=== PATIENT | male | born 1955 | race Caucasian/White ===

== ENCOUNTER 2020-03-20 02:20 | Outpatient (CLI) | payer OTHER, SELFPAY ==
[2020-03-20 17:33] LABS: ALT 21 U/L (16-63); AST 12 U/L (15-37); Albumin 3.9 g/dL (3.4-5.0); Alkaline Phosphatase 68 U/L (46-116); Anion Gap 10.5 mmol/L (3-11); BUN 14 mg/dL (7-18); Bilirubin, Total 0.5 mg/dL (0.2-1.0); CO2 25.5 mmol/L (21.0-32.0); Calcium 9.4 mg/dL (8.5-10.1); Calculated LDL 100 mg/dL (<100); Chloride 107 mmol/L (98-107); Cholesterol 144 mg/dL (<200); Glucose 104 mg/dL (74-106); HDL Cholesterol 35 mg/dL (40-60); Potassium 4.1 mmol/L (3.5-5.1); Sodium 143 mmol/L (136-145); Triglyceride 46 mg/dL (<150)
== END 2020-03-20 02:40 ==
PROVIDERS: PCP Nurse Practitioner; Referring Provider Nurse Practitioner; Visit Provider Nurse Practitioner
DX: I10 Essential (primary) hypertension (principal); R73.01 Impaired fasting glucose; E78.5 Hyperlipidemia, unspecified
CPT/HCPCS: 36415; 80053; 80061

== ENCOUNTER 2021-04-17 03:36 | Outpatient (CLI) | payer OTHER, SELFPAY ==
[2021-04-17 07:44] LABS: HCT 43.7 % (40.0-50.0); HGB 14.6 g/dL (13.5-17.5); MCHC 33.4 % (32.0-36.0); MCV 89.9 fL (80-95); MPV 10.8 fL (8.0-11.0); Platelet Count 249 10^3/uL (130-400); RBC 4.86 10^6/uL (4.36-5.78); RDW 12.9 % (11.8-14.1); RDW-SD 42.5 fL; WBC 9.96 10^3/uL (4.4-10.8)
[2021-04-17 07:44] LABS: Bilirubin Negative (Negative); Blood Negative (Negative); Clarity Clear (Clear); Glucose Negative (Negative); Ketones Negative (Negative); Leukocyte Esterase Negative (Negative); Nitrite Negative (Negative); Specific Gravity 1.025 (1.005-1.025); Urobilinogen 0.2 EU/dL (Up TO 0.2)
[2021-04-17 08:59] LABS: Microalb ug/mg Crea 3.9 ug/mg Cr
[2021-04-17 09:05] LABS: ALT 30 U/L (16-63); AST 15 U/L (15-37); Albumin 3.9 g/dL (3.4-5.0); Alkaline Phosphatase 78 U/L (46-116); Anion Gap 11.5 mmol/L (3-11); BUN 13 mg/dL (7-18); Bilirubin, Total 0.3 mg/dL (0.2-1.0); CO2 25.5 mmol/L (21.0-32.0); CREATININE 0.9 mg/dL (0.70-1.30); Calcium 9.4 mg/dL (8.5-10.1); Calculated LDL 110 mg/dL (<100); Chloride 104 mmol/L (98-107); Cholesterol 166 mg/dL (<200); Glucose 118 mg/dL (74-106); HDL Cholesterol 38 mg/dL (40-60); Potassium 4.6 mmol/L (3.5-5.1); Sodium 141 mmol/L (136-145); Total Protein 7.3 g/dL (6.4-8.2); Triglyceride 91 mg/dL (<150)
== END 2021-04-17 03:37 | disposition home or self-care (01) ==
LOC: LBO 03:36
PROVIDERS: PCP Nurse Practitioner; Visit Provider Nurse Practitioner
DX: Z00.00 Encounter for general adult medical examination without abnormal findings (principal); E11.9 Type 2 diabetes mellitus without complications; E78.5 Hyperlipidemia, unspecified; I10 Essential (primary) hypertension
CPT/HCPCS: 36415; 80053; 80061; 85027; 81003; 82043; 82570

== ENCOUNTER 2022-04-14 02:39 | Outpatient (CLI) | payer OTHER, SELFPAY ==
[2022-04-14 12:10] LABS: ALT 19 U/L (16-63); AST 13 U/L (15-37); Albumin 3.3 g/dL (3.4-5.0); Alkaline Phosphatase 71 U/L (46-116); Anion Gap 9.6 mmol/L (3-11); BUN 14 mg/dL (7-18); Bilirubin, Total 0.3 mg/dL (0.2-1.0); CO2 28.4 mmol/L (21.0-32.0); CREATININE 0.7 mg/dL (0.70-1.30); Calcium 9.2 mg/dL (8.5-10.1); Calculated LDL 87 mg/dL (<100); Chloride 104 mmol/L (98-107); Cholesterol 140 mg/dL (<200); Estimated GFR 101.62 (mL/min/1.73m2); Glucose 108 mg/dL (74-106); HDL Cholesterol 42 mg/dL (40-60); Potassium 4.3 mmol/L (3.5-5.1); Sodium 142 mmol/L (136-145); Total Protein 7.9 g/dL (6.4-8.2); Triglyceride 57 mg/dL (<150)
== END 2022-04-14 02:40 | disposition home or self-care (01) ==
LOC: LBO 02:39
PROVIDERS: PCP Nurse Practitioner; Visit Provider Nurse Practitioner
DX: E11.9 Type 2 diabetes mellitus without complications (principal); I10 Essential (primary) hypertension
CPT/HCPCS: 36415; 80053; 80061

== ENCOUNTER 2022-07-23 12:03 | Outpatient (CLI) | payer OTHER, SELFPAY ==
[2022-07-23 11:44] LABS: Abs Immature Grans 0.11 10^3/uL (0.0-0.06); Absolute Lymphocyte Count 1.39 10^3/uL (1.2-3.4); Basophils % 0.2; ESR 54 mm/hr (0-20); Eosinophils % 0.3; HCT 40.3 % (40.0-50.0); HGB 13.2 g/dL (13.5-17.5); Immature Grans % 0.5; Lymphocytes % 6.7; MCH 28.4 pg (27.0-33.0); MCHC 32.8 % (32.0-36.0); MCV 87 fL (80-95); MPV 10.3 fL (8.0-11.0); Neutrophils % 85.3; Platelet Count 271 10^3/uL (130-400); RBC 4.65 10^6/uL (4.36-5.78); RDW 14.5 % (11.8-14.1); RDW-SD 46.6 fL; WBC 20.81 10^3/uL (4.4-10.8)
[2022-07-23 11:46] LABS: Absolute Basophil Count 0.04 10^3/uL (0.0-0.2); Absolute Eosinophil Count 0.06 10^3/uL (0.0-0.7); Absolute Monocyte Count 1.46 10^3/uL (0.1-0.8); Absolute Neutrophil Count 17.75 10^3/uL (1.2-6.7)
--- OUTSIDE RECORDS SUMMARY | 2022-07-23 12:06 | XMS_ITS | Continuity of Care Document ---
:1955 Author Organization [facility] e Address [address] [place] [address] Care Team Providers Name Role Phone JEANETTE GONZALEZ Primary Care Physician Encounter LTTL_OR FIN NBR [id number] Date(s): 07/22/22 - 07/22/[address] [id number] [place] Encounter Diagnosis Cellulitis (Discharge Diagnosis) - 07/22/22 Dehydration (Discharge Diagnosis) - 07/22/22 Syncope (Discharge Diagnosis) - 07/22/22 Discharge Disposition: Home or Self Care Attending Physician: Brady Pope DO Admitting Physician: Brady Pope DO Allergies, Adverse Reactions, Alerts Substance Reaction Severity Status penicillin Unknown Active Functional Status 07/22/22 Other exposure to Infectious Disease None Medications Bactrim DS 800 mg-160 mg oral tablet 1 tab, Oral, BID, # 20 tab, 0 Refill(s) Start Date: 07/22/22 Stop Date: 08/01/22 Status: Orderedcephalexin 500 mg oral capsule 500 mg = 1 cap, Oral, every 6 hr, # 40 cap, 0 Refill(s) Start Date: 07/22/22 Stop Date: 08/01/22 Status: OrderedhydroCHLOROthiazide 0 Refill(s) Start Date: 07/22/22 Status: Orderedlisinopril 0 Refill(s) Start Date: 07/22/22 Status: OrderedmetFORMIN 0 Refill(s) Start Date: 07/22/22 Status: Ordered Mental Status 07/22/22 Eye Opening Response [place] Spontaneously Best Verbal Response [place] Oriented Best Motor Response Seun Obeys commands [place] Coma Score 15 Results Laboratory List Name Date .Manual Differential (LTTL) 07/22/22 BNP 07/22/22 CBC w/ Diff 07/22/22 Comprehensive Metabolic Panel 07/22/22 Lactic Acid 07/22/22 Magnesium Level 07/22/22 PT/ INR 07/22/22 SARS-CoV-2 (COVID-19)/Flu/RSV ([facility]) 07/22/22 Troponin-I 07/22/22 Glucose POCT 07/22/22 Most recent to oldest [Reference Range]: 1 WBC [4.8-10.8 K/mcL] 23.0 K/mcL *HI* (07/22/22 8:20 AM) RBC [4.20-6.10 Million/mcL] 4.50 Million/mcL (07/22/22 8:20 AM) Segs Man 88 *NA* (07/22/22 8:20 AM) Lymph Man [20.5-51.1 %] 4.0 % *LOW* (07/22/22 8:20 AM) Ness Man [1.7-9.3 %] 7.0 % (07/22/22 8:20 AM) Eos Man [0.00-3.00 %] 0.00 % (07/22/22 8:20 AM) Prothrombin Time [9.1-10.6 seconds] 10.7 seconds *HI* (07/22/22 8:20 AM) INR [0.9-1.1] 1.1 (07/22/22 8:20 AM) BUN [8-26 mg/dL] 13 mg/dL (07/22/22 8:20 AM) Glucose POC 225 *NA* (07/22/22 8:10 AM) Glucose Level [74-106 mg/dL] 214 mg/dL *HI* (07/22/22 8:20 AM) Potassium Level [3.5-5.1 mmol/L] 3.7 mmol/L (07/22/22 8:20 AM) MCV [80.0-99.0 fL] 88.7 fL (07/22/22 8:20 AM) RBC Morph [Normal] Normal (07/22/22 8:20 AM) AST [15-41 IntlUnit/L] 16 IntlUnit/L (07/22/22 8:20 AM) ALT [17-63 IntlUnit/L] 11 IntlUnit/L *LOW* (07/22/22 8:20 AM) MCHC [32.0-36.0 g/dL] 32.3 g/dL (07/22/22 8:20 AM) Osmolality [275-295 mOsm/kg] 265 mOsm/kg *LOW* (07/22/22 AM) Troponin-I [<=0.05 ng/mL] <0.01 ng/mL (07/22/22: AM) Sodium Level [134-143 mmol/L] 129 mmol/L *LOW* (07/22/22 AM) Hct [37.0-52.0 %] 39.9 % (07/22/22: AM) Calcium Level [8.9-10.3 mg/dL] 9.2 mg/dL (07/22/22 AM) Albumin Level [3.5-5.0 g/dL] 3.4 g/dL *LOW* (07/22/22 AM) Protein Total [6.5-8.1 g/dL] 7.9 g/dL (07/22/22: AM) MCH [27.0-31.0 pg] 28.7 pg (07/22/22: AM) Magnesium Level [1.8-2.5 mg/dL] 2.0 mg/dL (07/22/22: AM) Bilirubin Total [0.2-1.2 mg/dL] 0.6 mg/dL (07/22/22 8:20 AM) Hgb [12.0-18.0 g/dL] 12.9 g/dL (07/22/22 8: AM) Alk Phos [38-130 IntlUnit/L] 65 IntlUnit/L (07/22/22 8:20 AM) MPV [7.4-10.4 fL] 11.2 fL *HI* (07/22/22 8: AM) Band Man 1 % *NA* (07/22/22 AM) Platelets [130-400 K/mcL] 256 K/mcL (07/22/22 8:20 AM) CO2 [22-32 mmol/L] 24 mmol/L (07/22/22 8:20 AM) Lactic Acid Lvl [0.5-2.2 mmol/L] 2.8 mmol/L *HI* (07/22/22 8:20 AM) eGFR Non-AA 104 *NA* (07/22/22 8:20 AM) eGFR AA 104 *NA* (07/22/22 8:20 AM) BNP [<=100 pg/mL] 37 pg/mL (07/22/22 8:20 AM) Chloride Level [98-111 mmol/L] 94 mmol/L *LOW* (07/22/22 8:20 AM) RDW-CV [11.5-14.5 %] 14.8 % *HI* (07/22/22 8:20 AM) A/G Ratio 0.8 *NA* (07/22/22 8:20 AM) BUN/Creat Ratio [8.0-20.0] 20.0 (07/22/22 8:20 AM) Globulin 4.5 *NA* (07/22/22 8:20 AM) Abs Baso Man [0.0-0.2 K/mcL] 0.0 K/mcL (07/22/22 8:20 AM) Abs Eos Man [0.0-0.2 K/mcL] 0.0 K/mcL (07/22/22 8:20 AM) Abs Lymph Man [1.2-3.4 K/mcL] 0.9 K/mcL *LOW* (07/22/22 8:20 AM) Abs Ness Man [0.1-0.6 K/mcL] 1.6 K/mcL *HI* (07/22/22 8:20 AM) Abs Neut Man [1.4-6.5 K/mcL] 20.5 K/mcL *HI* (07/22/22 8:20 AM) Creatinine Level [0.61-1.24 mg/dL] 0.65 mg/dL (07/22/22 8:20 AM) Plt Estimation Normal (07/22/22 8:20 AM) Employed in healthcare? No *NA* (07/22/22 8:20 AM) Symptomatic as defined by CDC? Unknown *NA* (07/22/22 8:20 AM) Hospitalized due to COVID-19? Unknown *NA* (07/22/22 8:20 AM) In ICU? No *NA* (07/22/22 8:20 AM) Group care resident? Unknown *NA* (07/22/22 8:20 AM) status? Unknown *NA* (07/22/22 8:20 AM) SARS-CoV-2(Covid19)PCR([facility]Xpert COVFLURSV) [Negative] Ne gative (07/22/22 8:20 AM) Flu A ([facility]pert COVFLURSV) [Negative] Negative (07/22/22 8:20 AM) RSV ([facility]Xpert COVFLURSV) [Negative] Negative (07/22/22 8:20 AM) Flu B (GXpert COVFLURSV) [Negative] Negative (07/22/22 8:20 AM) Anion Gap [3.0-12.0] 11.0 (07/22/22 8:20 AM) Baso Man [0.0-0.8 %] 0.0 % (07/22/22 8:20 AM) Orders for Microbiology Reports Name Date Blood Culture 07/22/22 Blood Culture 07/22/22 Microbiology Reports TEST:Blood Culture STATUS:Order in Progress BODY SITE:Left Arm SOURCE:Blood COLLECTED DATE/TIME:07/22/22 8:35 AMPRELIMINARY REPORTNo growth at 1 day. TEST:Blood Culture STATUS:Order in Progress BODY SITE:Right Arm SOURCE:Blood COLLECTED DATE/TIME:07/22/22 8:30 AMPRELIMINARY REPORTNo growth at 1 day. Radiology Reports Exam Date Time Procedure Performing Provider Status 07/22/22 9:14 AM XR Chest 2 Views Luba Alva; Auth (Verified ) Notes:(XR Chest 2 Views) Reason For Exam: Altered Mental StatusXR Chest 2 Views EXAM DESCRIPTION: XR Chest 2 Views 07/22/2022 INDICATION: ALTERED MENTAL STATUS COMPARISON: None FINDINGS: Clear lungs with no focal infiltrate or pulmonary edema. Normal cardiomediastinal contour. Normal pleural margins with no pleural effusion or pneumothorax. Spondylotic changes of the dorsal spine. IMPRESSION: No active chest disease. JOB #: [id number] Final Signed by: Johnny Blanco MD Signed (Electronic Signature): 07/22/2022 9:18 am Exam Date Time Procedure Performing Provider Status 07/22/22 9:[address] Head w/o Contrast Mónica Oscar; Demian (Ver ied) Notes:(CT Head w/o Contrast) Reason For Exam: Altered Mental StatusCT Head w/o Contrast EXAM DESCRIPTION: CT Head w/o Contrast 07/22/2022 INDICATION: ALTERED MENTAL STATUS TECHNIQUE: All CT scans at this facility use at least one of these dose optimization techniques: Automated exposure control; mA and/or kV adjustment per patient size (includes targeted exams where dose is matched to clinical indication); or iterative reconstruction. Axial CT images of the head without contrast. COMPARISON: None FINDINGS: No acute intracranial hemorrhage, mass effect or midline shift. Prominence of the ventricular system and cortical sulci consistent with generalized cerebral atrophy. Cuevas-white differentiation is maintained. Basal cisterns remain patent. The calvarium appears intact. Right maxillary, bilateral ethmoid and bilateral sphenoid sinus mucosal thickening with right frontal sinus mucosal thickening. IMPRESSION: No acute intracranial hemorrhage, mass effect or midline shift. Mild generalized cerebral atrophy. JOB #: [id number] Final Signed by: Johnny Blanco MD Signed (Electronic Signature): 07/22/2022 9:17 am Vital Signs Most recent to oldest 1 2 3 [Reference Range]: Temperature Temporal Artery 36.2 Deg C 36.5 Deg C [36-38 Deg C] (07/22/22 11:00 AM) (07/22/22 7:57 AM) Temperature Temporal Artery 97.16 Deg F (DegF) [97.3-100 Deg F] *LOW* (07/22/22 11:00 AM) Peripheral Pulse Rate 101 bpm 100 bpm [60-100 bpm] *HI* (07/22/22 7:57 AM) (07/22/22 9:00 AM) Heart Rate Monitored [60-100 96 bpm 91 bpm 93 bpm bpm] (07/22/22 11:00 AM) (07/22/22 10:30 AM) (07/22/22 1 0:00 AM) Respiratory Rate [12-24 18 br/min 23 br/min 21 br/mi n br/min] (07/22/22 11:00 AM) (07/22/22 10:30 AM) (07/22/22 1 0:00 AM) Blood Pressure [90-140/60-90 114/63 mmHg 135/68 mmHg 131 /76 mmHg mmHg] (07/22/22 11:00 AM) (07/22/22 10:30 AM) (07/22/22 1 0:00 AM) Mean Arterial Pressure Cuff 78 mmHg 86 mmHg 92 m mHg (07/22/22 11:00 AM) (07/22/22 10:30 AM) (07/22/22 1 0:00 AM) Weight Dosing 79.00 kg (07/22/22 8:12 AM) Weight Estimated 79.00 kg (07/22/22 7:57 AM) Height/Length Dosing 177.000 cm (07/22/22 8:12 AM) Height/Length Estimated 177.000 cm (07/22/22 7:57 AM) Social History Social History Type Response Tobacco Never tobacco user Tobacco U se:. Sex Hospital Discharge Instructions Patient Ucnwirdyp16/08/2022 09:53:37SyncopeSyncope Syncope refers to a condition in which a person temporarily loses consciousness. Syncope may also becalled fainting or passing out. It is caused by a sudden decrease in blood flow to the brain. Even though most causes of syncope are not dangerous, syncope can be a sign of a serious medical problem. Your health care provider may do tests to find the reason why you are having syncope. Signs that you may be about to faint include: ??? Feeling dizzy or light-headed. ??? Feeling nauseous. ??? Seeing all white or all black in your field of vision. ??? Having cold, clammy skin. If you faint, get medical help right away. Call your local emergency services (911 in the [place] Do not drive yourself to the hospital. Follow these instructions at home: Pay attention to any changes in your symptoms. Take these actions to stay safe and to help relieve your symptoms: Lifestyle ??? Do not drive, use machinery, or play sports until your health care provider says it is okay. ??? Do not drink alcohol. ??? Do not use any products that contain nicotine or tobacco, such as cigarettes and e-cigarettes. If you need help quitting, ask your health care provider. ??? Drink enough fluid to keep your urine pale yellow. General instructions ??? Take tlzg-ckm-lkvixei and prescription medicines only as told by your health care provider. ??? If you are taking blood pressure or heart medicine, get up slowly and take several minutes to sit and then stand. This can reduce dizziness or light-headedness. ??? Have someone stay with you until you feel stable. ??? If you start to feel like you might faint, lie down right away and raise (elevate) your feet above the level of your heart. Breathe deeply and steadily. Wait until all the symptoms have passed. ??? Keep all follow-up visits as told by your health care provider. This is important. Get help right away if you: ??? Have a severe headache. ??? Faint once or repeatedly. ??? Have pain in your chest, abdomen, or back. ??? Have a very fast or irregular heartbeat (palpitations). ??? Have pain when you breathe. ??? Are bleeding from your mouth or rectum, or you have black or tarry stool. ??? Have a seizure. ??? Are confused. ??? Have trouble walking. ??? Have severe weakness. ??? Have vision problems. These symptoms may represent a serious problem that is an emergency. Do not wait to see if your symptoms will go away. Get medical help right away. Call your local emergency services (911 in the [place]Do not drive yourself to the hospital. Summary ??? Syncope refers to a condition in which a person temporarily loses consciousness. It is caused bya sudden decrease in blood flow to the brain. ??? Signs that you may be about to faint include dizziness, feeling light- headed, feeling nauseous, sudden vision changes, or cold, clammy skin. ??? Although most causes of syncope are not dangerous, syncope can be a sign of a serious medical problem. If you faint, get medical help right away. This information is not intended to replace advice given to you by your health care provider. Make sure you discuss any questions you have with your health care provider. Document Revised: 11/11/2020 Document Reviewed: 12/11/2020 [employer] Patient Education ?? 2021 [employer]. 07/22/2022 09:53:33Dehydration, AdultDehydration, Adult Dehydration is a condition in which there is not enough water or other fluids in the body. This happens when a person loses more fluids than he or she takes in. Important organs, such as the kidneys, brain, and heart, cannot function without a proper amount of fluids. Any loss of fluids from the body can lead to dehydration. Dehydration can be mild, moderate, or severe. It should be treated right away to prevent it from becoming severe. What are the causes? Dehydration may be caused by: ??? Conditions that cause loss of water or other fluids, such as diarrhea, vomiting, or sweating or urinating a lot. ??? Not drinking enough fluids, especially when you are ill or doing activities that require a lot of energy. ??? Other illnesses and conditions, such as fever or infection. ??? Certain medicines, such as medicines that remove excess fluid from the body (diuretics). ??? Lack of safe drinking water. ??? Not being able to get enough water and food. What increases the risk? The following factors may make you more likely to develop this condition: ??? Having a long-term (chronic) illness that has not been treated properly, such as diabetes, heartdisease, or kidney disease. ??? Being 65 years of age or older. ??? Having a disability. ??? Living in a place that is high in altitude, where thinner, ore storage drier air causes more fluid loss. ??? Doing exercises that put stress on your body for a long time (endurance sports). What are the signs or symptoms? Symptoms of dehydration depend on how severe it is. Mild or moderate dehydration ??? Thirst. ??? Dry lips or dry mouth. ??? Dizziness or light-headedness, especially when standing up from a seated position. ??? Muscle cramps. ??? Dark urine. Urine may be the color of tea. ??? Less urine or tears produced than usual. ??? Headache. Severe dehydration ??? Changes in skin. Your skin may be cold and clammy, blotchy, or pale. Your skin also may not return to normal after being lightly pinched and released. ??? Little or no tears, urine, or sweat. ??? Changes in vital signs, such as rapid breathing and low blood pressure. Your pulse may be weak or may be faster than 100 beats a minute when you are sitting still. ??? Other changes, such as: ??? Feeling very thirsty. ??? Sunken eyes. ??? Cold hands and feet. ??? Confusion. ??? Being very tired (lethargic) or having trouble waking from sleep. ??? Short-term weight loss. ??? Loss of consciousness. How is this diagnosed? This condition is diagnosed based on your symptoms and a physical exam. You may have blood and urinetests to help confirm the diagnosis. How is this treated? Treatment for this condition depends on how severe it is. Treatment should be started right away. Donot wait until dehydration becomes severe. Severe dehydration is an emergency and needs to be treated in a hospital. ??? Mild or moderate dehydration can be treated at home. You may be asked to: ??? Drink more fluids. ??? Drink an oral rehydration solution (ORS). This drink helps restore proper amounts of fluids and salts and minerals in the blood (electrolytes). ??? Severe dehydration can be treated: ??? With IV fluids. ??? By correcting abnormal levels of electrolytes. This is often done by giving electrolytes througha tube that is passed through your nose and into your stomach (nasogastric tube, or NG tube). ??? By treating the underlying cause of dehydration. Follow these instructions at home: Oral rehydration solution If told by your health care provider, drink an ORS: ??? Make an ORS by following instructions on the package. ??? Start by drinking small amounts, about ?? cup (120 mL) every 5???10 minutes. ??? Slowly increase how much you drink until you have taken the amount recommended by your health care provider. Eating and drinking ??? Drink enough clear fluid to keep your urine pale yellow. If you were told to drink an ORS, finish the ORS first and then start slowly drinking other clear fluids. Drink fluids such as: ??? Water. Do not drink only water. Doing that can lead to hyponatremia, which is having too little salt (sodium) in the body. ??? Water from ice chips you suck on. ??? Fruit juice that you have added water to (diluted fruit juice). ??? Low-calorie sports drinks. ??? Eat foods that contain a healthy balance of electrolytes, such as bananas, oranges, potatoes, tomatoes, and spinach. ??? Do not drink alcohol. ??? Avoid the following: ??? Drinks that contain a lot of sugar. These include high-calorie sports drinks, fruit juice that is not diluted, and soda. ??? Caffeine. ??? Foods that are greasy or contain a lot of fat or sugar. General instructions ??? Take zzvp-ndi-ihbpwek and prescription medicines only as told by your health care provider. ??? Do not take sodium tablets. Doing that can lead to having too much sodium in the body (hypernatremia). ??? Return to your normal activities as told by your health care provider. Ask your health care provider what activities are safe for you. ??? Keep all follow-up visits as told by your health care provider. This is important. Contact a health care provider if: ??? You have muscle cramps, pain, or discomfort, such as: ??? Pain in your abdomen and the pain gets worse or stays in one area (localizes). ??? Stiff neck. ??? You have a rash. ??? You are more irritable than usual. ??? You are sleepier or have a harder time waking than usual. ??? You feel weak or dizzy. ??? You feel very thirsty. Get help right away if you have: ??? Any symptoms of severe dehydration. ??? Symptoms of vomiting, such as: ??? You cannot eat or drink without vomiting. ??? Vomiting gets worse or does not go away. ??? Vomit includes blood or green matter (bile). ??? Symptoms that get worse with treatment. ??? A fever. ??? A severe headache. ??? Problems with urination or bowel movements, such as: ??? Diarrhea that gets worse or does not go away. ??? Blood in your stool (feces). This may cause stool to look black and tarry. ??? Not urinating, or urinating only a small amount of very dark urine, within 6???8 hours. ??? Trouble breathing. These symptoms may represent a serious problem that is an emergency. Do not wait to see if the symptoms will go away. Get medical help right away. Call your local emergency services (911 in the [place] Do not drive yourself to the hospital. Summary ??? Dehydration is a condition in which there is not enough water or other fluids in the body. This happens when a person loses more fluids than he or she takes in. ??? Treatment for this condition depends on how severe it is. Treatment should be started right away. Do not wait until dehydration becomes severe. ??? Drink enough clear fluid to keep your urine pale yellow. If you were told to drink an oral rehydration solution (ORS), finish the ORS first and then start slowly drinking other clear fluids. ??? Take ubuh-bdi-zfqdhbd and prescription medicines only as told by your health care provider. ??? Get help right away if you have any symptoms of severe dehydration. This information is not intended to replace advice given to you by your health care provider. Make sure you discuss any questions you have with your health care provider. Document Revised: 03/13/2020 Document Reviewed: 03/13/2020 [employer] Patient Education ?? 2021 [employer]. 07/22/2022 09:53:30Cellulitis, AdultCellulitis, Adult Cellulitis is a skin infection. The infected area is usually warm, red, swollen, and tender. This condition occurs most often in the arms and lower legs. The infection can travel to the muscles, blood,and underlying tissue and become serious. It is very important to get treated for this condition. What are the causes? Cellulitis is caused by bacteria. The bacteria enter through a break in the skin, such as a cut, burn, insect bite, open sore, or crack. What increases the risk? This condition is more likely to occur in people who: ??? Have a weak body defense system (immune system). ??? Have open wounds on the skin, such as cuts, tripp, bites, and scrapes. Bacteria can enter the body through these open wounds. ??? Are older than 60 years of age. ??? Have diabetes. ??? Have a type of long-lasting (chronic) liver disease (cirrhosis) or kidney disease. ??? Are obese. ??? Have a skin condition such as: ??? Itchy rash (eczema). ??? Slow movement of blood in the veins (venous stasis). ??? Fluid buildup below the skin (edema). ??? Have had radiation therapy. ??? Use IV drugs. What are the signs or symptoms? Symptoms of this condition include: ??? Redness, streaking, or spotting on the skin. ??? Swollen area of the skin. ??? Tenderness or pain when an area of the skin is touched. ??? Warm skin. ??? A fever. ??? Chills. ??? Blisters. How is this diagnosed? This condition is diagnosed based on a medical history and physical exam. You may also have tests, including: ??? Blood tests. ??? Imaging tests. How is this treated? Treatment for this condition may include: ??? Medicines, such as antibiotic medicines or medicines to treat allergies (antihistamines). ??? Supportive care, such as rest and application of cold or warm cloths (compresses) to the skin. ??? Hospital care, if the condition is severe. The infection usually starts to get better within 1???2 days of treatment. Follow these instructions at home: Medicines ??? Take aols-uzq-tqenazd and prescription medicines only as told by your health care provider. ??? If you were prescribed an antibiotic medicine, take it as told by your health care provider. Do not stop taking the antibiotic even if you start to feel better. General instructions ??? Drink enough fluid to keep your urine pale yellow. ??? Do not touch or rub the infected area. ??? Raise (elevate) the infected area above the level of your heart while you are sitting or lying down. ??? Apply warm or cold compresses to the affected area as told by your health care provider. ??? Keep all follow-up visits as told by your health care provider. This is important. These visits let your health care provider make sure a more serious infection is not developing. Contact a health care provider if: ??? You have a fever. ??? Your symptoms do not begin to improve within 1???2 days of starting treatment. ??? Your bone or joint underneath the infected area becomes painful after the skin has healed. ??? Your infection returns in the same area or another area. ??? You notice a swollen bump in the infected area. ??? You develop new symptoms. ??? You have a general ill feeling (malaise) with muscle aches and pains. Get help right away if: ??? Your symptoms get worse. ??? You feel very sleepy. ??? You develop vomiting or diarrhea that persists. ??? You notice red streaks coming from the infected area. ??? Your red area gets larger or turns dark in color. These symptoms may represent a serious problem that is an emergency. Do not wait to see if the symptoms will go away. Get medical help right away. Call your local emergency services (911 in the [place] Do not drive yourself to the hospital. Summary ??? Cellulitis is a skin infection. This condition occurs most often in the arms and lower legs. ??? Treatment for this condition may include medicines, such as antibiotic medicines or antihistamines. ??? Take lbzo-ftc-vkbokeb and prescription medicines only as told by your health care provider. If you were prescribed an antibiotic medicine, do not stop taking the antibiotic even if you start to feel better. ??? Contact a health care provider if your symptoms do not begin to improve within 1???2 days of starting treatment or your symptoms get worse. ??? Keep all follow-up visits as told by your health care provider. This is important. These visits let your health care provider make sure that a more serious infection is not developing. This information is not intended to replace advice given to you by your health care provider. Make sure you discuss any questions you have with your health care provider. Document Revised: 08/11/2020 Document Reviewed: 12/21/2018 [employer] Patient Education ?? 2021 [employer]. Follow Up Care07/22/2022 07:57:46With:JEANETTE GONZALEZ Address: [address] [place] [address]- When:3 to 5 daysDavidHirschMDLittleton [facility] Discharge instructions Event Display: Discharge Instructions Physician Emergency department Note Krish Ott MD: PERFORM Event Display: ED Note Physician Authored Date: [id number] KEVIN RYAN :1955 Age:66 years Sex:Male Visit Date:07/22/2022 Primary Care Physician: JEANETTE GONZALEZ ED Supervision/Handoff Note: Please see dictated history and physical by Dr. Pope who primarily evaluate the patient. ??The patient was signed out to me at shift change awaiting reevaluation. History Of Present Illness: Briefly this is a 66-year-old male presents the ER??for syncope.?? The??patient was sick yesterday with nausea and vomiting.?? This morning he felt lightheaded, dizzy, then passed out.?? He was felt darrion dehydrated by Dr. Pope and found to have leg cellulitis.?? Laboratory studies were ordered aswell as IV fluids and IV antibiotics. Reevaluation/Repeat Exam: On reevaluation the patient is resting comfortably. ??Vital signs are stable. ??Symptoms have resolved.?? He is asking to go home. Medical Decision Making: Syncope, dehydration, leg cellulitis. ??The patient is afebrile nontoxic- appearing here. ??Work-up has been unremarkable with CT head, chest x-ray, laboratory studies other than white blood cell count of 23. ??He was found to have leg cellulitis due to a foot ulcer and started on ceftriaxone. ??He does not appear septic and has normal vital signs at this point.?? No evidence for DKA??or sepsis.?? Lactic is mildly elevated vital signs are stable and he feels improved. ??Recommended he see a car rider for regular foot care. ??Follow-up with primary care this week for recheck in the office.?? I will start him on Keflex and Bactrim,??recommend push p.o. fluids, rest, watch blood sugar closely.?? Follow-up with primary care in the next few days for recheck, return for new or worsening symptoms that were discussed with him. ??No suggestion of cardiac etiology or??acute neurologic emergency. Vitals & Measurements T:??36.5?C ??(Temporal Artery)?? HR:??100??(Peripheral)?? RR:??16?? BP:??145/68?? SpO2:??98%?? HT:??177.000??cm?? WT:??79.00??kg??(Estimated)?? O2 Therapy:??Room air?? Procedure No Qualifying Data Lab Results CBC and Differential?? LATEST RESULTS?? WBC?? 07/22/22 08:20?? 23.0 ??High?? RBC?? 07/22/22 08:20?? 4.50?? Hgb?? 07/22/22 08:20?? 12.9?? Hct?? 07/22/22 08:20?? 39.9?? MCV?? 07/22/22 08:20?? 88.7?? MCH?? 07/22/22 08:20?? 28.7?? MCHC?? 07/22/22 08:20?? 32.3?? RDW-CV?? 07/22/22 08:20?? 14.8 ??High?? Platelets?? 07/22/22 08:20?? 256?? MPV?? 07/22/22 08:20?? 11.2 ??High?? Segs Man?? 07/22/22 08:20?? 88?? Lymph Man?? 07/22/22 08:20?? 4.0 ??Low?? Ness Man?? 07/22/22 08:20?? 7.0?? Eos Man?? 07/22/22 08:20?? 0.00?? Baso Man?? 07/22/22 08:20?? 0.0?? Band Man?? 07/22/22 08:20?? 1?? Abs Neut Man?? 07/22/22 08:20?? 20.5 ??High?? Abs Lymph Man?? 07/22/22 08:20?? 0.9 ??Low?? Abs Ness Man?? 07/22/22 08:20?? 1.6 ??High?? Abs Eos Man?? 07/22/22 08:20?? 0.0?? Abs Baso Man?? 07/22/22 08:20?? 0.0?? RBC Morph?? 07/22/22 08:20?? Normal?? Plt Estimation?? 07/22/22 08:20?? Normal? Coagulation?? LATEST RESULTS?? Prothrombin Time?? 07/22/22 08:20?? 10.7 ??High?? INR?? 07/22/22 08:20?? 1.1? Routine Chemistry?? LATEST RESULTS?? Sodium Level?? 07/22/22 08:20?? 129 ??Low?? Potassium Level?? 07/22/22 08:20?? 3.7?? Chloride Level?? 07/22/22 08:20?? 94 ??Low?? CO2?? 07/22/22 08:20?? 24?? Alk Phos?? 07/22/22 08:20?? 65?? AST?? 07/22/22 08:20?? 16?? ALT?? 07/22/22 08:20?? 11 ??Low?? BUN?? 07/22/22 08:20?? 13?? Glucose Level?? 07/22/22 08:20?? 214 ??High?? Creatinine Level?? 07/22/22 08:20?? 0.65?? BUN/Creat Ratio?? 07/22/22 08:20?? 20.0?? eGFR AA?? 07/22/22 08:20?? 104?? eGFR Non-AA?? 07/22/22 08:20?? 104?? Calcium Level?? 07/22/22 08:20?? 9.2?? Protein Total?? 07/22/22 08:20?? 7.9?? Albumin Level?? 07/22/22 08:20?? 3.4 ??Low?? Globulin?? 07/22/22 08:20?? 4.5?? A/G Ratio?? 07/22/22 08:20?? 0.8?? Bilirubin Total?? 07/22/22 08:20?? 0.6?? Anion Gap?? 07/22/22 08:20?? 11.0?? Lactic Acid Lvl?? 07/22/22 08:20?? 2.8 ??High?? Magnesium Level?? 07/22/22 08:20?? 2.0?? Osmolality?? 07/22/22 08:20?? 265 ??Low?? Glucose POC?? 07/22/22 08:10?? 225? Cardiac Isoenzymes?? LATEST RESULTS?? Troponin-I?? 07/22/22 08:20?? <0.01?? BNP?? 07/22/22 08:20?? 37? Infectious Disease?? LATEST RESULTS?? 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 07/22/22 08:20?? No?? Symptomatic as defined by CDC??? 07/22/22 08:20?? Unknown?? Hospitalized due to COVID-19??? 07/22/22 08:20?? Unknown?? In ICU??? 07/22/22 08:20?? No?? Group care resident??? 07/22/22 08:20?? Unknown?? status??? 07/22/22 08:20?? Unknown?? SARS-CoV-2(Covid19)PCR([facility]OV[facility])?? 07/22/22 08:20?? Negative?? Flu A ([facility]OV[facility])?? 07/22/22 08:20?? Negative?? Flu B ([facility]OV[facility]UR[facility])?? 07/22/22 08:20?? Negative?? RSV ([facility]OV[facility])?? 07/22/22 08:20?? Negative?? Diagnostic Results CT Head w/o Contrast 07/22/2022 09:19 EST XR Chest 2 Views 07/22/2022 09:21 EST XR Chest 2 Views 07/22/22 09:18:56 EXAM DESCRIPTION: XR Chest 2 Views ?? 07/22/2022 ? INDICATION: ALTERED MENTAL STATUS ?? COMPARISON: ?? None ?? FINDINGS: Clear lungs with no focal infiltrate or pulmonary edema. Normal cardiomediastinal contour. Normal pleural margins with no pleural effusion or pneumothorax. Spondylotic changes of the dorsal spine. ?? IMPRESSION: No active chest disease. ? JOB #: [id number] Electronically Signed By: Signed By: Johnny Blanco MD CT Head w/o Contrast 07/22/22 09:17:28 EXAM DESCRIPTION: CT Head w/o Contrast ?? 07/22/2022 ?? INDICATION: ALTERED MENTAL STATUS ?? TECHNIQUE: All CT scans at this facility use at least one of these dose optimization techniques: Automated exposure control; mA and/or kV adjustment per patient size (includes targeted exams where dose is matched to clinical indication); or iterative reconstruction. ?? Axial CT images of the head without contrast. ?? COMPARISON: None ?? FINDINGS: No acute intracranial hemorrhage, mass effect or midline shift. Prominence of the ventricular system and cortical sulci consistent with generalized cerebral atrophy. Cuevas-white differentiation is maintained. Basal cisterns remain patent. ?? The calvarium appears intact. ?? Right maxillary, bilateral ethmoid and bilateral sphenoid sinus mucosal thickening with right frontal sinus mucosal thickening. ?? IMPRESSION: No acute intracranial hemorrhage, mass effect or midline shift. Mild generalized cerebral atrophy. ? JOB #: [id number] Electronically Signed By: Signed By: Johnny Blanco MD Assessment/Plan 1.??Cellulitis??L03.90 2.??Dehydration??E86.0 3.??Syncope??R55 Orders: cephalexin 500 mg oral capsule, 500 mg = 1 cap, Oral, every 6 hr, # 40 cap, 0 Refill(s) Bactrim DS 800 mg-160 mg oral tablet, 1 tab, Oral, BID, # 20 tab, 0 Refill(s) Electronically Signed on 07/22/22 10:58 AM Jose Miguel Anderson, DO: PERFORM Event Display: ED Note Physician Authored Date: [id number] KEVIN RYAN :1955 Age:66 years Sex:Male Visit Date:07/22/2022 Primary Care Physician: JEANETTE GONZALEZ Basic Information Time Seen: Brady Pope DO / 07/22/2022 07:59 Chief Complaint Pt reports whitnessed syncopal episode while at work. Pt denies complaints at this time. FSBG 225 upon arrival. History Of Present Illness: This is a very pleasant 66-year-old male PMH DM 2 on metformin, HTN on hydrochlorothiazide/lisinopril who presents to the emergency department status post syncopal episode while at work this morning.?? He states yesterday he had an episode of intractable nausea/vomiting and has had limited p.o. intake yesterday into this morning.?? He drank very little this morning and at work he felt really lightheaded and subsequently passed out.?? Return to??normal??mental status and seconds. ??Denies any head injury, cervical spine injury or any traumatic injury.?? No fever/chills.?? Bedside glucose upon arrival 225 mg/dL.?? No preceding symptoms of passing out specifically no chest pain, shortness of breath,palpitations, nausea or diaphoresis. Review of Systems: Constitutional:??no??fever,??no??chills,??no??sweats,??no??weakness Skin:??no??Jaundice,??no??rash,??no??lesions,??no??petechiae ENMT:??no??ear pain,??no??sore throat,??no??congestion,??no??hoarseness Respiratory:??no??shortness of breath,??no??cough,??no??orthopnea,??no??wheezing Cardiovascular:??no??chest pain,??no??palpitations,??no??edema Gastrointestinal:??no??diarrhea,??no??GI bleeding Genitourinary:??no??dysuria,??no??hematuria,??no??discharge,??no??pain Musculoskeletal:??no??back pain,??no??trauma Neurologic:??no??headache,??no??dizziness,??no??numbness,??no??weakness ?? Additional ROS info: Except as noted in the above Review of Systems and in the History of Present Illness all other systems have been reviewed and are negative or noncontributory.?? Physical Exam Vitals & Measurements T:??36.5?C ??(Temporal Artery)?? HR:??100??(Peripheral)?? RR:??16?? BP:??145/68?? SpO2:??98%?? HT:??177.000??cm?? WT:??79.00??kg??(Estimated)?? O2 Therapy:??Room air?? General:??alert,??no acute distress.?? Quite friendly elderly??male sitting upright in bed in no apparent distress.?? Denies any pain or discomfort. Skin:??warm,??dry. no rash.?? Delayed capillary refill with fair skin turgor. Head:??no??trauma,??normocephalic. Eye:??normal??conjunctiva, sclera??clear. PERRLA, EOMI Ear:??No hemotympanum Nose: No rhinorrhea or or??nasal congestion. ??No bleeding. ??No evidence of trauma. Throat: No posterior pharyngeal erythema or tonsillar exudate.?? Airway patent.?? Dentition intact.?? Dry mucous membranes/lips. Neck:??Supple. ??No midline tenderness.?? Dynamic range of motion against resistance intact. ??Cervical spine cleared Via Nexus criteria. Cardiovascular:??regular??rate and rhythm, normal S1/S2, no murmur,??normal??peripheral perfusion. Respiratory: lungs??CTA, respirations??non-labored. Chest wall:??no??deformity.??no??chest wall tenderness to palpation Gastrointestinal:??soft,??non distended,??no??tenderness,??no??guarding/rebound/rigidity. Extremities:??no??deformity,??no??trauma.??positive??unilateral leg swelling??left-sided with warmth to palpation. ??She was removed??and a??deep??palm are??foot??ulceration is noted with clean??tissues at the base and no surrounding erythema or purulent drainage.?? However, the dorsal aspect of the foot, second digit??spreading to the proximal??anterior calf reveals cellulitis.?? Otherwise,??no??posterior calf tenderness.? Neurological:??oriented??x 4, LOC??appropriate for age, CN III-XII??intact, motor strength??equal & normal bilaterally, sensation??equal & normal bilaterally, speech??normal Psychiatric:??cooperative, affect??appropriate for age,??normal??judgement,??normal??psychiatric thoughts. Medical Decision Making: Syncope.?? Yesterday episodes of nausea/vomiting and today with very limited oral intake. ??Physical examination demonstrates signs of dehydration with??delayed capillary refill, dry mucous membranes/lips.?? Examination of the feet demonstrates??a diabetic foot ulcer??fortunately with clean base and no surrounding erythema or purulence.?? There is cellulitis however to the dorsal aspect of the foot spreading??to the proximal anterior steward.?? Current working??etiology for the syncope is likely dehydration in the setting of developing cellulitis in the lower foot??2/2 diabetes mellitus.?? Patient is allergic to penicillin but will still use ceftriaxone 1 g intravenously for antibiotic therapy with plans for outpatient Bactrim/Keflex.?? We will obtain screening laboratory work-up, blood cultures, lactic acid, chest x-ray, EKG,??and head CT??to evaluate for other possible etiologies of syncope. Procedure No Qualifying Data Reexamination/Reevaluation 9:15 AM: Patient care transferred to [facility] ED attending Dr. Ott. ?? This patient's care has been transferred to the incoming physician. We discussed: the patient's chief complaint; labs and imaging that have been completed and those that are still pending; procedures that have been completed and those remaining to be done; any treatment provided and the patient's r esponse to treatment; input from consultants (if any); the remaining treatment plan. The incoming physician will follow up on all pending labs and imaging, make any necessary changes to the current impression and/or treatment plan and provide a final disposition. Assessment/Plan Ordered: cefTRIAXone, 1 g = 50 mL, IV Piggyback, Injection, Once, Antibiotic Indication Skin/Soft- Tissue Infection, Administer over: 30 minutes, First Dose: 07/22/22 9:00:00 EST, Stop Date: 07/22/22 9:00:00 EST, Physician Stop, Routine, 100 mL/hr Normal Saline Flush, 10 mL, IV Flush, Injection, As Directed, PRN telecommunications line mechanic, First Dose: 07/22/22 8:02:00 EST, Routine Sodium Chloride 0.9% 1,000 mL, Total Volume (mL): 1,000, 1,000 mL, Soln-IV, IV, 125 mL/hr, Start Date: 07/22/22 8:00:00 EST, Populate Charting Weight From Order .Manual Differential (LTTL), Blood, Stat, Collected, 07/22/22 8:20:00 EST, Once, Nurse collect, [id number] Blood Culture, Blood, Arm R, Stat collect, ST - Stat, 07/22/22 8:28:00 EST, Once, Nurse collect, Print Label Blood Culture, Blood, Arm L, Stat collect, ST - Stat, 07/22/22 8:28:00 EST, Once, Nurse collect, Print Label BNP, Blood, Stat, 07/22/22 8:00:00 EST, Once, Nurse collect Comprehensive Metabolic Panel, Blood, Stat, 07/22/22 8:00:00 EST, Once, Nurse collect CT Head w/o Contrast, 07/22/22 8:00:00 EST, Stat, Reason: Altered Mental Status, Transport Mode: Stretcher CV Electrocardiogram 12 Lead, 07/22/22 8:00:00 EST, Stat, Reason: ED - empiric, Frequency Once Stopdate and time 07/22/22 8:00:00 EST, ORD_SET_REQ_DT_RANGE, Milly's Internal Person Id Lactic Acid, Blood, Stat, 07/22/22 8:28:00 EST, Once, Nurse collect Magnesium Level, Blood, Stat, 07/22/22 8:00:00 EST, Once, Nurse collect Peripheral IV Insertion, 07/22/22 8:00:00 EST PT/ INR, Blood, Stat, 07/22/22 8:00:00 EST, Once, Nurse collect SARS-CoV-2 (COVID-19)/Flu/RSV ([facility]pert), Nasopharyngeal Swab, Routine Collect, 07/22/22 8:00:00 EST, Once, Nurse collect, Print Label, No, Unknown, Unknown, No, Unknown, Unknown Troponin-I, Blood, Timed Study, 07/22/22 8:00:00 EST, Once, Nurse collect Vital Signs, 07/22/22 8:00:00 EST, Once, Stop date 07/22/22 8:00:00 EST, Vital signs per ED NursingStandard of Care XR Chest 2 Views, 07/22/22 8:00:00 EST, Stat, Reason: Altered Mental Status, Transport Mode: Stretcher, Once Medication Reconciliation Unchanged hydroCHLOROthiazide ?? lisinopril ?? metFORMIN Problem List/Past Medical History Ongoing No qualifying data Historical No qualifying data Medication Administration Given Sodium Chloride 0.9%, 1000 mL, IV Allergies penicillin Social History Alcohol Never Electronic Cigarette/Vaping Electronic Cigarette Use: Never. Substance Use Never Tobacco Never tobacco user Tobacco Use:. Family History Non-Contributory Lab Results CBC and Differential?? LATEST RESULTS?? WBC?? 07/22/22 08:20?? 23.0 ??High?? RBC?? 07/22/22 08:20?? 4.50?? Hgb?? 07/22/22 08:20?? 12.9?? Hct?? 07/22/22 08:20?? 39.9?? MCV?? 07/22/22 08:20?? 88.7?? MCH?? 07/22/22 08:20?? 28.7?? MCHC?? 07/22/22 08:20?? 32.3?? RDW-CV?? 07/22/22 08:20?? 14.8 ??High?? Platelets?? 07/22/22 08:20?? 256?? MPV?? 07/22/22 08:20?? 11.2 ??High? Routine Chemistry?? LATEST RESULTS?? Glucose POC?? 07/22/22 08:10?? 225? Electronically Signed on 07/22/22 09:00 AM Brady Pope DO Emergency department Discharge instructions Krish Ott MD: PERFORM Event Display: ED Discharge Information Authored Date: [id number] KEVIN RYAN :1955 Age:66 years Sex:Male Visit Date:07/22/2022 Primary Care Physician: JEANETTE GONZALEZ Discharge Instructions We would like to thank you for allowing us to assist you with your healthcare needs. The following includes patient education materials and information regarding your injury/illness. Diagnosis from Today's Visit Cellulitis Dehydration Syncope Discharge Vitals Temperature??(Temporal Artery) 97.7 ??F (36.5 ??C) Heart Rate??(Peripheral) 100 Respiratory Rate?? 16 Blood Pressure?? 145/68?? Height?? 69.69 in (177.000 cm) Weight??(Estimated) 174.20 lb (79.00 kg) Allergies penicillin What to Do Next You Need to Schedule the Following Appointments Follow Up with??JEANETTE GONZALEZ When:??Within 3 to 5 days Where: [place] [address]- You were treated today on an emergency basis; it may be kay to contact your primary care provider to notify them of your visit today. You may have been referred to your regular doctor or a specialist,please follow up as instructed. If your condition worsens or you can't get in to see the doctor, contact the Emergency Department. Medications What How Much When Instructions Next Dose New cephalexin (cephalexin 500 mg oral capsule) 1 Capsules Oral (given by mouth) Every 6 hours Duration: 10 Days Printed Prescription New sulfamethoxazole-trimethoprim (Bactrim DS 800 mg-160 mg oral tablet) 1 tab Oral (given by mouth) 2 times a day Duration: 10 Days Printed Prescription Unchanged hydroCHLOROthiazide Unchanged lisinopril Unchanged metFORMIN [employer] Syncope Syncope refers to a condition in which a person temporarily loses consciousness. Syncope may also be called fainting or passing out. It is caused by a sudden decrease in blood flow to the brain. Even though most causes of syncope are not dangerous, syncope can be a sign of a serious medical problem. Y our health care provider may do tests to find the reason why you are having syncope. Signs that you may be about to faint include: ? Feeling dizzy or light-headed. ? Feeling nauseous. ? Seeing all white or all black in your field of vision. ? Having cold, clammy skin. If you faint, get medical help right away. Call your local emergency services (911 in the [place] Donot drive yourself to the hospital. Follow these instructions at home: Pay attention to any changes in your symptoms. Take these actions to stay safe and to help relieve your symptoms: Lifestyle ? Do not drive, use machinery, or play sports until your health care provider says it is okay. ? Do not drink alcohol. ? Do not use any products that contain nicotine or tobacco, such as cigarettes and e-cigarettes. If you need help quitting, ask your health care provider. ? Drink enough fluid to keep your urine pale yellow. General instructions ? Take [id number] and prescription medicines only as told by your health care provider. ? If you are taking blood pressure or heart medicine, get up slowly and take several minutes to sit and then stand. This can reduce dizziness or light-headedness. ? Have someone stay with you until you feel stable. ? If you start to feel like you might faint, lie down right away and raise (elevate) your feet above the level of your heart. Breathe deeply and steadily. Wait until all the symptoms have passed. ? Keep all follow-up visits as told by your health care provider. This is important. Get help right away if you: ? Have a severe headache. ? Faint once or repeatedly. ? Have pain in your chest, abdomen, or back. ? Have a very fast or irregular heartbeat (palpitations). ? Have pain when you breathe. ? Are bleeding from your mouth or rectum, or you have black or tarry stool. ? Have a seizure. ? Are confused. ? Have trouble walking. ? Have severe weakness. ? Have vision problems. These symptoms may represent a serious problem that is an emergency. Do not wait to see if your symptoms will go away. Get medical help right away. Call your local emergency services (911 in the [place] Do not drive yourself to the hospital. Summary ? Syncope refers to a condition in which a person temporarily loses consciousness. It is caused by a sudden decrease in blood flow to the brain. ? Signs that you may be about to faint include dizziness, feeling light-headed, feeling nauseous, sudden vision changes, or cold, clammy skin. ? Although most causes of syncope are not dangerous, syncope can be a sign of a serious medical problem. If you faint, get medical help right away. This information is not intended to replace advice given to you by your health care provider. Make sure you discuss any questions you have with your health care provider. Document Revised: 11/11/2020 Document Reviewed: 12/11/2020 [employer] Patient Education ?? 2021 [employer] Dehydration, Adult Dehydration is a condition in which there is not enough water or other fluids in the body. This happens when a person loses more fluids than he or she takes in. Important organs, such as the kidneys, brain, and heart, cannot function without a proper amount of fluids. Any loss of fluids from the bodycan lead to dehydration. Dehydration can be mild, moderate, or severe. It should be treated right away to prevent it from becoming severe. What are the causes? Dehydration may be caused by: ? Conditions that cause loss of water or other fluids, such as diarrhea, vomiting, or sweating or urinating a lot. ? Not drinking enough fluids, especially when you are ill or doing activities that require a lot of energy. ? Other illnesses and conditions, such as fever or infection. ? Certain medicines, such as medicines that remove excess fluid from the body (diuretics). ? Lack of safe drinking water. ? Not being able to get enough water and food. What increases the risk? The following factors may make you more likely to develop this condition: ? Having a long-term (chronic) illness that has not been treated properly, such as diabetes, heart disease, or kidney disease. ? Being 65 years of age or older. ? Having a disability. ? Living in a place that is high in altitude, where thinner, ore storage drier air causes more fluid loss. ? Doing exercises that put stress on your body for a long time (endurance sports). What are the signs or symptoms? Symptoms of dehydration depend on how severe it is. Mild or moderate dehydration ? Thirst. ? Dry lips or dry mouth. ? Dizziness or light-headedness, especially when standing up from a seated position. ? Muscle cramps. ? Dark urine. Urine may be the color of tea. ? Less urine or tears produced than usual. ? Headache. Severe dehydration ? Changes in skin. Your skin may be cold and clammy, blotchy, or pale. Your skin also may not return to normal after being lightly pinched and released. ? Little or no tears, urine, or sweat. ? Changes in vital signs, such as rapid breathing and low blood pressure. Your pulse may be weak or may be faster than 100 beats a minute when you are sitting still. ? Other changes, such as: ? Feeling very thirsty. ? Sunken eyes. ? Cold hands and feet. ? Confusion. ? Being very tired (lethargic) or having trouble waking from sleep. ? Short-term weight loss. ? Loss of consciousness. How is this diagnosed? This condition is diagnosed based on your symptoms and a physical exam. You may have blood and urine tests to help confirm the diagnosis. How is this treated? Treatment for this condition depends on how severe it is. Treatment should be started right away. Do not wait until dehydration becomes severe. Severe dehydration is an emergency and needs to be treated in a hospital. ? Mild or moderate dehydration can be treated at home. You may be asked to: ? Drink more fluids. ? Drink an oral rehydration solution (ORS). This drink helps restore proper amounts of fluids and salts and minerals in the blood (electrolytes). ? Severe dehydration can be treated: ? With IV fluids. ? By correcting abnormal levels of electrolytes. This is often done by giving electrolytes through a tube that is passed through your nose and into your stomach (nasogastric tube, or NG tube). ? By treating the underlying cause of dehydration. Follow these instructions at home: Oral rehydration solution If told by your health care provider, drink an ORS: ? Make an ORS by following instructions on the package. ? Start by drinking small amounts, about ?? cup (120 mL) every 5???10 minutes. ? Slowly increase how much you drink until you have taken the amount recommended by your health care provider. Eating and drinking ? Drink enough clear fluid to keep your urine pale yellow. If you were told to drink an ORS, finish the ORS first and then start slowly drinking other clear fluids. Drink fluids such as: ? Water. Do not drink only water. Doing that can lead to hyponatremia, which is having too little salt(sodium) in the body. ? Water from ice chips you suck on. ? Fruit juice that you have added water to (diluted fruit juice). ? Low-calorie sports drinks. ? Eat foods that contain a healthy balance of electrolytes, such as bananas, oranges, potatoes, tomatoes, and spinach. ? Do not drink alcohol. ? Avoid the following: ? Drinks that contain a lot of sugar. These include high-calorie sports drinks, fruit juice that is not diluted, and soda. ? Caffeine. ? Foods that are greasy or contain a lot of fat or sugar. General instructions ? Take iyav-dfv-odifcsu and prescription medicines only as told by your health care provider. ? Do not take sodium tablets. Doing that can lead to having too much sodium in the body (hypernatremia). ? Return to your normal activities as told by your health care provider. Ask your health care providerwhat activities are safe for you. ? Keep all follow-up visits as told by your health care provider. This is important. Contact a health care provider if: ? You have muscle cramps, pain, or discomfort, such as: ? Pain in your abdomen and the pain gets worse or stays in one area (localizes). ? Stiff neck. ? You have a rash. ? You are more irritable than usual. ? You are sleepier or have a harder time waking than usual. ? You feel weak or dizzy. ? You feel very thirsty. Get help right away if you have: ? Any symptoms of severe dehydration. ? Symptoms of vomiting, such as: ? You cannot eat or drink without vomiting. ? Vomiting gets worse or does not go away. ? Vomit includes blood or green matter (bile). ? Symptoms that get worse with treatment. ? A fever. ? A severe headache. ? Problems with urination or bowel movements, such as: ? Diarrhea that gets worse or does not go away. ? Blood in your stool (feces). This may cause stool to look black and tarry. ? Not urinating, or urinating only a small amount of very dark urine, within 6???8 hours. ? Trouble breathing. These symptoms may represent a serious problem that is an emergency. Do not wait to see if the symptoms will go away. Get medical help right away. Call your local emergency services (911 in the [place]Do not drive yourself to the hospital. Summary ? Dehydration is a condition in which there is not enough water or other fluids in the body. This happens when a person loses more fluids than he or she takes in. ? Treatment for this condition depends on how severe it is. Treatment should be started right away. Donot wait until dehydration becomes severe. ? Drink enough clear fluid to keep your urine pale yellow. If you were told to drink an oral rehydration solution (ORS), finish the ORS first and then start slowly drinking other clear fluids. ? Take iwyh-rlj-poaxnxg and prescription medicines only as told by your health care provider. ? Get help right away if you have any symptoms of severe dehydration. This information is not intended to replace advice given to you by your health care provider. Make sure you discuss any questions you have with your health care provider. Document Revised: 03/13/2020 Document Reviewed: 03/13/2020 [employer] Patient Education ?? 2021 [employer] Cellulitis, Adult Cellulitis is a skin infection. The infected area is usually warm, red, swollen, and tender. This condition occurs most often in the arms and lower legs. The infection can travel to the muscles, blood, and underlying tissue and become serious. It is very important to get treated for this condition. What are the causes? Cellulitis is caused by bacteria. The bacteria enter through a break in the skin, such as a cut, burn, insect bite, open sore, or crack. What increases the risk? This condition is more likely to occur in people who: ? Have a weak body defense system (immune system). ? Have open wounds on the skin, such as cuts, tripp, bites, and scrapes. Bacteria can enter the body through these open wounds. ? Are older than 60 years of age. ? Have diabetes. ? Have a type of long-lasting (chronic) liver disease (cirrhosis) or kidney disease. ? Are obese. ? Have a skin condition such as: ? Itchy rash (eczema). ? Slow movement of blood in the veins (venous stasis). ? Fluid buildup below the skin (edema). ? Have had radiation therapy. ? Use IV drugs. What are the signs or symptoms? Symptoms of this condition include: ? Redness, streaking, or spotting on the skin. ? Swollen area of the skin. ? Tenderness or pain when an area of the skin is touched. ? Warm skin. ? A fever. ? Chills. ? Blisters. How is this diagnosed? This condition is diagnosed based on a medical history and physical exam. You may also have tests, including: ? Blood tests. ? Imaging tests. How is this treated? Treatment for this condition may include: ? Medicines, such as antibiotic medicines or medicines to treat allergies (antihistamines). ? Supportive care, such as rest and application of cold or warm cloths (compresses) to the skin. ? Hospital care, if the condition is severe. The infection usually starts to get better within 1???2 days of treatment. Follow these instructions at home: Medicines ? Take rqpn-yze-amhukkz and prescription medicines only as told by your health care provider. ? If you were prescribed an antibiotic medicine, take it as told by your health care provider. Do not stop taking the antibiotic even if you start to feel better. General instructions ? Drink enough fluid to keep your urine pale yellow. ? Do not touch or rub the infected area. ? Raise (elevate) the infected area above the level of your heart while you are sitting or lying down. ? Apply warm or cold compresses to the affected area as told by your health care provider. ? Keep all follow-up visits as told by your health care provider. This is important. These visits let your health care provider make sure a more serious infection is not developing. Contact a health care provider if: ? You have a fever. ? Your symptoms do not begin to improve within 1???2 days of starting treatment. ? Your bone or joint underneath the infected area becomes painful after the skin has healed. ? Your infection returns in the same area or another area. ? You notice a swollen bump in the infected area. ? You develop new symptoms. ? You have a general ill feeling (malaise) with muscle aches and pains. Get help right away if: ? Your symptoms get worse. ? You feel very sleepy. ? You develop vomiting or diarrhea that persists. ? You notice red streaks coming from the infected area. ? Your red area gets larger or turns dark in color. These symptoms may represent a serious problem that is an emergency. Do not wait to see if the symptoms will go away. Get medical help right away. Call your local emergency services (911 in the [place]Do not drive yourself to the hospital. Summary ? Cellulitis is a skin infection. This condition occurs most often in the arms and lower legs. ? Treatment for this condition may include medicines, such as antibiotic medicines or antihistamines. ? Take dwfv-wnw-csimufq and prescription medicines only as told by your health care provider. If you were prescribed an antibiotic medicine, do not stop taking the antibiotic even if you start to feel better. ? Contact a health care provider if your symptoms do not begin to improve within 1???2 days of starting treatment or your symptoms get worse. ? Keep all follow-up visits as told by your health care provider. This is important. These visits let your health care provider make sure that a more serious infection is not developing. This information is not intended to replace advice given to you by your health care provider. Make sure you discuss any questions you have with your health care provider. Document Revised: 08/11/2020 Document Reviewed: 12/21/2018 [employer] Patient Education ?? 2021 [employer] Tests Performed Radiology CT Head w/o Contrast 07/22/2022 09:19 EST XR Chest 2 Views 07/22/2022 09:21 EST Medications and Immunizations Administered Given Sodium Chloride 0.9%, 1000 mL, IV cefTRIAXone, 1 g, IV Piggyback Lab Test Name Test Result Date/Time WBC 23.0 K/mcL 07/22/2022 08:20 EST RBC 4.50 Million/mcL 07/22/2022 08:20 EST Hgb 12.9 g/dL 07/22/2022 08:20 EST Hct 39.9 % 07/22/2022 08:20 EST MCV 88.7 fL 07/22/2022 08:20 EST MCH 28.7 pg 07/22/2022 08:20 EST MCHC 32.3 g/dL 07/22/2022 08:20 EST RDW-CV 14.8 % 07/22/2022 08:20 EST Platelets 256 K/mcL 07/22/2022 08:20 EST MPV 11.2 fL 07/22/2022 08:20 EST Segs Man 88 07/22/2022 08:20 EST Lymph Man 4.0 % 07/22/2022 08:20 EST Ness Man 7.0 % 07/22/2022 08:20 EST Eos Man 0.00 % 07/22/2022 08:20 EST Baso Man 0.0 % 07/22/2022 08:20 EST Band Man 1 % 07/22/2022 08:20 EST Abs Neut Man 20.5 K/mcL 07/22/2022 08:20 EST Abs Lymph Man 0.9 K/mcL 07/22/2022 08:20 EST Abs Ness Man 1.6 K/mcL 07/22/2022 08:20 EST Abs Eos Man 0.0 K/mcL 07/22/2022 08:20 EST Abs Baso Man 0.0 K/mcL 07/22/2022 08:20 EST RBC Morph Normal 07/22/2022 08:20 EST Plt Estimation Normal 07/22/2022 08:20 EST Prothrombin Time 10.7 seconds 07/22/2022 08:20 EST INR 1.1 07/22/2022 08:20 EST Sodium Level 129 mmol/L 07/22/2022 08:20 EST Potassium Level 3.7 mmol/L 07/22/2022 08:20 EST Chloride Level 94 mmol/L 07/22/2022 08:20 EST CO2 24 mmol/L 07/22/2022 08:20 EST Alk Phos 65 IntlUnit/L 07/22/2022 08:20 EST AST 16 IntlUnit/L 07/22/2022 08:20 EST ALT 11 IntlUnit/L 07/22/2022 08:20 EST BUN 13 mg/dL 07/22/2022 08:20 EST Glucose Level 214 mg/dL 07/22/2022 08:20 EST Creatinine Level 0.65 mg/dL 07/22/2022 08:20 EST BUN/Creat Ratio 20.0 07/22/2022 08:20 EST eGFR AA 104 07/22/2022 08:20 EST eGFR Non-AA 104 07/22/2022 08:20 EST Calcium Level 9.2 mg/dL 07/22/2022 08:20 EST Protein Total 7.9 g/dL 07/22/2022 08:20 EST Albumin Level 3.4 g/dL 07/22/2022 08:20 EST Globulin 4.5 07/22/2022 08:20 EST A/G Ratio 0.8 07/22/2022 08:20 EST Bilirubin Total 0.6 mg/dL 07/22/2022 08:20 EST Anion Gap 11.0 07/22/2022 08:20 EST Lactic Acid Lvl 2.8 mmol/L 07/22/2022 08:20 EST Magnesium Level 2.0 mg/dL 07/22/2022 08:20 EST Osmolality 265 mOsm/kg 07/22/2022 08:20 EST Glucose POC 225 07/22/2022 08:10 EST Troponin-I <0.01 ng/mL 07/22/2022 08:20 EST BNP 37 pg/mL 07/22/2022 08:20 EST Employed in healthcare? No 07/22/2022 08:20 EST Symptomatic as defined by CDC? Unknown 07/22/2022 08:20 EST Hospitalized due to COVID-19? Unknown 07/22/2022 08:20 EST In ICU? No 07/22/2022 08:20 EST Group care resident? Unknown 07/22/2022 08:20 EST status? Unknown 07/22/2022 08:20 EST SARS-CoV-2(Covid19)PCR(GXpert COVFLURSV) Neg-GeneXPert 07/22/2022 08:20 EST Flu A (GXpert COVFLURSV) Neg-GeneXPert 07/22/2022 08:20 EST Flu B (GXpert COVFLURSV) Neg-GeneXPert 07/22/2022 08:20 EST RSV (GXpert COVFLURSV) Neg-GeneXPert 07/22/2022 08:20 EST Patient/Ginner Signature Patient Name:RYANKEVIN I have received this information and my questions have been answered. Patient/Ginner Name: Patient/Ginner Signature: Relationship to Patient: Witness Name/Signature: Date: Electronically Signed on: 07/22/2022 10:54 ESTSigned by: CT Head WO contrast Johnny Blanco MD: VERIFY, VERIFY Event Display: Report EXAM DESCRIPTION: CT Head w/o Contrast 07/22/2022 INDICATION: ALTERED MENTAL STATUS TECHNIQUE: All CT scans at this facility use at least one of these dose optimization techniques: Automated exposure control; mA and/or kV adjustment per patient size (includes targeted exams where dose is matched to clinical indication); or iterative reconstruction. Axial CT images of the head without contrast. COMPARISON: None FINDINGS: No acute intracranial hemorrhage, mass effect or midline shift. Prominence of the ventricular system and cortical sulci consistent with generalized cerebral atrophy. Cuevas-white differentiation is maintained. Basal cisterns remain patent. The calvarium appears intact. Right maxillary, bilateral ethmoid and bilateral sphenoid sinus mucosal thickening with right frontal sinus mucosal thickening. IMPRESSION: No acute intracranial hemorrhage, mass effect or midline shift. Mild generalized cerebral atrophy. JOB #: [id number] Final Signed by: Johnny Blanco MD Signed (Electronic Signature): 07/22/2022 9:17 am XR Chest 2 Views Johnny Blanco MD: VERIFY, VERIFY Event Display: Report EXAM DESCRIPTION: XR Chest 2 Views 07/22/2022 INDICATION: ALTERED MENTAL STATUS COMPARISON: None FINDINGS: Clear lungs with no focal infiltrate or pulmonary edema. Normal cardiomediastinal contour. Normal pleural margins with no pleural effusion or pneumothorax. Spondylotic changes of the dorsal spine. IMPRESSION: No active chest disease. JOB #: [id number] Final Signed by: Johnny Blanco MD Signed (Electronic Signature): 07/22/2022 9:18 am Patient Care team information PersonnelName: JUDY GONZALEZYCE Address: Address: [address] [place] [id number] [place] [address]
[2022-07-23 22:24] LABS: CRP, High Sensitivity >15.00 mg/L (See Note)
== END 2022-07-23 12:04 | disposition home or self-care (01) ==
LOC: LBO 12:04
PROVIDERS: PCP Nurse Practitioner; Visit Provider Nurse Practitioner Family
DX: L03.90 Cellulitis, unspecified (principal); L97.529 Non-pressure chronic ulcer of other part of left foot with unspecified severity
CPT/HCPCS: 36415; 85652; 86141; 85025

== ENCOUNTER → 2022-07-28 02:08 | Outpatient (CLI) | payer OTHER, SELFPAY ==
--- NOTE | 2022-07-28 06:30 | DI.RAD_ITS ---
Exam(s) XR FOOT LT COMPLETE EXAM: XR FOOT LT COMPLETE CLINICAL HISTORY: lt foot ulcer, cellulitis,? osteomyelitis,l03.90,l97.529. TECHNIQUE: 2D digital imaging was performed of the left foot. Images were obtained. AP, oblique a nd lateral views were obtained. COMPARISON: No exams were available for comparison FINDINGS: BONES: No acute fracture is present. No bony destructive lesion is seen. There is a plantar calcaneal spur. There is an enthesophyte at the Achilles insertion site. JOINTS: No dislocation present. Degenerative changes are seen in the foot particularly at the tarsome tatarsal joints. SOFT TISSUE: There looks to be a soft tissue defect on the ball of the foot at the level of the tarso metatarsal joints on the lateral view. This may reflect an ulcer. IMPRESSION: No findings to suggest osteomyelitis. If there is continued concern an MRI may be considered for fur ther evaluation. DATA REPOSITORY: RADIATION DOSE DELIVERED:
== END ==
PROVIDERS: PCP Nurse Practitioner; Visit Provider Nurse Practitioner Family
DX: L03.90 Cellulitis, unspecified (principal); L97.529 Non-pressure chronic ulcer of other part of left foot with unspecified severity
CPT/HCPCS: 73630

== ENCOUNTER 2022-07-28 20:29 | Outpatient (REF) | payer OTHER, SELFPAY ==
[2022-07-28 20:40] LABS: Abs Immature Grans 0.07 10^3/uL (0.0-0.06); Absolute Basophil Count 0.05 10^3/uL (0.0-0.2); Absolute Eosinophil Count 0.36 10^3/uL (0.0-0.7); Basophils % 0.4; Eosinophils % 2.7; HCT 40.4 % (40.0-50.0); HGB 12.9 g/dL (13.5-17.5); Immature Grans % 0.5; Lymphocytes % 12.9; MCH 27.7 pg (27.0-33.0); MCHC 31.9 % (32.0-36.0); MCV 87 fL (80-95); MPV 11.4 fL (8.0-11.0); Monocytes % 7.1; Neutrophils % 76.4; Platelet Count 348 10^3/uL (130-400); RBC 4.66 10^6/uL (4.36-5.78); RDW 14.6 % (11.8-14.1); RDW-SD 46.6 fL; WBC 13.44 10^3/uL (4.4-10.8)
[2022-07-28 20:43] LABS: Absolute Lymphocyte Count 1.73 10^3/uL (1.2-3.4); Absolute Monocyte Count 0.95 10^3/uL (0.1-0.8); Absolute Neutrophil Count 10.27 10^3/uL (1.2-6.7); ESR 90 mm/hr (0-20)
[2022-07-28 21:07] LABS: Anion Gap 9.4 mmol/L (3-11); BUN 15 mg/dL (7-18); CO2 23.6 mmol/L (21.0-32.0); CREATININE 0.9 mg/dL (0.70-1.30); Calcium 9.3 mg/dL (8.5-10.1); Chloride 100 mmol/L (98-107); Estimated GFR 94.19 (mL/min/1.73m2); Glucose 164 mg/dL (74-106); Sodium 133 mmol/L (136-145)
== END 2022-07-28 20:30 | disposition home or self-care (01) ==
LOC: LBN 20:29
PROVIDERS: PCP Nurse Practitioner; Visit Provider Nurse Practitioner Family
DX: D72.829 Elevated white blood cell count, unspecified (principal); L03.90 Cellulitis, unspecified; L97.529 Non-pressure chronic ulcer of other part of left foot with unspecified severity; E87.1 Hypo-osmolality and hyponatremia
CPT/HCPCS: 80048; 85652; 85025; 86140

== ENCOUNTER 2022-08-23 15:08 | Emergency (ER) | payer OTHER, SELFPAY ==
[2022-08-23 15:11] VITALS: BP 144/68; PULSE 118; RESP 20; TEMP 37.8; O2SAT 98
--- NOTE | 2022-08-23 16:15 | DI.RAD_ITS ---
Exam(s) XR FOOT RT COMPLETE EXAM: XR FOOT RT COMPLETE CLINICAL HISTORY: swelling infection abx failure. TECHNIQUE: 2D digital imaging was performed of the right foot. Three images were obtained. AP, obl ique and lateral views were obtained. COMPARISON: None. FINDINGS: BONES: No acute fracture is present. No bony destructive lesion is seen. There is a plantar calcaneal spur. There is an enthesophyte at the posterior calcaneus. JOINTS: No dislocation present. Mild degenerative changes are seen at the anterior ankle. SOFT TISSUE: There is soft tissue swelling of the foot particularly anteriorly. IMPRESSION: 1. No radiographic evidence at this time to suggest acute osteomyelitis. 2. Soft tissue swelling of the foot. 3. No acute fracture or dislocation. DATA REPOSITORY: RADIATION DOSE DELIVERED:
[2022-08-23 16:36] LABS: Lactate 1.2 mmol/L (0.6-1.4)
[2022-08-23 16:37] LABS: Abs Immature Grans 0.23 10^3/uL (0.0-0.06); HGB 12.3 g/dL (13.5-17.5); MCH 28.5 pg (27.0-33.0); MCHC 33.2 % (32.0-36.0); MCV 86 fL (80-95); MPV 10.4 fL (8.0-11.0); Platelet Count 282 10^3/uL (130-400); RBC 4.31 10^6/uL (4.36-5.78); RDW 15.3 % (11.8-14.1); RDW-SD 48.2 fL
[2022-08-23] MEDS: ceFAZolin 2 GM/50 ML BAG IVPB (16:48)
[2022-08-23 16:51] LABS: Absolute Lymphocyte Count 1.65 10^3/uL (1.2-3.4); Absolute Monocyte Count 0.94 10^3/uL (0.1-0.8); Absolute Neutrophil Count 20.92 10^3/uL (1.2-6.7); Bands % 1; Diff Comment Manual Differential
[2022-08-23 16:52] LABS: RBC Morphology Normal
--- NOTE | 2022-08-23 16:52 | ED.GENADUL_ITS ---
Discharge Plan Disposition Patient Disposition: Against Medical Advice Condition: Poor Discharge Details Clinical Impression: Cellulitis Primary Care Provider: Soni Ortega ED Provider: Chau Ignacio Home Meds and New Rx's Prescriptions: New cefuroxime axetil 500 mg tablet 500 mg PO BID 7 Days Qty: 14 0RF Continued (DME) lancets Misc 1 ea Miscellaneous BID Qty: 200 6RF Rx Instructions: Monitor BSs BID (DME) Accu-Chek Harmony Plus test strp Strip 1 ea Miscellaneous BID Qty: 200 6RF Rx Instructions: Diabetes. Check BID/PRN (DME) blood-glucose meter Misc Miscellaneous DAILY Qty: 1 0RF Rx Instructions: As directed hydrochlorothiazide 12.5 mg tablet 12.5 mg PO DAILY Qty: 90 4RF losartan 100 mg tablet 100 mg PO DAILY Qty: 90 3RF metformin 500 mg tablet extended release 24 hr 1,000 mg PO DAILY Qty: 180 3RF sulfamethoxazole-trimethoprim [Bactrim DS] 800-160 mg tablet 1 tab PO BID Qty: 14 0RF Discontinued cephalexin 500 mg tablet 500 mg PO Q6H Qty: 28 0RF Discharge Instructions Instructions: Cellulitis (ED) Additional Instructions: At this time you have chosen to leave AGAINST MEDICAL ADVICE. It is very imp ortant that you take the prescribed antibiotic and monitor your symptoms very closely. If you change your mind or develop any significant new or worsening symptoms please return immediately to the emergency department to rediscuss admission for your cellulitis with high concern of outpatient antibiotic failure. 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 He states that he has been on antibiotics since mid July for a left foot infection but now the right foot is also infected. He has been on and off Keflex and Bactrim but continues to have infections that do not fully clear. Patient denies any fever chills and states bilateral foot pain but more on the right than the left. Patient denies all other symptoms. Physical exam shows significant erythema and swelling to the right foot and ankle. No significant or severe calf swelling or pain normal cardiac and respiratory exam. Review of vital signs is concerning for a low-grade fever, and tachycardia. We will plan on checking labs and radiologic imaging of the foot for concern of failure of outpatient antibiotics. Pending results we will give dose of antibiotics along with checking blood cultures. Reviewed labs and patient has significant leukocytosis with white count of 23.5 and elevated neutrophils and monocytes, potassium slightly low at 3.3 otherwise unremarkable CMP. x-ray shows no obvious signs of osteomyelitis. Thoroughly discussed with patient my clinical concerns of tachycardia, abnormal labs, and low-grade fever along with outpatient antibiotics for infection. Patient stated clear understanding of risk and is alert and oriented x4 with decision-making capacity. Could not be admitted due to 3 needs to care for others with no arrangements could be made. Patient does have a podiatry appointment tomorrow morning. Patient decided to sign out AMA and follow-up with podiatry that antibiotics will prescribed along with close follow-up and return precautions thoroughly discussed with patient. After discussion of diagnosis and plan of care patient has no further needs, questions, or concerns and states clear understanding to return to the emergency department for any worsening symptoms. This documentation was generated using [employer] dictation system, please disregard any oddities of phrase or misspellings. Imaging Data Radiologic Study: Imaging: X-Ray Radiologist's impression: Exam(s) PROCEDURE INFORMATION: Exam: XR Right Foot Exam date and time: 08/23/2022 5:54 PM Age: 66 years old Clinical indication: Other: Swelling, infection, abx failure TECHNIQUE: Imaging protocol: Radiologic exam of the Right foot. Views: 3 or more views. COMPARISON: No relevant prior studies available. FINDINGS: Bones/joints: Degenerative changes in the tarsal bones. There is no evidence of acute fracture.There is no evidence of malalignment or dislocation. Soft tissues: Soft tissue swelling over the dorsum of the foot IMPRESSION: There is no evidence of acute fracture.There is no evidence of malalignment or dislocation. Lab Data Lab results reviewed: Yes I reviewed the patient's lab results. HPI General Mode of arrival: ambulatory . Date/Time Provider Initiated Documentation: 08/23/22 15:10 . Limitations to Documentation: no limitations . Information obtained by: patient . Related Data Home Medications Medication Instructions Recorded Confirmed blood sugar diagnostic (Accu-Chek #200 strips 04/08/21 08/23/22 Harmony Plus test strips) blood-glucose meter #1 ea 04/08/21 08/23/22 lancets #200 ea 04/08/21 08/23/22 hydrochlorothiazide 12.5 mg tablet 12.5 mg PO DAILY #90 tab-caps 04/13/22 08/23/22 losartan 100 mg tablet 100 mg PO DAILY #90 tab-caps 04/13/22 08/23/22 metformin 500 mg tablet,extended 1,000 mg PO DAILY #180 tab-caps 04/13/22 0 08/23/22 release 24 hr cefuroxime axetil 500 mg tablet 500 mg PO BID 7 days #14 tabs 08/23/22 sulfamethoxazole 800 1 tab PO BID #14 tabs 08/23/22 08/23/22 mg-trimethoprim 160 mg tablet (Bactrim DS) Previous Rx's Medication Instructions Recorded blood sugar diagnostic (Accu-Chek #200 strips 04/08/21 Harmony Plus test strips) blood-glucose meter #1 ea 04/08/21 lancets #200 ea 04/08/21 hydrochlorothiazide 12.5 mg tablet 12.5 mg PO DAILY #90 tab-caps 04/13/22 losartan 100 mg tablet 100 mg PO DAILY #90 tab-caps 04/13/22 metformin 500 mg tablet,extended 1,000 mg PO DAILY #180 tab-caps 04/13/22 release 24 hr cefuroxime axetil 500 mg tablet 500 mg PO BID 7 days #14 tabs 08/23/22 sulfamethoxazole 800 1 tab PO BID #14 tabs 08/23/22 mg-trimethoprim 160 mg tablet (Bactrim DS) Allergies Allergy/AdvReac Type Severity Reaction Status Date / Time Penicillins Allergy Hives Verified 08/24/22 10:38 lisinopril AdvReac Unknown Cough and Verified 08/24/22 10:38 light headed metoprolol AdvReac Unknown palpitation Verified 08/24/22 10:38 s General Stated Complaint: Cellulitis DAYNA: 3 PFSH All Active Problems (Updated 08/24/22 @ 11:40 by Malgorzata Nino DPM) Foot infection (Acute) Cellulitis (Acute) Foot ulcer, left (Acute) Routine general medical examination at a health care facility (Acute) Colonoscopy refused (Acute) Diabetes mellitus (Chronic) Low HDL (under 40) (Acute 09/13/17) Essential hypertension (Acute 05/09/13) Elevated fasting blood sugar (Acute 08/28/15) Dyslipidemia (Acute 05/17/13) PCEq 12.6%; declines statins Social History Smoking/Tobacco Use Status: Never Smoking risk assessment performed?: Yes Alcohol Intake: current Alcohol Intake frequency: holidays/special occasions only Drug use: Never Caregiver/Support person: No Housing: house Number of Children: 0 Communication Needs: Corrective Lenses Do you need help understanding health information?: Rarely Pets and animals: Yes Current gender identity: decline to answer What is your relationship status?: refused to answer How often do you talk on the phone with friends or family?: decline to answer How often do you get together with friends or relatives?: decline to answer How often do you attend scientology or oriental orthodox services?: decline to answer Do you belong to any clubs or organized social groups?: decline to answer Panel score (0-1 are the most socially isolated patients): 0 What type of physical activity do you participate in: walking and other Details: moving pellets Duration: > 90 minutes/day Frequency: daily Special maría needs: No Do you feel safe at home: Yes Course Vital Signs Vital signs: Vital Signs Temperature 37.8 C H 08/23/22 15:11 Pulse 118 H 08/23/22 15:11 Respiratory Rate 20 08/23/22 15:11 Blood Pressure 144/68 H 08/23/22 15:11 Pulse Oximetry 98 08/23/22 15:11 Temperature 37.8 C H 08/23/22 15:11 Temperature Source Temporal Artery Scan 08/23/22 15:11 Pulse 118 H 08/23/22 15:11 Respiratory Rate 20 08/23/22 15:11 Respiratory Effort 08/23/22 15:43 Blood Pressure 144/68 H 08/23/22 15:11 Pulse Oximetry 98 08/23/22 15:11 Oxygen Delivery Method Room Air 08/23/22 15:11 Oxygen Flow Rate 0 08/23/22 15:11 Lab/Test Results Lab/Test Results: 08/23/22 16:25 Blood Blood Culture - Pending 08/23/22 15:55 Blood Blood Culture - Pending Laboratory Tests Range/Units 08/23/22 16:25 VBG Lactate (0.6-1.4) mmol/L 1.2
[2022-08-23 16:59] LABS: ALT 22 U/L (16-63); AST 18 U/L (15-37); Albumin 2.6 g/dL (3.4-5.0); Alkaline Phosphatase 75 U/L (46-116); Anion Gap 8.5 mmol/L (3-11); BUN 17 mg/dL (7-18); Bilirubin, Total 0.4 mg/dL (0.2-1.0); CO2 28.5 mmol/L (21.0-32.0); CREATININE 0.8 mg/dL (0.70-1.30); Calcium 9.2 mg/dL (8.5-10.1); Chloride 99 mmol/L (98-107); Estimated GFR 97.61 (mL/min/1.73m2); Glucose 120 mg/dL (74-106); Potassium 3.3 mmol/L (3.5-5.1); Sodium 136 mmol/L (136-145); Total Protein 7.6 g/dL (6.4-8.2)
[2022-08-23 17:21] LABS: COVID-19 PCR Negative (Negative); Influenza A PCR Negative (Negative); Influenza B PCR Negative (Negative); RSV PCR Negative (Negative)
[2022-08-23 17:23] LABS: Source Nasopharynx
[2022-08-23 17:29] LABS: Procalcitonin 0.5 ng/mL
--- NOTE | 2022-08-23 18:08 | DI.VRAD_ITS ---
PROCEDURE INFORMATION: Exam: XR Right Foot Exam date and time: 08/23/2022 5:54 PM Age: 66 years old Clinical indication: Other: Swelling, infection, abx failure TECHNIQUE: Imaging protocol: Radiologic exam of the Right foot. Views: 3 or more views. COMPARISON: No relevant prior studies available. FINDINGS: Bones/joints: Degenerative changes in the tarsal bones. There is no evidence of acute fracture.There is no evidence of malalignment or dislocation. Soft tissues: Soft tissue swelling over the dorsum of the foot IMPRESSION: There is no evidence of acute fracture.There is no evidence of malalignment or dislocation. Dictated and Authenticated by: Imelda De La Rosa MD. Ordering:MIRNA Ritchie MD
[2022-08-23] MEDS: Cefuroxime 500 MG TAB 1000 MG PO (19:06)
[2022-08-23] MEDS: POTASSIUM CHLORIDE 20 MEQ, POTASSIUM CHLORIDE 10 MEQ 30 MEQ PO (19:07)
== END 2022-08-23 19:34 | disposition left against medical advice (07) ==
PROVIDERS: Emergency Provider Nurse Practitioner Family; PCP Nurse Practitioner
DX: L03.115 Cellulitis of right lower limb (principal); E87.6 Hypokalemia; Z53.29 Procedure and treatment not carried out because of patient's decision for other reasons
CPT/HCPCS: 80053; 84145; 87040; 87077; 87637; 96365; 99284; 73630; 83605; 83735; 85025; 87186; J0690

== ENCOUNTER 2022-08-24 11:46 | Outpatient (REF) | payer OTHER, SELFPAY ==
--- NOTE | 2022-08-25 08:27 | W.ED.FU ---
Date of service: 08/25/22 Time of Service: 08:28 Follow Up Plan: patient's blood culture from 08/23 growing gram positive cocci in clusters per lab. REviewed his chart, left ama on 08/23 and saw podiatry yesterday who drained his foot infection and recommended admission which he declined. I called and spoke with the pt, he does state his foot does feel improved but I discussed in this setting with a positive culture he should be admitted for IV abx. He understands this but is unclear if he will come in, he did understand the risks of a worsening infection including losing his limb and possibly .
== END 2022-08-24 11:47 | disposition home or self-care (01) ==
LOC: LBN 11:46
PROVIDERS: PCP Nurse Practitioner; Visit Provider Podiatrist Foot & Ankle Surgery
DX: L08.9 Local infection of the skin and subcutaneous tissue, unspecified (principal)
CPT/HCPCS: 87077; 87070; 87075; 87186; 87205

== ENCOUNTER 2022-08-25 09:26 | Inpatient (IN) | payer OTHER, SELFPAY ==
[2022-08-25] VITALS (15 sets, daily range): BP systolic 102–141; BP diastolic 58–76; PULSE 72–94; RESP 12–18; TEMP 36.5–37.6; O2SAT 96–98
--- NOTE | 2022-08-25 09:44 | W.ED.GENAD ---
Discharge Plan Disposition Patient Disposition: Admit to [facility] Condition: Stable Discharge Details Chief Complaint: Cellulitis Clinical Impression: Cellulitis, Foot infection Primary Care Provider: Soni Ortega ED Provider: Ino Martinez Home Meds and New Rx's Prescriptions: No Action (DME) lancets Misc 1 ea Miscellaneous BID Qty: 200 6RF Rx Instructions: Monitor BSs BID (DME) Accu-Chek Harmony Plus test strp Strip 1 ea Miscellaneous BID Qty: 200 6RF Rx Instructions: Diabetes. Check BID/PRN (DME) blood-glucose meter Misc Miscellaneous DAILY Qty: 1 0RF Rx Instructions: As directed hydrochlorothiazide 12.5 mg tablet 12.5 mg PO DAILY Qty: 90 4RF losartan 100 mg tablet 100 mg PO DAILY Qty: 90 3RF metformin 500 mg tablet extended release 24 hr 1,000 mg PO DAILY Qty: 180 3RF sulfamethoxazole-trimethoprim [Bactrim DS] 800-160 mg tablet 1 tab PO BID Qty: 14 0RF cefuroxime axetil 500 mg tablet 500 mg PO BID 7 Days Qty: 14 0RF Medical Decision Making 66 yo female with hx of DM, hld, htn, comes in with right foot redness. HE was seen in the ED on 08/23 and admission was recommended for iv antibiotics for his right foot cellulitis but he left AMA as he had no caretakers for his cats. HE saw podiatry yesterday who also recommended admission, they irrigated and had significant purulence out of his right foot. I called him this morning as one of his blood cultures started to grow gram positive cocci. HE denies fevers or chills, states his foot feels better since having it drained yesterday. He does have erythema of the foot and ankle, full rom of the noble. HE has an open wound with packing in the foot on the plantar surface near the toes and no drainage currently. No crepitus. Given the continued erythema and positive blood culture will initiate iv antibiotics and will need admission. Discussed with Dr. Nino who saw him yesterday who recommends MRI for further evaluation as well. Differential Diagnosis Differential Diagnosis: cellulitis, osteo Medical Records Medical records reviewed: Yes I reviewed the patient's medical records. Lab Data Lab results reviewed: Yes I reviewed the patient's lab results. HPI General Mode of arrival: ambulatory. Date/Time Provider Initiated Documentation: 08/25/22 09:28. Limitations to Documentation: no limitations. Information obtained by: patient. History of Present Illness 66 year old M presents to the emergency department with the chief complaint of right foot infection, described as moderate, Patient started experiencing this day(s) (5) and it has been constant. No relieving factors improve symptom(s), No exacerbating factors reported . Patient notes denies fever/chills. Patient did receive the following treatments prior to arrival, other (bactrim, cefuroxime) Related Data Home Medications Medication Instructions Recorded Confirmed blood sugar diagnostic (Accu-Chek #200 strips 04/08/21 08/23/22 Harmony Plus test strips) blood-glucose meter #1 ea 04/08/21 08/23/22 lancets #200 ea 04/08/21 08/23/22 hydrochlorothiazide 12.5 mg tablet 12.5 mg PO DAILY #90 tab-caps 04/13/22 08/25/22 losartan 100 mg tablet 100 mg PO DAILY #90 tab-caps 04/13/22 08/25/22 metformin 500 mg tablet,extended 1,000 mg PO DAILY #180 tab-caps 04/13/22 08/25/22 release 24 hr cefuroxime axetil 500 mg tablet 500 mg PO BID 7 days #14 tabs 08/23/22 08/25/22 sulfamethoxazole 800 1 tab PO BID #14 tabs 08/23/22 08/25/22 mg-trimethoprim 160 mg tablet (Bactrim DS) Previous Rx's Medication Instructions Recorded blood sugar diagnostic (Accu-Chek #200 strips 04/08/21 Harmony Plus test strips) blood-glucose meter #1 ea 04/08/21 lancets #200 ea 04/08/21 hydrochlorothiazide 12.5 mg tablet 12.5 mg PO DAILY #90 tab-caps 04/13/22 losartan 100 mg tablet 100 mg PO DAILY #90 tab-caps 04/13/22 metformin 500 mg tablet,extended 1,000 mg PO DAILY #180 tab-caps 04/13/22 release 24 hr cefuroxime axetil 500 mg tablet 500 mg PO BID 7 days #14 tabs 08/23/22 sulfamethoxazole 800 1 tab PO BID #14 tabs 08/23/22 mg-trimethoprim 160 mg tablet (Bactrim DS) Allergies Allergy/AdvReac Type Severity Reaction Status Date / Time Penicillins Allergy Hives Verified 08/25/22 09:34 lisinopril AdvReac Unknown Cough and Verified 08/25/22 09:34 light headed metoprolol AdvReac Unknown palpitation Verified 08/25/22 09:34 s General Stated Complaint: Cellulitis DAYNA: 2 Review of Systems All systems reviewed & are unremarkable except as noted in HPI and below Constitutional Constitutional: Denies chills, Denies fever(s) and Denies weakness Cardiovascular Cardiovascular: Denies chest pain and Denies dyspnea Respiratory Respiratory: Denies cough and Denies dyspnea Gastrointestinal Gastrointestinal: Denies abdominal pain, Denies nausea and Denies vomiting Neurologic Neurologic: Denies weakness PFSH All Active Problems (Updated 08/25/22 @ 10:19 by Ino Martinez MD) Foot infection (Acute) Cellulitis (Acute) Foot ulcer, left (Acute) Routine general medical examination at a health care facility (Acute) Colonoscopy refused (Acute) Diabetes mellitus (Chronic) Low HDL (under 40) (Acute 09/13/17) Essential hypertension (Acute 05/09/13) Elevated fasting blood sugar (Acute 08/28/15) Dyslipidemia (Acute 05/17/13) PCEq 12.6%; declines statins Social History Smoking/Tobacco Use Status: Never Smoking risk assessment performed?: Yes Alcohol Intake: current Alcohol Intake frequency: holidays/special occasions only Drug use: Never Caregiver/Support person: No Housing: house Number of Children: 0 Communication Needs: Corrective Lenses Do you need help understanding health information?: Rarely Pets and animals: Yes Current gender identity: decline to answer What is your relationship status?: refused to answer How often do you talk on the phone with friends or family?: decline to answer How often do you get together with friends or relatives?: decline to answer How often do you attend pentecostalism or buddhism services?: decline to answer Do you belong to any clubs or organized social groups?: decline to answer Panel score (0-1 are the most socially isolated patients): 0 What type of physical activity do you participate in: walking and other Details: moving pellets Duration: > 90 minutes/day Frequency: daily Special maría needs: No Do you feel safe at home: Yes Exam Const General: no acute distress Orientation: alert HENMT Head: normal to inspection Ears: external ears normal General nose exam: external nose normal Mouth: moist mucous membranes Eyes General: appearance normal, both eyes and all related structures Neck Neck: normal visual inspection Resp Effort & Inspection: normal respiratory effort and able to speak in complete sentences Cardio Rate: regular rate Skin General skin exam: erythema Neuro General: patient alert and patient oriented x3 Extrem General: full ROM Psych Mental Status: mental status grossly normal Course Vital Signs Vital signs: Vital Signs Temperature 36.9 C 08/25/22 09:30 Pulse 94 H 08/25/22 09:30 Respiratory Rate 18 08/25/22 09:30 Blood Pressure 109/66 08/25/22 09:30 Pulse Oximetry 98 08/25/22 09:30 Temperature 36.9 C 08/25/22 09:30 Temperature Source Skin 08/25/22 09:30 Pulse 94 H 08/25/22 09:30 Respiratory Rate 18 08/25/22 09:30 Respiratory Effort 08/25/22 09:34 Blood Pressure 109/66 08/25/22 09:30 Blood Pressure Position Sitting 08/25/22 09:30 Pulse Oximetry 98 08/25/22 09:30 Oxygen Delivery Method Room Air 08/25/22 09:30 Oxygen Flow Rate 0 08/25/22 09:30 Pain Level 0 08/25/22 09:30 Lab/Test Results Lab/Test Results: 08/25/22 09:33 Blood Blood Culture - Pending 08/25/22 09:33 Blood Blood Culture - Pending
--- NOTE | 2022-08-25 09:48 | DI.MRI_ITS ---
Exam(s) MR LOWER EXTREMITY RT WO/W EXAM: MR LOWER EXTREMITY RT WO/W CLINICAL HISTORY: ?osteo. TECHNIQUE: Multiplanar multisequence MRI was performed. CONTRAST MATERIAL: IV Contrast: 16 mL of Dotarem contrast administered. COMPARISON: Plain films September 06 FINDINGS: Marked edema in the soft tissues greatest at the dorsum of the foot. There are multiple air bubbles. A discrete abscess is seen in the subcutaneous fat measuring 4 cm in length by 1.6 cm deep by 1.6 c m transverse over the region of the distal 3rd metatarsal. There is edema extending into the soft ti ssues around the 2nd and 3rd metatarsals. There is a low signal area seen beneath an open wound the plantar aspect of the foot at the level of the 2nd metatarsal. Air is seen in this location. This could represent packing material. No visibl e fluid. This is adjacent to the head of the 2nd metatarsal however there is no abnormal enhancement within the 2nd metatarsal head. Air bubbles and edema are noted around the 2nd toe are noted is no abnormal enhancement. Joint effusions are seen at the 1st and 3rd MTP joints. IMPRESSION: Severe cellulitis involving the metatarsal region a focal plantar and dorsal aspects of the foot. Ab scess at the dorsum of the foot over the 3rd metatarsal. No evidence of osteomyelitis. Wound at plantar aspect of the foot at the level of the 2nd metatarsal phalangeal joint. No abnormal enhancement to suggest osteomyelitis. DATA REPOSITORY:
[2022-08-25 10:16] LABS: Source Nasal/Nares
[2022-08-25] MEDS: Normal Saline 1,000 ML 1000 ML IV (10:17)
[2022-08-25 10:19] LABS: Lactate 1.3 mmol/L (0.6-1.4)
[2022-08-25 10:20] LABS: ESR 112 mm/hr (0-20)
[2022-08-25 10:24] LABS: Abs Immature Grans 0.24 10^3/uL (0.0-0.06); Absolute Lymphocyte Count 1.19 10^3/uL (1.2-3.4); Absolute Monocyte Count 0.97 10^3/uL (0.1-0.8); Basophils % 0.3; Eosinophils % 0.4; HCT 35.6 % (40.0-50.0); HGB 12.1 g/dL (13.5-17.5); Immature Grans % 1.2; Lymphocytes % 6.1; MCH 28.7 pg (27.0-33.0); MCV 84 fL (80-95); MPV 10.9 fL (8.0-11.0); Platelet Count 367 10^3/uL (130-400); RBC 4.22 10^6/uL (4.36-5.78); RDW 15.4 % (11.8-14.1); RDW-SD 47.7 fL; WBC 19.44 10^3/uL (4.4-10.8)
[2022-08-25 10:27] LABS: Absolute Basophil Count 0.06 10^3/uL (0.0-0.2); Absolute Eosinophil Count 0.08 10^3/uL (0.0-0.7); Absolute Neutrophil Count 16.91 10^3/uL (1.2-6.7)
[2022-08-25 10:55] LABS: COVID-19 PCR Negative (Negative)
[2022-08-25 10:55] LABS: Procalcitonin 0.3 ng/mL
[2022-08-25] MEDS: CEFEPIME 2 GM in Normal Saline 100 ML IVPB ×2 (11:06→17:42)
[2022-08-25 11:10] LABS: ALT 25 U/L (16-63); AST 25 U/L (15-37); Albumin 2.7 g/dL (3.4-5.0); Alkaline Phosphatase 96 U/L (46-116); Anion Gap 9.9 mmol/L (3-11); BUN 16 mg/dL (7-18); Bilirubin, Total 0.3 mg/dL (0.2-1.0); CO2 27.1 mmol/L (21.0-32.0); CREATININE 0.7 mg/dL (0.70-1.30); Calcium 9.1 mg/dL (8.5-10.1); Chloride 98 mmol/L (98-107); Estimated GFR 101.62 (mL/min/1.73m2); Glucose 115 mg/dL (74-106); Magnesium 2.1 mg/dL (1.8-2.4); Potassium 3.3 mmol/L (3.5-5.1); Sodium 135 mmol/L (136-145); Total Protein 6.8 g/dL (6.4-8.2)
[2022-08-25 11:16] LABS: Lab Add On Test DONE
[2022-08-25 11:18] LABS: C-Reactive Protein > 25.00 mg/dL (0.0-0.3)
[2022-08-25] MEDS: VANCOMYCIN 1,000 MG in Normal Saline 250 ML 166.6666 MG IVPB (11:58)
--- NOTE | 2022-08-25 12:52 | W.PODCONSULT ---
Date of service: 08/25/22 Time of Service: 12:30 Assessment and Plan Assessment and plan (1) Foot infection: Status: Acute Assessment and plan: The patient was evaluated at bedside, admitted for a R foot infection. Continued purulence emitted upon compression of the R forefoot today, consistent with deep infection. The dressing was changed and the foot re-packed (iodoform packing). Awaiting MRI (abscess vs osteomyelitis and abscess, etc), to better direct next steps (surgery likely: I&D). Recommend IV Abx and fluid management in the meantime, appropriate diabetic control, daily dressing changes. Call with questions, . History of Present Illness History of Present Illness Chief Complaint: R foot infection Narrative: Mr. Oropeza is a 66 year old male with Type II Diabetes, evaluated at bedside, immediately after admission, for a R foot infection. Garry was seen in my clinic yesterday and advised to return to ED (where he left the previous night AMA) for admission and management of a R foot infection. He returned to the ED this morning at the advise of the ED physician who called to inform him his blood cultures were positive. He was seen at bedside today in the presence of his youngest brother, who is helping with the care of his at home resonsibilities (cats). Garry reports to feeling better, has left his dressing intact since his appt yesterday and has been taking the oral Abx prescribed by the ED 2 days ago Consults Consult date: 08/25/22 PFSH All Active Problems Foot infection (Acute) Cellulitis (Acute) Foot ulcer, left (Acute) Routine general medical examination at a health care facility (Acute) Colonoscopy refused (Acute) Diabetes mellitus (Chronic) Low HDL (under 40) (Acute 09/13/17) Essential hypertension (Acute 05/09/13) Elevated fasting blood sugar (Acute 08/28/15) Dyslipidemia (Acute 05/17/13) PCEq 12.6%; declines statins Social History Smoking/Tobacco Use Status: Never Smoking risk assessment performed?: Yes Alcohol Intake: current Alcohol Intake frequency: holidays/special occasions only Drug use: Never Caregiver/Support person: No Housing: house Number of Children: 0 Communication Needs: Corrective Lenses Do you need help understanding health information?: Rarely Pets and animals: Yes Current gender identity: decline to answer What is your relationship status?: refused to answer How often do you talk on the phone with friends or family?: decline to answer How often do you get together with friends or relatives?: decline to answer How often do you attend adventism or mosque services?: decline to answer Do you belong to any clubs or organized social groups?: decline to answer Panel score (0-1 are the most socially isolated patients): 0 What type of physical activity do you participate in: walking and other Details: moving pellets Duration: > 90 minutes/day Frequency: daily Special maría needs: No Do you feel safe at home: Yes Exam Cardio Other: DP/ PT 2/4 bilaterally. Thin shiny skiny noted R LE due to infection. CFT < 3 secs Skin Other: R Foot with continued eythema, color, edema and fluctuance dorsal R 2nd intermetatarsal space, with a full thickness wound plantar R 2nd metatasal head, with purulence emitted upon compression of the forefoot (10-20 cc), less than yesterday but still remarkable and pronounced, more localized to the dorsal 2nd interspace as opposed to plantar arch where it was present yesterday. L foot with full thickness ulcer plantar 2nd metatarsal head and medial 2nd digit with erythema, edema and increased girth of the L 2nd digit Neuro Other: protective sensation absent Extrem Other: Lesser digital deformities with prominent metatarsal heads Results Last Vital Signs Temp 97.7 F 08/25/22 12:34 Pulse 83 08/25/22 12:34 Resp 17 08/25/22 12:34 BP 141/76 H 08/25/22 12:34 Pulse Ox 98 08/25/22 12:34 Labs Result diagrams: 08/25/22 10:06 08/25/22 10:06 Labs: Laboratory Results - last 24 hr 08/25/22 08/25/22 08/25/22 10:06 10:06 10:06 WBC RBC Hgb Hct MCV MCH MCHC RDW Plt Count MPV Immature Gran % Neutrophils % Lymphocytes % Monocytes % Eosinophils % Basophils % Nucleated RBC % Absolute Neutrophils Absolute Lymphocytes Absolute Monocytes Absolute Eosinophils Absolute Basophils ESR 112 H VBG Lactate 1.3 Sodium 135 L Potassium 3.3 L Chloride 98 Carbon Dioxide 27.1 Anion Gap 9.9 BUN 16 Creatinine 0.7 Est GFR (CKD-EPI 2020) 101.62 Glucose 115 H Calcium 9.1 Magnesium 2.1 Total Bilirubin 0.3 AST 25 ALT 25 Alkaline Phosphatase 96 C-Reactive Protein > 25.00 H Total Protein 6.8 Albumin 2.7 L Procalcitonin 0.3 COVID-19 Source SARS-CoV-2 (PCR) Add-On Test Request 08/25/22 08/25/22 08/25/22 10:06 10:06 10:08 WBC 19.44 H RBC 4.22 L Hgb 12.1 L Hct 35.6 L MCV 84 MCH 28.7 MCHC 34.0 RDW 15.4 H Plt Count 367 MPV 10.9 Immature Gran % 1.2 Neutrophils % 87.0 Lymphocytes % 6.1 Monocytes % 5.0 Eosinophils % 0.4 Basophils % 0.3 Nucleated RBC % 0.0 Absolute Neutrophils 16.91 H Absolute Lymphocytes 1.19 L Absolute Monocytes 0.97 H Absolute Eosinophils 0.08 Absolute Basophils 0.06 ESR VBG Lactate Sodium Potassium Chloride Carbon Dioxide Anion Gap BUN Creatinine Est GFR (CKD-EPI 2020) Glucose Calcium Magnesium Total Bilirubin AST ALT Alkaline Phosphatase C-Reactive Protein Total Protein Albumin Procalcitonin COVID-19 Source Nasal/Nares SARS-CoV-2 (PCR) Negative Add-On Test Request DONE
[2022-08-25] MEDS: Normal Saline Flush 10 ML SYR IVP (15:14)
[2022-08-25] MEDS: Gadoterate meglumine 20 ML VIAL 16 ML IVP (15:15)
--- NOTE | 2022-08-25 16:15 | PHA.REVIEW2 ---
Pharmacy Admission Review - Admission Clinical Review (Last Reviewed 08/25/22 @ 12:55 by Malgorzata Nino DPM) Foot infection (Acute) Cellulitis (Acute) Penicillins Allergy (Verified 08/25/22 09:34) Hives lisinopril Adverse Reaction (Unknown, Verified 08/25/22 09:34) Cough and light headed metoprolol Adverse Reaction (Unknown, Verified 08/25/22 09:34) palpitations Resuscitation Status Full Code Height 5 ft 10 in Weight 76.1 kg - Renal Dosing Renal Dosing: BUN 16 mg/dL (7-18) 08/25/22 10:06 Creatinine 0.7 mg/dL (0.70-1.30) 08/25/22 10:06 Medications needing adjustments: Reviewed (eCrCl 78.2 ml/min) - Anticoagulation Anticoagulation: Hgb 12.1 g/dL (13.5-17.5) L 08/25/22 10:06 Hct 35.6 % (40.0-50.0) L 08/25/22 10:06 Plt Count 367 10^3/uL (130-400) 08/25/22 10:06 Creatinine 0.7 mg/dL (0.70-1.30) 08/25/22 10:06 DVT Prophylaxis: Reviewed Medications: Heparin - Opiate Usage Evaluate Pain Scale/Pains Meds: N/A - Relevant Labs ESR 112 mm/hr (0-20) H 08/25/22 10:06 Sodium 135 mmol/L (136-145) L 08/25/22 10:06 Potassium 3.3 mmol/L (3.5-5.1) L 08/25/22 10:06 Chloride 98 mmol/L (98-107) 08/25/22 10:06 Magnesium 2.1 mg/dL (1.8-2.4) 08/25/22 10:06 C-Reactive Protein > 25.00 mg/dL (0.0-0.3) H 08/25/22 10:06 Electrolytes, C-Reactive P, ESR: Reviewed (potassium 40 meq PO given this AM) - DM Control DM Control: Glucose 115 mg/dL (74-106) H 08/25/22 10:06 Finger Stick Blood Glucose 103 Finger Stick Blood Glucose 103 Finger Stick Blood Glucose 103 DM Control: Reviewed (aspart per SS) - Cardiac Review BP, HR, EF%: N/A - Qtc Review QTc: N/A - IV to PO Switch IV Medications: Reviewed - Home Meds Home Med List reviewed: Reviewed Relevent Home Meds Not ordered & why?: not ordered: hctz, losartan - Current meds Current Medication Order Review: Reviewed (cefepime 2gm q8h + vancomycin per pharmacy protocol)
[2022-08-25] MEDS: VANCOMYCIN/WATER (PEG) 1 GM/200 ML BAG IVPB (16:18)
[2022-08-25] MEDS: Heparin 5,000 UNITS/ML VIAL 5000 UNITS SC ×2 (16:25→21:06)
[2022-08-25] MEDS: Potassium Chloride 20 MEQ TABCR 40 MEQ PO (16:26)
--- NOTE | 2022-08-25 18:08 | HPE_ITS ---
Date of service: 08/25/22 Time of Service: 18:08 Assessment and Plan Assessment and plan (1) Diabetic infection of right foot: Status: Acute Assessment and plan: Continue empiric vancomycin and cefepime initiated in the ED. NPO after midnight for OR tomorrow with podiatry. Will vania abx to #2. (2) Gram-positive cocci bacteremia: Status: Acute Assessment and plan: Per blood cultures on 08/23/22. Blood cultures were repeated today. Await results of echocardiogram to ensure no obvious endocarditis. Vancomycin/cefepime, as above. Trend procalcitonin. (3) Diabetes mellitus: Status: Chronic Assessment and plan: Hold metformin and cover with SSI for now. Will obtain A1C. (4) Essential hypertension: Status: Acute Assessment and plan: Continue losartan but hold HCTZ as the patient does appear slightly dehydrated and will be NPO after midnight. (5) DVT prophylaxis: Status: Acute Assessment and plan: SCDs while heparin on hold in anticipation of the procedure tomorrow. (6) Discharge planning issues: Status: Acute Assessment and plan: Full code Long discussion with patient about code status and he is interested in designating a DPOA. I have asked for paperwork to be provided for him to fill out. History of Present Illness History of Present Illness Chief Complaint: R foot infection Narrative: Mr Oropeza is a 66 year old male with PMHx of NIDDM2, HTN, hyperlipidemia, GERD, who presented to [facility] ED today with 5 days of redness, swelling, and pain to the right foot. The patient denies trauma to the foot. He states he has preserved sensation in the foot. He first noticed the symptoms last Tuesday. He had a daljit bautista appointment with podiatry coming up on Tuesday, which got rescheduled, so he contacted his PCP on Tuesday who evaluated him in the office and sent him to the ED. Here, it was felt he would benefit from an inpatient admission, but he refused it at the time and went home. He did see Dr Nino (podiatry) yesterday, who did an I&D of an abscess of his R foot in the office, again recommending admission, which the patient had refused. He was called back to the ER today when the results of his blood cultures from 08/23/22 (his ER visit) came back positive for GPCs (2 bottles/4). The patient denies fevers/chills, chest pain, shortness of breath, dizziness, nausea. He does have pain in the R foot. He was evaluated by Dr Nino again today while awaiting results of the MRI. The patient does have an abscess at the dorsum of the foot over the 3rd metatarsal, and Dr Nino is planning to take him to the OR to have this addressed tomorrow. Review of Systems All systems reviewed & are unremarkable except as noted in HPI and below PFSH All Active Problems (Updated 08/25/22 @ 19:05 by Alicja Delgado MD) Discharge planning issues (Acute) DVT prophylaxis (Acute) Diabetic infection of right foot (Acute) Gram-positive cocci bacteremia (Acute) Foot infection (Acute) Cellulitis (Acute) Foot ulcer, left (Acute) Routine general medical examination at a health care facility (Acute) Colonoscopy refused (Acute) Diabetes mellitus (Chronic) Low HDL (under 40) (Acute 09/13/17) Essential hypertension (Acute 05/09/13) Elevated fasting blood sugar (Acute 08/28/15) Dyslipidemia (Acute 05/17/13) PCEq 12.6%; declines statins Family History (Updated 08/25/22 @ 18:55 by Alicja Delgado MD) Mother Stroke Father Stroke Heart disease Social History Smoking/Tobacco Use Status: Never Smoking risk assessment performed?: Yes Alcohol Intake: current Alcohol Intake frequency: holidays/special occasions only Drug use: Never Caregiver/Support person: No Housing: house Number of Children: 0 Communication Needs: Corrective Lenses Do you need help understanding health information?: Rarely Pets and animals: Yes Current gender identity: decline to answer What is your relationship status?: refused to answer How often do you talk on the phone with friends or family?: decline to answer How often do you get together with friends or relatives?: decline to answer How often do you attend evangelical or confucianist services?: decline to answer Do you belong to any clubs or organized social groups?: decline to answer Panel score (0-1 are the most socially isolated patients): 0 What type of physical activity do you participate in: walking and other Details: moving pellets Duration: > 90 minutes/day Frequency: daily Special maría needs: No Do you feel safe at home: Yes Meds Allergies and Home Medications Allergies Allergy/AdvReac Type Severity Reaction Status Date / Time Penicillins Allergy Hives Verified 08/25/22 09:34 lisinopril AdvReac Unknown Cough and Verified 08/25/22 09:34 light headed metoprolol AdvReac Unknown palpitation Verified 08/25/22 09:34 s Home Medications Medication Instructions Recorded Confirmed Type blood sugar diagnostic (Accu-Chek #200 strips 04/08/21 08/23/22 Rx Harmony Plus test strips) blood-glucose meter #1 ea 04/08/21 08/23/22 Rx lancets #200 ea 04/08/21 08/23/22 Rx hydrochlorothiazide 12.5 mg tablet 12.5 mg PO DAILY #90 tab-caps 04/13/22 08/25/22 Rx losartan 100 mg tablet 100 mg PO DAILY #90 tab-caps 04/13/22 08/25/22 Rx metformin 500 mg tablet,extended 1,000 mg PO DAILY #180 tab-caps 04/13/22 08/25/22 Rx release 24 hr cefuroxime axetil 500 mg tablet 500 mg PO BID 7 days #14 tabs 08/23/22 08/25/22 Rx sulfamethoxazole 800 1 tab PO BID #14 tabs 08/23/22 08/25/22 Rx mg-trimethoprim 160 mg tablet (Bactrim DS) Exam Narrative Exam Narrative: General: Very pleasant middle-aged male who appears comfortable in bed, A&Ox3, NAD Neurological: A&Ox3, no focal deficits, has preserved sensation in L foot; unable to fully examine R foot as it has a bulkey dressing Psychiatric: Appropriate speech pattern/content Skin: Visible digits R foot (2 and 3) are erythematous; unable to fully examine R foot/ankle. Otherwise, dry/intact HEENT: Atraumatic, normocephalic, EOMI, dry MM, clear oropharynx, no submandibullar or cervical lymphadenopathy, no goiter or JVD Cardiovascular: RRR, no m/r/g Lungs: CTAB Gastrointestinal: soft, nontender, nondistended Genitourinary: deferred Extremities: R foot dressed; visible toes erythematous; no edema BLEs, 1+ pedal pulse LLE. Results Imaging Additional studies: MRI RLE: Severe cellulitis involving the metatarsal region a focal plantar and dorsal aspects of the foot.? Abscess at the dorsum of the foot over the 3rd metatarsal.? No evidence of osteomyelitis.? Wound at plantar aspect of the foot at the level of the 2nd metatarsal phalangeal joint.? No abnormal enhancement to suggest osteomyelitis. Labs Result diagrams: 08/25/22 10:06 08/25/22 10:06 Labs: Laboratory Results - last 24 hr 08/25/22 08/25/22 08/25/22 10:06 10:06 10:06 WBC RBC Hgb Hct MCV MCH MCHC RDW Plt Count MPV Immature Gran % Neutrophils % Lymphocytes % Monocytes % Eosinophils % Basophils % Nucleated RBC % Absolute Neutrophils Absolute Lymphocytes Absolute Monocytes Absolute Eosinophils Absolute Basophils ESR 112 H VBG Lactate 1.3 Sodium 135 L Potassium 3.3 L Chloride 98 Carbon Dioxide 27.1 Anion Gap 9.9 BUN 16 Creatinine 0.7 Est GFR (CKD-EPI 2020) 101.62 Glucose 115 H Calcium 9.1 Magnesium 2.1 Total Bilirubin 0.3 AST 25 ALT 25 Alkaline Phosphatase 96 C-Reactive Protein > 25.00 H Total Protein 6.8 Albumin 2.7 L Procalcitonin 0.3 COVID-19 Source SARS-CoV-2 (PCR) Add-On Test Request 08/25/22 08/25/22 08/25/22 10:06 10:06 10:08 WBC 19.44 H RBC 4.22 L Hgb 12.1 L Hct 35.6 L MCV 84 MCH 28.7 MCHC 34.0 RDW 15.4 H Plt Count 367 MPV 10.9 Immature Gran % 1.2 Neutrophils % 87.0 Lymphocytes % 6.1 Monocytes % 5.0 Eosinophils % 0.4 Basophils % 0.3 Nucleated RBC % 0.0 Absolute Neutrophils 16.91 H Absolute Lymphocytes 1.19 L Absolute Monocytes 0.97 H Absolute Eosinophils 0.08 Absolute Basophils 0.06 ESR VBG Lactate Sodium Potassium Chloride Carbon Dioxide Anion Gap BUN Creatinine Est GFR (CKD-EPI 2020) Glucose Calcium Magnesium Total Bilirubin AST ALT Alkaline Phosphatase C-Reactive Protein Total Protein Albumin Procalcitonin COVID-19 Source Nasal/Nares SARS-CoV-2 (PCR) Negative Add-On Test Request DONE Last Vital Signs Temp 37.3 C 08/25/22 16:41 Pulse 72 08/25/22 16:41 Resp 16 08/25/22 16:41 BP 110/72 08/25/22 16:41 Pulse Ox 98 08/25/22 16:41 Time Spent Time spent with Patient: 40-54 minutes Time was spent: preparing to see the patient(eg.review tests), obtaining and/or reviewing separately otained hiistory, ordering medications,tests, procedures, referring, communicating with other health critical care transport nurse, indepentently interpreting results, counseling the patient and care coordination
[2022-08-26] VITALS (12 sets, daily range): BP systolic 94–119; BP diastolic 55–73; PULSE 60–73; RESP 14–20; TEMP 36–38; O2SAT 92–98; BMI 24.0
--- NOTE | 2022-08-26 | DI.RAD_ITS ---
Exam(s) XR FOOT LT COMPLETE EXAM: XR FOOT LT COMPLETE CLINICAL HISTORY: wound L foot. TECHNIQUE: 2D digital imaging was performed of the left foot. Three images were obtained. AP, obli que and lateral views were obtained. COMPARISON: CR XR FOOT LT COMPLETE from 07/28/2022 FINDINGS: BONES: No acute fracture is present. No bony destructive lesion is seen. There is a large plantar rosita caneal spur. There is an enthesophyte at the posterior calcaneus. JOINTS: No dislocation present. There are degenerative changes in the foot. SOFT TISSUE: There is soft tissue swelling of the 2nd toe. IMPRESSION: 1. Soft tissue swelling of the 2nd toe. 2. No radiographic evidence to suggest acute osteomyelitis. DATA REPOSITORY: RADIATION DOSE DELIVERED:
[2022-08-26] MEDS: VANCOMYCIN/WATER (PEG) 1 GM/200 ML BAG IVPB ×4 (01:11→23:39)
[2022-08-26] MEDS: CEFEPIME 2 GM in Normal Saline 100 ML IVPB ×3 (02:39→18:42)
[2022-08-26] MEDS: Lactated Ringers 1,000 ML 125 ML IV (03:46)
--- NOTE | 2022-08-26 08:00 | RT.EKG_ITS ---
APPROVED REPORT Exam: Resting ECG Reason for Exam: preop Patient Location: I HR:65 bpm ECG Measurements Heart Rate 65 AXIS CA 172 P 17 QRSd 87 QRS 24 QT 396 T 20 QTc 412 Conclusion Sinus rhythm...normal P axis, V-rate 50- 99 Poor R wave progression
[2022-08-26 09:20] LABS: Hemoglobin A1C 6.5 % (<5.7)
[2022-08-26 09:45] LABS: Anion Gap 6.2 mmol/L (3-11); BUN 12 mg/dL (7-18); C-Reactive Protein 16.29 mg/dL (0.0-0.3); CO2 26.8 mmol/L (21.0-32.0); CREATININE 0.8 mg/dL (0.70-1.30); Calcium 8.8 mg/dL (8.5-10.1); Chloride 107 mmol/L (98-107); Estimated GFR 97.61 (mL/min/1.73m2); Glucose 116 mg/dL (74-106); Magnesium 2.1 mg/dL (1.8-2.4); Potassium 4.6 mmol/L (3.5-5.1); Sodium 140 mmol/L (136-145)
--- NOTE | 2022-08-26 10:03 | W.ANESPRE ---
General Info Date of Service Date Performed: 08/26/22 Height: 5 ft 10 in Weight: 76 kg Body Mass Index (BMI): 24.0 Surgical Procedure: Operation Date: 08/26/22 11:10 Proposed Procedure Side Surgeon p Debridement Right Malgorzata Nino DPM Meds Allergies and Home Medications Allergies Allergy/AdvReac Type Severity Reaction Status Date / Time Penicillins Allergy Hives Verified 08/25/22 09:34 lisinopril AdvReac Unknown Cough and Verified 08/25/22 09:34 light headed metoprolol AdvReac Unknown palpitation Verified 08/25/22 09:34 s Home Medication Medication Instructions Recorded blood sugar diagnostic (Accu-Chek #200 strips 04/08/21 Harmony Plus test strips) blood-glucose meter #1 ea 04/08/21 lancets #200 ea 04/08/21 hydrochlorothiazide 12.5 mg tablet 12.5 mg PO DAILY #90 tab-caps 04/13/22 losartan 100 mg tablet 100 mg PO DAILY #90 tab-caps 04/13/22 metformin 500 mg tablet,extended 1,000 mg PO DAILY #180 tab-caps 04/13/22 release 24 hr cefuroxime axetil 500 mg tablet 500 mg PO BID 7 days #14 tabs 08/23/22 sulfamethoxazole 800 1 tab PO BID #14 tabs 08/23/22 mg-trimethoprim 160 mg tablet (Bactrim DS) Current Visit Medications: Current Medications Generic Name Dose Route Start Last Admin Trade Name Freq PRN Reason Stop Dose Admin Acetaminophen 0 mg 08/25/22 10:14 Acetaminophen 325 Mg Tab PO Q4H PRN PRN Al Hydrox/Mg Hydrox/Simethicone 30 ml 08/25/22 10:14 Mylanta Suspension 30 Ml Cup PO Q2H PRN PRN Dextrose 0 gm 08/25/22 10:17 Glucose Oral Gel 15 Gm/37.5 Gm Tube PO DIRECTED PRN Dextrose/Water 0 gm 08/25/22 10:17 Dextrose 50%-Water 25 Gm/50 Ml Syr IVP DIRECTED PRN Dimethicone/Zinc Oxide 0 gm 08/25/22 10:14 Carlos Protect Cream 142 Gm Tube TP PRN PRN Docusate Sodium 100 mg 08/25/22 10:14 Docusate Sodium 100 Mg Cap PO TID PRN PRN Gadoterate Meglumine 16 ml 08/25/22 15:15 08/25/22 15:15 Gadoterate Meglumine 20 Ml Vial IVP 09/24/22 23:59 16 ml DIRECTED [facility] Administration Heparin Sodium (Porcine) 5,000 units 08/25/22 14:00 08/25/22 21:06 Heparin 5,000 Units/Ml Vial SC 5,000 units Q8H [facility] Administration Vancomycin/PEG/NADA/Lysine/Water 1 gm in 200 mls @ 133.333 mls/hr 08/25/22 16:00 08/26/22 09:40 Vancocin Injection IVPB 133 mls/hr Q8H [facility] Administration Protocol Per Protocol Cefepime HCl 2 gm/ Sodium 100 mls @ 200 mls/hr 08/25/22 18:00 08/26/22 03:15 Chloride IVPB Infused Q8H [facility] Infusion IV Miscellaneous Supplies 1 each 08/25/22 09:45 Iv Access IV DIRECTED [facility] Insulin Aspart 0 units 08/25/22 12:00 08/26/22 09:41 Insulin Aspart 300 Units/3 Ml Pen SC Not Given 0800,1200,1700,2200 [facility] Protocol Losartan Potassium 100 mg 08/26/22 08:30 08/26/22 09:41 Losartan 50 Mg Tab PO Not Given QAM [facility] Magnesium Hydroxide 30 ml 08/25/22 10:14 Milk Of Magnesia 30 Ml Cup PO DAILY PRN PRN Oxycodone/Acetaminophen 1 tab 08/25/22 18:52 Oxycodone 5 Mg/Acetaminophen 325 Mg Tab PO Q4H PRN PRN Sodium Chloride 0 ml 08/25/22 09:33 Normal Saline Flush 10 Ml Syr IVP PRN PRN Sodium Chloride 10 ml 08/25/22 15:14 08/25/22 15:14 Normal Saline Flush 10 Ml Syr IVP 10 ml PRN PRN Administration PFSH Active Problems Active Problems: Problem Status Onset Code Discharge planning issues Z02.9 DVT prophylaxis Z29.9 Diabetic infection of right foot E11.628, L08.9 Gram-positive cocci bacteremia R78.81 Foot infection L08.9 Cellulitis L03.90 Foot ulcer, left L97.529 Routine general medical examination at a health care facility Z00.00 Colonoscopy refused Z53.20 Diabetes mellitus E11.9 Low HDL (under 40) 09/13/17 E78.6 Essential hypertension 05/09/13 I10 Elevated fasting blood sugar 08/28/15 R73.01 Dyslipidemia 05/17/13 E78.5 Tobacco Smoking/Tobacco Use Status: Never Alcohol Alcohol Intake: current Alcohol intake frequency: holidays/special occasions only Substance Use Substance use: Never Vital Signs and Lab Results Vital Signs Most Recent Vital Signs in EMR: Most Recent Vital Signs Temp Pulse Resp BP Pulse Ox 36.1 C L 66 16 109/63 95 08/26/22 09:41 08/26/22 09:41 08/26/22 09:41 08/26/22 09:41 08/26/22 09:41 Point of Care Results Point of Care Results: Finger Stick Blood Glucose 96 08/25/22 21:28 Lab Results Result Diagrams: 08/26/22 06:40 08/26/22 06:40 Blood Type / Crossmatch: No Data to Display Complete Blood Count: White Blood Count 17.01 10^3/uL (4.4-10.8) H 08/26/22 06:40 Red Blood Count 3.90 10^6/uL (4.36-5.78) L 08/26/22 06:40 Hemoglobin 11.2 g/dL (13.5-17.5) L 08/26/22 06:40 Hematocrit 34.0 % (40.0-50.0) L 08/26/22 06:40 Platelet Count 377 10^3/uL (130-400) 08/26/22 06:40 Venous Blood Lactate 1.3 mmol/L (0.6-1.4) 08/25/22 10:06 Complete Metabolic Panel: Sodium 140 mmol/L (136-145) 08/26/22 06:40 Potassium 4.6 mmol/L (3.5-5.1) 08/26/22 06:40 Chloride 107 mmol/L (98-107) 08/26/22 06:40 Carbon Dioxide 26.8 mmol/L (21.0-32.0) 08/26/22 06:40 BUN 12 mg/dL (7-18) 08/26/22 06:40 Creatinine 0.8 mg/dL (0.70-1.30) 08/26/22 06:40 Est GFR (CKD-EPI 2021) 97.61 (mL/min/1.73m2) 08/26/22 06:40 Magnesium 2.1 mg/dL (1.8-2.4) 08/26/22 06:40 Calcium 8.8 mg/dL (8.5-10.1) 08/26/22 06:40 Albumin 2.7 g/dL (3.4-5.0) L 08/25/22 10:06 Glucose 116 mg/dL (74-106) H 08/26/22 06:40 Hemoglobin A1c 6.5 % (<5.7) H 08/26/22 06:40 C-Reactive Protein 16.29 mg/dL (0.0-0.3) H 08/26/22 06:40 Liver Function Panel: Alanine Aminotransferase (ALT/SGPT) 25 U/L (16-63) 08/25/22 10:06 Aspartate Amino Transf (AST/SGOT) 25 U/L (15-37) 08/25/22 10:06 Coagulation Panel: INR International Normalized Ratio Pending 08/26/22 05:35 Prothrombin Time Pending 08/26/22 05:35 Cardiac Panel: No Data to Display Arterial Blood Gas: No Data to Display Venous Blood Gas: No Data to Display Pancreas Panel: No Data to Display Thyroid Panel: No Data to Display Infectious Disease: Coronavirus (COVID-19)(PCR) Negative (Negative) 08/25/22 10:08 Coronavirus 2019 Source Nasal/Nares 08/25/22 10:08 Influenza Virus Type A (PCR) Negative (Negative) 08/23/22 16:32 Influenza Virus Type B (PCR) Negative (Negative) 08/23/22 16:32 Respiratory Syncytial Virus (PCR) Negative (Negative) 08/23/22 16:32 Blood Cultures: No Data to Display Toxicology Panel: No Data to Display Imaging and Studies Imaging and Studies Study information below may be from another EMR and interpreted by another provider. Please see original notes in EMR for more complete details. Echocardiogram Summary: 09/06: no official read yet in system. prelim read/calculations placed during exam: LVEF 62%, RVSP 26.7, AoV area/BSA 1.62, Anesthesia Assessment and Plan Anesthesia History Personal History: No History of Anesthesia Complications Family History: No Family History of Anesthesia Complications Exercise Tolerance Exercise Tolerance: Metabolic Equivalents>4 Pertinent Negatives Pertinent Negatives: No Symptoms of GERD Cardiac & Pulmonary Exam Cardiac Exam: Normal S1/S2 Heart Sounds Pulmonary Exam: Clear Bilateral Breath Sounds Implantable Cardiac Device Does patient have a Pacemaker or an ICD?: No Airway Exam Known Difficult Airway: No Mallampati Class: 3 Mouth Opening: Normal (> 3cm) Thyromental Distance: Greater than 3 cm Neck Range of Motion: Full ROM Neck Circumference: Normal Teeth Condition: Normal Dentition ASA Classification ASA Score: ASA 2 Emergency Case?: Yes NPO Status NPO Status: NPO Clears >2 hours, Solids >8 hours Anesthesia Plan Resuscitation Status: Full Code Anesthesia Technique: General Anesthesia Airway Planned: Natural Airway Monitors Used: Standard Monitors Preoperative Comments:: 66 yo male with diabetic infection of the right foot with bacteremia. Currently on vanc and cefepime. Sig PMHx: HTN, DM, GERD (well controlled), never smoker, occ EtOH.
[2022-08-26 10:39] LABS: HGB 11.2 g/dL (13.5-17.5); MCV 87 fL (80-95); WBC 17.01 10^3/uL (4.4-10.8)
[2022-08-26 10:40] LABS: Abs Immature Grans 0.22 10^3/uL (0.0-0.06); Absolute Basophil Count 0.05 10^3/uL (0.0-0.2); Absolute Lymphocyte Count 1.33 10^3/uL (1.2-3.4); Absolute Monocyte Count 0.71 10^3/uL (0.1-0.8); Basophils % 0.3; Eosinophils % 0.6; Immature Grans % 1.3; Lymphocytes % 7.8; MCH 28.7 pg (27.0-33.0); MCHC 32.9 % (32.0-36.0); MPV 10.4 fL (8.0-11.0); Monocytes % 4.2; Neutrophils % 85.8; Platelet Count 377 10^3/uL (130-400); RDW 15.9 % (11.8-14.1); RDW-SD 50.9 fL
--- NOTE | 2022-08-26 10:43 | PDOC.CMIN ---
- If Service Date Differs Date of service: 08/26/22 Time of Service: 10:43 Care Management Initial Assess REASON FOR HOSPITALIZATION:: Diabetic infection of right foot, sepsis, bacteremia PAST MEDICAL HISTORY/PAST SURGICAL HISTORY:: Discharge planning issues (Acute). DVT prophylaxis (Acute). Diabetic infection of right foot (Acute). Gram-positive cocci bacteremia (Acute). Foot infection (Acute). Cellulitis (Acute). Foot ulcer, left (Acute). Routine general medical examination at a health care facility (Acute). Colonoscopy refused (Acute). Diabetes mellitus (Chronic). Low HDL (under 40) (Acute 09/13/17). Essential hypertension (Acute 05/09/13). Elevated fasting blood sugar (Acute 08/28/15). Dyslipidemia (Acute 05/17/13). PCEq 12.6%; declines statins PREVIOUS FUNCTIONAL STATUS/SOCIAL/FAMILY SUPPORTS:: Kevin resides in [place], [place] He is independent at baseline and has good family support. CURRENT FUNCTIONAL STATUS:: Kevin was sitting up in bed, visiting with his brother, quite pleasant in interaction. CM supported Kevin in completing Health Care Agent form, appointing his brotherPradip as his agent and processed form-scanned to ACCESS, placed in paper chart, and provided copies to Kevin and Pradip. ADVANCE DIRECTIVES:: Completed [employer] form; appointing brother Pradip. Has patient been provided with info about the portal/API?: No Did the patient sign up for the portal?: No CODE STATUS:: Full Code INSURANCE COVERAGE / FINANCIAL ISSUES:: [facility] PRIMARY CARE PHYSICIAN:: Soni Ortega: JUAN MIGUEL POTENTIAL DISCHARGE NEEDS:: Surgical intervention, follow up appointments, advance directives. PATIENT/FAMILY EDUCATION NEEDS:: Review discharge instructions, discuss Ask Me Three. ANTICIPATED BARRIERS TO DISCHARGE:: None identified at this time. TRANSPORTATION:: Via private vehicle with family. PLAN:: Kevin was brought to the OR today for debridement of bilateral foot wounds; awaiting determination of IV ABX course, duration and frequency once culture results are known and ID consult completed. Anticipate Kevin will discharge home when ready per MD-dependent on IV ABX recommendations. He will follow up with surgical services, his PCP and plan of care as prescribed. He will transport via private vehicle with family.
--- NOTE | 2022-08-26 10:47 | CHAPLAIN ---
Kevin was resting in bed when I visited. He was pleasant and easily engaged in conversation. He told me that he's going to the OR soon for a wound on his foot. He's hungry but hasn't been able to eat since he's going to surgery. Kevin seemed to be comfortable being here. He had a visitor with him. I explained my role and offered support.
[2022-08-26 11:12] LABS: INR 1.1 (0.9-1.1); Prothrombin Time 10.9 sec (9.3-11.0)
[2022-08-26] MEDS: Bupivacaine 0.5% Pres-Free 30 ML VIAL (11:14)
--- NOTE | 2022-08-26 12:30 | W.ANESPOSTOP ---
Postoperative Evaluation Date, Time and Location Date Performed: 08/26/22 Time Performed: 12:31 Patient Location: PACU Vital Signs Most Recent Imported Vital Signs: Most Recent Vital Signs Temp Pulse Resp BP Pulse Ox 36 C L 66 16 119/73 98 08/26/22 12:19 08/26/22 12:19 08/26/22 12:19 08/26/22 12:19 08/26/22 12:19 Pain Score Most Recent Pain Score: Most Recent Pain Score Pain Level 1 08/26/22 12:19 Assessment Mental Status: Awake (Alert & Oriented to Patient Baseline) Airway and Respiratory Function: Patent airway with normal (patient baseline) respiratory exam Cardiovascular Function: Hemodynamically Stable Hydration Status: Adequately Hydrated Nausea & Vomiting: No Nausea or Vomiting Pain: Pt. Denies Any Pain Peripheral Nerve Block: Patient did not receive a nerve block
--- NOTE | 2022-08-26 13:05 | W.PM.OP ---
Date of service: 08/26/22 Time of Service: 11:00 Operative Note Operative Note DATE OF PROCEDURE: 08/26/22 PRE-OP DIAGNOSIS: R foot infection POST-OP DIAGNOSIS: same PROCEDURE: Incision and drainage R foot SURGEON: Malgorzata Nino ANESTHESIA TYPE: Local By Surgeon and MAC Refer to Anesthesia Record ESTIMATED BLOOD LOSS: 30 COMPLICATIONS: None Patient was transported to: floor Patient's condition: stable Indications: R foot infection, Bacteremia Procedure Description: The patient was brought to the operating room and placed on the operating table in the supine position. Following general anesthesia, 10 cc of 5% marcaine plain was used to perform a PT block (to avoid the infection involving the foot). The foot was scrubbed, prepping, and draped in the usual manner. Attention was directed to the R dorsal foot, area of greatest fluctuance and crepitus, R 3nd ray dorsally, where a 5 cm incision was made, deep through skin and subcutaneous tissue. Immediate identification of purulence was achieved, and 5-10 cc of purulence was emitted. The foot was assessed for proximal tracking and with the abscess fortunately localized to the dorsal R 2nd/3rd rays. The plantar 2nd metatarsal wound was then explored where a 2 cm incision was made, also through skin and subcutaneous tissue, done to the deep tissue. Minimal purulence was noted at this area upon significant compression of the forefoot, arch and midfoot (significantly less as compared to the purulence emitted from the foot in clinic 2 days ago). Significant time was sent to explore further tracking, with the infection localized to the 2nd/ 3rd rays dorsally and plantarly. Copious amounts of sterile normal saline was utilized to irrigate the area, 3 L, and all necrotic tissue was excised. A jeancarlos rain was placed to allow for continued drainage and retention sutures were placed about the dorsal and plantar foot, and a dry sterile dressing was applied. The patient will require daily dressing changes (to be performed by myself), continued IV, and a delayed closure in 3-5 days pending appearance and status in coming days. He was transferred to the PACU with vital signs stable and vascular status intact.
--- NOTE | 2022-08-26 13:34 | W.INDIABCONS ---
Date of service: 08/26/22 Time of Service: 13:34 Diabetes Inpatient Consult Reason for Visit: DM DESCRIPTION/ASSESSMENT: Kevin admitted with cellulitis and right foot infection- in OR today- not able to meet. PMH: NIDDM, HTN, HLD, GERD. BMI wnl. Most recent A1C (08/26/22: 6.5%) indicates good glycemic control with current Dm meds (1000 mg metformin qd). PLAN: Will be available to provide diabetes education prn. Time Spent in Nutritional Counseling and Treatment: 0
--- NOTE | 2022-08-26 15:41 | W.PM.PROGNOT ---
Date of Service Date of service: 08/26/22 Time of Service: 12:30 Assessment and Plan Assessment and plan (1) Gram-positive cocci bacteremia: Status: Acute Assessment and plan: Gram positive bacteremia, no further result growth at 24-hour and the culture is not completed. We will proceed with current antibiotic therapy with Vancomycin as patient is afebrile , CRP is down to 11.79 from 25, leukocytosis is down to 17.01. Patient is growing Streptococcus group G in wound and this is also sensitive to Vancomycin and ceftriaxone, we could downgrade from cefepime to only vancomycin and change an MSSA antibiotic if MRSA is negative. (2) Diabetic infection of right foot: Status: Acute Assessment and plan: Drained by surgery today, will continue antibiotics management as above Left sole has an ulcer, patient feels that is is getting better and healing,and XR done on 07/28/2022 reads as follow: EXAM:? XR FOOT LT COMPLETE CLINICAL HISTORY: ? lt foot ulcer, cellulitis,? osteomyelitis,l03.90,l97.529.? TECHNIQUE:? 2D digital imaging was performed of the left foot. ? Images were obtained.? AP, oblique and lateral views were obtained. COMPARISON:? No exams were available for comparison FINDINGS: BONES: No acute fracture is present. No bony destructive lesion is seen. There is a plantar calcaneal spur.? There is an enthesophyte at the Achilles insertion site. JOINTS: No dislocation present. Degenerative changes are seen in the foot particularly at the tarsometatarsal joints. SOFT TISSUE: There looks to be a soft tissue defect on the ball of the foot at the level of the tarsometatarsal joints on the lateral view.? This may reflect an ulcer.? IMPRESSION: No findings to suggest osteomyelitis.? If there is continued concern an MRI may be considered for further evaluation.? DATA REPOSITORY:? RADIATION DOSE DELIVERED:? Ordered By:? 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 PMH: NIDDM, HTN, HLD, GERD.? BMI wnl.? Most recent A1C (08/26/22: 6.5%) indicates good glycemic control with current Dm meds (1000 mg metformin qd).? PLAN: Will be available to provide diabetes education prn. Time Spent in Nutritional Counseling and Treatment: 0 (4) Essential hypertension: Status: Acute Assessment and plan: We will continue with home meds: Hydrochlorothiazide, Losartan, (5) DVT prophylaxis: Status: Acute Assessment and plan: We will differ to surgery regarding Heparin 500 units SQ Q 8 hours for DVT prophylaxis as it was stop prior to surgical intervention/ulcer drainage as per surgical note an plan sterile normal saline was utilized to irrigate the area, 3 L, and all necrotic tissue was excised. A jeancarlos rain was placed to allow for continued drainage and retention sutures were placed about the dorsal and plantar foot, and a dry sterile dressing was applied. The patient will require daily dressing changes (to be performed by myself), continued IV, and a delayed closure in 3-5 days pending appearance and status in coming days (6) Discharge planning issues: Status: Acute Assessment and plan: Care management will see patient to determine needs for home discharge. Subjective Subjective Patient reports: no new complaints, still having pain (1/10 but denies feeling restriction from ADELINA bandage applied post-op. Reports beein able to move the toes and feeling tactile stimuli to the right foot.), tolerating a regular diet, voiding w/o difficulty, flatus and other (Patient is seen post-op : Pain 1/10 tolerable, ice pack in place reported as enough and does not need pain meds at this time); denies diarrhea, nausea, vomiting, shortness of breath or fever Exam Narrative Exam Narrative: Patient is seen s/p abcess drainage from right lower extremity. Patient was alert and oriented X4, spoke in full sentences. No focal neurological deficit noticed. Head is normocephalic, atraumatic Lungs are clear posteriorly on both sides. Heart is regular, no cardiac murmur. Bilateral radial and pedal pulses present Right lower is positive for pitting edema 2+, no edema to let lower ext. but diabetic ulcer to the sole of the foot was dressed and drained minimal amount of serous fluid. Wound nurse mentioned seen the bone but could not appreciate it. Patient mentioned diagnostic imaging in July 2022 that was negative for osteomyelitis. Abdomen is non-tender, non-distended No CVA tenderness Capillary refill to right lower ext. <3 sec, CMST's adequate to both lower ext: minimal pain, pink in color, no increased paresthesia but neuropathy is the same as pre-op, no paralysis Objective Last Vital Signs Temp 97.2 F L 08/26/22 14:04 Pulse 69 08/26/22 14:04 Resp 16 08/26/22 14:04 BP 110/63 08/26/22 14:04 Pulse Ox 97 08/26/22 14:04 Laboratory Results - last 24 hr 08/26/22 08/26/22 08/26/22 06:40 06:40 06:40 WBC 17.01 H RBC 3.90 L Hgb 11.2 L Hct 34.0 L MCV 87 MCH 28.7 MCHC 32.9 RDW 15.9 H Plt Count 377 MPV 10.4 Immature Gran % 1.3 Neutrophils % 85.8 Lymphocytes % 7.8 Monocytes % 4.2 Eosinophils % 0.6 Basophils % 0.3 Nucleated RBC % 0.0 Absolute Neutrophils 14.60 H Absolute Lymphocytes 1.33 Absolute Monocytes 0.71 Absolute Eosinophils 0.10 Absolute Basophils 0.05 PT 10.9 INR 1.1 Sodium 140 Potassium 4.6 D Chloride 107 Carbon Dioxide 26.8 Anion Gap 6.2 BUN 12 Creatinine 0.8 Est GFR (CKD-EPI 2020) 97.61 Glucose 116 H Hemoglobin A1c Calcium 8.8 Magnesium 2.1 C-Reactive Protein 16.29 H 08/26/22 06:40 WBC RBC Hgb Hct MCV MCH MCHC RDW Plt Count MPV Immature Gran % Neutrophils % Lymphocytes % Monocytes % Eosinophils % Basophils % Nucleated RBC % Absolute Neutrophils Absolute Lymphocytes Absolute Monocytes Absolute Eosinophils Absolute Basophils PT INR Sodium Potassium Chloride Carbon Dioxide Anion Gap BUN Creatinine Est GFR (CKD-EPI 2020) Glucose Hemoglobin A1c 6.5 H Calcium Magnesium C-Reactive Protein Time Spent with Patient Time Spent with Patient: >50 minutes Time was spent: preparing to see the patient(eg.review tests), indepentently interpreting results and counseling the patient
[2022-08-26 15:45] LABS: Vancomycin, Trough 15.6 ug/mL (10.0-20.0)
[2022-08-26] MEDS: Normal Saline Flush 10 ML SYR IVP ×2 (16:31→16:57)
--- NOTE | 2022-08-26 18:42 | PGE_ITS ---
Date of Service Date of service: 08/26/22 Time of Service: 18:43 Assessment and Plan Assessment and plan (1) Diabetic infection of right foot: Status: Acute Assessment and plan: Continue empiric vancomycin and cefepime initiated in the ED. S/p I&D today. Defer wound care to podiatry. I am also concerned about the L foot - will obtain an MRI and ask Dr Nino to comment. As far as abx, we can simplify them to vanco/ceftriaxone as the wound is growing Staph aureus and Group G strep. (2) Gram-positive cocci bacteremia: Status: Acute Assessment and plan: Staph aureus, ?sensitivities. Per blood cultures on 08/23/22. Blood cultures from yesterday - NGTD. Echo w/o evidence of valvular involvement. Change abx to vanco/ceftriaxone. Await results of the MRI of the left foot to help determine duration of treatment with abx. Will consult ID once that is back. Trend procalcitonin. (3) Diabetes mellitus: Status: Chronic Assessment and plan: Hold metformin and cover with SSI for now. A1C of 6.5 (4) Essential hypertension: Status: Acute Assessment and plan: Continue losartan. Continue to hold HCTZ for now. (5) DVT prophylaxis: Status: Acute Assessment and plan: Start heparin sc in am, if ok with Dr Nino. (6) Discharge planning issues: Status: Acute Assessment and plan: Full code Continues to require hospitalization. Abx duration to be determined. Subjective Subjective Interval history since last seen: Mr Oropeza is s/p I&D R foot in the OR today. He feels well. Pain is controlled. Nursing is concerned about the wound on his L foot as well. Denies dizziness, chest pain, shortness of breath, nausea. Exam Narrative Exam Narrative: General: middle-aged male who appears comfortable in bed, A&Ox3, NAD HEENT: EOMI, MMM Cardiovascular: RRR, no m/r/g Lungs: CTAB Gastrointestinal: soft, nontender, nondistended Extremities: B feet dressed Objective Last Vital Signs Temp 36.2 C L 08/26/22 14:04 Pulse 69 08/26/22 14:04 Resp 16 08/26/22 14:04 BP 110/63 08/26/22 14:04 Pulse Ox 97 08/26/22 14:04 Laboratory Results - last 24 hr 08/26/22 08/26/22 08/26/22 06:40 06:40 06:40 WBC 17.01 H RBC 3.90 L Hgb 11.2 L Hct 34.0 L MCV 87 MCH 28.7 MCHC 32.9 RDW 15.9 H Plt Count 377 MPV 10.4 Immature Gran % 1.3 Neutrophils % 85.8 Lymphocytes % 7.8 Monocytes % 4.2 Eosinophils % 0.6 Basophils % 0.3 Nucleated RBC % 0.0 Absolute Neutrophils 14.60 H Absolute Lymphocytes 1.33 Absolute Monocytes 0.71 Absolute Eosinophils 0.10 Absolute Basophils 0.05 PT 10.9 INR 1.1 Sodium 140 Potassium 4.6 D Chloride 107 Carbon Dioxide 26.8 Anion Gap 6.2 BUN 12 Creatinine 0.8 Est GFR (CKD-EPI 2020) 97.61 Glucose 116 H Hemoglobin A1c Calcium 8.8 Magnesium 2.1 C-Reactive Protein 16.29 H Vancomycin Trough 08/26/22 08/26/22 06:40 15:16 WBC RBC Hgb Hct MCV MCH MCHC RDW Plt Count MPV Immature Gran % Neutrophils % Lymphocytes % Monocytes % Eosinophils % Basophils % Nucleated RBC % Absolute Neutrophils Absolute Lymphocytes Absolute Monocytes Absolute Eosinophils Absolute Basophils PT INR Sodium Potassium Chloride Carbon Dioxide Anion Gap BUN Creatinine Est GFR (CKD-EPI 2020) Glucose Hemoglobin A1c 6.5 H Calcium Magnesium C-Reactive Protein Vancomycin Trough 15.6 Objective Narrative Objective Narrative: Echo: LVEF 60-65%, no segmental wall motion abnormalities, no valvular vegetations. Time Spent with Patient Time Spent with Patient: 25-34 minutes Time was spent: preparing to see the patient(eg.review tests), obtaining and/or reviewing separately otained hiistory, ordering medications,tests, procedures, referring, communicating with other health home care and home health aides teacher, indepentently interpreting results, counseling the patient and care coordination
[2022-08-26] MEDS: cefTRIAXone 2 GM/50 ML BAG IVPB (19:10)
[2022-08-26] MEDS: Acetaminophen 325 MG TAB PO (20:07)
[2022-08-27 03:45] VITALS: BP 103/62; PULSE 59; RESP 18; TEMP 36; O2SAT 97
[2022-08-27 06:49] LABS: Abs Immature Grans 0.32 10^3/uL (0.0-0.06); Absolute Basophil Count 0.06 10^3/uL (0.0-0.2); Absolute Lymphocyte Count 1.69 10^3/uL (1.2-3.4); Absolute Monocyte Count 0.77 10^3/uL (0.1-0.8); Basophils % 0.4; Eosinophils % 1.8; HCT 33.5 % (40.0-50.0); HGB 10.9 g/dL (13.5-17.5); Immature Grans % 2.2; Lymphocytes % 11.4; MCH 28.6 pg (27.0-33.0); MCHC 32.5 % (32.0-36.0); MCV 88 fL (80-95); MPV 10.8 fL (8.0-11.0); Monocytes % 5.2; Platelet Count 407 10^3/uL (130-400); RBC 3.81 10^6/uL (4.36-5.78); RDW 16.2 % (11.8-14.1); RDW-SD 52.8 fL; WBC 14.84 10^3/uL (4.4-10.8)
[2022-08-27 06:53] LABS: Absolute Eosinophil Count 0.27 10^3/uL (0.0-0.7); Absolute Neutrophil Count 11.72 10^3/uL (1.2-6.7)
[2022-08-27 07:11] LABS: Anion Gap 6.6 mmol/L (3-11); BUN 13 mg/dL (7-18); C-Reactive Protein 10.42 mg/dL (0.0-0.3); CO2 27.4 mmol/L (21.0-32.0); CREATININE 0.7 mg/dL (0.70-1.30); Calcium 8.8 mg/dL (8.5-10.1); Chloride 106 mmol/L (98-107); Estimated GFR 101.62 (mL/min/1.73m2); Glucose 112 mg/dL (74-106); Magnesium 2.2 mg/dL (1.8-2.4); Potassium 3.9 mmol/L (3.5-5.1); Sodium 140 mmol/L (136-145)
[2022-08-27 07:28] VITALS: BP 113/68; PULSE 63; RESP 14; TEMP 36.4; O2SAT 99
[2022-08-27] MEDS: VANCOMYCIN/WATER (PEG) 1 GM/200 ML BAG IVPB ×2 (07:56→16:17)
[2022-08-27] MEDS: Losartan 50 MG TAB 100 MG PO (07:56)
[2022-08-27] MEDS: Normal Saline Flush 10 ML SYR IVP ×3 (07:57→20:22)
--- NOTE | 2022-08-27 09:13 | PDOC.CMPRO ---
- If Service Date Differs Date of service: 08/27/22 Time of Service: 09:13 Care Management Progress Note S/O:Garry was sitting up in bed when CM met with him. He was visiting with family and appeared to be in good spirits. Garry informed CM that Dr. Nino had just been in and changed the dressings on both of his feet. He had an MRI today but did not have the results. He reported that his plan of care will depend on the results of the MRI. He stated that Dr. Nino informed him that she will be in early tomorrow morning to change his dressings again. Garry asked CM to follow up on his [facility] claim that he had asked his provider to complete. MOSES spoke with Natacha, the CCC at [facility] where Soni Ortega practices. She informed CM that the paperwork was done and she was waiting to learn where to send it. CM contacted [employer], Garry's employer, obtained the necessary information and gave it to Natacha. MOSES also gave contact information for [facility] ([facility] system support administrator) to Garry so he can follow up on his own if he has questions. A: Kevin is a 66 year old man admitted on 08/25/22 with a diabetic foot infection P:Kevin was brought to the OR yesterday for debridement of his right foot wound. Antibiotic course and choice will be determined by culture results which are not yet available. Anticipate Kevin will discharge home when ready per MD-dependent on IV ABX recommendations. He will follow up with surgical services, his PCP and plan of care as prescribed. He will transport via private vehicle with family.
[2022-08-27 10:59] VITALS: BP 104/60; PULSE 61; RESP 16; TEMP 36.7; O2SAT 98
--- NOTE | 2022-08-27 13:00 | DI.MRI_ITS ---
Exam(s) MR LOWER EXTREMITY LT WO/W EXAM: MR LOWER EXTREMITY LT WO/W CLINICAL HISTORY: suspected osteomyelitis/abscess L foot. TECHNIQUE: Multiplanar multisequence MRI was performed. CONTRAST MATERIAL: IV Contrast: 15 mL of Dotarem contrast administered. COMPARISON: CR XR FOOT LT COMPLETE from 08/26/2022 FINDINGS: BONES/JOINTS: No evidence of fracture. There is hyperintense T2 signal seen within the middle and pro ximal phalanges of the 2nd toe and the 2nd metatarsal bone. These areas show enhancement following c ontrast administration. No joint effusion identified. LIGAMENTS: The medial and lateral collateral ligaments are intact. MUSCULOTENDINOUS STRUCTURES: There is some enhancement noted around the flexor and extensor tendons o f the 2nd toe. The visualized intrinsic muscles and tendons of the foot are unremarkable. SOFT TISSUES: There is edema seen in the soft tissues of the 2nd toe extending proximally adjacent to the head of the 2nd metatarsal. There also appears to be an ulcer/abscess in the subcutaneous tissu es on the dorsum of the 2nd toe. There may also be a small soft tissue defect/ulcer on the plantar s urface of the foot at the level of the head of the 2nd metatarsal. ENHANCEMENT: There is a 1 by 1.5 cm ring-enhancing fluid collection on the plantar surface of the popeye t adjacent to the proximal phalanx of the 2nd toe. This may represent a small abscess. OTHER FINDINGS: None. IMPRESSION: 1. Findings suspicious for osteomyelitis involving the 2nd metatarsal and the proximal middle phalang es of the 2nd toe. 2. Ulcers and abscesses around the 2nd toe as described above. There is a 1 x 1.5 cm ring-enhancing fluid collection on the plantar surface of the foot adjacent to the proximal phalanx of the 2nd toe s uggestive of an abscess. DATA REPOSITORY:
--- NOTE | 2022-08-27 13:15 | W.PODCONSULT ---
Date of service: 08/27/22 Time of Service: 12:45 Assessment and Plan Assessment and plan (1) Foot ulcer, left: Status: Acute Assessment and plan: I, too, have always been concerned about the L foot, and now that significant purulence was not emitted and observed from the R foot (s/p 1 day R foot infection), was able to thoroughly assess the less-acute L foot wound. Probe to bone present and with the increased girth and lack of stability of the 2nd digit, underlying chronic osteomyelitis likely, as was reviewed with the patient at our first encounter. Awaiting results of MRI to make definitive plan, but would likely recommend surgical intervention (likely 2nd partial ray resection) at the same time as the R delayed closure. This was briefly reviewed with the patient and his family at bedside, but with assurance that more definitive recommendations would be given at bedside tomorrow. In the meantime, recommend continued foam dressing (not promogram with possibility of underlying osteomyelitis) as ordered, continued IV Abx, and continued limited activity in attempt to maintain the viability of the R foot retention sutures. Please call with questions, . 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 No purulence emitted today at bedside, with a decrease in erytheme, edema and calor. Pt will need a delayed closure, likely 2-4 days, pending on schedule. Recommend contined IV Abx and continued daily dressing changes (myself) in the meantime. History of Present Illness History of Present Illness Chief Complaint: R foot infection, s/p 1 day I&D Narrative: Garry is a 66 year old male evaluated at bedside s/p 1 day R foot I&D for the management of a severe R foot infection. He reports to feeling much better with his discomfort affecting his R foot and overall less feelings of fatigue. He denies any recent N/V/C/NS/F. He was seen immediately after obtaining L foot MRI, not yet ready for review [facility] All Active Problems (Updated 08/25/22 @ 19:05 by Alicja Delgado MD) Discharge planning issues (Acute) DVT prophylaxis (Acute) Diabetic infection of right foot (Acute) Gram-positive cocci bacteremia (Acute) Foot infection (Acute) Cellulitis (Acute) Foot ulcer, left (Acute) Routine general medical examination at a health care facility (Acute) Colonoscopy refused (Acute) Diabetes mellitus (Chronic) Low HDL (under 40) (Acute 09/13/17) Essential hypertension (Acute 05/09/13) Elevated fasting blood sugar (Acute 08/28/15) Dyslipidemia (Acute 05/17/13) PCEq 12.6%; declines statins Family History (Updated 08/25/22 @ 18:55 by Alicja Delgado MD) Mother Stroke Father Stroke Heart disease Social History Smoking/Tobacco Use Status: Never Smoking risk assessment performed?: Yes Alcohol Intake: current Alcohol Intake frequency: holidays/special occasions only Drug use: Never Caregiver/Support person: No Housing: house Number of Children: 0 Communication Needs: Corrective Lenses Do you need help understanding health information?: Rarely Pets and animals: Yes Current gender identity: decline to answer What is your relationship status?: refused to answer How often do you talk on the phone with friends or family?: decline to answer How often do you get together with friends or relatives?: decline to answer How often do you attend shinto or restoration services?: decline to answer Do you belong to any clubs or organized social groups?: decline to answer Panel score (0-1 are the most socially isolated patients): 0 What type of physical activity do you participate in: walking and other Details: moving pellets Duration: > 90 minutes/day Frequency: daily Special maría needs: No Do you feel safe at home: Yes Exam Extrem Other: R LE: Incision sites clean, retention sutures in place and jeancarlos drain in place. Substantial decrease in R LE edema is noted, less erythema, no lymphangitis, and most noteworthy no purulence emitted upon compression of the arch and forefoo. L LE: Full thickness ulceration plantar L 2nd metatarsal head, with probe to bone and increased girth of the L 2nd digit, most probably consistent with underlying osteomyelitist Results Last Vital Signs Temp 98.1 F 08/27/22 10:59 Pulse 61 08/27/22 10:59 Resp 16 08/27/22 10:59 BP 104/60 08/27/22 10:59 Pulse Ox 98 08/27/22 10:59 Labs Result diagrams: 08/27/22 06:00 08/27/22 06:00 Labs: Laboratory Results - last 24 hr 08/26/22 08/27/22 08/27/22 15:16 06:00 06:00 WBC 14.84 H RBC 3.81 L Hgb 10.9 L Hct 33.5 L MCV 88 MCH 28.6 MCHC 32.5 RDW 16.2 H Plt Count 407 H MPV 10.8 Immature Gran % 2.2 Neutrophils % 79.0 Lymphocytes % 11.4 Monocytes % 5.2 Eosinophils % 1.8 Basophils % 0.4 Nucleated RBC % 0.0 Absolute Neutrophils 11.72 H Absolute Lymphocytes 1.69 Absolute Monocytes 0.77 Absolute Eosinophils 0.27 Absolute Basophils 0.06 Sodium 140 Potassium 3.9 Chloride 106 Carbon Dioxide 27.4 Anion Gap 6.6 BUN 13 Creatinine 0.7 Est GFR (CKD-EPI 2020) 101.62 Glucose 112 H Calcium 8.8 Magnesium 2.2 C-Reactive Protein 10.42 H Vancomycin Trough 15.6 08/27/22 15:00 WBC RBC Hgb Hct MCV MCH MCHC RDW Plt Count MPV Immature Gran % Neutrophils % Lymphocytes % Monocytes % Eosinophils % Basophils % Nucleated RBC % Absolute Neutrophils Absolute Lymphocytes Absolute Monocytes Absolute Eosinophils Absolute Basophils Sodium Potassium Chloride Carbon Dioxide Anion Gap BUN Creatinine Est GFR (CKD-EPI 2020) Glucose Calcium Magnesium C-Reactive Protein Vancomycin Trough Cancelled
[2022-08-27 15:10] VITALS: BP 104/57; PULSE 67; RESP 16; TEMP 36.9; O2SAT 96
[2022-08-27] MEDS: Insulin Aspart 300 UNITS/3 ML PEN SC ×2 (17:11→21:44)
--- NOTE | 2022-08-27 18:44 | PGE_ITS ---
Date of Service Date of service: 08/27/22 Time of Service: 18:44 Assessment and Plan Assessment and plan (1) Sepsis: Status: Acute Assessment and plan: with MSSA bacteremia due to B foot infections/abscesses. Per blood cultures 08/23/22. Repeat blood cultures on 08/25/22- NGTD. Abx switched to cefazolin. No evidence of endocarditis on TTE. Abx length: 6 weeks from 1st negative blood culture (osteomylitis L foot). Last day of abx should be 10/05/21. Discussed with [facility] ID. (2) MSSA bacteremia: Status: Acute Assessment and plan: As above (3) Diabetic infection of right foot: Status: Acute Assessment and plan: Continue empiric vancomycin and cefepime initiated in the ED. S/p I&D R foot 08/26/21. Defer wound care to podiatry. wound is growing Staph aureus and Group G strep. As above - change abx to cefazolin. (4) Diabetic infection of left foot: Status: Acute Assessment and plan: For OR next Tuesday for partial amputation of 2nd digit/I&D. Has osteomyelitis. Abx length should be [address] Nino. (5) Diabetes mellitus: Status: Chronic Assessment and plan: Hold metformin and cover with SSI for now. A1C of 6.5 (6) Essential hypertension: Status: Acute Assessment and plan: Continue losartan. Continue to hold HCTZ for now. (7) DVT prophylaxis: Status: Acute Assessment and plan: SC heparin (8) Discharge planning issues: Status: Acute Assessment and plan: Full code Continues to require hospitalization. The patient would prefer to complete his abx at home with home health rather than in a swing bed when he is ready for discharge. Subjective Subjective Interval history since last seen: Mr Oropeza is doing well. No dizziness, chest pain, shortness of breath, nausea. We discussed the results of his MRI and that podiatry is planning on doing an intervention on his L foot on Tuesday (partial amputation 2nd digit) at the same time as the delayed closure of his R foot. I also discussed the case with ID at [facility]. Recommend 6 weeks of antibiotics (from 1st negative blood culture), cefazolin being a preferred agent. Exam Narrative Exam Narrative: General: middle-aged male who appears comfortable in bed, A&Ox3, NAD HEENT: EOMI, MMM Cardiovascular: RRR, no m/r/g Lungs: CTAB Gastrointestinal: soft, nontender, nondistended Extremities: B feet dressed Objective Last Vital Signs Temp 36.9 C 08/27/22 15:10 Pulse 67 08/27/22 15:10 Resp 16 08/27/22 15:10 BP 104/57 L 08/27/22 15:10 Pulse Ox 96 08/27/22 15:10 Laboratory Results - last 24 hr 08/27/22 08/27/22 08/27/22 06:00 06:00 15:00 WBC 14.84 H RBC 3.81 L Hgb 10.9 L Hct 33.5 L MCV 88 MCH 28.6 MCHC 32.5 RDW 16.2 H Plt Count 407 H MPV 10.8 Immature Gran % 2.2 Neutrophils % 79.0 Lymphocytes % 11.4 Monocytes % 5.2 Eosinophils % 1.8 Basophils % 0.4 Nucleated RBC % 0.0 Absolute Neutrophils 11.72 H Absolute Lymphocytes 1.69 Absolute Monocytes 0.77 Absolute Eosinophils 0.27 Absolute Basophils 0.06 Sodium 140 Potassium 3.9 Chloride 106 Carbon Dioxide 27.4 Anion Gap 6.6 BUN 13 Creatinine 0.7 Est GFR (CKD-EPI 2020) 101.62 Glucose 112 H Calcium 8.8 Magnesium 2.2 C-Reactive Protein 10.42 H Vancomycin Trough Cancelled Time Spent with Patient Time Spent with Patient: 25-34 minutes Time was spent: preparing to see the patient(eg.review tests), obtaining and/or reviewing separately otained hiistory, ordering medications,tests, procedures, referring, communicating with other health day care provider, indepentently interpreting results, counseling the patient and care coordination
[2022-08-27 19:15] VITALS: BP 109/58; PULSE 69; RESP 16; TEMP 37.5; O2SAT 95
[2022-08-27] MEDS: Heparin 5,000 UNITS/ML VIAL 5000 UNITS SC (21:48)
[2022-08-27] MEDS: ceFAZolin 2 GM/50 ML BAG IVPB (21:50)
[2022-08-27 23:11] VITALS: BP 120/69; PULSE 66; RESP 16; TEMP 37.2; O2SAT 96
[2022-08-28 02:37] VITALS: BP 118/70; PULSE 63; RESP 18; TEMP 36.1; O2SAT 96
[2022-08-28] MEDS: Normal Saline Flush 10 ML SYR IVP ×3 (05:51→21:13)
[2022-08-28] MEDS: ceFAZolin 2 GM/50 ML BAG IVPB ×3 (05:51→21:14)
[2022-08-28] MEDS: Heparin 5,000 UNITS/ML VIAL 5000 UNITS SC ×3 (05:51→21:14)
[2022-08-28 06:19] LABS: Absolute Basophil Count 0.07 10^3/uL (0.0-0.2); Absolute Lymphocyte Count 1.49 10^3/uL (1.2-3.4); Absolute Monocyte Count 0.78 10^3/uL (0.1-0.8); Basophils % 0.5; Eosinophils % 2.1; HCT 36.5 % (40.0-50.0); Immature Grans % 2.8; Lymphocytes % 10.5; MCH 28.6 pg (27.0-33.0); MCHC 32.9 % (32.0-36.0); MCV 87 fL (80-95); MPV 10.2 fL (8.0-11.0); Monocytes % 5.5; Neutrophils % 78.6; Platelet Count 439 10^3/uL (130-400); RDW 16.2 % (11.8-14.1); RDW-SD 51.2 fL; WBC 14.23 10^3/uL (4.4-10.8)
[2022-08-28 06:28] LABS: Absolute Neutrophil Count 11.18 10^3/uL (1.2-6.7)
[2022-08-28 06:43] LABS: Anion Gap 6.6 mmol/L (3-11); BUN 11 mg/dL (7-18); CO2 28.4 mmol/L (21.0-32.0); CREATININE 0.7 mg/dL (0.70-1.30); Calcium 9.1 mg/dL (8.5-10.1); Chloride 103 mmol/L (98-107); Estimated GFR 101.62 (mL/min/1.73m2); Glucose 120 mg/dL (74-106); Magnesium 2.2 mg/dL (1.8-2.4); Potassium 4.6 mmol/L (3.5-5.1); Sodium 138 mmol/L (136-145)
[2022-08-28 06:47] LABS: Vancomycin, Trough 11.6 ug/mL (10.0-20.0)
[2022-08-28 07:22] VITALS: BP 107/63; PULSE 66; RESP 16; TEMP 36.1; O2SAT 97
[2022-08-28] MEDS: Losartan 50 MG TAB 100 MG PO (08:19)
--- NOTE | 2022-08-28 08:46 | POCOE_ITS ---
Date of service: 08/28/22 Time of Service: 06:30 Assessment and Plan Assessment and plan (1) Sepsis: Status: Acute Assessment and plan: The patient was evaluated at bedside. Dressing changed. No further purulence emitted from the R foot, with resolution of deep infection and continued improvement of cellulitis. Recommend continued IV Abx, elevation and delayed closure Tuesday. L foot MRI confirms the presence of underlying osteomyelitis, L 2nd ray. Recommend L 2nd partial ray resection at the same time as R delayed closure, scheduled tentatively for Tuesday. Treatment options were reviewed in detail with the patient today, including IV Abx vs surgical intervention. The risks and possible complications of all options were reviewed and all questions were answered. Surgery scheduled for 1PM tuesday, tentatively. I will continue to follow in the meantime. Call with questions [phone]. (2) MSSA bacteremia: Status: Acute (3) Diabetic infection of left foot: Status: Acute (4) Gram-positive cocci bacteremia: Status: Acute History of Present Illness History of Present Illness Chief Complaint: R foot infection s/p 2 days I&D, L foot osteomyelitis Narrative: Pt evaluated at bedside, s/p 2 days R foot infection. He reports to continuing to feel better and notes minimal drainage from the R foot, and less tightness and discomfort attributed to the R foot. He denies N/V/C/NS/F. He reports he has not been ambulating other than going to the restroom and has been laying with his feet elevated. MRI results were reviewed with him yesterday, it seems, and he understands a L 2nd digit amputation has been recommended Consults Consult date: 08/28/22 ON LICENSE OF [facility] All Active Problems (Updated 08/27/22 @ 18:49 by Alicja Delgado MD) Sepsis (Acute) MSSA bacteremia (Acute) Diabetic infection of left foot (Acute) Discharge planning issues (Acute) DVT prophylaxis (Acute) Diabetic infection of right foot (Acute) Gram-positive cocci bacteremia (Acute) Foot infection (Acute) Cellulitis (Acute) Foot ulcer, left (Acute) Routine general medical examination at a health care facility (Acute) Colonoscopy refused (Acute) Diabetes mellitus (Chronic) Low HDL (under 40) (Acute 09/13/17) Essential hypertension (Acute 05/09/13) Elevated fasting blood sugar (Acute 08/28/15) Dyslipidemia (Acute 05/17/13) PCEq 12.6%; declines statins Family History (Updated 08/25/22 @ 18:55 by Alicja Delgado MD) Mother Stroke Father Stroke Heart disease Social History Smoking/Tobacco Use Status: Never Smoking risk assessment performed?: Yes Alcohol Intake: current Alcohol Intake frequency: holidays/special occasions only Drug use: Never Caregiver/Support person: No Housing: house Number of Children: 0 Communication Needs: Corrective Lenses Do you need help understanding health information?: Rarely Pets and animals: Yes Current gender identity: decline to answer What is your relationship status?: refused to answer How often do you talk on the phone with friends or family?: decline to answer How often do you get together with friends or relatives?: decline to answer How often do you attend latter day or synagogue services?: decline to answer Do you belong to any clubs or organized social groups?: decline to answer Panel score (0-1 are the most socially isolated patients): 0 What type of physical activity do you participate in: walking and other Details: moving pellets Duration: > 90 minutes/day Frequency: daily Special maría needs: No Do you feel safe at home: Yes Exam Skin Other: R LE: incision sites with skin edges well approximated, retention sutures intact. No purulence or even significant drainage emitted upon compression of the forefoot. Continued decrease in edema and erythema noted with no lymphangitis today or calor. L LE: No changes from yesterday. Full thickness ulceration with probe to bone, L 2nd metatarsal head, with increased girth of the L 2nd digit as noted. Again no changes from yesterday. No fluctuance or crepitis. Foot stable Results Last Vital Signs Temp 97.0 F L 08/28/22 07:22 Pulse 66 08/28/22 07:22 Resp 16 08/28/22 07:22 BP 107/63 08/28/22 07:22 Pulse Ox 97 08/28/22 07:22 Labs Result diagrams: 08/28/22 06:10 08/28/22 06:10 Labs: Laboratory Results - last 24 hr 08/28/22 08/28/22 08/28/22 06:10 06:10 06:10 WBC 14.23 H RBC 4.20 L Hgb 12.0 L Hct 36.5 L MCV 87 MCH 28.6 MCHC 32.9 RDW 16.2 H Plt Count 439 H MPV 10.2 Immature Gran % 2.8 Neutrophils % 78.6 Lymphocytes % 10.5 Monocytes % 5.5 Eosinophils % 2.1 Basophils % 0.5 Nucleated RBC % 0.0 Absolute Neutrophils 11.18 H Absolute Lymphocytes 1.49 Absolute Monocytes 0.78 Absolute Eosinophils 0.30 Absolute Basophils 0.07 Sodium 138 Potassium 4.6 Chloride 103 Carbon Dioxide 28.4 Anion Gap 6.6 BUN 11 Creatinine 0.7 Est GFR (CKD-EPI 2020) 101.62 Glucose 120 H Calcium 9.1 Magnesium 2.2 Vancomycin Trough 11.6
[2022-08-28 11:37] VITALS: BP 116/69; PULSE 68; RESP 18; TEMP 36; O2SAT 97
--- NOTE | 2022-08-28 14:21 | PGE_ITS ---
Date of Service Date of service: 08/28/22 Time of Service: : Assessment and Plan Assessment and plan (1) Sepsis: Status: Acute Assessment and plan: with MSSA bacteremia due to B foot infections/abscesses. Per blood cultures 08/23/22. Repeat blood cultures on 08/25/22- NGTD. Abx switched to cefazolin d#2 No evidence of endocarditis on TTE. Abx length: 6 weeks from 1st negative blood culture (osteomylitis L foot). Last day of abx should be 10/05/21. Discussed by Dr. Delgado with [facility] ID (2) MSSA bacteremia: Status: Acute Assessment and plan: As above (3) Diabetic infection of right foot: Status: Acute Assessment and plan: Continue empiric vancomycin and cefepime initiated in the ED. S/p I&D R foot 08/26/21. Defer wound care to podiatry. wound is growing Staph aureus and Group G strep. As above - change abx to cefazolin. (4) Diabetic infection of left foot: Status: Acute Assessment and plan: For OR next Tuesday for partial amputation of 2nd digit/I&D. Has osteomyelitis. Abx length should be [address] Nino. (5) Diabetes mellitus: Status: Chronic Assessment and plan: Hold metformin and cover with insulin sensitive SSI for now. A1C of 6.5 glucose running 101 to 160. (6) Essential hypertension: Status: Acute Assessment and plan: Continue losartan. Continue to hold HCTZ for now. (7) DVT prophylaxis: Status: Acute Assessment and plan: SC heparin (8) Discharge planning issues: Status: Acute Assessment and plan: Full code Continues to require hospitalization. The patient would prefer to complete his abx at home with home health rather than in a swing bed when he is ready for discharge. Subjective Subjective Interval history since last seen: No new complaints. No pain. He remains on Ancef for MSSA bacteremia and MSSA and Strep Grp G diabetic foot infection. He has cellulitis of right foot w/ deep infection for which Dr. Nino has drained this and plans closure next week but also has left 2nd toe osteomyelitis for which she plans to perform L. 2nd partial ray resection also for next Tuesday. He says that this was all explained to him this morning by Dr. Nino. Exam Narrative Exam Narrative: Mr. Oropeza is alert and oriented He denies any heart issues. I went over his echo w/ him. Lungs: clear Heart: RRR w/out murmur or rub Abdomen: soft, nondistended, nontender Extremities: both feet are warm, w/ palpable DP and PT pulses. Wounds were dressed and therefore I did not take down his dressings this afternoon. tips of toes are exposed and are pink, w/ capillary refill and he has sensation to light touch over both feet Objective Last Vital Signs Temp 36.0 C L 08/28/22 11:37 Pulse 68 08/28/22 11:37 Resp 18 08/28/22 11:37 BP 116/69 08/28/22 11:37 Pulse Ox 97 08/28/22 11:37 Laboratory Results - last 24 hr 08/28/22 08/28/22 08/28/22 06:10 06:10 06:10 WBC 14.23 H RBC 4.20 L Hgb 12.0 L Hct 36.5 L MCV 87 MCH 28.6 MCHC 32.9 RDW 16.2 H Plt Count 439 H MPV 10.2 Immature Gran % 2.8 Neutrophils % 78.6 Lymphocytes % 10.5 Monocytes % 5.5 Eosinophils % 2.1 Basophils % 0.5 Nucleated RBC % 0.0 Absolute Neutrophils 11.18 H Absolute Lymphocytes 1.49 Absolute Monocytes 0.78 Absolute Eosinophils 0.30 Absolute Basophils 0.07 Sodium 138 Potassium 4.6 Chloride 103 Carbon Dioxide 28.4 Anion Gap 6.6 BUN 11 Creatinine 0.7 Est GFR (CKD-EPI 2020) 101.62 Glucose 120 H Calcium 9.1 Magnesium 2.2 Vancomycin Trough 11.6 Time Spent with Patient Time Spent with Patient: <25 minutes Time was spent: preparing to see the patient(eg.review tests), obtaining and/or reviewing separately otained hiistory, counseling the patient and care coordination
[2022-08-28 14:55] VITALS: BP 102/63; PULSE 65; RESP 16; TEMP 36.9; O2SAT 96
[2022-08-28 19:10] VITALS: BP 106/59; PULSE 69; RESP 18; TEMP 36.7; O2SAT 97
[2022-08-28 23:25] VITALS: BP 114/64; PULSE 61; RESP 18; TEMP 36.4; O2SAT 96
[2022-08-29] MEDS: ceFAZolin 2 GM/50 ML BAG IVPB ×3 (05:30→22:42)
[2022-08-29] MEDS: Heparin 5,000 UNITS/ML VIAL 5000 UNITS SC ×3 (05:31→22:42)
[2022-08-29 07:27] VITALS: BP 105/65; PULSE 60; RESP 18; TEMP 36.3; O2SAT 96
[2022-08-29] MEDS: Losartan 50 MG TAB 100 MG PO (07:57)
[2022-08-29] MEDS: Normal Saline Flush 10 ML SYR IVP (13:26)
--- NOTE | 2022-08-29 14:03 | W.PM.PROGNOT ---
Date of Service Date of service: 08/29/22 Time of Service: 14:04 Assessment and Plan Assessment and plan (1) MSSA bacteremia: Status: Acute Assessment and plan: Blood cultures grew MSSA on 08/23/2022 and cleared by 08/25/2022. Wound culture grew staph aureus MSSA as well as group G strep. Patient is on Ancef day #3 after initial treatment with cefepime and vancomycin. Transthoracic echocardiogram with normal LV and RV function no vegetation seen. Professional time spent interviewing and examining patient, discussion of goals of care with hospital team (care management, nursing and consulting professionals) was 20 minutes. (2) Diabetic infection of right foot: Status: Acute Assessment and plan: S/p I&D R foot 08/26/21. Defer wound care to podiatry. wound is growing Staph aureus and Group G strep. continue cefazolin x 6 weeks podiatry planning wound closure on Friday 09/01 (3) Diabetic infection of left foot: Status: Acute Assessment and plan: For OR next Friday 09/01 for partial amputation of 2nd digit/I&D. Has osteomyelitis. Abx length should be 6 weeks. (4) Diabetes mellitus: Status: Chronic Assessment and plan: Hold metformin and cover with insulin sensitive SSI for now. A1C of 6.5 glucose running 108 to 126. (5) Essential hypertension: Status: Acute Assessment and plan: Continue losartan. Continue to hold HCTZ for now. (6) DVT prophylaxis: Status: Acute Assessment and plan: SC heparin (7) Discharge planning issues: Status: Acute Assessment and plan: Full code Continues to require hospitalization. The patient would prefer to complete his abx at home with home health rather than in a swing bed when he is ready for discharge. Subjective Subjective Interval history since last seen: No new complaints. Denies any pain or fevers. No hypoglycemia spells. Not required any insulin today. Glucose running 108 to 126 mg/dL today. Exam Narrative Exam Narrative: Feet warm, good capillary refill in toes, normal P.T. pulses bilaterally Right foot w/ jeancarlos drain in dorsum and plantar surface of foot between the 2nd and 3rd metatarsals; wound is closed w/ sutures, there is minimal serous drainage around the drain; no purlence from either the drain or the skin Left foot w/ 2 cm x 3 cm triangular shape wound on the plantar surface at the 2nd MT w/ foul smell to the wound, no purlent drainage, some whitish slough around the edges Objective Last Vital Signs Temp 36.3 C L 08/29/22 07:27 Pulse 60 08/29/22 07:27 Resp 18 08/29/22 07:27 BP 105/65 08/29/22 07:27 Pulse Ox 96 08/29/22 07:27 Time Spent with Patient Time Spent with Patient: <25 minutes Time was spent: preparing to see the patient(eg.review tests), ordering medications,tests, procedures and care coordination
[2022-08-29 15:42] VITALS: BP 100/62; PULSE 68; RESP 18; TEMP 36.1; O2SAT 96
[2022-08-29 23:17] VITALS: BP 121/70; PULSE 67; RESP 17; TEMP 36.2; O2SAT 97
[2022-08-30] MEDS: Heparin 5,000 UNITS/ML VIAL 5000 UNITS SC ×3 (06:03→21:31)
[2022-08-30] MEDS: ceFAZolin 2 GM/50 ML BAG IVPB ×3 (06:03→21:30)
[2022-08-30] MEDS: Losartan 50 MG TAB 100 MG PO (07:37)
--- NOTE | 2022-08-30 07:41 | POCOE_ITS ---
Date of service: 08/30/22 Time of Service: 07:15 Assessment and Plan Assessment and plan (1) MSSA bacteremia: Status: Acute Assessment and plan: The patient was evaluted at bedside. The dressing was changed. R foot no longer with signs of infection, s/p 4 days R I&D. L foot stable. Plan for R foot de layed closure and L foot 2nd partial ray resection on Tuesday (OR and other scheduling restrictions). Recommend IV Abx in the meantime, DVT prophylaxis, and limited activity. With the regard to the L foot, the intention of surgery on Tuesday will be to resect all osteomyelitic bone on the L, and if achieved (clean margins confirmed with pathological evaluation), supervisor long goods Abx would not be necessary, at least for the foot, and recommendation would be made to transition to oral Abx after 2 weeks course for the management of bacteremia (secondary to R foot infection). If margins dirty, 6 weeks IV Abx indicated as noted. Call with questions, . (2) Diabetic infection of right foot: Status: Acute (3) Foot ulcer, left: Status: Acute Qualifiers: Non-pressure ulcer stage: with muscle involvement without evidence of necrosis Qualified Code(s): L97.525 - Non-pressure chronic ulcer of other part of left foot with muscle involvement without evidence of necrosis History of Present Illness History of Present Illness Chief Complaint: s/p 4 days R foot I&D, bacteremia, L foot chronic osteomyelitis Narrative: Garry is a 66 year old male with DM, evaluated at bedside, s/p 4 days R foot I&D for the management of a severe R foot infection with resultant bacteremia, as well as chronic L foot osteomyelitis. He reports the R foot look so much better with decreased swelling, redness, and discomfort. He reports the drainage of both feet were changed yesterday. He denies N/V/C/NS/F. He notes no other concerns and has been limiting activity [facility] All Active Problems (Updated 08/31/22 @ 07:54 by Malgorzata Nino DPM) Osteomyelitis of left foot (Acute) Discharge planning issues (Acute) Sepsis (Acute) MSSA bacteremia (Acute) Diabetic infection of left foot (Acute) Discharge planning issues (Acute) DVT prophylaxis (Acute) Diabetic infection of right foot (Acute) Gram-positive cocci bacteremia (Acute) Foot infection (Acute) Cellulitis (Acute) Foot ulcer, left (Acute) Routine general medical examination at a health care facility (Acute) Colonoscopy refused (Acute) Diabetes mellitus (Chronic) Low HDL (under 40) (Acute 09/13/17) Essential hypertension (Acute 05/09/13) Elevated fasting blood sugar (Acute 08/28/15) Dyslipidemia (Acute 05/17/13) PCEq 12.6%; declines statins Family History (Updated 08/25/22 @ 18:55 by Alicja Delgado MD) Mother Stroke Father Stroke Heart disease Social History Smoking/Tobacco Use Status: Never Smoking risk assessment performed?: Yes Alcohol Intake: current Alcohol Intake frequency: holidays/special occasions only Drug use: Never Caregiver/Support person: No Housing: house Number of Children: 0 Communication Needs: Corrective Lenses Do you need help understanding health information?: Rarely Pets and animals: Yes Current gender identity: decline to answer What is your relationship status?: refused to answer How often do you talk on the phone with friends or family?: decline to answer How often do you get together with friends or relatives?: decline to answer How often do you attend latter-day or roman catholic services?: decline to answer Do you belong to any clubs or organized social groups?: decline to answer Panel score (0-1 are the most socially isolated patients): 0 What type of physical activity do you participate in: walking and other Details: moving pellets Duration: > 90 minutes/day Frequency: daily Special maría needs: No Do you feel safe at home: Yes Exam Skin Other: R foot ss/p 4 days I&D with retention sutures intact, drain intact, significant decrease in edema, erythema, calor and with no purulence emitted upon compression of the arch or forefoot, no lymphangitis or concerns of residual infection. L LE: Minimal changes. No erythema or signs of acute infection. Chronic ulceration plantar L 2nd metatarsal head with probe to bone and increased girth of the L 2nd digit consistent with longstanding and chronic osteomyelitis Results Last Vital Signs Temp 97.2 F L 08/29/22 23:17 Pulse 67 08/29/22 23:17 Resp 17 08/29/22 23:17 BP 121/70 08/29/22 23:17 Pulse Ox 97 08/29/22 23:17 Labs Result diagrams: 08/31/22 06:20 08/28/22 06:10
[2022-08-30 08:18] VITALS: BP 112/67; PULSE 64; RESP 18; TEMP 35.9; O2SAT 97
--- NOTE | 2022-08-30 10:58 | PGE_ITS ---
Date of Service Date of service: 08/30/22 Time of Service: 10:58 Assessment and Plan Assessment and plan (1) MSSA bacteremia: Status: Acute Assessment and plan: Blood cultures grew MSSA on 08/23/2022 and cleared by 08/25/2022. Wound culture grew staph aureus MSSA as well as group G strep. Patient is on Ancef day #4 after initial treatment with cefepime and vancomycin. Transthoracic echocardiogram with normal LV and RV function no vegetation seen. Although bacteremia can be managed w/ 2 weeks of iv antibiotics w/ completion of oral antibiotics thereafter, given that he had Staph aureus bactermia, this would not be optimal treatment. I will consult w/ I.D. to discuss his case. My recommendations are for minimum of 4 weeks of iv antibiotics and preferrably 6 weeks. Professional time spent interviewing and examining patient, discussion of goals of care with hospital team (care management, nursing and consulting professionals) was 15 minutes. (2) Diabetic infection of right foot: Status: Acute Assessment and plan: S/p I&D R foot 08/26/21. Defer wound care to podiatry. wound is growing Staph aureus and Group G strep. continue cefazolin x 6 weeks podiatry planning wound closure on Friday 09/01 (3) Diabetic infection of left foot: Status: Acute Assessment and plan: For OR next Friday 09/01 for partial amputation of 2nd digit/I&D. Has osteomyelitis. Abx length should be 6 weeks. (4) Diabetes mellitus: Status: Chronic Assessment and plan: Hold metformin and cover with insulin sensitive SSI for now. A1C of 6.5 glucose running 108 to 126. (5) Essential hypertension: Status: Acute Assessment and plan: Continue losartan. Continue to hold HCTZ for now. (6) DVT prophylaxis: Status: Acute Assessment and plan: SC heparin (7) Discharge planning issues: Status: Acute Assessment and plan: Full code Continues to require hospitalization. The patient would prefer to complete his abx at home with home health rather than in a swing bed when he is ready for discharge. Subjective Subjective Interval history since last seen: Patient has no new concerns. He indicated that Dr. Nino told that he might have his surgery tomorrow. Tuesday at the latest. Dr. Nino is going to primary closure of the right foot wound and plans on a partial amputation of the second ray of the left foot to treat his osteomyelitis. Patient informs me that Dr. Nino told him that he may only need 2 weeks of antibiotics. I told Mr. Oropeza because he had MSSA in his blood initially that we need to treated as if he might of had endocarditis and he needs a minimum of 4 weeks of antibiotics. Patient disagreed with me and said he is going to follow with Dr. Nino recommends. I explained to him I will have a discussion with Dr. Nino regarding appropriate antibiotic treatment for staph bacteremia and this needs a minimum of 4 weeks and preferably 6 weeks of antibiotics once we have source control. Exam Narrative Exam Narrative: Mr. Oropeza is alert and oriented x3 no discomfort. He denies any pain. His feet were already rebandaged by Dr. Nino this morning and I did not take down the dressings particularly since I looked at his wounds yesterday. Toes appear to be pink with good capillary refill. He has palpable posterior tibialis pulses. There is no peripheral edema and sensation is intact to light touch. Objective Last Vital Signs Temp 35.9 C L 08/30/22 08:18 Pulse 64 08/30/22 08:18 Resp 18 08/30/22 08:18 BP 112/67 08/30/22 08:18 Pulse Ox 97 08/30/22 08:18 Time Spent with Patient Time Spent with Patient: <25 minutes Time was spent: preparing to see the patient(eg.review tests), referring, communicating with other health healthcare network pricing consultant, counseling the patient and care coordination
--- NOTE | 2022-08-30 14:07 | W.ANESVAS ---
Midline Placement Date Performed: 08/30/22 Procedure Time: 13:55 Requesting Provider: Mac August Procedure Location: Med/Surg Sedation Given (Indicate Dose Given): No Sedation given Patient Mental Status: Awake Sterility: Hand Hygiene, Surgical Cap, Surgical Mask, Sterile Gloves, Sterile Drape/Sheet and Chlorhexidine Laterality: Left Insertion Site: Brachial Midline Device: PowerGlide Pro 18G Catheter Length: 10 cm Midline Procedure Procedure: 1% Lidocaine to skin and subcutaneous tissue with 25g needle and Catheter placed without resistance Dressing: Tegaderm Applied Blood Return: Present Flushes: Easily Ultrasound: Sterile probe cover and gel used Ultrasound Image Saved?: Yes Number of Attempts (See previous attempts in note section): 1 Procedure Tolerated: No Complications Procedure Outcome: Successful Performed By: Clint Au
--- NOTE | 2022-08-30 15:02 | PDOC.CMPRO ---
- If Service Date Differs Date of service: 08/30/22 Time of Service: 15:02 Care Management Progress Note S/O:Garry was sitting up in bed when CM met with him. He engaged easily with CM and expressed concern about his plan of care. Garry shared that Dr. Nino had told him that he would need 2-6 weeks of antibiotic therapy after surgery, depending on what she found. This morning, the hospitalist told him he would need at least 4 weeks, and more likely, 6 weeks of therapy. The [facility] will discuss with Dr. Nino. Garry shared that he intends to do this as an outpatient through an Infusion company with home health support. CM explained the process and the need to know what the antibiotic and regimen will be in advance. CM also explained that there would be a patient cost associated with the Infusion company which would be identified before services begin. Other options for antibiotic delivery include coming back to the Infusion center at [facility] or remaining at [facility] in swingbed status. Garry reaffirmed that he prefers to do this at home to be able to resume as much of a normal life style as he can. A: Kevin is a 66 year old man admitted on 08/25/22 with a diabetic foot infection P:Kevin will be brought to the OR on Tuesday to close the wound on his right foot and to do a partial amputation of the second toe (partial ray resection). Antibiotic course and choice were determined by culture results which grew MSSA. He is currently receiving Cefazolin 2Gm IV Q 8 hours. Anticipate Kevin will discharge home with home antibiotic infusions when ready per MD. He will follow up with surgical services, his PCP and plan of care as prescribed. He will transport via private vehicle with family. CM will continue to support Garry and assess for discharge planning concerns.
[2022-08-30 16:13] VITALS: BP 111/64; PULSE 68; RESP 18; TEMP 36.4; O2SAT 96
[2022-08-30 23:30] VITALS: BP 110/65; PULSE 68; RESP 18; TEMP 36.7; O2SAT 96
[2022-08-31] MEDS: ceFAZolin 2 GM/50 ML BAG IVPB ×3 (06:10→22:08)
[2022-08-31 06:36] LABS: HGB 12.6 g/dL (13.5-17.5); MCH 28.8 pg (27.0-33.0); MCHC 33.2 % (32.0-36.0); MCV 87 fL (80-95); MPV 9.9 fL (8.0-11.0); Platelet Count 541 10^3/uL (130-400); RBC 4.38 10^6/uL (4.36-5.78); RDW 16.3 % (11.8-14.1); RDW-SD 51.5 fL; WBC 10.67 10^3/uL (4.4-10.8)
[2022-08-31] MEDS: Normal Saline Flush 10 ML SYR IVP ×4 (07:34→22:09)
--- NOTE | 2022-08-31 07:50 | POCOE_ITS ---
Date of service: 08/31/22 Time of Service: 07:30 Assessment and Plan Assessment and plan (1) MSSA bacteremia: Status: Acute (2) Diabetic infection of right foot: Status: Acute Assessment and plan: The patient was evaluated and treated at bedside. It was explained to the patient that although the goal of surgery on the L foot (tomorrow) would be to resect the osteomyelitic bone, and although the foot itself may not likely warrant longer term Abx, there is a likely need for longer term IV Abx (upto 6 weeks), considering +MSSA bacteremia and risks for endocarditis, as directed by the hospitalist service. The importance of trusting these recommendations was emphasized, and the patient expresses undertanding and agreement. Surgery, 1PM tomorrow, will involve a R delayed primary closure and L 2nd partial ray resection. Alternatives, risks, and possible complications were reviewed (need for more surgery, further amputation, new or continued wounds), as have been reviewed previously. All questions were answered. (3) Osteomyelitis of left foot: Status: Acute History of Present Illness History of Present Illness Chief Complaint: R foot infection s/p 5 days I&D, bacteremia, L foot chronic osteomyelitis Narrative: Garry is a 66 year old male, with DM, evaluated at bedside for a R foot infection, s/p 5 days I&D, bacteremia, and L foot chronic osteomyelitis. He reports to feeling good, and denies N/V/C/NS/F. He reports that he does understand the possible need for longer term IV Abx based on bacteremia +MSSA and in attempt to minimize the risk for endocarditis Consults Consult date: 08/31/22 [facility] All Active Problems (Updated 08/31/22 @ 07:54 by Malgorzata Nino DPM) Osteomyelitis of left foot (Acute) Discharge planning issues (Acute) Sepsis (Acute) MSSA bacteremia (Acute) Diabetic infection of left foot (Acute) Discharge planning issues (Acute) DVT prophylaxis (Acute) Diabetic infection of right foot (Acute) Gram-positive cocci bacteremia (Acute) Foot infection (Acute) Cellulitis (Acute) Foot ulcer, left (Acute) Routine general medical examination at a health care facility (Acute) Colonoscopy refused (Acute) Diabetes mellitus (Chronic) Low HDL (under 40) (Acute 09/13/17) Essential hypertension (Acute 05/09/13) Elevated fasting blood sugar (Acute 08/28/15) Dyslipidemia (Acute 05/17/13) PCEq 12.6%; declines statins Family History (Updated 08/25/22 @ 18:55 by Alicja Delgado MD) Mother Stroke Father Stroke Heart disease Social History Smoking/Tobacco Use Status: Never Smoking risk assessment performed?: Yes Alcohol Intake: current Alcohol Intake frequency: holidays/special occasions only Drug use: Never Caregiver/Support person: No Housing: house Number of Children: 0 Communication Needs: Corrective Lenses Do you need help understanding health information?: Rarely Pets and animals: Yes Current gender identity: decline to answer What is your relationship status?: refused to answer How often do you talk on the phone with friends or family?: decline to answer How often do you get together with friends or relatives?: decline to answer How often do you attend gnosticist or presybeterian services?: decline to answer Do you belong to any clubs or organized social groups?: decline to answer Panel score (0-1 are the most socially isolated patients): 0 What type of physical activity do you participate in: walking and other Details: moving pellets Duration: > 90 minutes/day Frequency: daily Special maría needs: No Do you feel safe at home: Yes Exam Skin Other: Minimal changes from yesterday. R LE: significant decrease in erythema, edema, calor, with no purulence and no lymphangitis. Retention sutures and drain intact. L LE: full thickness wound plantar 2nd metatarsal head, with increased girth of the 2nd digit, consistent with chronic osteomyelitis Results Last Vital Signs Temp 98.1 F 08/30/22 23:30 Pulse 68 08/30/22 23:30 Resp 18 08/30/22 23:30 BP 110/65 08/30/22 23:30 Pulse Ox 96 08/30/22 23:30 Labs Result diagrams: 08/31/22 06:20 08/28/22 06:10 Labs: Laboratory Results - last 24 hr 08/31/22 06:20 WBC 10.67 RBC 4.38 Hgb 12.6 L Hct 38.0 L MCV 87 MCH 28.8 MCHC 33.2 RDW 16.3 H Plt Count 541 H MPV 9.9
[2022-08-31 08:32] VITALS: BP 132/77; PULSE 66; RESP 13; TEMP 36.4; O2SAT 100
--- NOTE | 2022-08-31 08:57 | PDOC.CMPRO ---
- If Service Date Differs Date of service: 08/31/22 Time of Service: 08:57 Care Management Progress Note S/O:Garry was sitting up in bed when CM met with him. He informed CM right away that he feels he owes the hospitalist, Dr. August, an apology. He had tried to explain to Garry that he would need a minimum of 4 weeks of IV antibiotics for prevention of endocarditis secondary to the MSSA bacteremia. Dr. Nino had explained that for his foot infection alone, 2 weeks may have been enough. Yesterday Garry misunderstood and was not receptive to Dr. August's assessment. This morning Dr. Nino explained the different perspectives to Garry and he explained to CM that he now fully understands. He is still scheduled for surgery tomorrow and post-operatively a firmer plan will be developed regarding his IV antibiotic course and where it will be administered. A: Kevin is a 66 year old man admitted on 08/25/22 with a diabetic foot infection P:Kevin will be brought to the OR on Tuesday to close the wound on his right foot and to do a partial amputation of the second toe (partial ray resection). Antibiotic course and choice were determined by culture results which grew MSSA. He is currently receiving Cefazolin 2Gm IV Q 8 hours. Anticipate Kevin will discharge home with home antibiotic infusions when ready per MD. He will follow up with Podiatry, his PCP and plan of care as prescribed. Garry will transport via private vehicle with family. CM will continue to support Garry and assess for discharge planning concerns.
[2022-08-31] MEDS: Losartan 50 MG TAB 100 MG PO (08:58)
[2022-08-31] MEDS: Heparin 5,000 UNITS/ML VIAL 5000 UNITS SC ×4 (09:00→23:23)
--- NOTE | 2022-08-31 12:45 | PGE_ITS ---
Date of Service Date of service: 08/31/22 Time of Service: 12:45 Assessment and Plan Assessment and plan (1) MSSA bacteremia: Status: Acute Assessment and plan: Blood cultures grew MSSA on 08/23/2022 and cleared by 08/25/2022. Wound culture grew staph aureus MSSA as well as group G strep. Patient is on Ancef day #5 after initial treatment with cefepime and vancomycin. Transthoracic echocardiogram with normal LV and RV function no vegetation seen. Although bacteremia can be managed w/ 2 weeks of iv antibiotics w/ completion of oral antibiotics thereafter, given that he had Staph aureus bactermia, this would not be optimal treatment. I will consult w/ I.D. to discuss his case. My recommendations are for minimum of 4 weeks of iv antibiotics and preferrably 6 weeks through 10/06/22 Professional time spent interviewing and examining patient, discussion of goals of care with hospital team (care management, nursing and consulting professionals) was 15 minutes. (2) Diabetic infection of right foot: Status: Acute Assessment and plan: S/p I&D R foot 08/26/21. Defer wound care to podiatry. wound is growing Staph aureus and Group G strep. continue cefazolin x 6 weeks podiatry planning wound closure on Friday 09/01 (3) Diabetic infection of left foot: Status: Acute Assessment and plan: For OR next Friday 09/01 for partial amputation of 2nd digit/I&D. Has osteomyelitis. Abx length should be 6 weeks. (4) Diabetes mellitus: Status: Chronic Assessment and plan: Hold metformin and cover with insulin sensitive SSI for now. A1C of 6.5 glucose running 105 to 110. (5) Essential hypertension: Status: Acute Assessment and plan: Continue losartan. Continue to hold HCTZ for now. (6) DVT prophylaxis: Status: Acute Assessment and plan: SC heparin (7) Discharge planning issues: Status: Acute Assessment and plan: Full code Continues to require hospitalization. The patient would prefer to complete his abx at home with home health rather than in a swing bed when he is ready for discharge. Subjective Subjective Interval history since last seen: Patient was apologetic to me for being dismissive of my recommendations for prolonged antibiotic course for his treatment of his MSSA bacteremia. He now understands that Dr. Nino speaking strictly from a podiatric standpoint and not looking at the overall picture of staph bacteremia. Patient now understands that in order to reduce his risk for endocarditis he needs a prolonged course of parenteral antibiotics later targeted towards a staph. I told him that I called [facility] and requested ID consultation to verify the information that was discussed with the infectious disease specialist and Dr. Delgado. Patient has no other concerns he is looking forward to getting on the road to recovery after surgery. He is scheduled for surgical closure of his right foot wound tomorrow and left second partial ray amputation. Exam Narrative Exam Narrative: Both feet are bandaged I did not take the dressings down. Toes are warm dry with good capillary refill he has palpable posterior tibialis pulses there is no edema of his ankles or his legs. Lungs are clear to auscultation Heart is regular rate and rhythm Abdomen soft nontender nondistended normal bowel sounds Objective Last Vital Signs Temp 36.4 C L 08/31/22 08:32 Pulse 66 08/31/22 08:32 Resp 13 08/31/22 08:32 BP 132/77 08/31/22 08:32 Pulse Ox 100 08/31/22 08:32 Laboratory Results - last 24 hr 08/31/22 06:20 WBC 10.67 RBC 4.38 Hgb 12.6 L Hct 38.0 L MCV 87 MCH 28.8 MCHC 33.2 RDW 16.3 H Plt Count 541 H MPV 9.9 Time Spent with Patient Time Spent with Patient: <25 minutes Time was spent: preparing to see the patient(eg.review tests), ordering medications,tests, procedures, referring, communicating with other health medical care administrator, indepentently interpreting results, counseling the patient and care coordination
--- NOTE | 2022-08-31 14:12 | CHAPLAIN ---
Garry was resting in bed when I visited. He said he is scheduled for surgery tomorrow and was currently waiting for his next round of IV antibiotics to start. 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 Garry seems to be comfortable being here.
[2022-08-31] MEDS: Normal Saline 500 ML 30 ML IV (14:52)
[2022-08-31 15:33] VITALS: BP 104/65; PULSE 65; RESP 16; TEMP 36.4; O2SAT 97
[2022-08-31 19:37] VITALS: BP 108/68; PULSE 70; RESP 16; TEMP 36.9; O2SAT 97
[2022-08-31 23:25] VITALS: BP 112/70; PULSE 70; RESP 16; TEMP 36.7; O2SAT 96
[2022-09-01] VITALS (10 sets, daily range): BP systolic 96–131; BP diastolic 59–75; PULSE 56–72; RESP 15–18; TEMP 35.6–36.7; O2SAT 95–99; BMI 22.5
[2022-09-01] MEDS: ceFAZolin 2 GM/50 ML BAG IVPB ×3 (06:44→20:58)
[2022-09-01] MEDS: Normal Saline Flush 10 ML SYR IVP ×4 (06:45→16:25)
--- NOTE | 2022-09-01 10:18 | PDOC.CMPRO ---
- If Service Date Differs Date of service: 09/01/22 Time of Service: 10:18 Care Management Progress Note S/O:Garry was sitting up in bed when CM met with him. He informed CM that his surgery is scheduled for 1pm today. Garry verbalized that he has accepted the need for the surgery and expects that he will remain at [facility] for his course of IV antibiotics. He had discussed having home infusions but seems to be leaning toward a swingbed stay at this time. More detailed plans for the completion of his IV antibiotic therapy will be made after surgery when the extent of bone involvement can be ascertained.. A: Kevin is a 66 year old man admitted on 08/25/22 with a diabetic foot infection P:Kevin will be brought to the OR today to close the wound on his right foot and to do a partial amputation of the second toe (partial ray resection). He is currently receiving Cefazolin 2Gm IV Q 8 hours. Anticipate Kevin will discharge home with home antibiotic infusions vs Swingbed-1 to complete IV antibiotic course. He will follow up with Podiatry, his PCP and plan of care as prescribed. Garry will transport via private vehicle with family. CM will continue to support Garry and assess for discharge planning concerns.
[2022-09-01] MEDS: Losartan 50 MG TAB 100 MG PO (10:29)
--- NOTE | 2022-09-01 13:01 | ANES.PREOP_ITS ---
General Info Date of Service Date Performed: 09/01/22 Height: 5 ft 10 in Weight: 71.2 kg Body Mass Index (BMI): 22.5 Surgical Procedure: Operation Date: 08/26/22 11:10 Proposed Procedure Side Surgeon p Debridement Right Malgorzata Nino DPM Actual Procedure Side Surgeon p Foot Debridement Right Malgorzata Nino DPM Pre-Op Diagnosis Post-Op Diagnosis Diabetic infection of right foot Diabetic infection of right foot Operation Date: 09/01/22 13:10 Proposed Procedure Side Surgeon p Rt Foot Delayed Closure/ Lt Foot 2nd Partiall Ray Resection W/Amputation of 2nd Digit Malgorzata Nino DPM Meds Allergies and Home Medications Allergies Allergy/AdvReac Type Severity Reaction Status Date / Time Penicillins Allergy Hives Verified 08/25/22 09:34 lisinopril AdvReac Unknown Cough and Verified 08/25/22 09:34 light headed metoprolol AdvReac Unknown palpitation Verified 08/25/22 09:34 s Home Medication Medication Instructions Recorded blood sugar diagnostic (Accu-Chek #200 strips 04/08/21 Harmony Plus test strips) blood-glucose meter #1 ea 04/08/21 lancets #200 ea 04/08/21 hydrochlorothiazide 12.5 mg tablet 12.5 mg PO DAILY #90 tab-caps 04/13/22 losartan 100 mg tablet 100 mg PO DAILY #90 tab-caps 04/13/22 metformin 500 mg tablet,extended 1,000 mg PO DAILY #180 tab-caps 04/13/22 release 24 hr cefuroxime axetil 500 mg tablet 500 mg PO BID 7 days #14 tabs 08/23/22 sulfamethoxazole 800 1 tab PO BID #14 tabs 08/23/22 mg-trimethoprim 160 mg tablet (Bactrim DS) Current Visit Medications: Current Medications Generic Name Dose Route Start Last Admin Trade Name Freq PRN Reason Stop Dose Admin Acetaminophen 0 mg 08/25/22 10:14 08/26/22 20:07 Acetaminophen 325 Mg Tab PO 650 mg Q4H PRN PRN Administration Al Hydrox/Mg Hydrox/Simethicone 30 ml 08/25/22 10:14 Mylanta Suspension 30 Ml Cup PO Q2H PRN PRN Dextrose 0 gm 08/25/22 10:17 Glucose Oral Gel 15 Gm/37.5 Gm Tube PO DIRECTED PRN Dextrose/Water 0 gm 08/25/22 10:17 Dextrose 50%-Water 25 Gm/50 Ml Syr IVP DIRECTED PRN Dimethicone/Zinc Oxide 0 gm 08/25/22 10:14 Carlos Protect Cream 142 Gm Tube TP PRN PRN Docusate Sodium 100 mg 08/25/22 10:14 Docusate Sodium 100 Mg Cap PO TID PRN PRN Heparin Sodium (Porcine) 5,000 units 08/25/22 14:00 08/31/22 23:23 Heparin 5,000 Units/Ml Vial SC 5,000 units Q8H MAGGIE Administration Cefazolin Sodium/Dextrose 2 gm in 50 mls @ 100 mls/hr 08/27/22 22:00 09/01/22 06:44 Ancef Duplex IVPB 100 mls/hr Q8H MAGGIE Administration Sodium Chloride 500 mls @ 0 mls/hr 08/31/22 14:37 08/31/22 15:20 Saline 500ml Bag IV 0 mls/hr PRN PRN Infusion As Directed Sodium Chloride 50 mls @ 0 mls/hr 08/31/22 14:37 Saline 50ml Bag IV PRN PRN As Directed IV Miscellaneous Supplies 1 each 08/25/22 09:45 Iv Access IV DIRECTED [facility] Insulin Aspart 0 units 08/25/22 12:00 09/01/22 11:43 Insulin Aspart 300 Units/3 Ml Pen SC Not Given 0800,1200,1700,2200 [facility] Protocol Losartan Potassium 100 mg 08/26/22 08:30 09/01/22 10:29 Losartan 50 Mg Tab PO 100 mg QAM MAGGIE Administration Magnesium Hydroxide 30 ml 08/25/22 10:14 Milk Of Magnesia 30 Ml Cup PO DAILY PRN PRN Oxycodone/Acetaminophen 1 tab 08/25/22 18:52 Oxycodone 5 Mg/Acetaminophen 325 Mg Tab PO Q4H PRN PRN Sodium Chloride 0 ml 08/25/22 09:33 09/01/22 07:55 Normal Saline Flush 10 Ml Syr IVP 10 ml PRN PRN Administration PFSH Active Problems Active Problems: Problem Status Onset Code Osteomyelitis of left foot M86.9 Discharge planning issues Z02.9 Sepsis A41.9 MSSA bacteremia R78.81, B95.61 Diabetic infection of left foot E11.628, L08.9 Discharge planning issues Z02.9 DVT prophylaxis Z29.9 Diabetic infection of right foot E11.628, L08.9 Gram-positive cocci bacteremia R78.81 Foot infection L08.9 Cellulitis L03.90 Foot ulcer, left L97.529 Routine general medical examination at a health care facility Z00.00 Colonoscopy refused Z53.20 Diabetes mellitus E11.9 Low HDL (under 40) 09/13/17 E78.6 Essential hypertension 05/09/13 I10 Elevated fasting blood sugar 08/28/15 R73.01 Dyslipidemia 05/17/13 E78.5 Tobacco Smoking/Tobacco Use Status: Never Alcohol Alcohol Intake: current Alcohol intake frequency: holidays/special occasions only Substance Use Substance use: Never Vital Signs and Lab Results Vital Signs Most Recent Vital Signs in EMR: Most Recent Vital Signs Temp Pulse Resp BP Pulse Ox 36.0 C L 63 15 112/69 96 09/01/22 07:13 09/01/22 07:13 09/01/22 07:13 09/01/22 10:34 09/01/22 07:13 Point of Care Results Point of Care Results: Finger Stick Blood Glucose 102 09/01/22 11:43 Lab Results Result Diagrams: 08/31/22 06:20 08/28/22 06:10 Blood Type / Crossmatch: No Data to Display Complete Blood Count: White Blood Count 10.67 10^3/uL (4.4-10.8) 08/31/22 06:20 Red Blood Count 4.38 10^6/uL (4.36-5.78) 08/31/22 06:20 Hemoglobin 12.6 g/dL (13.5-17.5) L 08/31/22 06:20 Hematocrit 38.0 % (40.0-50.0) L 08/31/22 06:20 Platelet Count 541 10^3/uL (130-400) H 08/31/22 06:20 Venous Blood Lactate 1.3 mmol/L (0.6-1.4) 08/25/22 10:06 Complete Metabolic Panel: Sodium 138 mmol/L (136-145) 08/28/22 06:10 Potassium 4.6 mmol/L (3.5-5.1) 08/28/22 06:10 Chloride 103 mmol/L (98-107) 08/28/22 06:10 Carbon Dioxide 28.4 mmol/L (21.0-32.0) 08/28/22 06:10 BUN 11 mg/dL (7-18) 08/28/22 06:10 Creatinine 0.7 mg/dL (0.70-1.30) 08/28/22 06:10 Est GFR (CKD-EPI 2020) 101.62 (mL/min/1.73m2) 08/28/22 06:10 Magnesium 2.2 mg/dL (1.8-2.4) 08/28/22 06:10 Calcium 9.1 mg/dL (8.5-10.1) 08/28/22 06:10 Albumin 2.7 g/dL (3.4-5.0) L 08/25/22 10:06 Glucose 120 mg/dL (74-106) H 08/28/22 06:10 Hemoglobin A1c 6.5 % (<5.7) H 08/26/22 06:40 C-Reactive Protein 10.42 mg/dL (0.0-0.3) H 08/27/22 06:00 Liver Function Panel: Alanine Aminotransferase (ALT/SGPT) 25 U/L (16-63) 08/25/22 10: 06 Aspartate Amino Transf (AST/SGOT) 25 U/L (15-37) 08/25/22 10:06 Coagulation Panel: INR International Normalized Ratio 1.1 (0.9-1.1) 08/26/22 06:4 0 Prothrombin Time 10.9 sec (9.3-11.0) 08/26/22 06:40 Cardiac Panel: No Data to Display Arterial Blood Gas: No Data to Display Venous Blood Gas: No Data to Display Pancreas Panel: No Data to Display Thyroid Panel: No Data to Display Infectious Disease: Coronavirus (COVID-19)(PCR) Negative (Negative) 08/25/22 10:08 Coronavirus 2019 Source Nasal/Nares 08/25/22 10:08 Influenza Virus Type A (PCR) Negative (Negative) 08/23/22 16:3 2 Influenza Virus Type B (PCR) Negative (Negative) 08/23/22 16:3 2 Respiratory Syncytial Virus (PCR) Negative (Negative) 08/23/22 16:32 Blood Cultures: No Data to Display Toxicology Panel: No Data to Display Imaging and Studies Imaging and Studies Study information below may be from another EMR and interpreted by another provider. Please see original notes in EMR for more complete details. Echocardiogram Summary: 09/06: no official read yet in system. prelim read/calculations placed during exam: LVEF 62%, RVSP 26.7, AoV area/BSA 1.62, Anesthesia Assessment and Plan Anesthesia History Personal History: No History of Anesthesia Complications Family History: No Family History of Anesthesia Complications Exercise Tolerance Exercise Tolerance: Metabolic Equivalents>4 Pertinent Negatives Pertinent Negatives: No Symptoms of GERD, No Major Cardiovascular Symptoms or Complaints, No Major Pulmonary Symptoms or Complaints and No History of CVA/TIA Cardiac & Pulmonary Exam Cardiac Exam: Normal S1/S2 Heart Sounds Pulmonary Exam: Clear Bilateral Breath Sounds Implantable Cardiac Device Does patient have a Pacemaker or an ICD?: No Airway Exam Known Difficult Airway: No Mallampati Class: 3 Mouth Opening: Normal (> 3cm) Thyromental Distance: Greater than 3 cm Neck Range of Motion: Full ROM Neck Circumference: Normal Teeth Condition: Normal Dentition ASA Classification ASA Score: ASA 2 Emergency Case?: No NPO Status NPO Status: NPO Clears >2 hours, Solids >8 hours Anesthesia Plan Resuscitation Status: Full Code Anesthesia Technique: MAC Anesthesia Airway Planned: Natural Airway Monitors Used: Standard Monitors
[2022-09-01] MEDS: Lactated Ringers 1,000 ML 30 ML IV (13:12)
--- NOTE | 2022-09-01 14:10 | AMP_PTH ---
PATIENT: Kevin Oropeza LOC: U#:[id number] AGE/SX: 66/M ROOM: 208 RE08/25/[address]: Alicja Delgado : 1955 BED: A DIS: 09/03/2022 SPEC #: [id number] RECD: 09/01/22 16:41 STATUS: SIVAN RECarmina #: [id number] KB: 09/01/22 14:[address]: Alicja Delgado DEPT: Surgical Specimen RECD BY: Sona Wright ENTERED: 09/01/22 16:47 SP TYPE: Amputation OTHR DR: Malgorzata Ortega APRN Anesthesia, Consult Tissues: 1 - AMPUTATION FINGERS/TOES(NOT TRAUMA) Procedures: GROSS AND MICRO LEVEL 4 DECALCIFICATION Comments: [id number]
[2022-09-01] MEDS: Bupivacaine 0.5% Pres-Free 30 ML VIAL (14:39)
--- NOTE | 2022-09-01 15:09 | W.ANESPOSTOP ---
Postoperative Evaluation Date, Time and Location Date Performed: 09/01/22 Time Performed: 15:00 Patient Location: Med/Surg Vital Signs Most Recent Imported Vital Signs: Most Recent Vital Signs Temp Pulse Resp BP Pulse Ox 35.7 C L 56 L 18 112/72 99 09/01/22 15:03 09/01/22 15:03 09/01/22 15:03 09/01/22 15:03 09/01/22 15:03 Most Recent Vital Signs Temp Pulse Resp BP Pulse Ox 36 C L 66 16 119/73 98 08/26/22 12:19 08/26/22 12:19 08/26/22 12:19 08/26/22 12:19 08/26/22 12:19 Pain Score Most Recent Pain Score: Most Recent Pain Score Pain Level 0 09/01/22 15:03 Assessment Mental Status: Awake (Alert & Oriented to Patient Baseline) Airway and Respiratory Function: Patent airway with normal (patient baseline) respiratory exam Cardiovascular Function: Hemodynamically Stable Hydration Status: Adequately Hydrated Nausea & Vomiting: No Nausea or Vomiting Pain: Pt. Denies Any Pain Peripheral Nerve Block: Patient did not receive a nerve block
--- NOTE | 2022-09-01 15:20 | W.PM.PROGNOT ---
Date of Service Date of service: 09/01/22 Time of Service: 15:20 Assessment and Plan Assessment and plan (1) MSSA bacteremia: Status: Acute Assessment and plan: Blood cultures grew MSSA on 08/23/2022 and cleared by 08/25/2022. Wound culture grew staph aureus MSSA as well as group G strep. Patient is on Ancef day #6 after initial treatment with cefepime and vancomycin. Transthoracic echocardiogram with normal LV and RV function no vegetation seen. Per ID patient need 6 weeks of IV antibiotics. Patient now has a midline in his left arm. We will plan for discharge tomorrow pending approval of his home antibiotic infusion. Professional time spent interviewing and examining patient, discussion of goals of care with hospital team (care management, nursing and consulting professionals) was 20 minutes. (2) Diabetic infection of right foot: Status: Acute Assessment and plan: S/p I&D R foot 08/26/21. Defer wound care to podiatry. wound is growing Staph aureus and Group G strep. continue cefazolin x 6 weeks Status post primary closure performed earlier today (3) Diabetic infection of left foot: Status: Acute Assessment and plan: Patient has osteomyelitis of his left second digit which underwent amputation earlier today. Despite source control of his MSSA bacteremia patient still needs 6 weeks of antibiotics from an endocarditis standpoint. (4) Diabetes mellitus: Status: Chronic Assessment and plan: Blood sugars well controlled. Continue to monitor and cover with insulin sensitive sliding scale NovoLog. Metformin discontinued. (5) Essential hypertension: Status: Acute Assessment and plan: Continue losartan. Continue to hold HCTZ for now. (6) DVT prophylaxis: Status: Acute Assessment and plan: SC heparin (7) Discharge planning issues: Status: Acute Assessment and plan: Full code Continues to require hospitalization. The patient would prefer to complete his abx at home with home health rather than in a swing bed when he is ready for discharge. Subjective Subjective Interval history since last seen: Patient was seen in his room shortly after he returned from the O.R. Patient underwent right foot wound delay closure after prior debridement for infected diabetic foot and left foot 2nd ray partial amputation. Patient feels cold postoperatively. Vital signs are stable. He has bear hugger on to rewarm his core temp. Exam Narrative Exam Narrative: Kevin is alert and oriented person place time circumstance. Lungs are clear to auscultation Heart regular rate and rhythm Abdomen soft nontender nondistended Toes of both feet have good color. Both feet are bandaged. Cannot access his pedal pulses to assess but he has good capillary refill. Left second toe is missing as he had an amputation of that joint. Wound is currently bandaged. I will try to look at his wounds tomorrow morning with Dr. Nino changes his dressings. Objective Last Vital Signs Temp 35.7 C L 09/01/22 15:03 Pulse 56 L 09/01/22 15:03 Resp 18 09/01/22 15:03 BP 112/72 09/01/22 15:03 Pulse Ox 99 09/01/22 15:03 Time Spent with Patient Time Spent with Patient: <25 minutes Time was spent: preparing to see the patient(eg.review tests), ordering medications,tests, procedures, counseling the patient and care coordination
--- NOTE | 2022-09-01 15:32 | W.PM.OP ---
Date of service: 09/01/22 Time of Service: 13:30 Operative Note Operative Note DATE OF PROCEDURE: 08/26/22 PRE-OP DIAGNOSIS: R foot wound s/p I&D for foot infection, L foot osteomyelitis, DM POST-OP DIAGNOSIS: same PROCEDURE: Delayed primary closure R foot, L 2nd partial ray resection SURGEON: Malgorzata Nino ANESTHESIA TYPE: Local By Surgeon and MAC Refer to Anesthesia Record ESTIMATED BLOOD LOSS: 30 PATHOLOGY: other (L 2nd digit and metatarsal head, assess proximal margin for osteomyelitis; bone (2nd metatarsal head) also sent for microbiological examination as well) COMPLICATIONS: None Patient was transported to: floor Patient's condition: stable Procedure Description: The patient was brought in the operating room and placed on the operative table in the supine position. Following anesthesia, local anesthetic blocks were performed about bilateral 2nd rays using a total of 20 cc of 5% marcaine plain (10 cc each foot). The feet were scrubbed, prepped, and draped in the usual aseptic manner (using betadine prep). Attention was directed to the R foot first where the sutures were removed and the wound inspection. No further purulence, significant residual necrotic nor nonviable tissue was noted. The wound was irrigated with L sterile normal saline. Deep tissue was reappoximated with 3-0 vicryl, and skin reappoximated and coapted with 3-0 and 4-0 nylon, both plantarly and dorsally, with a very small wound remaining plantarly (the initial wound). Attention was directed to the L foot where a modified tennis raquet incision was made to disarticulate the 2nd digit. The 2nd metatarsal head was resected using a sagital saw and both the digit and metatarsal head were sent for pathological evaluation with instructions to assess the proximal margin for osteomyelitis. A rongeur was used to resect bone from the metatarsal head and this was sent for microbiological evaluation in attempt to better direct Abx if the proximal margin is positive for pathological signs of osteomyelitis. The wound was irrigated with 3 L of sterile normal saline. Necrotic and nonviable was excised sharply Deep tissue was reappoximated with 3-0 vicryl, and skin reappoximated and coapted with 3-0 and 4-0 nylon. The incision and plantar foot wound were dressed with xeroform and a dry sterile dressing. The patient was transferred to the PACU and then the floor with vital signs stable and vascular status intact. Both dressings (left and right) are to be left intact and dry, and are not to be changed. From a surgical standpoint, the patient can be discharged home tomorrow or whenever cleared medically by the hospitalist service. Appts will be made to follow up with myself in clinic, first one on Wednesday 09/06. He is to keep the dressings clean and dry, use post op shoes at all times, limit activity, and perform ankle ROM exercises every hour.
[2022-09-02 00:32] VITALS: BP 100/56; PULSE 67; RESP 18; TEMP 36.7; O2SAT 93
[2022-09-02] MEDS: ceFAZolin 2 GM/50 ML BAG IVPB ×3 (05:03→20:56)
[2022-09-02] MEDS: oxyCODONE 5 mg/Acetaminophen 325 mg TAB 1 TAB PO (05:04)
[2022-09-02 06:50] LABS: Abs Immature Grans 0.14 10^3/uL (0.0-0.06); Absolute Basophil Count 0.04 10^3/uL (0.0-0.2); Absolute Lymphocyte Count 1.55 10^3/uL (1.2-3.4); Absolute Monocyte Count 0.84 10^3/uL (0.1-0.8); Basophils % 0.3; Eosinophils % 0.9; HCT 35.5 % (40.0-50.0); HGB 11.6 g/dL (13.5-17.5); Immature Grans % 1.1; Lymphocytes % 12.1; MCH 28.5 pg (27.0-33.0); MCHC 32.7 % (32.0-36.0); MCV 87 fL (80-95); MPV 10.2 fL (8.0-11.0); Monocytes % 6.6; Platelet Count 511 10^3/uL (130-400); RBC 4.07 10^6/uL (4.36-5.78); RDW 16.6 % (11.8-14.1); RDW-SD 53.1 fL
[2022-09-02 06:53] LABS: Absolute Eosinophil Count 0.12 10^3/uL (0.0-0.7); Absolute Neutrophil Count 10.11 10^3/uL (1.2-6.7)
[2022-09-02 07:03] LABS: ESR 100 mm/hr (0-20)
[2022-09-02 07:06] LABS: BUN 17 mg/dL (7-18); C-Reactive Protein 1.27 mg/dL (0.0-0.3); CREATININE 1.3 mg/dL (0.70-1.30); Calcium 8.9 mg/dL (8.5-10.1); Chloride 100 mmol/L (98-107); Estimated GFR 60.59 (mL/min/1.73m2); Glucose 199 mg/dL (74-106); Potassium 4.3 mmol/L (3.5-5.1); Sodium 137 mmol/L (136-145)
[2022-09-02 07:48] LABS: Procalcitonin < 0.1 ng/mL
[2022-09-02 08:17] VITALS: BP 105/64; PULSE 61; RESP 16; TEMP 36.3; O2SAT 98
--- NOTE | 2022-09-02 08:24 | PDOC.CMPRO ---
- If Service Date Differs Date of service: 09/02/22 Time of Service: 08:24 Care Management Progress Note S/O:Garry was sitting up in bed when CM met with him. He was in good spirits and engaged easily with CM. Garry shared that he is feeling good today. His pain is managed with medication and he understands that the surgery went well. Dr. Nino came to see Garry while CM was present. She informed him that as soon as PT is able to see him and get him his post-operative shoes, he will be able to get out of bed. She cautioned him not to walk much or far though. She stated that he could go to the bathroom and back but not for any real walks. She also instructed Garry to reinforce that his dressings are not to be changed by anyone but her. She has provided a cell phone number to staff and encouraged people to call her with questions. CM discussed Garry's decision to transition to SB-1 for his IV antibiotic course, although Dr. Nino will not be the provider following for IV antibiotics. She will plan to see him for his follow up appointment at the hospital. [facility] submitted a request for prior authorization for the swingbed stay from [facility]'s insurance [employer] and is awaiting approval. A: Kevin is a 66 year old man admitted on 08/25/22 with a diabetic foot infection P:Kevin went to the OR yesterday to close the wound on his right foot and to do a partial amputation of the second toe (partial ray resection). Garry will need to complete a 6 week course of IV antibiotics. Anticipate he will transition to Swingbed-1 to complete the course. He would have preferred to go home but he lives alone and has limited mobility secondary to the fresh surgical wounds on both feet. He will follow up with Podiatry, his PCP and plan of care as prescribed. Garry will transport via private vehicle with family. CM will continue to support Garry and assess for discharge planning concerns.
[2022-09-02] MEDS: Losartan 50 MG TAB 100 MG PO (08:42)
--- NOTE | 2022-09-02 12:52 | W.PODCONSULT ---
Date of service: 09/02/22 Time of Service: 11:45 Assessment and Plan Assessment and plan (1) Osteomyelitis of left foot: Status: Acute Assessment and plan: The patient was evaluated at bedside, with the case operator Jacinta. 6 week IV Abx has been prescribed and therefore the patient is staying, swing status, for 6 weeks. Emphasis was placed on performing ankle ROM exercises daily, explained in detail to him, in attempt to minimize the chances of DVT. PT to be initiated to assist with this. He is to use the post-op shoes (not yet dispensed) at all times, especially when ambulating to the bathroom. Dressings will only be changed weekly, especially since staying in-house (in attempt to minimize the chances of nosocomial infection). He will be evaluated by myself next week. Call with questions,[phone]. (2) Sepsis: Status: Acute (3) MSSA bacteremia: Status: Acute (4) Diabetic infection of right foot: Status: Acute History of Present Illness History of Present Illness Chief Complaint: R foot infection, L foot osteomyelitis Narrative: Garry is a 66 year old male, with Type II DM, who was evaluated at bedside today for a R foot infection s/p 1 day delayed primary closure 09/01/22, and for L foot osteomyelitis s/p 1 day 2nd partial ray resection. Dressings were left intact. He reports no pain or difficulties and is reportedly scheduled to initiate PT today, at which time the post-op shoes will be dispensed. PFSH All Active Problems (Updated 08/31/22 @ 07:54 by Malgorzata Nino DPM) Osteomyelitis of left foot (Acute) Discharge planning issues (Acute) Sepsis (Acute) MSSA bacteremia (Acute) Diabetic infection of left foot (Acute) Discharge planning issues (Acute) DVT prophylaxis (Acute) Diabetic infection of right foot (Acute) Gram-positive cocci bacteremia (Acute) Foot infection (Acute) Cellulitis (Acute) Foot ulcer, left (Acute) Routine general medical examination at a health care facility (Acute) Colonoscopy refused (Acute) Diabetes mellitus (Chronic) Low HDL (under 40) (Acute 09/13/17) Essential hypertension (Acute 05/09/13) Elevated fasting blood sugar (Acute 08/28/15) Dyslipidemia (Acute 05/17/13) PCEq 12.6%; declines statins Family History (Updated 08/25/22 @ 18:55 by Alicja Delgado MD) Mother Stroke Father Stroke Heart disease Social History Smoking/Tobacco Use Status: Never Smoking risk assessment performed?: Yes Alcohol Intake: current Alcohol Intake frequency: holidays/special occasions only Drug use: Never Caregiver/Support person: No Housing: house Number of Children: 0 Communication Needs: Corrective Lenses Do you need help understanding health information?: Rarely Pets and animals: Yes Current gender identity: decline to answer What is your relationship status?: refused to answer How often do you talk on the phone with friends or family?: decline to answer How often do you get together with friends or relatives?: decline to answer How often do you attend congregation or yarsanism services?: decline to answer Do you belong to any clubs or organized social groups?: decline to answer Panel score (0-1 are the most socially isolated patients): 0 What type of physical activity do you participate in: walking and other Details: moving pellets Duration: > 90 minutes/day Frequency: daily Special maría needs: No Do you feel safe at home: Yes Exam Skin Other: Dressings left intact being that clean closures were performed yesterday, surgically. Results Last Vital Signs Temp 97.3 F L 09/02/22 08:17 Pulse 61 09/02/22 08:17 Resp 16 09/02/22 08:17 BP 105/64 09/02/22 08:17 Pulse Ox 98 09/02/22 08:17 Labs Result diagrams: 09/02/22 06:15 09/02/22 06:15 Labs: Laboratory Results - last 24 hr 09/02/22 09/02/22 09/02/22 06:15 06:15 06:15 WBC RBC Hgb Hct MCV MCH MCHC RDW Plt Count MPV Immature Gran % Neutrophils % Lymphocytes % Monocytes % Eosinophils % Basophils % Nucleated RBC % Absolute Neutrophils Absolute Lymphocytes Absolute Monocytes Absolute Eosinophils Absolute Basophils ESR 100 H Sodium 137 Potassium 4.3 Chloride 100 Carbon Dioxide 27.0 Anion Gap 10.0 BUN 17 Creatinine 1.3 Est GFR (CKD-EPI 2020) 60.59 Glucose 199 H Calcium 8.9 C-Reactive Protein 1.27 H Procalcitonin < 0.1 09/02/22 06:15 WBC 12.80 H RBC 4.07 L Hgb 11.6 L Hct 35.5 L MCV 87 MCH 28.5 MCHC 32.7 RDW 16.6 H Plt Count 511 H MPV 10.2 Immature Gran % 1.1 Neutrophils % 79.0 Lymphocytes % 12.1 Monocytes % 6.6 Eosinophils % 0.9 Basophils % 0.3 Nucleated RBC % 0.0 Absolute Neutrophils 10.11 H Absolute Lymphocytes 1.55 Absolute Monocytes 0.84 H Absolute Eosinophils 0.12 Absolute Basophils 0.04 ESR Sodium Potassium Chloride Carbon Dioxide Anion Gap BUN Creatinine Est GFR (CKD-EPI 2020) Glucose Calcium C-Reactive Protein Procalcitonin
--- NOTE | 2022-09-02 13:21 | W.PM.PROGNOT ---
Date of Service Date of service: 09/02/22 Time of Service: 13:21 Assessment and Plan Assessment and plan (1) MSSA bacteremia: Status: Acute Assessment and plan: Blood cultures grew MSSA on 08/23/2022 and cleared by 08/25/2022. Wound culture grew staph aureus MSSA as well as group G strep. Patient is on Ancef day #7 after initial treatment with cefepime and vancomycin. Transthoracic echocardiogram with normal LV and RV function no vegetation seen. My recommendations are for 6 wks of iv antibiotics through 10/06/22. Patient will enter swing bed tomorrow. Professional time spent interviewing and examining patient, discussion of goals of care with hospital team (care management, nursing and consulting professionals) was 15 minutes. (2) Diabetic infection of right foot: Status: Acute Assessment and plan: S/p I&D R foot 08/26/21. s/p delayed primary closure of right foot wound yesterday (3) Diabetic infection of left foot: Status: Acute Assessment and plan: POD #2 right foot wound closure and left foot 2nd ray partial amputation for osteomyelitis. Patient is non-wt bearing until he gets his post op shoes. (4) Diabetes mellitus: Status: Chronic Assessment and plan: Blood sugars well controlled. Continue to monitor and cover with insulin sensitive sliding scale NovoLog. Metformin discontinued. (5) Essential hypertension: Status: Acute Assessment and plan: Continue losartan. Continue to hold HCTZ for now. (6) DVT prophylaxis: Status: Acute Assessment and plan: SC heparin (7) Discharge planning issues: Status: Acute Assessment and plan: Full code Continues to require hospitalization. The patient would prefer to complete his abx at home with home health rather than in a swing bed when he is ready for discharge. Subjective Subjective Interval history since last seen: Garry has no acute complaints. With respect to pain in toes of his left foot, this is improving since the amputation. We talked about non weight bearing status until his post op shoe gets fitted. We talked about swing bed status. He will enter into swing bed tomorrow once he gets his post op shoe. He will then perform P.T. to progress on his weight bearing and ambulation and strength. In the interim, I have ordered P.T. to be done at the bedside while he is in bed. Exam Narrative Exam Narrative: Feet are bandaged. Toes are warm and dry w/ good capillary refill, sensation is intact to light touch; no ankle or leg edema Objective Last Vital Signs Temp 36.3 C L 09/02/22 08:17 Pulse 61 09/02/22 08:17 Resp 16 09/02/22 08:17 BP 105/64 09/02/22 08:17 Pulse Ox 98 09/02/22 08:17 Laboratory Results - last 24 hr 09/02/22 09/02/22 09/02/22 06:15 06:15 06:15 WBC RBC Hgb Hct MCV MCH MCHC RDW Plt Count MPV Immature Gran % Neutrophils % Lymphocytes % Monocytes % Eosinophils % Basophils % Nucleated RBC % Absolute Neutrophils Absolute Lymphocytes Absolute Monocytes Absolute Eosinophils Absolute Basophils ESR 100 H Sodium 137 Potassium 4.3 Chloride 100 Carbon Dioxide 27.0 Anion Gap 10.0 BUN 17 Creatinine 1.3 Est GFR (CKD-EPI 2020) 60.59 Glucose 199 H Calcium 8.9 C-Reactive Protein 1.27 H Procalcitonin < 0.1 09/02/22 06:15 WBC 12.80 H RBC 4.07 L Hgb 11.6 L Hct 35.5 L MCV 87 MCH 28.5 MCHC 32.7 RDW 16.6 H Plt Count 511 H MPV 10.2 Immature Gran % 1.1 Neutrophils % 79.0 Lymphocytes % 12.1 Monocytes % 6.6 Eosinophils % 0.9 Basophils % 0.3 Nucleated RBC % 0.0 Absolute Neutrophils 10.11 H Absolute Lymphocytes 1.55 Absolute Monocytes 0.84 H Absolute Eosinophils 0.12 Absolute Basophils 0.04 ESR Sodium Potassium Chloride Carbon Dioxide Anion Gap BUN Creatinine Est GFR (CKD-EPI 2020) Glucose Calcium C-Reactive Protein Procalcitonin Time Spent with Patient Time Spent with Patient: <25 minutes Time was spent: preparing to see the patient(eg.review tests), counseling the patient and care coordination
[2022-09-02] MEDS: Normal Saline Flush 10 ML SYR IVP (13:42)
[2022-09-02] MEDS: Heparin 5,000 UNITS/ML VIAL 5000 UNITS SC ×2 (13:42→20:57)
--- NOTE | 2022-09-02 13:43 | PT.INIE ---
Date of service: 09/02/22 Time of Service: 13:43 PT Notes Visit Reasons: Diabetic Infectionof R Foot,Sepsis,Bateremia Physical Therapy Inpatient Initial Evaluation Date: 09/02/2022 Referring Doctor: Mac August MD PT Orders: PT CONSULT: Limited ability. Begin in bed exercises, pt non-weight bearing Precautions: Standard. Per glass technologist order: Wear post-op shoes at all times. Only essential transfers with post-op shoes on B feet. Use FWW to offload weight from B feet. Patient Profile/Admitting Diagnosis: Kevin is a 66-year-old male with diagnosis of MSSA bacteremia of right foot, and osteomyelitis of left foot. He is s/p I&D of right foot wound, infection, and osteomyelitis as well as s/p delayed primary closure of right foot and status post left second ray resection on postoperative day 1. PMHX: All Active Problems?(Updated 08/25/22 @ 19:05 by Alicja Delgado MD) Discharge planning issues (Acute) DVT prophylaxis (Acute) Diabetic infection of right foot (Acute) Gram-positive cocci bacteremia (Acute) Foot infection (Acute) Cellulitis (Acute) Foot ulcer, left (Acute) Routine general medical examination at a health care facility (Acute) Colonoscopy refused (Acute) Diabetes mellitus (Chronic) Low HDL (under 40) (Acute 09/13/17) Essential hypertension (Acute 05/09/13) Elevated fasting blood sugar (Acute 08/28/15) Dyslipidemia (Acute 05/17/13) PCEq 12.6%; declines statins Social History/Home Situation: Lives alone in a private home with one-step to enter without rails. 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 Independent with all aspects of ADLs prior to surgery Equipment Owned/DME: Bilateral axillary crutches Subjective: Reports minimal pain in the L foot with standing and walking to the bathroom using FWW and with post-op shoes to B feet. Objective: General Observation: B feet covered with dressing. IV access in L UE. Mental Status: Alert and oriented as to person, place, time, and purpose. Able to pay attention, focus, and respond appropriately. Pain: 2-3/10 in the L foot with WB Vital Signs: WNL as closely monitored by nursing staff ROM: Right Upper Extremity: Shoulder Flexion WFL. Shoulder abduction WFL. Elbow flexion WFL. Wrist flexion WFL. Functional opening and closing of hand WFL. Left Upper Extremity: Shoulder Flexion WFL. Shoulder abduction WFL. Elbow flexion WFL. Wrist flexion WFL. Functional opening and closing of hand WFL. Right Lower Extremity: Hip flexion WFL. Hip abduction WFL. Knee flexion WFL. Ankle dorsiflexion WFL. Ankle plantarflexion WFL. Left Lower Extremity: Hip flexion WFL. Hip abduction WFL. Knee flexion WFL. Ankle dorsiflexion WFL. Ankle plantarflexion WFL. Strength: Right Upper Extremity: Shoulder flexors 5/5. Shoulder abductors 5/5. Elbow flexors 5/5. Elbow extensors 5/5. Software Sales Executive strong. Left Upper Extremity: Shoulder flexors 5/5. Shoulder abductors 5/5. Elbow flexors 5/5. Elbow extensors 5/5. Software Sales Executive strong. Right Lower Extremity: Hip flexors 5/5. Hip abductors 5/5. Knee flexors 5/5. Knee extensors 5/5. Ankle dorsiflexors 3/5. Ankle plantarflexors 3/5. Left Lower Extremity: Hip flexors 5/5. Hip abductors 5/5. Knee flexors 5/5. Knee extensors 5/5. Ankle dorsiflexors 3/5. Ankle plantarflexors 3/5. Sesation: Decreased sensation in B feet related to diabetic neuropathy Bed Mobility/Transfers: Supine to sit independent Sit to supine independent Sit to stand supervision Stand to sit supervision Bed to toilet seat supervision Toilet seat to bed supervision Bed to reclining chair supervision Reclining chair to bed supervision Gait: Instructed patient with level surface ambulation of 15 feet r + 15 feet requiring supervision assist with front-wheeled walker. Dorsiflexion in B feet decreased due to dressings and postoperative status. THERA EX: Ankle circles x 10 AKTC x 10 while reclined Gentle toe flexion/extension x 5 Balance: Static Sitting: Normal Dynamic Sitting: Normal Static Standing: Fair Dynamic Standing: Fair Special Tests: Mobility Limitations Standardized Measure [facility] AM-PAC 6 clicks Basic Mobility Inpatient Short Form: Raw Score: 23 CMS Score: 11% deficit Informed Consent/Education: Patient was instructed in purpose of PT consult and plan of care. Agreeable to proceed with established PT POC to achieve personal goals. Assessment: Patient was measured and fitted with post-op shoes as ordered by glass technologist. Patient is able to manage short distance essential ambulation from bedside to toilet using FWW and post-op shoes. Did report minimal pain in L foot with transfer to bathroom that resolved with rest. Patient presents with clinical signs and symptoms consistent with current/admitting diagnoses that have resulted to mobility limitations, gait instability, generalized weakness, and overall ADL decline as demonstrated by the following impairment level findings: 1. Decreased strength to B ankle major muscle groups 2. Impaired standing balance 3. Impaired activity tolerance 4. Limitation of joint range of motion in B ankles Impairments are contributing to the following functional limitations: 1. Difficulty with ambulation without assistive device 2. Increased completion time for mobility ADL performance Patient is assessed as a 01035 moderate complexity based on the following: History: 66-year-old male with past medical history as indicated above Examination: Demonstrable impairment in strength, balance, and mobility level with underlying impairments and functional limitations as exhibited above as well as deficit score of 23% utilizing the [facility] Mobility Inpatient Short Form Presentation: Stable Decision Makin low complexity Goals: Goals X1 week 1. Supine-Sit independent 2. Sit-Supine independent 3. Sit-Stand independent 4. Stand-Sit independent with FWW 5. Bed-Chair independent with FWW 6. Chair-Bed independent with FWW 7. Independent gait on level surface with use of FWW for at least 50 feet without report of pain nor dyspnea 8. Independent stair negotiation while holding onto B rails for at least 3 steps without report of pain nor dyspnea 9. Independent with home exercise program 10. Good static and dynamic standing balance/tolerance Plan of Care/Treatment Plan: 1-2x/day, 7 days/week x 1 week. Plan of care has been reviewed with the FISH AND WILDLIFE TECHNICIAN providing the service under Physical Therapy direction. Initiate Physical Therapy intervention for pain management as needed, strengthening, bed mobility, transfers, gait, stairs, balance training, and use of assistive device. DISCHARGE RECOMMENDATIONS: [X] Home with no services. Home when medically cleared by hospitalist. [] Home with services [specify] [] Home with outpatient PT [] [] SNF for continued rehabilitation [] [] [facility] [] [] SNF versus LTC based on ability to participate and progress [] TREATMENT CODE/TIME: 93309 x 25, 26434 x 17 minutes beginning at 13:43 PM. Thank you for the opportunity to participate in the care of this patient. Gena Gutierrez PT, DPT, CLT [facility] [place], [place]
[2022-09-02 15:45] VITALS: BP 96/57; PULSE 69; RESP 16; TEMP 36.3; O2SAT 97
[2022-09-02 23:01] VITALS: BP 110/66; PULSE 60; RESP 20; TEMP 36.6; O2SAT 96
[2022-09-03] MEDS: Heparin 5,000 UNITS/ML VIAL 5000 UNITS SC ×2 (05:49→15:36)
[2022-09-03] MEDS: ceFAZolin 2 GM/50 ML BAG IVPB ×2 (05:49→15:36)
[2022-09-03 07:41] VITALS: BP 106/64; PULSE 65; RESP 17; TEMP 35.8; O2SAT 98
[2022-09-03] MEDS: Losartan 50 MG TAB 100 MG PO (07:58)
--- NOTE | 2022-09-03 08:42 | CMPROGNOTE_ITS ---
- If Service Date Differs Date of service: 09/03/22 Time of Service: 08:42 Care Management Progress Note S/O:Garry will transiition to -1 today for an extended course of IV antibiotics. It is anticipated that he will remain at [facility] until late September. [facility] will be the payer source. Reference # [id number]. A: Kevin is a 66 year old man admitted on 08/25/22 with a diabetic foot infection P Garry will need to complete a 6 week course of IV antibiotics. He will transition to [facility] today to complete the course. When discharged, he will follow up with Podiatry, his PCP and plan of care as prescribed. Garry will transport via private vehicle with family.
--- NOTE | 2022-09-03 14:56 | PT.INTREAT ---
Date of service: 09/03/22 Time of Service: 09:40 PT Notes Visit Reasons: Diabetic Infectionof R Foot,Sepsis,Bateremia Inpatient Physical Therapy Treatment Note [facility] Date: 09/03/2022 PRECAUTIONS: Activity as tolerated, WBAT B, essential transfers only SUBJECTIVE: Kevin is pleasant and agreeable to participating in PT. He reports that he is feeling much better, and has not experienced the shooting pain in his left foot since last night. He reports that he has been getting up and ambulating with the FWW and B post-op shoes to the bathroom independently. He also reports that he has been completing basic ankle and foot ROM exercises as well as hip and knee strengthening exercises. OBJECTIVE: Patient was cleared to be independent with transfers and ambulation with FWW and B post op shoes within his room. PAIN: No c/o pain BED MOBILITY/TRANSFERS Supine-sit: I Sit-supine: I Sit-stand: I Stand-sit: I Bed-Chair: I with FWW Chair-bed: I with FWW GAIT Assistive Device: FWW Weight bearing: WBAT B Assist: I Distance: 12' Deviation: Gait unremarkable THEREX: Patient was instructed in and issued a HEP program for gentle AROM for toes, foot and ankles, as well as for resisted strengthening for hip and knee, all to be performed in a seated or supine position. Patient was issued red Theraband for all hip and knee strengthening exercises. TOILETING: Patient toileted independently ASSESSMENT: Patient tolerated session well, without complaint. He demonstrates compliance with use of FWW and post-op shoes with essential transfers within room. He demonstrates good understanding and compliance with HEP at this time. PLAN: Per discussion with primary PT, plan to discharge patient from PT services due to current independent functional level. TREATMENT CODE/TIME: 25 minutes; [id number], [id number] (09:40)
[2022-09-03] MEDS: Normal Saline 500 ML 30 ML IV (15:36)
[2022-09-03 15:56] VITALS: BP 97/57; PULSE 67; RESP 16; TEMP 36.3; O2SAT 95
--- NOTE | 2022-09-03 15:59 | W.PM.DS.N ---
Date of service: 09/03/22 Time of Service: 15:59 DS: Diagnosis Discharge Diagnosis (1) MSSA bacteremia: Status: Acute (2) Diabetic infection of right foot: Status: Acute (3) Diabetic infection of left foot: Status: Acute (4) Diabetes mellitus: Status: Chronic (5) Essential hypertension: Status: Acute (6) DVT prophylaxis: Status: Acute (7) Discharge planning issues: Status: Acute Discharge Plan Disposition Patient Disposition: Swing Bed(Skilled,SB1) Condition: Stable Condition: Good Discharge Details Reason For Visit: Diabetic Infectionof R Foot,Sepsis,Bateremia Admit Date/Time: 08/25/22 10:14 Admit Provider: Alicja Delgado Attending Provider: Alicja Delgado Primary Care Provider: Soni Ortega Hospital Course Hospital Course: Mr. Oropeza is a 66-year-old male with a history of type 2 diabetes mellitus, hypertension, hyperlipidemia, GERD who presented to [facility] emergency department 5 days redness swelling and pain to his right foot with no antecedent trauma. See H&P for details. Patient had incision and drainage of abscess from his right foot performed by Dr. Nino on the day prior to admission admission to the hospital been recommended but he had refused but then when he was called back to ER because of positive blood cultures from his ER visit on 08/23/2022 which came back positive for gram-positive cocci in 2 out of 4 bottles he came back to the hospital for parenteral antibiotics. Blood cultures from 08/23/2022 grew staph aureus that was methicillin sensitive. Right foot wound culture grew Staph aureus which was methicillin sensitive. He also grew group G Streptococcus which was pansensitive. Wound was also noted on his toe of his left foot and x-ray was taken that showed soft tissue swelling but no bony evidence for acute osteomyelitis nevertheless subsequent MRI scan done on 08/27/2022 demonstrated findings suspicious for osteomyelitis involving the left second metatarsal and the proximal middle phalanges of the second toe. Ulcer and abscess around second toe was also noted with a 1 x 1.5 cm ring-enhancing fluid collection of the plantar surface of the foot adjacent to the proximal phalanx of second toe. Patient underwent incision and drainage of his right foot wound on 08/26/2022 this is performed by Dr. Nino. See her operative note for details. Areas around the right second and third ray were incised and drained and lavaged with saline. Rosalie drain was left in place and the wound was dressed. Plan was for primary closure 3 to 5 days after antibiotics. Patient subsequently underwent surgery on 09/01/2022 in which the right foot wound was closed in the left foot she performed a left second partial ray resection to remove the osteomyelitis. Patient was treated with parenteral antibiotics including cefepime and vancomycin which was later changed to Ancef after he was found to have MSSA bacteremia and group G strep as well as MSSA in the foot wound. Wound culture at the time of the partial resection of the left second ray was obtained and preliminary report showing gram-positive chichi. Anaerobic cultures are pending. His follow-up blood cultures from 08/25/[address] Delgado consulted with infectious disease service from [facility] they recommend 6 weeks of antibiotics with Ancef. Transthoracic echocardiogram was performed and demonstrated normal left ventricular size and function with no wall motion abnormalities and normal right ventricular size and function. No valvular endocarditis was noted. With a negative follow-up blood cultures it was elected to place a midline this is placed on 08/30/2022 by anesthesia department. As the patient was now hemodynamically stable with clearance of his blood cultures and having had his resection of his osteomyelitis of his left second ray and primary closure of his right foot wound it was felt that he could rehabilitate and swing bed status. As the patient lives alone and initially he is supposed to be nonweightbearing on his feet during the first couple days postoperatively it was felt that he could not return home and he was entered into a swing bed status for completion of his antibiotics. He was fitted for a postop shoe and now has been evaluated by physical therapy on the day of discharge he is allowed to weight-bear as tolerated as long as he is wearing his postoperative shoes. Initially goal is for just essential transfers only. Patient was able to toilet independently he was able to do range of motion exercises on his own and was demonstrating full independent function and therefore physical therapy discharged him from their services. Patient is discharged to swing bed status in markedly improved condition with continued weekly dressing changes to be performed by Dr. Nino we will continue to monitor labs on a weekly basis including CRP, CMP, CBC and procalcitonin. Home Meds and New Rx's Prescriptions: No Action (DME) lancets Misc 1 ea Miscellaneous BID Qty: 200 6RF Rx Instructions: Monitor BSs BID (DME) Accu-Chek Harmony Plus test strp Strip 1 ea Miscellaneous BID Qty: 200 6RF Rx Instructions: Diabetes. Check BID/PRN (DME) blood-glucose meter Misc Miscellaneous DAILY Qty: 1 0RF Rx Instructions: As directed hydrochlorothiazide 12.5 mg tablet 12.5 mg PO DAILY Qty: 90 4RF losartan 100 mg tablet 100 mg PO DAILY Qty: 90 3RF metformin 500 mg tablet extended release 24 hr 1,000 mg PO DAILY Qty: 180 3RF sulfamethoxazole-trimethoprim [Bactrim DS] 800-160 mg tablet 1 tab PO BID Qty: 14 0RF cefuroxime axetil 500 mg tablet 500 mg PO BID 7 Days Qty: 14 0RF Discharge Instructions Instructions: Diabetic Foot Ulcers (DC) Activity:: See Dr. Mica morris Equipment/Supplies:: Walker Diet:: Carb Counting DS: Summary Time Spent with Patient providing and/or coordinating discharge services: Less than 30 minutes Specific discharge activities: Interview/exam of patient; review of discharge instructions, completion of prescriptions/discharge instructions; discussion w/ nursing and CM; documentation of hospital visit Status at Discharge Functional status at discharge: uses cane/walker Overall status at discharge: patient is progressing back to baseline Mental Status: mental status grossly normal Speech and Movement: speech and movement normal Mood: congruent mood Affect: normal affect Exam Narrative Exam Narrative: Garry is sitting up in bed he is alert and oriented person place time circumstance. HEENT is unremarkable Neck is supple nontender no JVD normal carotid pulses no bruits no thyromegaly no lymphadenopathy Lungs are clear to auscultation Heart is regular rate and rhythm no murmur rub or gallop Abdomen soft nontender no bruits no hepatosplenomegaly Extremities no peripheral cyanosis or edema. Feet are bandaged and he has his postop shoes on. Psych Mental Status: mental status grossly normal Speech and Movement: speech and movement normal Mood: congruent mood Affect: normal affect DS: Data Vitals/I&O Vitals and I&O: Vital Signs Temperature 35.8 C L 09/03/22 07:41 Temperature Source Tympanic 09/03/22 07:41 Pulse 65 09/03/22 07:41 Pulse Rhythm Regular 09/03/22 10:30 Pulse 85 08/25/22 10:50 Respiratory Rate 17 09/03/22 07:41 Respiratory Effort Non-Labored 09/03/22 10:30 Respiratory Depth Normal 09/03/22 10:30 Respiratory Pattern Normal 09/03/22 10:30 Blood Pressure 106/64 09/03/22 07:41 Blood Pressure Mean 77 08/25/22 10:46 Blood Pressure Position Sitting 08/25/22 09:30 Pulse Oximetry 98 09/03/22 07:41 Oxygen Delivery Method Room Air 09/03/22 07:41 Oxygen Flow Rate 0 09/03/22 07:41 Pain Level 0 09/03/22 07:41 Comment 08/26/22 19:30 Intake & Output 09/02/22 09/03/22 09/03/22 23:59 11:59 23:59 Intake Total 820 / 1370 530 / 1010 480 / 1010 Output Total 800 / 800 Balance 820 / 620 -270 / 210 480 / 210 Weight 71.9 kg Intake: IV 100 / 150 50 / 50 0 / 50 Oral 720 / 1220 480 / 960 480 / 960 Output: Urine 800 / 800 Other: Urine Color Yellow Urine Appearance Clear Clear Urine Odor Normal Comment pT stated he voided pT stated that he voided. pT uses bathroom independently. Voiding Methods Toilet Toilet Data Completed and Pending Labs on day of discharge: 09/01/22 14:10 Bone - Left Second Digit Anaerobic Culture - Pending Preliminary micro results at discharge 09/01/22 14:10 Wound Culture - Preliminary Bone - Left Second Digit Gram Positive Chichi 09/01/22 14:10 Anaerobic Culture - Pending Bone - Left Second Digit PFSH All Active Problems Osteomyelitis of left foot (Acute) Discharge planning issues (Acute) Sepsis (Acute) MSSA bacteremia (Acute) Diabetic infection of left foot (Acute) Discharge planning issues (Acute) DVT prophylaxis (Acute) Diabetic infection of right foot (Acute) Gram-positive cocci bacteremia (Acute) Foot infection (Acute) Cellulitis (Acute) Foot ulcer, left (Acute) Routine general medical examination at a health care facility (Acute) Colonoscopy refused (Acute) Diabetes mellitus (Chronic) Low HDL (under 40) (Acute 09/13/17) Essential hypertension (Acute 05/09/13) Elevated fasting blood sugar (Acute 08/28/15) Dyslipidemia (Acute 05/17/13) PCEq 12.6%; declines statins Family History Mother Stroke Father Stroke Heart disease Social History Smoking/Tobacco Use Status: Never Smoking risk assessment performed?: Yes Alcohol Intake: current Alcohol Intake frequency: holidays/special occasions only Drug use: Never Caregiver/Support person: No Housing: house Number of Children: 0 Communication Needs: Corrective Lenses Do you need help understanding health information?: Rarely Pets and animals: Yes Current gender identity: decline to answer What is your relationship status?: refused to answer How often do you talk on the phone with friends or family?: decline to answer How often do you get together with friends or relatives?: decline to answer How often do you attend denominational or alevism services?: decline to answer Do you belong to any clubs or organized social groups?: decline to answer Panel score (0-1 are the most socially isolated patients): 0 What type of physical activity do you participate in: walking and other Details: moving pellets Duration: > 90 minutes/day Frequency: daily Special maría needs: No Do you feel safe at home: Yes Time Spent with Patient Time Spent with Patient: <45 minutes Time was spent: preparing to see the patient(eg.review tests), obtaining and/or reviewing separately otained hiistory, ordering medications,tests, procedures, referring, communicating with other health urgent care nurse practitioner, indepentently interpreting results, counseling the patient and care coordination
== END 2022-09-03 17:28 | disposition swing bed (61) | DRG 854 ==
LOC: ER 10:54 → MS 11:40
PROVIDERS: Internal Medicine; Podiatrist Foot & Ankle Surgery; Admitting Provider Internal Medicine; Emergency Provider Emergency Medicine; PCP Nurse Practitioner; Visit Provider Internal Medicine
PROC: 0J9Q0ZZ Drainage of Right Foot Subcutaneous Tissue and Fascia, Open Approach (ICD-10-PCS; CPT 28003; principal; 2022-08-26 11:00)
PROC: 0Y6S0Z0 Detachment at Left 2nd Toe, Complete, Open Approach (ICD-10-PCS; CPT 28820; principal; 2022-09-01 13:00)
DX: A41.01 Sepsis due to Methicillin susceptible Staphylococcus aureus (principal); L02.611 Cutaneous abscess of right foot; L03.115 Cellulitis of right lower limb; L97.418 Non-pressure chronic ulcer of right heel and midfoot with other specified severity; L97.525 Non-pressure chronic ulcer of other part of left foot with muscle involvement without evidence of necrosis; M86.672 Other chronic osteomyelitis, left ankle and foot; L03.116 Cellulitis of left lower limb; E11.628 Type 2 diabetes mellitus with other skin complications; E11.621 Type 2 diabetes mellitus with foot ulcer; I10 Essential (primary) hypertension; K21.9 Gastro-esophageal reflux disease without esophagitis; E78.5 Hyperlipidemia, unspecified; B95.4 Other streptococcus as the cause of diseases classified elsewhere; E11.69 Type 2 diabetes mellitus with other specified complication
CPT/HCPCS: 28003; 28820; 13160; 36415; 76942; 80048; 80053; 84145; 85027; 85652; 87040; 87077; 87635; 88300; 88305; 96360; 97162; 97530; 99285; 73630; 73720; 80202; 83036; 83605; 83735; 85025; 85610; 86140; 87070; 87075; 87186; 87205; 88311; 93005; 93010; 93306; 99223; 99231; 99233; 99238; J0690; J1100; J1644; J2250; J2405; J2704

== ENCOUNTER 2022-09-03 16:30 | Inpatient (IN) | payer OTHER, MEDICARE, SELFPAY ==
--- NOTE | 2022-09-03 13:28 | CMSA_ITS ---
- If Service Date Differs Date of service: 09/03/22 Time of Service: 13:28 SB Psychosocial/Act.Assessment - Hospital Admission Admission Date: 08/25/22 Admission From:: ED - Swing Bed Admission Swing Bed Admit Date:: 09/03/22 - Social Supports PREVIOUS FUNCTIONAL STATUS/SOCIAL/FAMILY SUPPORTS:: Garry resides alone in a single family home in in [place], [place] He has 2 brothers and 2 [id number] that live locally and are very supportive. Garry is and never had any children. 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 - Prior to Admission Living Arrangements/Environment Prior to Admission:: lives alone in a single family home in [facility]. 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 Gardening:: vegetables and herbs Reading:: loves to read, wide variety of interests - Present Functional Status Physical Abilities:: limited currently after bilateral sugeries on his feet Cognitive:: good Communication:: good Sensory Systems: wears glasses Behavior:: appropriate - Medical History PAST MEDICAL HISTORY/PAST SURGICAL HISTORY:: Discharge planning issues (Acute). DVT prophylaxis (Acute). Diabetic infection of right foot (Acute). Gram- positive cocci bacteremia (Acute). Foot infection (Acute). Cellulitis (Acute). Foot ulcer, left (Acute). Routine general medical examination at a health care facility (Acute). Colonoscopy refused (Acute). Diabetes mellitus (Chronic). Low HDL (under 40) (Acute 09/13/17). Essential hypertension (Acute 05/09/13). Elevated fasting blood sugar (Acute 08/28/15). Dyslipidemia (Acute 05/17/13). PCEq 12.6%; declines statins General Health:: good - Admission Data Reason for Swing Bed Admission:: complete a six week course of IV antibiotics Discharge Plan:: Garry will need to complete a 6 week course of IV antibiotics. When discharged, he will follow up with Podiatry, his PCP and plan of care as prescribed. Garry will transport via private vehicle with family. Assessment: Garry is a pleasant gentleman who was transitioned to -1 to complete a 6 week course of Cefazolin which is administered 3 time a day. Anticipated last dose on 10/06/22 Broadcast Traffic Coordinator: Jacinta Brown Date Assessment was completed:: 09/03/22
--- NOTE | 2022-09-03 13:33 | CMSCP_ITS ---
- If Service Date Differs Date of service: 09/03/22 Time of Service: 13:33 Swingbed Plan of Care Plan of care: SWING BED PROGRAM ACTIVITIES/DISCHARGE PLAN OF CARE ACTIVITIES PLAN Date:09/03/22 Identified Need:Individualized Activity plan Intervention/Plan: Garry enjoys reading and brought books and magazines with him. He also enjoys visiting with family, friends and staff. Garry would also enjoy pet therapy and music therapy if available. He enjoys country music as well as classical. [place] [facility] Date:09/03/22 Identified Need:Safe discharge plan Intervention/Plan:Anticipate Garry will discharge home, possibly with home health services, when his IV antibiotic course is completed. He will follow up with his community providers and plan of care and transport with family. [place] [facility]
--- NOTE | 2022-09-03 14:44 | CMPROGNOTE_ITS ---
- If Service Date Differs Date of service: 09/03/22 Time of Service: 14:44 Care Management Progress Note 09/03/22 1430 : CM received a call from Pallavi French from [facility] to inform CM Swingbed stay has been approved. Auth # [id number] Clinicals will be due on Tuesday09/07/22 and should be sent to: Estefania Chua The Cefazolin will be reimbursed at wholesale cost minus 20%
--- NOTE | 2022-09-03 14:44 | PDOC.CMPRO ---
- If Service Date Differs Date of service: 09/03/22 Time of Service: 14:44 Care Management Progress Note 09/03/22 1430 : CM received a call from Pallavi French from [facility] to inform CM Swingbed stay has been approved. Auth # [id number] Clinicals will be due on Tuesday09/07/22 and should be sent to: Estefania Chua The Cefazolin will be reimbursed at wholesale cost minus 20%
--- NOTE | 2022-09-03 16:19 | W.PM.HP.N ---
Date of service: 09/03/22 Time of Service: 16:19 Assessment and Plan Assessment and plan (1) MSSA bacteremia: Status: Acute Assessment and plan: Blood cultures grew MSSA on 08/23/2022 and cleared by 08/25/2022. Wound culture grew staph aureus MSSA as well as group G strep. Patient is on Ancef day #8 after initial treatment with cefepime and vancomycin. Transthoracic echocardiogram with normal LV and RV function no vegetation seen. My recommendations are for 6 wks of iv antibiotics through 10/06/22. Patient will enter swing bed today. Professional time spent interviewing and examining patient, discussion of goals of care with hospital team (care management, nursing and consulting professionals) was 30 minutes. (2) Diabetic infection of right foot: Status: Acute Assessment and plan: S/p I&D R foot 08/26/21. s/p delayed primary closure of right foot wound 09/01/22 Weightbearing as tolerated as long as he wears his postop shoe (3) Diabetic infection of left foot: Status: Acute Assessment and plan: POD #3 right foot wound closure and left foot 2nd ray partial amputation for osteomyelitis. Patient is non-wt bearing as long as he wears his post op shoe. Dr. Nino is recommending initially that he only bear wt for transfers but to perform bedside exercises including active ROM and strengthening to prevent deconditioning. She will progress him to full ambulatory status once his wounds heal. She will do weekly dressing changes. (4) Diabetes mellitus: Status: Chronic Assessment and plan: Blood sugars well controlled. Continue to monitor and cover with insulin sensitive sliding scale NovoLog. Metformin resumed (5) Essential hypertension: Status: Acute Assessment and plan: Continue losartan. Resume HCTZ, and add potassium supplementation (6) DVT prophylaxis: Status: Acute Assessment and plan: SC heparin (7) Discharge planning issues: Status: Acute Assessment and plan: Full code swing bed level 1 while he completes his 6 wk course of Ancef. Patient lives alone and his ambulatory skills are such that he is high risk for his wounds to dehisce if he were to return home right now. End date for his antibiotics is 10/06/22 which is 6 weeks from his first negative blood culture which was 08/25/22. History of Present Illness History of Present Illness Chief Complaint: MSSA and group G strep diabetic foot infection Narrative: 66-year-old male with history of type 2 diabetes mellitus, essential hypertension, hyperlipidemia, GERD who was admitted to [facility] from 08/25/2022 through 09/03/2022 for treatment of MSSA bacteremia and MSSA and group G strep diabetic foot wound infections. Right foot wound was incised and drained and then later underwent a secondary surgery for secondary closure of the wound. The left foot had a second digit osteomyelitis and he underwent partial second ray amputation. Patient's MSSA bacteremia cleared. He was initially treated with broad-spectrum antibiotics which was then later narrowed down to Ancef. It is recommended that he complete 6 weeks of IV antibiotics from his first negative blood culture which was 08/25/2022. End date is 10/06/2022. Echocardiogram showed normal LV and RV function and size with no evidence for valvular heart disease and no evidence for valvular vegetations. Patient was evaluated and treated by physical therapy and cleared for independent ambulation as long as he is wearing his postop shoe he did recommend use of a front wheel walker to offload pressure on his feet. Dr. Nino initial recommendation is that he only be weightbearing as tolerated for simple transfers and she will continue to do dressing changes weekly. Review of Systems All systems reviewed & are unremarkable except as noted in HPI and below PFSH All Active Problems Osteomyelitis of left foot (Acute) Discharge planning issues (Acute) Sepsis (Acute) MSSA bacteremia (Acute) Diabetic infection of left foot (Acute) Discharge planning issues (Acute) DVT prophylaxis (Acute) Diabetic infection of right foot (Acute) Gram-positive cocci bacteremia (Acute) Foot infection (Acute) Cellulitis (Acute) Foot ulcer, left (Acute) Routine general medical examination at a health care facility (Acute) Colonoscopy refused (Acute) Diabetes mellitus (Chronic) Low HDL (under 40) (Acute 09/13/17) Essential hypertension (Acute 05/09/13) Elevated fasting blood sugar (Acute 08/28/15) Dyslipidemia (Acute 05/17/13) PCEq 12.6%; declines statins Family History Mother Stroke Father Stroke Heart disease Social History Smoking/Tobacco Use Status: Never Smoking risk assessment performed?: Yes Alcohol Intake: current Alcohol Intake frequency: holidays/special occasions only Drug use: Never Caregiver/Support person: No Housing: house Number of Children: 0 Communication Needs: Corrective Lenses Do you need help understanding health information?: Rarely Pets and animals: Yes Current gender identity: decline to answer What is your relationship status?: refused to answer How often do you talk on the phone with friends or family?: decline to answer How often do you get together with friends or relatives?: decline to answer How often do you attend muslim or presybeterian services?: decline to answer Do you belong to any clubs or organized social groups?: decline to answer Panel score (0-1 are the most socially isolated patients): 0 What type of physical activity do you participate in: walking and other Details: moving pellets Duration: > 90 minutes/day Frequency: daily Special maría needs: No Do you feel safe at home: Yes Meds Allergies and Home Medications Allergies Allergy/AdvReac Type Severity Reaction Status Date / Time Penicillins Allergy Hives Verified 08/25/22 09:34 lisinopril AdvReac Unknown Cough and Verified 08/25/22 09:34 light headed metoprolol AdvReac Unknown palpitation Verified 08/25/22 09:34 s Home Medications Medication Instructions Recorded Confirmed Type blood sugar diagnostic (Accu-Chek #200 strips 04/08/21 08/23/22 Rx Harmony Plus test strips) blood-glucose meter #1 ea 04/08/21 08/23/22 Rx lancets #200 ea 04/08/21 08/23/22 Rx hydrochlorothiazide 12.5 mg tablet 12.5 mg PO DAILY #90 tab-caps 04/13/22 08/25/22 Rx losartan 100 mg tablet 100 mg PO DAILY #90 tab-caps 04/13/22 08/25/22 Rx metformin 500 mg tablet,extended 1,000 mg PO DAILY #180 tab-caps 04/13/22 08/25/22 Rx release 24 hr cefuroxime axetil 500 mg tablet 500 mg PO BID 7 days #14 tabs 08/23/22 08/25/22 Rx sulfamethoxazole 800 1 tab PO BID #14 tabs 08/23/22 08/25/22 Rx mg-trimethoprim 160 mg tablet (Bactrim DS) Exam Narrative Exam Narrative: Garry is sitting up in bed he is alert and oriented person place time circumstance. HEENT is unremarkable Neck is supple nontender no JVD normal carotid pulses no bruits no thyromegaly no lymphadenopathy Lungs are clear to auscultation Heart is regular rate and rhythm no murmur rub or gallop Abdomen soft nontender no bruits no hepatosplenomegaly Extremities no peripheral cyanosis or edema. Feet are bandaged and he has his postop shoes on. Psych Mental Status: mental status grossly normal Speech and Movement: speech and movement normal Mood: congruent mood Affect: normal affect Time Spent Time spent with Patient: <40 minutes Time was spent: preparing to see the patient(eg.review tests), obtaining and/or reviewing separately otained hiistory, ordering medications,tests, procedures, referring, communicating with other health acute care registered nurse, indepentently interpreting results, counseling the patient and care coordination
--- NOTE | 2022-09-03 17:37 | NUR.NOTE ---
Nursing Note: Patient is now swing bed level of care for continued PT and further ABX treatment. Shift assessment for this shift was performed under the acute account
--- NOTE | 2022-09-03 18:00 | INDS_ITS ---
Date of service: 09/06/22 Time of Service: 09:18 PT Notes Visit Reasons: MSSA,Group G Strep Diabetic Foot Wound,Bacteremia Physical Therapy Inpatient Initial Evaluation Date: 09/03/2022 Dates of Service: 09/02/2022 through 09/03/2022 This is a clinical summary of care provided for the duration of dates listed above. No charge was made in the completion of this documentation. Referring Doctor:? Mac August,? PT Orders: PT CONSULT: Limited ability.? Begin in bed exercises, pt non-weight bearing Precautions: Standard.?Per tester compressed gases order:? Wear post-op shoes at all times.? Only essential transfers with post-op shoes on B feet.??Use FWW to offload weight from B feet. Patient Profile/Admitting Diagnosis:? Kevin is a 66-year-old male with diagnosis of MSSA bacteremia of right foot, and osteomyelitis of left foot.? He is s/p I&D of right foot wound, infection, and osteomyelitis as well as s/p delayed primary closure of right foot and status post left second ray resection on postoperative day 1. PMHX: All Active Problems?(Updated 08/25/22 @ 19:05 by Alicja Delgado MD) Discharge planning issues (Acute) DVT prophylaxis (Acute) Diabetic infection of right foot (Acute) Gram-positive cocci bacteremia (Acute) Foot infection (Acute) Cellulitis (Acute) Foot ulcer, left (Acute) Routine general medical examination at a health care facility (Acute) Colonoscopy refused (Acute) Diabetes mellitus (Chronic) Low HDL (under 40) (Acute 09/13/17) Essential hypertension (Acute 05/09/13) Elevated fasting blood sugar (Acute 08/28/15) Dyslipidemia (Acute 05/17/13) PCEq 12.6%; declines statins Social History/Home Situation: Lives alone in a private home with one-step to enter without rails.? 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 Independent with all aspects of ADLs prior to surgery Equipment Owned/DME: Bilateral axillary crutches Subjective: Reports minimal pain in the L foot with standing and walking to the bathroom using FWW and with post-op shoes to B feet. Objective: General Observation: B feet covered with dressing.? IV access in L UE.? Mental Status: Alert and oriented as to person, place, time, and purpose. Able to pay attention, focus, and respond appropriately. Pain: 2-3/10 in the L foot with WB Vital Signs: WNL as closely monitored by nursing staff ROM: Right Upper Extremity: ? Shoulder Flexion WFL. Shoulder abduction WFL. Elbow flexion WFL. Wrist flexion WFL. Functional opening and closing of hand WFL. Left Upper Extremity:? Shoulder Flexion WFL. Shoulder abduction WFL. Elbow flexion WFL. Wrist flexion WFL. Functional opening and closing of hand WFL. Right Lower Extremity: Hip flexion WFL. Hip abduction WFL. Knee flexion WFL. Ankle dorsiflexion WFL. Ankle plantarflexion WFL. Left Lower Extremity: Hip flexion WFL. Hip abduction WFL. Knee flexion WFL. Ankle dorsiflexion WFL. Ankle plantarflexion WFL. Strength: Right Upper Extremity: Shoulder flexors 5/5. Shoulder abductors 5/5. Elbow flexors 5/5. Elbow extensors 5/5. Fare Enforcement Officer strong. Left Upper Extremity: Shoulder flexors 5/5. Shoulder abductors 5/5. Elbow flexors 5/5. Elbow extensors 5/5. Fare Enforcement Officer strong. Right Lower Extremity: Hip flexors 5/5. Hip abductors 5/5. Knee flexors 5/5. Knee extensors 5/5. Ankle dorsiflexors 3/5. Ankle plantarflexors 3/5. Left Lower Extremity: Hip flexors 5/5. Hip abductors 5/5. Knee flexors 5/5. Knee extensors 5/5. Ankle dorsiflexors 3/5. Ankle plantarflexors 3/5. Sesation: Decreased sensation in B feet related to diabetic neuropathy BED MOBILITY/TRANSFERS? Supine-sit: independent? Sit-supine: independent? Sit-stand: independent? Stand-sit: independent? Bed-Chair: independent?with FWW? Chair-bed: independent? ? with FWW? GAIT? Assistive Device: FWW? Weight bearing: WBAT B Assist: independent ? Distance:? 15 feet + 15 feet ? Deviation: decreeased dorsiflexion in B ankles due to wound dressing? THEREX: Patient was instructed in and issued a HEP program for gentle AROM for toes, foot and ankles, as well as for resisted strengthening for hip and knee, all to be performed in a seated or supine position.? Patient was issued red Theraband for all hip and knee strengthening exercises. Balance: Static Sitting: Normal Dynamic Sitting: Normal Static Standing: Fair Dynamic Standing: Fair Special Tests: Mobility Limitations Standardized Measure [facility]-P[facility] 6 clicks Basic Mobility Inpatient Short Form: Raw Score: 24? CMS Score: 0% deficit? ? ? Informed Consent/Education:? Patient was instructed in purpose of PT consult and plan of care.? Agreeable to proceed with established PT POC to achieve personal goals. Assessment: Patient has been made independent inside room using the FWW with WBAT in B LE for all essential transfers and ambulation to and from bathroom as ordered by tester compressed gases. May need to merchandise pickup/receiving associate patient once activity level is upgraded in order to improve safety of long distance ambulation with/without an assistive device. Goals: Goals X1 week 1. Supine-Sit independent MET 2. Sit-Supine independent MET 3. Sit-Stand independent MET 4. Stand-Sit independent with FWW MET 5. Bed-Chair independent with FWW MET 6. Chair-Bed independent with FWW MET 7. Independent gait on level surface with use of FWW for at least 50 feet without report of pain nor dyspnea MET 8. Independent stair negotiation while holding onto B rails for at least 3 steps without report of pain nor dyspnea MET 9. Independent with home exercise program MET 10. Good static and dynamic standing balance/tolerance MET DISCHARGE RECOMMENDATIONS: [X] ? Home with no services.? Home when medically cleared by hospitalist. [] ? Home with services [specify] [] ? Home with outpatient PT [] [] ? SNF for continued rehabilitation [] [] ? [facility] [] [] ? SNF versus LTC based on ability to participate and progress [] [X] May need to be re-evaluated by PT once walking restriction is lifeted by podistrict in order to ensure retraining for long-distance ambulation with/without an AD. TREATMENT CODE/TIME: [place] Thank you for the opportunity to participate in the care of this patient. Gena Gutierrez PT, DPT, CLT [facility] [place], [place]
[2022-09-03] MEDS: ceFAZolin 2 GM/50 ML BAG IVPB (21:16)
[2022-09-03] MEDS: Normal Saline Flush 10 ML SYR IVP (21:19)
[2022-09-03] MEDS: Heparin 5,000 UNITS/ML VIAL 5000 UNITS SC (21:22)
[2022-09-03 23:10] VITALS: BP 112/71; PULSE 61; RESP 16; TEMP 36.6; O2SAT 97
[2022-09-04] MEDS: Heparin 5,000 UNITS/ML VIAL 5000 UNITS SC ×3 (05:24→21:38)
[2022-09-04] MEDS: ceFAZolin 2 GM/50 ML BAG IVPB ×3 (05:24→21:37)
[2022-09-04] MEDS: Normal Saline Flush 10 ML SYR IVP ×2 (06:36→21:38)
[2022-09-04 07:15] VITALS: BP 106/63; PULSE 61; RESP 17; TEMP 36.4; O2SAT 97
[2022-09-04] MEDS: Losartan 50 MG TAB 100 MG PO (07:44)
[2022-09-04 15:56] VITALS: BP 121/65; PULSE 72; RESP 17; TEMP 36.3; O2SAT 96
[2022-09-04 22:50] VITALS: BP 103/60; PULSE 60; RESP 16; TEMP 36.4; O2SAT 98
[2022-09-05] MEDS: Heparin 5,000 UNITS/ML VIAL 5000 UNITS SC ×3 (05:27→21:15)
[2022-09-05] MEDS: ceFAZolin 2 GM/50 ML BAG IVPB ×3 (05:27→21:15)
[2022-09-05] MEDS: Normal Saline Flush 10 ML SYR IVP ×3 (05:36→14:20)
[2022-09-05 06:52] LABS: HCT 38.8 % (40.0-50.0); HGB 12.3 g/dL (13.5-17.5); MCH 28.3 pg (27.0-33.0); MCHC 31.7 % (32.0-36.0); MCV 89 fL (80-95); MPV 10.4 fL (8.0-11.0); Platelet Count 479 10^3/uL (130-400); RBC 4.35 10^6/uL (4.36-5.78); RDW 16.8 % (11.8-14.1); RDW-SD 54.7 fL
[2022-09-05 07:19] VITALS: BP 114/64; PULSE 58; RESP 14; TEMP 36; O2SAT 99
[2022-09-05] MEDS: Losartan 50 MG TAB 100 MG PO (08:57)
[2022-09-05 14:54] VITALS: BP 102/58; PULSE 60; RESP 14; TEMP 36; O2SAT 94
[2022-09-05 22:56] VITALS: BP 114/65; PULSE 53; RESP 19; TEMP 35.6; O2SAT 99
[2022-09-06] MEDS: ceFAZolin 2 GM/50 ML BAG IVPB ×3 (05:13→21:34)
[2022-09-06] MEDS: Heparin 5,000 UNITS/ML VIAL 5000 UNITS SC ×3 (05:14→21:35)
[2022-09-06 07:18] VITALS: BP 113/72; PULSE 57; RESP 16; TEMP 36.8; O2SAT 99
[2022-09-06] MEDS: Normal Saline Flush 10 ML SYR IVP ×3 (08:29→21:33)
[2022-09-06] MEDS: Losartan 50 MG TAB 100 MG PO (08:30)
--- NOTE | 2022-09-06 13:36 | POCOE_ITS ---
Date of service: 09/06/22 Time of Service: 12:30 Assessment and Plan Assessment and plan (1) Osteomyelitis of left foot: Status: Acute Assessment and plan: The patient was evaluated and treated. Bilateral foot dressings were changed. Xeroform, DSD, kerlix and ADELINA were applied, as were the post op shoes. He is to continue with limited activity, ankle and knee ROM exercises. He will be evaluated in ~8-9 days, sooner as needed. IV Abx per hospitalist service. Call with questions, (2) Diabetic infection of right foot: Status: Acute History of Present Illness History of Present Illness Chief Complaint: s/p 5 days delayed primary closure R foot and L 2nd partial ray resection Narrative: Garry is a 66 year old male with DM, evaluated at bedside s/p 5 days R delayed primary closure (s/p 11 days I&D) for a severe R foot infection and s/p 5 days L 2nd partial ray resection for the management of osteomyelitis. He reports that he did a bad thing by bending his toes too much on his L foot which led to significant bleeding and strike through noted on the bandage on the L foot. This occured a few days ago. Otherwise, he notes no concerns, no shortness of breath, chest pain, calf soreness or tightness or any other concerns or difficulties. He has left the dressings intact and is sitting in bed with the post-op shoes in place [facility] All Active Problems (Updated 09/04/22 @ 00:01 by JASON YAÑEZ) Osteomyelitis of left foot (Acute) Diabetic infection of left foot (Acute) Discharge planning issues (Acute) DVT prophylaxis (Acute) Diabetic infection of right foot (Acute) Foot infection (Acute) Cellulitis (Acute) Foot ulcer, left (Acute) Routine general medical examination at a health care facility (Acute) Colonoscopy refused (Acute) Diabetes mellitus (Chronic) Low HDL (under 40) (Acute 09/13/17) Essential hypertension (Acute 05/09/13) Elevated fasting blood sugar (Acute 08/28/15) Dyslipidemia (Acute 05/17/13) PCEq 12.6%; declines statins Family History Mother Stroke Father Stroke Heart disease Social History Smoking/Tobacco Use Status: Never Smoking risk assessment performed?: Yes Alcohol Intake: current Alcohol Intake frequency: holidays/special occasions only Drug use: Never Caregiver/Support person: No Housing: house Number of Children: 0 Communication Needs: Corrective Lenses Do you need help understanding health information?: Rarely Pets and animals: Yes Current gender identity: decline to answer What is your relationship status?: refused to answer How often do you talk on the phone with friends or family?: decline to answer How often do you get together with friends or relatives?: decline to answer How often do you attend baptism or yazdanism services?: decline to answer Do you belong to any clubs or organized social groups?: decline to answer Panel score (0-1 are the most socially isolated patients): 0 What type of physical activity do you participate in: walking and other Details: moving pellets Duration: > 90 minutes/day Frequency: daily Special maría needs: No Do you feel safe at home: Yes Exam Skin Other: Incision sites on bilateral feet with skin edges well approximated, sutures inta ct, no purulence, fluctuance, erythema or any signs of infection. No leg edema or calf soreness. Significant decrease in bilateral LE edema noted Results Last Vital Signs Temp 98.2 F 09/06/22 07:18 Pulse 57 L 09/06/22 07:18 Resp 16 09/06/22 07:18 BP 113/72 09/06/22 07:18 Pulse Ox 99 09/06/22 07:18 Labs Result diagrams: 09/05/22 06:40
[2022-09-06 15:20] VITALS: BP 113/66; PULSE 61; RESP 16; TEMP 36.5; O2SAT 97
[2022-09-06 22:35] VITALS: BP 110/62; PULSE 61; RESP 16; TEMP 36; O2SAT 98
[2022-09-07] MEDS: ceFAZolin 2 GM/50 ML BAG IVPB ×3 (05:42→21:44)
[2022-09-07] MEDS: Heparin 5,000 UNITS/ML VIAL 5000 UNITS SC ×3 (05:43→21:45)
[2022-09-07 07:14] VITALS: BP 110/65; PULSE 59; RESP 18; TEMP 35.9; O2SAT 97
[2022-09-07] MEDS: Losartan 50 MG TAB 100 MG PO (09:26)
[2022-09-07] MEDS: Normal Saline Flush 10 ML SYR IVP ×3 (09:28→21:44)
--- NOTE | 2022-09-07 11:46 | PHA.REVIEW2 ---
Pharmacy Admission Review - Admission Clinical Review (Last Reviewed 09/03/22 @ 16:24 by Mac August MD) Osteomyelitis of left foot (Acute) Diabetic infection of left foot (Acute) Discharge planning issues (Acute) DVT prophylaxis (Acute) Diabetic infection of right foot (Acute) Essential hypertension (Acute 05/09/13) Penicillins Allergy (Verified 08/25/22 09:34) Hives lisinopril Adverse Reaction (Unknown, Verified 08/25/22 09:34) Cough and light headed metoprolol Adverse Reaction (Unknown, Verified 08/25/22 09:34) palpitations Resuscitation Status Full Code Height 5 ft 10 in Weight 71.9 kg - Renal Dosing Medications needing adjustments: Reviewed (Crcl ~56 mL/min current meds okay) - Anticoagulation Anticoagulation: Hgb 12.3 g/dL (13.5-17.5) L 09/05/22 06:40 Hct 38.8 % (40.0-50.0) L 09/05/22 06:40 Plt Count 479 10^3/uL (130-400) H 09/05/22 06:40 DVT Prophylaxis: Reviewed Medications: Heparin Therapeutic Anticoagulation: N/A - Opiate Usage Evaluate Pain Scale/Pains Meds: Intervened (Pain has been zero, pt. has not used any since since he changed to swingbed. Will ask provider if this is still needed.) Scheduled Bowel Reg ordered if on Opiates?: No (has prn meds ordered) - Relevant Labs Electrolytes, C-Reactive P, ESR: Reviewed - DM Control DM Control: Finger Stick Blood Glucose 86 Finger Stick Blood Glucose 117 Finger Stick Blood Glucose 117 Finger Stick Blood Glucose 117 DM Control: Reviewed Insulin Dosing, Diabetic Medication: sliding scale insulin aspart ordered, metformin on hold per H&P - Cardiac Review BP, HR, EF%: Reviewed - Qtc Review QTc: N/A - IV to PO Switch IV Medications: Reviewed - Home Meds Home Med List reviewed: Reviewed Relevent Home Meds Not ordered & why?: cefuroxime and bactrim (has IV abx ordered), HCTZ (being held), metformin (being held) - Current meds Current Medication Order Review: Reviewed - Comments Comments/Follow Ups: Watch VS, labs and for med changes (possible renal dose adjusments) Antibiotic Review - Pharmacy Antibiotic Review Pharmacy Antibiotic Activity: Reviewed, no change (Cefazolin ordered for MSSA bacteremia and diabetic foot infection, recommended to continue for 6 weeks (end date 10/06/22) )
--- NOTE | 2022-09-07 14:03 | PDOC.CMACT ---
- If Service Date Differs Date of service: 09/07/22 Time of Service: 14:03 Care Management Activity Note S/O: Garry was sitting up in bed when CM met with him. He remains pleasant and engages easily with CM.Garry had his brother bring in his mail and bills and has been working on getting things caught up and organized. He still has questions about his FMLA and short term disability. CM encouraged him to contact his HR department as they are generally the department that has the contact information for the FMLA and STD carriers/plan administrators. Garry enjoys visiting with staff and is displaying a good sense of humor, making frequent makes jokes. Garry reported to CM that Dr. Nino visited yesterday and did his dressing changes. She informed him that he is healing even better than anticipated. A: Garry is a 66 year old man admitted to [facility] for prison IV antibiotics on 09/03/22 following an acute inpatient stay P: Garry will likely be discharged home when his course of IV antibiotics is completed. He will follow up with his community providers and plan of care and will transport with family. CM will continue to follow and assess for ongoing discharge needs.
[2022-09-07 15:24] VITALS: BP 114/69; PULSE 74; RESP 18; TEMP 36.3; O2SAT 98
[2022-09-07 21:54] VITALS: BP 105/57; PULSE 61; RESP 16; TEMP 36.8; O2SAT 97
[2022-09-08] MEDS: ceFAZolin 2 GM/50 ML BAG IVPB ×3 (05:33→21:25)
[2022-09-08] MEDS: Normal Saline Flush 10 ML SYR IVP ×3 (05:33→21:25)
[2022-09-08] MEDS: Heparin 5,000 UNITS/ML VIAL 5000 UNITS SC ×3 (05:34→21:26)
[2022-09-08] MEDS: Losartan 50 MG TAB 100 MG PO (07:37)
[2022-09-08 08:12] VITALS: BP 113/57; PULSE 64; RESP 16; TEMP 36.7; O2SAT 99
[2022-09-08 11:51] VITALS: BP 110/74; PULSE 73; TEMP 36; O2SAT 99
[2022-09-08 15:57] VITALS: BP 108/65; PULSE 67; RESP 16; TEMP 36.6; O2SAT 99
[2022-09-08 19:41] VITALS: BP 111/65; PULSE 65; RESP 16; TEMP 36.7; O2SAT 96
[2022-09-09] MEDS: Normal Saline Flush 10 ML SYR IVP ×2 (05:22→13:36)
[2022-09-09] MEDS: ceFAZolin 2 GM/50 ML BAG IVPB ×3 (05:22→21:39)
[2022-09-09] MEDS: Heparin 5,000 UNITS/ML VIAL 5000 UNITS SC ×3 (05:23→21:39)
[2022-09-09 07:33] VITALS: BP 124/70; PULSE 56; RESP 18; TEMP 35.9; O2SAT 98
[2022-09-09] MEDS: Losartan 50 MG TAB 100 MG PO (08:27)
--- NOTE | 2022-09-09 13:48 | CHAPLAIN ---
Garry is here for long-term IV antibiotics and will be there through mid-September. He remains pleasant and interacts with staff. He told me today that he's working on usp planning or investigating it anyway. He also expressed his gratitude for the diabetic nutrition education he's received here and how helpful it's been.
[2022-09-09 15:22] VITALS: BP 109/65; PULSE 67; RESP 16; TEMP 36.1; O2SAT 97
[2022-09-09] MEDS: Insulin Aspart 300 UNITS/3 ML PEN SC (21:39)
[2022-09-09 23:46] VITALS: BP 112/62; PULSE 60; RESP 18; TEMP 36; O2SAT 97
[2022-09-10] MEDS: ceFAZolin 2 GM/50 ML BAG IVPB ×3 (05:43→20:57)
[2022-09-10] MEDS: Heparin 5,000 UNITS/ML VIAL 5000 UNITS SC ×3 (05:44→20:57)
[2022-09-10 06:20] LABS: Abs Immature Grans 0.02 10^3/uL (0.0-0.06); Absolute Basophil Count 0.04 10^3/uL (0.0-0.2); Absolute Eosinophil Count 0.19 10^3/uL (0.0-0.7); Absolute Lymphocyte Count 1.55 10^3/uL (1.2-3.4); Absolute Monocyte Count 0.56 10^3/uL (0.1-0.8); Basophils % 0.6; Eosinophils % 2.9; HCT 39.5 % (40.0-50.0); HGB 12.6 g/dL (13.5-17.5); Immature Grans % 0.3; Lymphocytes % 23.6; MCH 28.4 pg (27.0-33.0); MCHC 31.9 % (32.0-36.0); MCV 89 fL (80-95); MPV 10.6 fL (8.0-11.0); Monocytes % 8.5; Neutrophils % 64.1; Platelet Count 342 10^3/uL (130-400); RBC 4.43 10^6/uL (4.36-5.78); RDW 17.1 % (11.8-14.1); RDW-SD 55.3 fL; WBC 6.56 10^3/uL (4.4-10.8)
[2022-09-10 06:34] LABS: BUN 15 mg/dL (7-18); C-Reactive Protein 0.26 mg/dL (0.0-0.3); CREATININE 0.7 mg/dL (0.70-1.30); Calcium 9.4 mg/dL (8.5-10.1); Chloride 105 mmol/L (98-107); Estimated GFR 100.99 (mL/min/1.73m2); Glucose 110 mg/dL (74-106); Magnesium 1.9 mg/dL (1.8-2.4); Potassium 4.4 mmol/L (3.5-5.1); Sodium 138 mmol/L (136-145)
[2022-09-10 07:33] VITALS: BP 112/70; PULSE 65; RESP 16; TEMP 35.8; O2SAT 98
--- NOTE | 2022-09-10 07:43 | PGE_ITS ---
Date of Service Date of service: 09/10/22 Time of Service: 07:44 Assessment and Plan Assessment and plan (1) Osteomyelitis of left foot: Status: Acute Assessment and plan: The patient was evaluated and treated.He is on Ancef IV for MSSA , group strep G in blood until 10/06/2022 Bilateral foot dressings were changed. Xeroform, DSD, kerlix and ADELINA were applied, as were the post op shoes. Dressing to be changed per podiatry as per patient. He is to continue with limited activity, ankle and knee ROM exercises. (2) Diabetic infection of right foot: Status: Acute Assessment and plan: As above (3) On deep vein thrombosis (DVT) prophylaxis: Status: Acute Assessment and plan: Patient is on 5000 units SQ q 8 (4) Constipation: Status: Acute Assessment and plan: We will start docusate 100 mg po daily (5) Discharge planning issues: Status: Acute Assessment and plan: Care management will follow up on patient discharge needs Nursing might be needed for wound care. Patient is stating that he does not anticipate new needs Subjective Subjective Interval history since last seen: HEENT: Denies blurred vision, dizziness, unsteady gait, reports keeping his post-op shoes on when oob and being comfortable. Neuro: Denies tingling to extremities, weakness but reports neuropathy to feet, no pain Cardiac: Denies chest pain, palpitation Resp: Denies difficulty breathing, shortness of breath GI: Denies nausea but has a stool every other day and feels constipated. Reports increased appetite, and adequate water intake Musk:?Reports feeling stable on his feet without joint pain, uses walker, keeps legs elevated when in chair Skin: denies new wounds and feeling that post-op wounds are healing : Denies difficulty voiding or dysuria Exam Narrative Exam Narrative: Constitutional: Patient is sitting in the chair during the interview, speaks in full sentence, no distress observed Neuro: Alert and oriented X4, no neurological deficit, conjugated gaze Cardiac: S1, S2 , no murmur, no edema to legs, pulses are present to upper and lower extremities Resp: Clear lungs bilaterally GI: abdomen in soft, non-tender, non-distended, bowel sounds are present :no CVA tenderness Musk:? push/pull 5/5 to upper and lower extremities, able to moves all toes Skin: Bilateral feet dressing in place dry and intact, cap. refill to toes< 3 seconds Psych: Congruent Objective Last Vital Signs Temp 96.4 F L 09/10/22 07:33 Pulse 65 09/10/22 07:33 Resp 16 09/10/22 07:33 BP 112/70 09/10/22 07:33 Pulse Ox 98 09/10/22 07:33 Laboratory Results - last 24 hr 09/10/22 09/10/22 06:00 06:00 WBC 6.56 RBC 4.43 Hgb 12.6 L Hct 39.5 L MCV 89 MCH 28.4 MCHC 31.9 L RDW 17.1 H Plt Count 342 MPV 10.6 Immature Gran % 0.3 Neutrophils % 64.1 Lymphocytes % 23.6 Monocytes % 8.5 Eosinophils % 2.9 Basophils % 0.6 Nucleated RBC % 0.0 Absolute Neutrophils 4.20 Absolute Lymphocytes 1.55 Absolute Monocytes 0.56 Absolute Eosinophils 0.19 Absolute Basophils 0.04 Sodium 138 Potassium 4.4 Chloride 105 Carbon Dioxide 26.0 Anion Gap 7.0 BUN 15 Creatinine 0.7 Est GFR (CKD-EPI 2020) 100.99 Glucose 110 H Calcium 9.4 Magnesium 1.9 C-Reactive Protein 0.26 Time Spent with Patient Time Spent with Patient: >50 minutes Time was spent: preparing to see the patient(eg.review tests) and obtaining and/or reviewing separately [facility] hiistory
[2022-09-10] MEDS: Losartan 50 MG TAB 100 MG PO (07:54)
[2022-09-10] MEDS: Docusate Sodium 100 MG CAP PO (11:46)
--- NOTE | 2022-09-10 13:39 | NS.NUTBLAN_ITS ---
Date of service: 09/10/22 Time of Service: 13:39 Nutritional Consult ASSESSMENT: Met with Kevin today as he is very worried about his weight loss since admission. Has lost 11 lbs in last 30 days which is considered significant (- 6%) and of concern. BMI continues to be wnl. Following diabetic diet with 100% meal consumption at most meals, blood sugars well controlled. Weight loss most likely due to loss of muscle mass. Estimated Needs: 1800 kcal, 70-80 g protein. Currently meeting 100% macronutrient needs. Will need abx until end of September. NUTRITIONAL DIAGNOSIS: Unintentional significant weight loss related to loss of muscle mass due to decreased activity while hospitalized INTERVENTION: WIll provide additional glucerna shake daily. Reassured Kevin that he is jackie ting is macronutrient needs for optimal healing. Continue to activity per PT Weekly weights MONITORING AND EVALUATION: weekly weights po intake, labs Time Spent in Nutritional Counseling and Treatment: 10
[2022-09-10] MEDS: Normal Saline Flush 10 ML SYR IVP (14:27)
[2022-09-10 15:17] VITALS: BP 116/67; PULSE 66; RESP 16; TEMP 36.4; O2SAT 97
[2022-09-10] MEDS: Insulin Aspart 300 UNITS/3 ML PEN SC (20:57)
[2022-09-10 22:56] VITALS: BP 117/59; PULSE 62; RESP 14; TEMP 36.1; O2SAT 97
[2022-09-11] MEDS: ceFAZolin 2 GM/50 ML BAG IVPB ×3 (06:04→21:18)
[2022-09-11] MEDS: Heparin 5,000 UNITS/ML VIAL 5000 UNITS SC ×3 (06:04→21:18)
[2022-09-11 07:05] VITALS: BP 125/68; PULSE 59; RESP 16; TEMP 35.8; O2SAT 98
[2022-09-11] MEDS: Docusate Sodium 100 MG CAP PO (07:35)
[2022-09-11] MEDS: Losartan 50 MG TAB 100 MG PO (07:35)
[2022-09-11] MEDS: Normal Saline Flush 10 ML SYR IVP ×2 (14:01→15:38)
[2022-09-11 15:12] VITALS: BP 115/62; PULSE 60; RESP 18; TEMP 36.4; O2SAT 94
[2022-09-11 19:19] VITALS: BP 102/56; PULSE 68; RESP 18; TEMP 36.7; O2SAT 98
[2022-09-12] MEDS: ceFAZolin 2 GM/50 ML BAG IVPB ×3 (05:54→21:23)
[2022-09-12] MEDS: Heparin 5,000 UNITS/ML VIAL 5000 UNITS SC ×3 (05:55→21:22)
[2022-09-12 07:24] VITALS: BP 107/68; PULSE 61; RESP 16; TEMP 36.6; O2SAT 98
[2022-09-12] MEDS: Losartan 50 MG TAB 100 MG PO (08:10)
[2022-09-12] MEDS: Docusate Sodium 100 MG CAP PO (08:10)
[2022-09-12] MEDS: Normal Saline 500 ML 30 ML IV (13:30)
[2022-09-12] MEDS: Normal Saline Flush 10 ML SYR IVP ×2 (13:39→21:23)
[2022-09-12 15:16] VITALS: BP 122/69; PULSE 68; RESP 18; TEMP 36.3; O2SAT 98
[2022-09-12 22:54] VITALS: BP 105/63; PULSE 61; RESP 14; TEMP 36.1; O2SAT 96
[2022-09-13] MEDS: Normal Saline Flush 10 ML SYR IVP ×2 (05:40→15:09)
[2022-09-13] MEDS: Heparin 5,000 UNITS/ML VIAL 5000 UNITS SC ×3 (05:40→22:15)
[2022-09-13] MEDS: ceFAZolin 2 GM/50 ML BAG IVPB ×3 (05:41→22:15)
[2022-09-13 08:07] VITALS: BP 103/66; PULSE 63; RESP 16; TEMP 36; O2SAT 97
[2022-09-13] MEDS: Docusate Sodium 100 MG CAP PO (08:07)
[2022-09-13] MEDS: Losartan 50 MG TAB 100 MG PO (08:07)
[2022-09-13] MEDS: Normal Saline 500 ML 30 ML IV (15:10)
[2022-09-13 15:23] VITALS: BP 105/62; PULSE 64; RESP 16; TEMP 36.8; O2SAT 95
[2022-09-14 02:28] VITALS: BP 118/62; PULSE 64; RESP 16; TEMP 36.6; O2SAT 98
[2022-09-14] MEDS: Heparin 5,000 UNITS/ML VIAL 5000 UNITS SC ×3 (06:08→22:26)
[2022-09-14] MEDS: Normal Saline Flush 10 ML SYR IVP (06:08)
[2022-09-14] MEDS: ceFAZolin 2 GM/50 ML BAG IVPB ×3 (06:08→22:27)
[2022-09-14 07:30] VITALS: BP 106/58; PULSE 62; RESP 16; TEMP 36.4; O2SAT 98
--- NOTE | 2022-09-14 08:12 | OTIE_ITS ---
Occupational Therapy Notes Inpatient Occupational Therapy Evaluation Date: 09/14/22 Referring Doctor: Alicja Delgado MD OT Orders: Non Urgent, Limited Ability Precautions: Fall, standard, full PATIENT PROFILE/ADMITTING DIAGNOSIS: Pt is a 67 year old male who was admitted to [facility] with the following dx of constipation, DVT, osteomyelitis of (L) foot, (B) LE foot infections, cellulitis, (L) foot ulcer, DM. Past Medical History: All Active Problems? Osteomyelitis of left foot (Acute) Discharge planning issues (Acute) Sepsis (Acute) MSSA bacteremia (Acute) Diabetic infection of left foot (Acute) Discharge planning issues (Acute) DVT prophylaxis (Acute) Diabetic infection of right foot (Acute) Gram-positive cocci bacteremia (Acute) Foot infection (Acute) Cellulitis (Acute) Foot ulcer, left (Acute) Routine general medical examination at a health care facility (Acute) Colonoscopy refused (Acute) Diabetes mellitus (Chronic) Low HDL (under 40) (Acute 09/13/17) Essential hypertension (Acute 05/09/13) Elevated fasting blood sugar (Acute 08/28/15) Dyslipidemia (Acute 05/17/13) PCEq 12.6%; declines statins Social History/Home Situation: Pt states that he lives in a private home. He has a 2 story home and states that he plans to return to his home and live in the bottom floor. He notes that he is (I) at his baseline level of function in terms of his dressing, bathing, eating and toileting routines. Pt states that he has a walk in shower and is currently utilizing a FWW as his (B) LE heal. No further adaptive equipment recommendations needed. Equipment owned/DME: None SUBJECTIVE: Pt states that he doesn't have any issue with performance of his ADLs. He notes that his biggest limitation is his walking at this time. OBJECTIVE: General Observation: Pleasant and receptive to consult, IV in (R) UE Mental Status: A&Ox4 Pain: c/o discomfort at times in (B) LE ROM: RUE AROM WFL L UE AROM WFL STRENGTH: RUE 5/5 throughout LUE 5/5 throughout FUNCTIONAL MOBILITY/ADLS: BATHING pt denies as he is waiting for breakfast. DRESSING Dressing UE (I) [facility] and doing [facility] gown Dressing LE (I) don and doffing (B) socks TOILETING NT with this OT however pt states that he does not need (A) with this. EATING (I) seated in chair SPECIAL TESTS: Daily Activity Limitations Standardized Measure [facility] AM -PAC ?6 clicks? Daily Activity Inpatient Short Form: Raw score: 24 Standardized score: 57.54 CMS score: 0.00% INFORMED CONSENT/EDUCATION: Pt instructed in purpose of OT Consult and plan of care. ASSESSMENT: Patient is a 67-year-old male referred to occupational therapy services with diagnosis of constipation, DVT, osteomyelitis of (L) foot, (B) LE foot infections, cellulitis, (L) foot ulcaer, DM. Patient presents with clinical signs and symptoms consistent with dx. OT went in to see who is presenting at his baseline level of function at this time. His biggest limitation is the healing of his (B) foot wounds which is well managed by MD/nursing. Pt does not require skilled OT services at this time. Plan is to discharge pt pending [facility] clearance. Patient is assessed as a Low 32141 complexity based on the following: History: see above Examination: see functional limitations as noted above Presentation: evolving/stable Decision Making: [facility] score 24 GOALS Seen for OT consult only. PLAN OF CARE/TREATMENT PLAN: Discharge from skilled OT services. DISCHARGE RECOMMENDATIONS Home when medically cleared per MD. TREATMENT TIME/MINUTES/CODES 18455, 25 minutes Emmanuelle Willis OTR/L [facility]
[2022-09-14] MEDS: Losartan 50 MG TAB 100 MG PO (08:19)
[2022-09-14] MEDS: Docusate Sodium 100 MG CAP PO (08:20)
[2022-09-14 14:00] VITALS: BP 107/70; PULSE 78; RESP 15; TEMP 36.5; O2SAT 95
[2022-09-14 14:34] VITALS: BP 117/68; PULSE 78; RESP 16; TEMP 36.1; O2SAT 96
[2022-09-14 19:18] VITALS: BP 102/60; PULSE 71; RESP 16; TEMP 36.2; O2SAT 97
[2022-09-14] MEDS: Insulin Aspart 300 UNITS/3 ML PEN SC (20:38)
[2022-09-14] MEDS: Normal Saline 500 ML 30 ML IV (22:26)
[2022-09-14 22:45] VITALS: BP 114/63; PULSE 74; RESP 16; TEMP 36.2; O2SAT 98
[2022-09-15] MEDS: Heparin 5,000 UNITS/ML VIAL 5000 UNITS SC ×3 (05:45→22:05)
[2022-09-15] MEDS: ceFAZolin 2 GM/50 ML BAG IVPB ×3 (05:45→22:05)
[2022-09-15 07:46] VITALS: BP 135/71; PULSE 68; RESP 15; TEMP 36.1; O2SAT 96
[2022-09-15] MEDS: Docusate Sodium 100 MG CAP PO (09:03)
[2022-09-15] MEDS: Losartan 50 MG TAB 100 MG PO (09:04)
[2022-09-15] MEDS: Normal Saline Flush 10 ML SYR IVP ×2 (13:51→22:04)
[2022-09-15 17:33] VITALS: BP 117/75; PULSE 69; RESP 16; TEMP 36.1; O2SAT 94
[2022-09-15] MEDS: Normal Saline 500 ML 30 ML IV (22:04)
[2022-09-16 02:28] VITALS: BP 113/66; PULSE 62; RESP 16; TEMP 36.6; O2SAT 97
[2022-09-16] MEDS: Heparin 5,000 UNITS/ML VIAL 5000 UNITS SC ×3 (05:34→21:41)
[2022-09-16] MEDS: ceFAZolin 2 GM/50 ML BAG IVPB ×3 (05:35→21:42)
[2022-09-16 07:14] VITALS: BP 123/74; PULSE 63; RESP 18; TEMP 36.2; O2SAT 98
[2022-09-16] MEDS: Docusate Sodium 100 MG CAP PO (08:13)
[2022-09-16] MEDS: Losartan 50 MG TAB 100 MG PO (08:13)
[2022-09-16] MEDS: Normal Saline Flush 10 ML SYR IVP ×2 (08:14→13:40)
--- NOTE | 2022-09-16 11:02 | PDOC.CMACT ---
- If Service Date Differs Date of service: 09/16/22 Time of Service: 11:02 Care Management Activity Note S/O: Kevin is on SWB for manager intermediate IV abx. CM requested an OT consult, at the request of his insurance provider. Per report, he is presenting at his baseline level of functioning at this time. His limitations are central to the healing of his foot wounds, which has been managed well by nursing. He plans to return home once his antibiotic course is complete, on 10/06/22. CM will continue to follow. A: Garry is a 66 year old man admitted to [facility] IV antibiotics on 09/03/22 following an acute inpatient stay P: Garry will likely be discharged home when his course of IV antibiotics is completed. He will follow up with his community providers and plan of care and will transport with family. CM will continue to follow and assess for ongoing discharge needs.
[2022-09-16 15:09] VITALS: BP 100/62; PULSE 71; RESP 16; TEMP 36.1; O2SAT 98
[2022-09-16 23:20] VITALS: BP 124/70; PULSE 64; RESP 18; TEMP 36; O2SAT 97
[2022-09-17] MEDS: ceFAZolin 2 GM/50 ML BAG IVPB ×3 (06:10→21:28)
[2022-09-17] MEDS: Heparin 5,000 UNITS/ML VIAL 5000 UNITS SC ×3 (06:10→21:28)
[2022-09-17 07:24] VITALS: BP 129/75; PULSE 67; RESP 14; TEMP 36.4; O2SAT 98
[2022-09-17] MEDS: Docusate Sodium 100 MG CAP PO (07:47)
[2022-09-17] MEDS: Normal Saline Flush 10 ML SYR IVP ×2 (07:48→13:59)
[2022-09-17] MEDS: Losartan 50 MG TAB 100 MG PO (07:48)
--- NOTE | 2022-09-17 13:23 | W.PODCONSULT ---
Date of service: 09/16/22 Time of Service: 15:45 Assessment and Plan Assessment and plan (1) Osteomyelitis of left foot: Status: Acute Assessment and plan: The patient was evaluated and treated. No signs of infection. Sutures were removed from bilateral feet after first prepping the skin with alcohol. Optifoam (or comparable foam dressing) to be applied to the plantar L foot ulceration as well as dorsal R foot wound, with paper tape. Pt to initiate WB, with post-op shoes, upto 40 steps at a time. He is to shower, but avoid soaking his submerging his feet, and avoid scrubbing the feet or picking at the skin. He will be evaluated in 2 weeks, sooner as needed. Please call with questions, . (2) Diabetic infection of right foot: Status: Acute History of Present Illness History of Present Illness Chief Complaint: s/p 2 weeks R delayed closure, L 2nd partial ray resection Narrative: Garry was evaluated at bedside s/p 2 weeks R foot delayed primary closure for the treatment of a foot infection (sepsis) and L 2nd partial ray resection for the treatment of osteomyelitis. Garry expresses frustration with not being able to do anything and feeling a bit cooped up, and not making progress. He reports to having been released from PT since he was performing his exercises in his bed on his own. He denies any F/V/C/NS/F, and notes no difficulties with his feet. He reports he has left the dressings in place since they were changed last week PFS All Active Problems (Updated 09/10/22 @ 17:50 by Melva Navarro) Constipation (Acute) Discharge planning issues (Acute) On deep vein thrombosis (DVT) prophylaxis (Acute) Osteomyelitis of left foot (Acute) Diabetic infection of left foot (Acute) Discharge planning issues (Acute) DVT prophylaxis (Acute) Diabetic infection of right foot (Acute) Foot infection (Acute) Cellulitis (Acute) Foot ulcer, left (Acute) Routine general medical examination at a health care facility (Acute) Colonoscopy refused (Acute) Diabetes mellitus (Chronic) Low HDL (under 40) (Acute 09/13/17) Essential hypertension (Acute 05/09/13) Elevated fasting blood sugar (Acute 08/28/15) Dyslipidemia (Acute 05/17/13) PCEq 12.6%; declines statins Family History Mother Stroke Father Stroke Heart disease Social History Smoking/Tobacco Use Status: Never Smoking risk assessment performed?: Yes Alcohol Intake: current Alcohol Intake frequency: holidays/special occasions only Drug use: Never Caregiver/Support person: No Housing: house Number of Children: 0 Communication Needs: Corrective Lenses Do you need help understanding health information?: Rarely Pets and animals: Yes Current gender identity: decline to answer What is your relationship status?: refused to answer How often do you talk on the phone with friends or family?: decline to answer How often do you get together with friends or relatives?: decline to answer How often do you attend faith or pentecostalism services?: decline to answer Do you belong to any clubs or organized social groups?: decline to answer Panel score (0-1 are the most socially isolated patients): 0 What type of physical activity do you participate in: walking and other Details: moving pellets Duration: > 90 minutes/day Frequency: daily Special maría needs: No Do you feel safe at home: Yes Exam Skin Other: L LE: dorsal incision site is healed with skin edges well approximated and sutures intact. R LE: Dorsal incision site clean with skin edges mostly well opposed but with small wound on the dorsal foot ~2 cm x 3 mm with granular base. Plantar incision is well healed without disruption in the skin. No erythema, purulence, fluctuance or signs of infection. Resolution of previous edema. Calf supple and non tender bilaterally Results Last Vital Signs Temp 97.5 F L 09/17/22 07:24 Pulse 67 09/17/22 07:24 Resp 14 09/17/22 07:24 BP 129/75 09/17/22 07:24 Pulse Ox 98 09/17/22 07:24 Labs Result diagrams: 09/10/22 06:00 09/10/22 06:00
[2022-09-17 15:05] VITALS: BP 110/64; PULSE 72; RESP 16; TEMP 36.6; O2SAT 97
--- NOTE | 2022-09-17 15:14 | CHAPLAIN ---
Garry is here on swing bed. He is getting IV antibiotics until . He remains in good spirits, although said he his struggle with patience because he is being held back from doing things while his wounds heal. He is making plans for things to do when he gets home. Garry said he is also appreciative of the diabetic education he is receiving here. When he is frustrated with not being able to do more, he said he consider that he is better of than other patients in the hospital and that gives him some perspective. I will continue to visit.
--- NOTE | 2022-09-17 16:28 | PT.INIE ---
Date of service: 09/17/22 Time of Service: 16:28 PT Notes Visit Reasons: MSSA,Group G Strep Diabetic Foot Wound,Bacteremia Physical Therapy Inpatient Initial Evaluation Date: 09/17/2022 Referring Doctor:? Mac August? PT Orders: PT CONSULT: WBAT up to 40 steps, with walker & post-op shoes. LE strengthening please Precautions: Standard.?Per steam distribution supervisor order:? WBAT on B LE with FWW and post-op shoes for 40 steps. Patient Profile/Admitting Diagnosis:? Kevin is a 66-year-old male with diagnosis of MSSA bacteremia of right foot, and osteomyelitis of left foot.? He is s/p I&D of right foot wound, infection, and osteomyelitis as well as s/p delayed primary closure of right foot and status post left second ray resection on postoperative day 16. PMHX: All Active Problems?(Updated 08/25/22 @ 19:05 by Alicja Delgado MD) Discharge planning issues (Acute) DVT prophylaxis (Acute) Diabetic infection of right foot (Acute) Gram-positive cocci bacteremia (Acute) Foot infection (Acute) Cellulitis (Acute) Foot ulcer, left (Acute) Routine general medical examination at a health care facility (Acute) Colonoscopy refused (Acute) Diabetes mellitus (Chronic) Low HDL (under 40) (Acute 09/13/17) Essential hypertension (Acute 05/09/13) Elevated fasting blood sugar (Acute 08/28/15) Dyslipidemia (Acute 05/17/13) PCEq 12.6%; declines statins Social History/Home Situation: Lives alone in a private home with one-step to enter without rails.? 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 Independent with all aspects of ADLs prior to surgery Equipment Owned/DME: Bilateral axillary crutches Subjective: Denies pain in B LE. Needs to progress strengthening exercises as he plans to get discharged from the hospital walking without any assistive devices. Wants to return into full swing as soon as he goes home. Objective: General Observation: B forefoot soles covered with dressing.? IV access in L UE.? Mental Status: Alert and oriented as to person, place, time, and purpose. Able to pay attention, focus, and respond appropriately. Pain: 0/10 in the L foot with WB Vital Signs: WNL as closely monitored by nursing staff ROM: Right Upper Extremity: ? Shoulder Flexion WFL. Shoulder abduction WFL. Elbow flexion WFL. Wrist flexion WFL. Functional opening and closing of hand WFL. Left Upper Extremity:? Shoulder Flexion WFL. Shoulder abduction WFL. Elbow flexion WFL. Wrist flexion WFL. Functional opening and closing of hand WFL. Right Lower Extremity: Hip flexion WFL. Hip abduction WFL. Knee flexion WFL. Ankle dorsiflexion WFL. Ankle plantarflexion WFL. Left Lower Extremity: Hip flexion WFL. Hip abduction WFL. Knee flexion WFL. Ankle dorsiflexion WFL. Ankle plantarflexion WFL. Strength: Right Upper Extremity: Shoulder flexors 5/5. Shoulder abductors 5/5. Elbow flexors 5/5. Elbow extensors 5/5. Ecological Risk Assessor strong. Left Upper Extremity: Shoulder flexors 5/5. Shoulder abductors 5/5. Elbow flexors 5/5. Elbow extensors 5/5. Ecological Risk Assessor strong. Right Lower Extremity: Hip flexors 5/5. Hip abductors 5/5. Knee flexors 5/5. Knee extensors 5/5. Ankle dorsiflexors 4-/5. Ankle plantarflexors 4-/5. Left Lower Extremity: Hip flexors 5/5. Hip abductors 5/5. Knee flexors 5/5. Knee extensors 5/5. Ankle dorsiflexors 4-/5. Ankle plantarflexors 4-/5. Sensation: Decreased sensation in B feet related to diabetic neuropathy Bed Mobility/Transfers: Supine to sit independent Sit to supine independent Sit to stand independent Stand to sit independent Bed to toilet seat independent Toilet seat to bed independent Bed to reclining chair independent Reclining chair to bed independent Gait: Able to independently ambulate up to 40 feet using FWW and post-op shoes in the [facility]. THERA EX: Seated clam shells x 15 using blue TB Seated marches x 15 using blue TB LAQs x 15 using blue TB Shoulder flexion/extension x 15 using blue TB stabilized by B feet with patient in sitting Shoulder horizontal abduction/adduction x 15 using blue TB with patient in sitting Balance: Static Sitting: Normal Dynamic Sitting: Normal Static Standing: Fair Dynamic Standing: Fair Special Tests: Mobility Limitations Standardized Measure [employer] AM-PAC 6 clicks Basic Mobility Inpatient Short Form: Raw Score: 23? CMS Score: 11% deficit? ? ? Informed Consent/Education:? Patient was instructed in purpose of PT consult and plan of care.? Agreeable to proceed with established PT POC to achieve personal goals. Educated patient on above room exercises using blue TB to be done everyday. Assessment: Patient presents with clinical signs and symptoms consistent with current/admitting diagnoses that have resulted to mobility limitations, gait instability, generalized weakness, and overall ADL decline as demonstrated by the following impairment level findings: 1.? Decreased strength to B ankle major muscle groups 2.? Impaired standing balance 3.? Impaired activity tolerance 4.? Limitation of joint range of motion in B ankles Impairments are contributing to the following functional limitations: 1.? Difficulty with ambulation without assistive device 2.? Increased completion time for mobility ADL performance Patient is assessed as a 58715 low complexity based on the following: History: 66-year-old male with past medical history as indicated above Examination: Demonstrable impairment in strength, balance, and mobility level with underlying impairments and functional limitations as exhibited above as well as deficit score of 23% utilizing the [facility] Mobility Inpatient Short Form Presentation: Stable Decision Makin low complexity Goals: Goals X1 week 1. Independent gait on level surface with use of FWW for at least 50 feet without report of pain nor dyspnea 2. Independent stair negotiation while holding onto B rails for at least 3 steps without report of pain nor dyspnea 3. Independent with home exercise program 4. Good static and dynamic standing balance/tolerance 5. 100% mastery of HEP for progressive strengthening Plan of Care/Treatment Plan: 1-2x/day, 7 days/week x 1 week. Plan of care has been reviewed with the SECURITY ASSISTANT providing the service under Physical Therapy direction. Initiate Physical Therapy intervention for pain management as needed, strengthening, bed mobility, transfers, gait, stairs, balance training, and use of assistive device. DISCHARGE RECOMMENDATIONS: [X] ? Home with no services.? Home when medically cleared by hospitalist. [] ? Home with services [specify] [] ? Home with outpatient PT [] [] ? SNF for continued rehabilitation [] [] ? Edging Supervisor Care [] [] ? SNF versus LTC based on ability to participate and progress [] TREATMENT CODE/TIME: 15450 x 15,? 89714 x 15 minutes beginning at 16:28 PM. Thank you for the opportunity to participate in the care of this patient. Gena Gutierrez PT, DPT, CLT [facility] [place], [place]
--- NOTE | 2022-09-17 17:56 | PGE_ITS ---
Date of Service Date of service: 09/17/22 Time of Service: 13:00 Assessment and Plan Assessment and plan (1) Osteomyelitis of left foot: Status: Acute Assessment and plan: Cefazolin IV for MSSA , group strep G in blood until 10/06/2022 Bilateral foot dressings - intact, dry - per orders of Dr Nino - she was here yesterday and removed the sutures - see her note He is to continue with limited activity, ankle and knee ROM exercises. (2) Diabetic infection of right foot: Status: Acute Assessment and plan: As above (3) On deep vein thrombosis (DVT) prophylaxis: Status: Acute Assessment and plan: Patient is on 5000 units SQ q 8 (4) Constipation: Status: Acute Assessment and plan: Docusate 100 mg po daily, has had regular BMs since starting this - almost daily - missed one day (5) Discharge planning issues: Status: Acute Assessment and plan: Care management will follow up on patient discharge needs Discharge to home after IV med course is completed - possible need for HH PT Patient is stating that he does not anticipate new needs Reviewed with Dr August Subjective Subjective Patient reports: no new complaints, feels better, tolerating a regular diet, bowel movement and afebrile; denies diarrhea, nausea or vomiting Interval history since last seen: Awake, alert, pleasant, conversant. 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 Exam Narrative Exam Narrative: Garry is sitting up in bed he is alert and oriented person place time circumstance. HEENT is unremarkable Neck is supple nontender no JVD normal carotid pulses no bruits no thyromegaly no lymphadenopathy Lungs are clear to auscultation Heart is regular rate and rhythm no murmur rub or gallop Abdomen soft nontender no bruits no hepatosplenomegaly Extremities no peripheral cyanosis or edema. Feet are bandaged and he has his postop shoes on. Psych Mental Status: mental status grossly normal Speech and Movement: speech and movement normal Mood: congruent mood Affect: normal affect Objective Last Vital Signs Temp 36.6 C 09/17/22 15:05 Pulse 72 09/17/22 15:05 Resp 16 09/17/22 15:05 BP 110/64 09/17/22 15:05 Pulse Ox 97 09/17/22 15:05 Reviewed Pertinent PMH: Yes Time Spent with Patient Time Spent with Patient: 25-34 minutes Time was spent: preparing to see the patient(eg.review tests), obtaining and/or reviewing separately otained hiistory, ordering medications,tests, procedures, referring, communicating with other health care management associate, indepentently interpreting results, counseling the patient and care coordination
[2022-09-17 23:35] VITALS: BP 117/54; PULSE 65; RESP 17; TEMP 35.7; O2SAT 98
[2022-09-18] MEDS: ceFAZolin 2 GM/50 ML BAG IVPB ×3 (06:08→22:03)
[2022-09-18] MEDS: Heparin 5,000 UNITS/ML VIAL 5000 UNITS SC ×3 (06:08→22:03)
[2022-09-18 06:22] LABS: Abs Immature Grans 0.03 10^3/uL (0.0-0.06); Absolute Basophil Count 0.03 10^3/uL (0.0-0.2); Absolute Eosinophil Count 0.31 10^3/uL (0.0-0.7); Absolute Lymphocyte Count 1.66 10^3/uL (1.2-3.4); Absolute Monocyte Count 0.71 10^3/uL (0.1-0.8); Absolute Neutrophil Count 4.69 10^3/uL (1.2-6.7); Basophils % 0.4; Eosinophils % 4.2; HGB 13.1 g/dL (13.5-17.5); Immature Grans % 0.4; Lymphocytes % 22.3; MCHC 32.8 % (32.0-36.0); MCV 89 fL (80-95); Monocytes % 9.6; Neutrophils % 63.1; Platelet Count 216 10^3/uL (130-400); RBC 4.51 10^6/uL (4.36-5.78); RDW 17.2 % (11.8-14.1); RDW-SD 56.6 fL; WBC 7.43 10^3/uL (4.4-10.8)
[2022-09-18 06:35] LABS: Anion Gap 7.6 mmol/L (3-11); BUN 14 mg/dL (7-18); CO2 27.4 mmol/L (21.0-32.0); CREATININE 0.8 mg/dL (0.70-1.30); Calcium 9.6 mg/dL (8.5-10.1); Chloride 104 mmol/L (98-107); Glucose 109 mg/dL (74-106); Magnesium 1.8 mg/dL (1.8-2.4); Potassium 4.3 mmol/L (3.5-5.1); Sodium 139 mmol/L (136-145)
[2022-09-18 07:13] VITALS: BP 120/66; PULSE 60; RESP 16; TEMP 35.8; O2SAT 98
[2022-09-18] MEDS: Docusate Sodium 100 MG CAP PO (07:50)
[2022-09-18] MEDS: Losartan 50 MG TAB 100 MG PO (07:51)
[2022-09-18 15:09] VITALS: BP 110/60; PULSE 68; RESP 16; TEMP 36.3; O2SAT 98
[2022-09-18 23:50] VITALS: BP 139/55; PULSE 60; RESP 20; TEMP 36.3; O2SAT 96
[2022-09-19] MEDS: ceFAZolin 2 GM/50 ML BAG IVPB ×3 (06:06→22:11)
[2022-09-19] MEDS: Heparin 5,000 UNITS/ML VIAL 5000 UNITS SC ×3 (06:06→22:11)
[2022-09-19 06:37] VITALS: BP 112/65; PULSE 61; RESP 16; TEMP 36; O2SAT 99
[2022-09-19] MEDS: Docusate Sodium 100 MG CAP PO (07:44)
[2022-09-19] MEDS: Losartan 50 MG TAB 100 MG PO (07:44)
[2022-09-19 14:49] VITALS: BP 100/60; PULSE 62; RESP 16; TEMP 36.4; O2SAT 98
[2022-09-19 23:48] VITALS: BP 104/52; PULSE 61; RESP 18; TEMP 36.7; O2SAT 98
[2022-09-20] MEDS: Heparin 5,000 UNITS/ML VIAL 5000 UNITS SC ×3 (06:25→22:04)
[2022-09-20] MEDS: ceFAZolin 2 GM/50 ML BAG IVPB ×3 (06:25→22:04)
[2022-09-20 07:25] VITALS: BP 105/65; PULSE 60; RESP 14; TEMP 36; O2SAT 98
[2022-09-20] MEDS: Docusate Sodium 100 MG CAP PO (08:10)
[2022-09-20] MEDS: Losartan 50 MG TAB 100 MG PO (08:10)
--- NOTE | 2022-09-20 10:15 | W.NUTRFU ---
Date of service: 09/20/22 Time of Service: 10:15 Nutrition Note NOTE: Kevin continues to complete 100% of meals and 100% glucerna shake daily. Weight stable x 14 days. Will continue to follow and support. Time Spent in Nutritional Counseling and Treatment: 0
[2022-09-20] MEDS: Normal Saline Flush 10 ML SYR IVP (13:18)
[2022-09-20 14:45] VITALS: BP 102/64; PULSE 67; RESP 16; TEMP 36.6; O2SAT 96
[2022-09-20 23:19] VITALS: BP 105/65; PULSE 67; RESP 16; TEMP 36.7; O2SAT 96
[2022-09-21] MEDS: ceFAZolin 2 GM/50 ML BAG IVPB ×3 (06:01→21:09)
[2022-09-21] MEDS: Heparin 5,000 UNITS/ML VIAL 5000 UNITS SC ×3 (06:01→21:13)
[2022-09-21 07:18] VITALS: BP 113/67; PULSE 53; RESP 16; TEMP 35.2; O2SAT 98
[2022-09-21] MEDS: Docusate Sodium 100 MG CAP PO (08:58)
[2022-09-21] MEDS: Losartan 50 MG TAB 100 MG PO (08:59)
--- NOTE | 2022-09-21 13:45 | PTTR_ITS ---
Date of service: 09/21/22 Time of Service: 13:45 PT Notes Visit Reasons: MSSA,Group G Strep Diabetic Foot Wound,Bacteremia Physical Therapy Inpatient Treatment Note Date: 09/21/2022 Precautions: Standard.?Per welding machine operator helper gas order:? WBAT on B LE with FWW and post-op shoes for 40 steps. Subjective: Agreeable to exercise progression for both upper extremities. [facility] with doing existing B LE strengthening sexercises that were progressed on 09/21/2022 using blue theraband. Wondering if he can use a heavier dumbbell than 3 pounds. Objective: General Observation: B forefoot soles covered with dressing.? IV access in L UE.? Mental Status: Alert and oriented as to person, place, time, and purpose. Able to pay attention, focus, and respond appropriately. Pain: 0/10 in the L foot with WB Vital Signs: WNL as closely monitored by nursing staff Bed Mobility/Transfers: Supine to sit independent Sit to supine independent Sit to stand independent Stand to sit independent Bed to toilet seat independent Toilet seat to bed independent Bed to reclining chair independent Reclining chair to bed independent Gait: Able to independently ambulate up to 40 feet using FWW and post-op shoes in the [facility] per welding machine operator helper gas recommendation. THERA EX PROGRESSION as of this session: 1. UE - Seated shoulder flexion extension x 20 using 3lb DB - Seated shoulder horizontal abduction x 20 using 3lb DB - Seated shoulder abduction x 20 using 3lb DB - Seated elbow flexion/extension x 20 using 3lb DB - Seated overhead triceps curls x20 using 3lb DB 2. LE to continue with exercises below as started on 09/21/2022 -Seated clam shells x 15 using blue TB -Seated marches x 15 using blue TB -LAQs x 15 using blue TB -Shoulder flexion/extension x 15 using blue TB stabilized by B feet with patient in sitting -Shoulder horizontal abduction/adduction x 15 using blue TB with patient in sitting Balance: Static Sitting: Normal Dynamic Sitting: Normal Static Standing: Fair Dynamic Standing: Fair Assessment: Patient lives alone and requested strengthening progression for B UE/LE while on admission for antibiotic treatment. Will touch base with welding machine operator helper gas regarding the possibility of WBAT with least restrictive device or no device prior to discharge on abx regimen completion on October 10, 2022. Will progress poundage next week as tolerated. Goals: Goals X1 week 1. Independent gait on level surface with use of SPC vs no AD when cleared by welding machine operator helper gas for at least 50 feet without report of pain nor dyspnea 2. Independent stair negotiation while holding onto B rails for at least 3 steps without report of pain nor dyspnea 3. Independent with home exercise program 4. Good static and dynamic standing balance/tolerance 5.? 100% mastery of HEP for progressive strengthening Plan of Care/Treatment Plan: 1-2x/week x 2-3 weeks. Plan of care has been reviewed with the CONTROLS TECHNICIAN providing the service under Physical Therapy direction. Initiate Physical Therapy intervention for pain management as needed, strengthening, bed mobility, transfers, gait, stairs, balance training, and use of assistive device. DISCHARGE RECOMMENDATIONS: [X] ? Home with no services.? Home when medically cleared by hospitalist. [] ? Home with services [specify] [] ? Home with outpatient PT [] [] ? SNF for continued rehabilitation [] [] ? [facility] [] [] ? SNF versus LTC based on ability to participate and progress [] TREATMENT CODE/TIME: 16865 x 18 minutes beginning at 13:45 PM. Thank you for the opportunity to participate in the care of this patient. Gena Gutierrez PT, DPT, CLT [facility] [place], [place]
[2022-09-21] MEDS: Normal Saline Flush 10 ML SYR IVP ×3 (14:06→21:49)
[2022-09-21 15:29] VITALS: BP 101/61; PULSE 74; RESP 18; TEMP 36.5; O2SAT 99
[2022-09-21 22:39] VITALS: BP 95/48; PULSE 67; RESP 14; TEMP 36.1; O2SAT 96
[2022-09-22] MEDS: Normal Saline Flush 10 ML SYR IVP ×3 (05:24→13:44)
[2022-09-22] MEDS: ceFAZolin 2 GM/50 ML BAG IVPB ×3 (05:24→21:06)
[2022-09-22] MEDS: Heparin 5,000 UNITS/ML VIAL 5000 UNITS SC ×3 (05:25→21:06)
[2022-09-22 07:42] VITALS: BP 117/69; PULSE 54; RESP 16; TEMP 35.7; O2SAT 99
[2022-09-22] MEDS: Docusate Sodium 100 MG CAP PO (08:22)
[2022-09-22] MEDS: Losartan 50 MG TAB 100 MG PO (08:22)
[2022-09-22] MEDS: Normal Saline 500 ML 30 ML IV (13:43)
[2022-09-22 14:35] VITALS: BP 105/59; PULSE 68; RESP 16; TEMP 36; O2SAT 98
[2022-09-22 23:01] VITALS: BP 105/55; PULSE 60; RESP 14; TEMP 36.7; O2SAT 97
[2022-09-23] MEDS: Heparin 5,000 UNITS/ML VIAL 5000 UNITS SC ×3 (06:11→20:56)
[2022-09-23] MEDS: ceFAZolin 2 GM/50 ML BAG IVPB ×3 (06:11→20:58)
[2022-09-23 07:43] VITALS: BP 113/68; PULSE 58; RESP 16; TEMP 36.7; O2SAT 99
[2022-09-23] MEDS: Docusate Sodium 100 MG CAP PO (08:29)
[2022-09-23] MEDS: Losartan 50 MG TAB 100 MG PO (08:29)
--- NOTE | 2022-09-23 09:11 | W.PM.PROGNOT ---
Date of Service Date of service: 09/24/22 Time of Service: 09:11 Objective Last Vital Signs Temp 36.7 C 09/23/22 07:43 Pulse 58 L 09/23/22 07:43 Resp 16 09/23/22 07:43 BP 113/68 09/23/22 07:43 Pulse Ox 99 09/23/22 07:43
--- NOTE | 2022-09-23 09:53 | CMACTNOTE_ITS ---
- If Service Date Differs Date of service: 09/23/22 Time of Service: 09:53 Care Management Activity Note S/O: Garry was sitting up in bed when CM met with him. He remains in good spirits and engaged easily in conversation. Garry informed CM that he would really like to help other diabetics understand how to control their diabetes with diet. He verbalized being really proud that he has been able to maintain his blood sugars by diet alone while in the hospital. He offered to share his experience with others either by sharing his data (anonymously) or by talking to them. CM suggested he discuss this with the diabetic educators as they have frequent encounters with newly diagnosed patients. Garry has been ambulating in the halls as allowed and has been doing exercises in bed. He stated that he is very motivated to increase his strength and stamina as he hopes to be able to return to work at some point. Garry also enjoys reading and visiting with friens, family and staff. 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 He will follow up with his community providers and plan of care and will transport with family. CM will continue to follow and assess for ongoing discharge needs.
[2022-09-23 14:47] VITALS: BP 100/58; PULSE 71; RESP 14; TEMP 36.3; O2SAT 100
[2022-09-23] MEDS: Insulin Aspart 300 UNITS/3 ML PEN SC (20:56)
[2022-09-24 00:03] VITALS: BP 105/51; PULSE 72; RESP 16; TEMP 36.2; O2SAT 98
[2022-09-24] MEDS: Heparin 5,000 UNITS/ML VIAL 5000 UNITS SC ×3 (06:05→21:38)
[2022-09-24] MEDS: ceFAZolin 2 GM/50 ML BAG IVPB ×3 (06:06→21:22)
[2022-09-24 06:35] LABS: Abs Immature Grans 0.03 10^3/uL (0.0-0.06); Absolute Basophil Count 0.04 10^3/uL (0.0-0.2); Absolute Eosinophil Count 0.29 10^3/uL (0.0-0.7); Absolute Lymphocyte Count 1.63 10^3/uL (1.2-3.4); Absolute Monocyte Count 0.74 10^3/uL (0.1-0.8); Absolute Neutrophil Count 3.97 10^3/uL (1.2-6.7); Basophils % 0.6; Eosinophils % 4.3; HCT 40.9 % (40.0-50.0); HGB 13.3 g/dL (13.5-17.5); Immature Grans % 0.4; Lymphocytes % 24.3; MCH 29.2 pg (27.0-33.0); MCHC 32.5 % (32.0-36.0); MCV 90 fL (80-95); MPV 11.6 fL (8.0-11.0); Neutrophils % 59.4; Platelet Count 218 10^3/uL (130-400); RBC 4.56 10^6/uL (4.36-5.78); RDW-SD 56.8 fL
[2022-09-24 06:57] LABS: BUN 18 mg/dL (7-18); C-Reactive Protein 0.06 mg/dL (0.0-0.3); CREATININE 0.8 mg/dL (0.70-1.30); Calcium 9.6 mg/dL (8.5-10.1); Chloride 106 mmol/L (98-107); Glucose 111 mg/dL (74-106); Magnesium 1.9 mg/dL (1.8-2.4); Potassium 4.3 mmol/L (3.5-5.1); Sodium 140 mmol/L (136-145)
[2022-09-24 07:10] VITALS: BP 111/66; PULSE 65; RESP 16; TEMP 36; O2SAT 99
[2022-09-24] MEDS: Docusate Sodium 100 MG CAP PO (07:38)
[2022-09-24] MEDS: Losartan 50 MG TAB 100 MG PO (07:39)
--- NOTE | 2022-09-24 09:00 | PGE_ITS ---
Date of Service Date of service: 09/24/22 Time of Service: 09:01 Assessment and Plan Assessment and plan (1) Osteomyelitis of left foot: Status: Acute Assessment and plan: Cefazolin IV for MSSA , group strep G in blood until 10/06/2022 Bilateral foot dressings - intact, dry - per orders of Dr Nino - she was here yesterday and removed the sutures - see her note He is to continue with limited activity, ankle and knee ROM exercises. (2) Diabetic infection of right foot: Status: Acute Assessment and plan: As above (3) On deep vein thrombosis (DVT) prophylaxis: Status: Acute Assessment and plan: Patient is on 5000 units SQ q 8 (4) Constipation: Status: Acute Assessment and plan: Docusate 100 mg po daily, has had regular BMs since starting this - almost daily - missed one day (5) Discharge planning issues: Status: Acute Assessment and plan: Care management will follow up on patient discharge needs Discharge to home after IV med course is completed - possible need for HH PT Patient is stating that he does not anticipate new needs Reviewed with Dr Delgado Subjective Subjective Patient reports: no new complaints, voiding w/o difficulty, bowel movement and afebrile; denies diarrhea, nausea, vomiting or shortness of breath Interval history since last seen: Reports feeling fine, he has no complaints, just waiting for the 22. Exam Narrative Exam Narrative: Garry is sitting up in bed he is alert and oriented person place time circumstance. HEENT is unremarkable Neck is supple nontender no JVD normal carotid pulses no bruits no thyromegaly no lymphadenopathy Lungs are clear to auscultation Heart is regular rate and rhythm no murmur rub or gallop Abdomen soft nontender no bruits no hepatosplenomegaly Extremities no peripheral cyanosis or edema. Feet are bandaged and he has his postop shoes on. Psych Mental Status: mental status grossly normal Speech and Movement: speech and movement normal Mood: congruent mood Affect: normal affect Objective Last Vital Signs Temp 36 C L 09/24/22 07:10 Pulse 65 09/24/22 07:10 Resp 16 09/24/22 07:10 BP 111/66 09/24/22 07:10 Pulse Ox 99 09/24/22 07:10 Laboratory Results - last 24 hr 09/24/22 09/24/22 06:00 06:00 WBC 6.70 RBC 4.56 Hgb 13.3 L Hct 40.9 MCV 90 MCH 29.2 MCHC 32.5 RDW 17.0 H Plt Count 218 MPV 11.6 H Immature Gran % 0.4 Neutrophils % 59.4 Lymphocytes % 24.3 Monocytes % 11.0 Eosinophils % 4.3 Basophils % 0.6 Nucleated RBC % 0.0 Absolute Neutrophils 3.97 Absolute Lymphocytes 1.63 Absolute Monocytes 0.74 Absolute Eosinophils 0.29 Absolute Basophils 0.04 Sodium 140 Potassium 4.3 Chloride 106 Carbon Dioxide 25.0 Anion Gap 9.0 BUN 18 Creatinine 0.8 Est GFR (CKD-EPI 2020) 97.00 Glucose 111 H Calcium 9.6 Magnesium 1.9 C-Reactive Protein 0.06 Time Spent with Patient Time Spent with Patient: 25-34 minutes Time was spent: preparing to see the patient(eg.review tests), obtaining and/or reviewing separately otained hiistory, ordering medications,tests, procedures, referring, communicating with other health elderly caregiver, indepentently interpreting results, counseling the patient and care coordination
--- NOTE | 2022-09-24 10:38 | CHAPLAIN ---
Garry was up in the chair, looking at seed catalogues when I visited. He's here until 10/06 receiving IV antibiotics. He continues to be pleasant, and easily engages in conversation. Garry again expressed gratitude for the diabetic education he's receiving from Shekhar and other others. He talked about wanting to share what he's learned at this work sit. Garry talked about his vegetable garden, and the flower gardens his brother and sister in law have.
[2022-09-24] MEDS: Normal Saline Flush 10 ML SYR IVP (14:00)
[2022-09-24 15:24] VITALS: BP 103/57; PULSE 81; RESP 16; TEMP 36.4; O2SAT 97
[2022-09-24] MEDS: Insulin Aspart 300 UNITS/3 ML PEN SC (17:14)
[2022-09-24 23:06] VITALS: BP 125/69; PULSE 66; RESP 20; TEMP 37.1; O2SAT 98
[2022-09-25] MEDS: Heparin 5,000 UNITS/ML VIAL 5000 UNITS SC ×3 (05:50→21:18)
[2022-09-25] MEDS: ceFAZolin 2 GM/50 ML BAG IVPB ×3 (05:50→21:17)
[2022-09-25 07:29] VITALS: BP 121/72; PULSE 56; RESP 17; TEMP 36; O2SAT 99
[2022-09-25] MEDS: Losartan 50 MG TAB 100 MG PO (08:43)
[2022-09-25] MEDS: Docusate Sodium 100 MG CAP PO (08:43)
[2022-09-25 15:33] VITALS: BP 116/67; PULSE 71; RESP 17; TEMP 36.3; O2SAT 97
[2022-09-25 19:16] VITALS: BP 112/70; PULSE 74; RESP 16; TEMP 35.9; O2SAT 98
[2022-09-25] MEDS: Normal Saline Flush 10 ML SYR IVP (21:18)
[2022-09-26] MEDS: ceFAZolin 2 GM/50 ML BAG IVPB ×3 (05:30→21:26)
[2022-09-26] MEDS: Heparin 5,000 UNITS/ML VIAL 5000 UNITS SC ×3 (05:31→21:26)
[2022-09-26] MEDS: Normal Saline Flush 10 ML SYR IVP (05:31)
[2022-09-26 07:36] VITALS: BP 116/73; PULSE 60; RESP 17; TEMP 36.8; O2SAT 98
[2022-09-26] MEDS: Losartan 50 MG TAB 100 MG PO (07:42)
[2022-09-26] MEDS: Docusate Sodium 100 MG CAP PO (07:42)
[2022-09-27 00:13] VITALS: BP 107/64; PULSE 61; RESP 16; TEMP 36.7; O2SAT 98
[2022-09-27] MEDS: ceFAZolin 2 GM/50 ML BAG IVPB ×3 (05:28→21:37)
[2022-09-27] MEDS: Heparin 5,000 UNITS/ML VIAL 5000 UNITS SC ×3 (05:28→21:37)
[2022-09-27 08:53] VITALS: BP 116/72; PULSE 57; RESP 14; TEMP 36; O2SAT 99
[2022-09-27] MEDS: Docusate Sodium 100 MG CAP PO (09:54)
[2022-09-27] MEDS: Losartan 50 MG TAB 100 MG PO (09:54)
[2022-09-27] MEDS: Normal Saline Flush 10 ML SYR IVP (14:18)
[2022-09-27 14:25] VITALS: BP 103/66; PULSE 65; RESP 16; TEMP 36.6; O2SAT 95
[2022-09-27 23:04] VITALS: BP 109/71; PULSE 61; RESP 16; TEMP 36.9; O2SAT 98
[2022-09-28] MEDS: Heparin 5,000 UNITS/ML VIAL 5000 UNITS SC ×3 (05:40→21:08)
[2022-09-28] MEDS: ceFAZolin 2 GM/50 ML BAG IVPB ×3 (05:41→21:09)
[2022-09-28 07:18] VITALS: BP 130/75; PULSE 61; RESP 16; TEMP 36.4; O2SAT 98
[2022-09-28 09:03] VITALS: BP 124/68
[2022-09-28] MEDS: Docusate Sodium 100 MG CAP PO (09:24)
[2022-09-28] MEDS: Losartan 50 MG TAB 100 MG PO (09:24)
[2022-09-28] MEDS: Normal Saline Flush 10 ML SYR IVP ×2 (13:31→14:20)
[2022-09-28 15:08] VITALS: BP 104/63; PULSE 72; RESP 16; TEMP 36.3; O2SAT 98
[2022-09-29] MEDS: Heparin 5,000 UNITS/ML VIAL 5000 UNITS SC ×3 (06:27→20:58)
[2022-09-29] MEDS: ceFAZolin 2 GM/50 ML BAG IVPB ×3 (06:27→20:58)
[2022-09-29 07:19] VITALS: BP 111/56; PULSE 60; RESP 17; TEMP 35.8; O2SAT 98
[2022-09-29] MEDS: Normal Saline Flush 10 ML SYR IVP ×2 (07:34→13:42)
[2022-09-29 09:00] VITALS: O2SAT 94
[2022-09-29] MEDS: Losartan 50 MG TAB 100 MG PO (09:12)
[2022-09-29] MEDS: Docusate Sodium 100 MG CAP PO (09:13)
[2022-09-29 15:20] VITALS: BP 114/67; PULSE 61; RESP 16; TEMP 36.3; O2SAT 95
[2022-09-29 23:00] VITALS: BP 106/58; PULSE 67; RESP 14; TEMP 36.4; O2SAT 97
[2022-09-30] MEDS: ceFAZolin 2 GM/50 ML BAG IVPB ×3 (05:39→21:28)
[2022-09-30] MEDS: Heparin 5,000 UNITS/ML VIAL 5000 UNITS SC ×3 (05:39→21:29)
[2022-09-30] MEDS: Normal Saline Flush 10 ML SYR IVP ×2 (05:40→14:38)
[2022-09-30 06:50] LABS: Abs Immature Grans 0.02 10^3/uL (0.0-0.06); Absolute Basophil Count 0.04 10^3/uL (0.0-0.2); Absolute Lymphocyte Count 1.87 10^3/uL (1.2-3.4); Absolute Monocyte Count 0.64 10^3/uL (0.1-0.8); Absolute Neutrophil Count 3.83 10^3/uL (1.2-6.7); Basophils % 0.6; HCT 43.5 % (40.0-50.0); HGB 13.8 g/dL (13.5-17.5); Immature Grans % 0.3; Lymphocytes % 28.3; MCH 28.9 pg (27.0-33.0); MCHC 31.7 % (32.0-36.0); MCV 91 fL (80-95); MPV 10.9 fL (8.0-11.0); Monocytes % 9.7; Neutrophils % 58.1; Platelet Count 249 10^3/uL (130-400); RBC 4.78 10^6/uL (4.36-5.78); RDW 16.5 % (11.8-14.1); RDW-SD 55.8 fL
[2022-09-30 07:11] LABS: Anion Gap 7.4 mmol/L (3-11); BUN 16 mg/dL (7-18); CO2 27.6 mmol/L (21.0-32.0); CREATININE 0.8 mg/dL (0.70-1.30); Chloride 104 mmol/L (98-107); Glucose 100 mg/dL (74-106); Magnesium 2.1 mg/dL (1.8-2.4); Potassium 4.4 mmol/L (3.5-5.1); Sodium 139 mmol/L (136-145)
[2022-09-30 07:14] LABS: C-Reactive Protein < 0.05 mg/dL (0.0-0.3)
[2022-09-30 07:18] VITALS: BP 108/67; PULSE 62; RESP 17; TEMP 36.3; O2SAT 99
--- NOTE | 2022-09-30 09:10 | PDOC.CMACT ---
- If Service Date Differs Date of service: 09/30/22 Time of Service: 09:10 Care Management Activity Note S/O: Garry was sitting up in bed when CM met with him. As usual, he was pleasant and friendly and engaged easily in conversation. Garry continues to ambulate in the hallway and enjoys visiting with staff, friends and family. He reads a lot and has been paying bills and managing his household responsibilities from his room. Garry will complete his course of IV antibiotics on 10/05/22 which is next week. 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 He will follow up with his community providers and plan of care and will transport with family. CM will continue to follow and assess for ongoing discharge needs.
[2022-09-30] MEDS: Docusate Sodium 100 MG CAP PO (10:12)
[2022-09-30] MEDS: Losartan 50 MG TAB 100 MG PO (10:12)
--- NOTE | 2022-09-30 13:00 | POCOE_ITS ---
Date of service: 09/30/22 Time of Service: 12:30 Assessment and Plan Assessment and plan (1) Osteomyelitis of left foot: Status: Acute Assessment and plan: The patient was evaluated and treated. No signs of infection. The left foot ulceration was debrided at bedside today with a 15-blade, through skin and subcutaneous tissue, taking care to excise all necrotic and non viable tissue. Optifoam (or comparable foam dressing) to be applied to the plantar L foot ulceration as well as dorsal R foot wound, with paper tape, every other day. Pt to continue PT and continue WB with post-op shoes. He is to follow up in clinic in 2 weeks. Please call with questions, . (2) Diabetic infection of right foot: Status: Acute History of Present Illness History of Present Illness Chief Complaint: s/p 4 weeks R delayed closure, L 2nd partial ray resection Narrative: Garry was evaluated at bedside s/p 4 weeks R foot delayed primary closure for the treatment of a foot infection (sepsis) and L 2nd partial ray resection for the treatment of osteomyelitis. Garry reports to have been walking a few times of day to the end of the glaser and back and notes no difficulties with doing so. Dressings have been changed every other day. He denies any F/V/C/NS/F, and notes no difficulties with his feet. He denies any redness, swelling red streaks or signs of infection. He reports that he is scheduled to be discharged next week and is eager to go plant his garden Consults Consult date: 09/30/22 [facility] All Active Problems (Updated 09/10/22 @ 17:50 by Melva Navarro) Constipation (Acute) Discharge planning issues (Acute) On deep vein thrombosis (DVT) prophylaxis (Acute) Osteomyelitis of left foot (Acute) Diabetic infection of left foot (Acute) Discharge planning issues (Acute) DVT prophylaxis (Acute) Diabetic infection of right foot (Acute) Foot infection (Acute) Cellulitis (Acute) Foot ulcer, left (Acute) Routine general medical examination at a health care facility (Acute) Colonoscopy refused (Acute) Diabetes mellitus (Chronic) Low HDL (under 40) (Acute 09/13/17) Essential hypertension (Acute 05/09/13) Elevated fasting blood sugar (Acute 08/28/15) Dyslipidemia (Acute 05/17/13) PCEq 12.6%; declines statins Family History Mother Stroke Father Stroke Heart disease Social History Smoking/Tobacco Use Status: Never Smoking risk assessment performed?: Yes Alcohol Intake: current Alcohol Intake frequency: holidays/special occasions only Drug use: Never Caregiver/Support person: No Housing: house Number of Children: 0 Communication Needs: Corrective Lenses Do you need help understanding health information?: Rarely Pets and animals: Yes Current gender identity: decline to answer What is your relationship status?: refused to answer How often do you talk on the phone with friends or family?: decline to answer How often do you get together with friends or relatives?: decline to answer How often do you attend moravian or islam services?: decline to answer Do you belong to any clubs or organized social groups?: decline to answer Panel score (0-1 are the most socially isolated patients): 0 What type of physical activity do you participate in: walking and other Details: moving pellets Duration: > 90 minutes/day Frequency: daily Special maría needs: No Do you feel safe at home: Yes Exam Skin Other: L LE: dorsal incision site is healed. Full thickness ulceration area of resected R 2nd metatarsal head plantarly, with extensive surrounding hyperkeratotic skin and 20% slough tissue noted uon the wound base. measurements 6 mm x 8 mm x 3 mm predebridement, with undermining, post debridement 8 mm x 7 mm x 1 mm, with granular base. R LE: Dorsal incision site clean with skin edges mostly well opposed but with small wound on the dorsal foot 2 mm x 3 mm with granular base. Plantar incision is well healed without disruption in the skin. No erythema, purulence, fluctuance or signs of infection. Resolution of previous edema. Calf supple and non tender bilaterally Results Last Vital Signs Temp 97.3 F L 09/30/22 07:18 Pulse 62 09/30/22 07:18 Resp 17 09/30/22 07:18 BP 108/67 09/30/22 07:18 Pulse Ox 99 09/30/22 07:18 Labs 09/30/22 05:45 09/30/22 05:45 Labs: Laboratory Results - last 24 hr 09/30/22 09/30/22 05:45 05:45 WBC 6.60 RBC 4.78 Hgb 13.8 Hct 43.5 MCV 91 MCH 28.9 MCHC 31.7 L RDW 16.5 H Plt Count 249 MPV 10.9 Immature Gran % 0.3 Neutrophils % 58.1 Lymphocytes % 28.3 Monocytes % 9.7 Eosinophils % 3.0 Basophils % 0.6 Nucleated RBC % 0.0 Absolute Neutrophils 3.83 Absolute Lymphocytes 1.87 Absolute Monocytes 0.64 Absolute Eosinophils 0.20 Absolute Basophils 0.04 Sodium 139 Potassium 4.4 Chloride 104 Carbon Dioxide 27.6 Anion Gap 7.4 BUN 16 Creatinine 0.8 Est GFR (CKD-EPI 2020) 97.00 Glucose 100 Calcium 10.0 Magnesium 2.1 C-Reactive Protein < 0.05
[2022-09-30 20:26] VITALS: BP 97/56; PULSE 63; RESP 17; TEMP 36.2; O2SAT 96
[2022-10-01 03:26] VITALS: BP 115/67; PULSE 57; RESP 18; TEMP 36.5; O2SAT 98
[2022-10-01] MEDS: Heparin 5,000 UNITS/ML VIAL 5000 UNITS SC ×3 (06:01→21:13)
[2022-10-01] MEDS: ceFAZolin 2 GM/50 ML BAG IVPB ×3 (06:01→21:13)
[2022-10-01 07:37] VITALS: BP 116/67; PULSE 61; RESP 16; TEMP 36; O2SAT 98
[2022-10-01] MEDS: Losartan 50 MG TAB 100 MG PO (08:36)
[2022-10-01] MEDS: Docusate Sodium 100 MG CAP PO (08:36)
[2022-10-01] MEDS: Normal Saline Flush 10 ML SYR IVP ×2 (08:36→14:39)
[2022-10-01] MEDS: Normal Saline 500 ML 30 ML IV (14:40)
--- NOTE | 2022-10-01 15:45 | CHAPLAIN ---
Garry is counting down his days until he's discharged on the . He was looking at gardening magazines when I visited and reading about new types of pellet stoves/furnaces. Garry remains pleasant and always engages in a conversation.
[2022-10-01 15:46] VITALS: BP 101/60; PULSE 64; RESP 14; TEMP 36; O2SAT 97
[2022-10-02] MEDS: Acetaminophen 325 MG TAB PO ×2 (04:46→09:05)
[2022-10-02] MEDS: Heparin 5,000 UNITS/ML VIAL 5000 UNITS SC ×3 (06:21→21:13)
[2022-10-02] MEDS: ceFAZolin 2 GM/50 ML BAG IVPB ×3 (06:21→21:13)
[2022-10-02 07:26] VITALS: BP 114/73; PULSE 60; RESP 18; TEMP 36.1; O2SAT 98
[2022-10-02] MEDS: Losartan 50 MG TAB 100 MG PO (09:05)
[2022-10-02] MEDS: Docusate Sodium 100 MG CAP PO (09:05)
[2022-10-02] MEDS: Normal Saline Flush 10 ML SYR IVP ×3 (09:06→21:13)
[2022-10-02] MEDS: Gabapentin 100 MG CAP PO ×2 (14:09→19:44)
[2022-10-02 15:19] VITALS: BP 97/58; PULSE 67; RESP 16; TEMP 36.2; O2SAT 96
[2022-10-02 23:09] VITALS: BP 112/62; PULSE 72; RESP 18; TEMP 36.5; O2SAT 94
[2022-10-03] MEDS: Heparin 5,000 UNITS/ML VIAL 5000 UNITS SC ×3 (05:11→22:06)
[2022-10-03] MEDS: Normal Saline Flush 10 ML SYR IVP ×2 (05:11→14:00)
[2022-10-03] MEDS: ceFAZolin 2 GM/50 ML BAG IVPB ×3 (05:11→22:06)
[2022-10-03 08:41] VITALS: BP 112/65; PULSE 61; RESP 16; TEMP 35.7; O2SAT 99
[2022-10-03] MEDS: Docusate Sodium 100 MG CAP PO (09:19)
[2022-10-03] MEDS: Gabapentin 100 MG CAP PO ×3 (09:19→22:07)
[2022-10-03] MEDS: Losartan 50 MG TAB 100 MG PO (09:19)
[2022-10-03 15:37] VITALS: BP 95/56; PULSE 70; RESP 16; TEMP 36.4; O2SAT 98
[2022-10-04 01:58] VITALS: O2SAT 98
[2022-10-04] MEDS: Normal Saline Flush 10 ML SYR IVP ×2 (05:51→13:29)
[2022-10-04] MEDS: ceFAZolin 2 GM/50 ML BAG IVPB ×3 (05:51→22:22)
[2022-10-04] MEDS: Heparin 5,000 UNITS/ML VIAL 5000 UNITS SC ×3 (05:52→22:23)
[2022-10-04] MEDS: Normal Saline 500 ML 30 ML IV (05:52)
[2022-10-04 07:20] VITALS: BP 119/72; PULSE 61; RESP 17; TEMP 36; O2SAT 98
[2022-10-04] MEDS: Docusate Sodium 100 MG CAP PO (07:48)
[2022-10-04] MEDS: Losartan 50 MG TAB 100 MG PO (07:48)
[2022-10-04] MEDS: Gabapentin 100 MG CAP PO ×3 (07:49→22:22)
--- NOTE | 2022-10-04 08:24 | PDOC.CMPRO ---
- If Service Date Differs Date of service: 10/04/22 Time of Service: 08:24 Care Management Progress Note S/O: Garry was sitting up in bed when CM met with him. He verbalized that he is looking forward to discharging home on Tuesday. CM reviewed his discharge plan with him. Garry has his truck at [facility] and would like to drive it home. After consultation with the providers, it was determined that he would be safe to do so. CM communicated with Dr. Nino today. She stated that Garry can be weight bearing as tolerated with ambulation. He may change his own dressings at home and should continue to use the foam dressings. Garry has a follow up appointment with Dr. Nino on 10/14/22 at 3:30 Pm. He will not need any home health services. A: Garry is a 66 year old man admitted to [facility] for skilled nursing IV antibiotics on 09/03/22 following an acute inpatient stay P: Garry will likely be discharged home when his course of IV antibiotics is completed on 10/06/22. He will follow up with his community providers and plan of care and will drive himself home. CM will continue to follow and assess for ongoing discharge needs.
--- NOTE | 2022-10-04 09:29 | INDS_ITS ---
PT Notes Visit Reasons: MSSA,Group G Strep Diabetic Foot Wound,Bacteremia Physical Therapy Inpatient Initial Evaluation Date: 10/02/2022 Dates of Service: 09/17/2022 and 09/21/2022 This is a clinical summary of care provided for the duration of dates listed above. No charge was made in the completion of this documentation. Referring Doctor:? Mac August,? PT Orders: PT CONSULT: WBAT up to 40 steps, with walker & post-op shoes.? LE strengthening please Precautions: Standard.?Activity as tolerated. Patient Profile/Admitting Diagnosis:? Kevin is a 66-year-old male with diagnosis of MSSA bacteremia of right foot, and osteomyelitis of left foot.? He is s/p I&D of right foot wound, infection, and osteomyelitis as well as s/p delayed primary closure of right foot and status post left second ray resection on postoperative day 16. PMHX: All Active Problems?(Updated 08/25/22 @ 19:05 by Alicja Delgado MD) Discharge planning issues (Acute) DVT prophylaxis (Acute) Diabetic infection of right foot (Acute) Gram-positive cocci bacteremia (Acute) Foot infection (Acute) Cellulitis (Acute) Foot ulcer, left (Acute) Routine general medical examination at a health care facility (Acute) Colonoscopy refused (Acute) Diabetes mellitus (Chronic) Low HDL (under 40) (Acute 09/13/17) Essential hypertension (Acute 05/09/13) Elevated fasting blood sugar (Acute 08/28/15) Dyslipidemia (Acute 05/17/13) PCEq 12.6%; declines statins Social History/Home Situation: Lives alone in a private home with one-step to enter without rails.? 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 Independent with all aspects of ADLs prior to surgery Equipment Owned/DME: Bilateral axillary crutches Subjective: NT. See most recent MAGNETIC RESONANCE IMAGING DIRECTOR notes. Objective: General Observation: NT. See most recent MAGNETIC RESONANCE IMAGING DIRECTOR notes. Mental Status: NT. See most recent MAGNETIC RESONANCE IMAGING DIRECTOR notes. Pain: NT. See most recent MAGNETIC RESONANCE IMAGING DIRECTOR notes. Vital Signs: NT. See most recent MAGNETIC RESONANCE IMAGING DIRECTOR notes. ROM: Right Upper Extremity: ? Shoulder Flexion WFL. Shoulder abduction WFL. Elbow flexion WFL. Wrist flexion WFL. Functional opening and closing of hand WFL. Left Upper Extremity:? Shoulder Flexion WFL. Shoulder abduction WFL. Elbow flexion WFL. Wrist flexion WFL. Functional opening and closing of hand WFL. Right Lower Extremity: Hip flexion WFL. Hip abduction WFL. Knee flexion WFL. Ankle dorsiflexion WFL. Ankle plantarflexion WFL. Left Lower Extremity: Hip flexion WFL. Hip abduction WFL. Knee flexion WFL. Ankle dorsiflexion WFL. Ankle plantarflexion WFL. Strength: Right Upper Extremity: Shoulder flexors 5/5. Shoulder abductors 5/5. Elbow flexors 5/5. Elbow extensors 5/5. Spinning Frame Fixer strong. Left Upper Extremity: Shoulder flexors 5/5. Shoulder abductors 5/5. Elbow flexors 5/5. Elbow extensors 5/5. Spinning Frame Fixer strong. Right Lower Extremity: Hip flexors 5/5. Hip abductors 5/5. Knee flexors 5/5. Knee extensors 5/5. Ankle dorsiflexors 4/5. Ankle plantarflexors 4/5. Left Lower Extremity: Hip flexors 5/5. Hip abductors 5/5. Knee flexors 5/5. Knee extensors 5/5. Ankle dorsiflexors 4/5. Ankle plantarflexors 4/5. Sensation: Decreased sensation in B feet related to diabetic neuropathy Bed Mobility/Transfers: Supine to sit independent Sit to supine independent Sit to stand independent Stand to sit independent Bed to toilet seat independent Toilet seat to bed independent Bed to reclining chair independent Reclining chair to bed independent Gait: Able to independently ambulate up to 100 feet and post-op shoes in the [facility]. May use FWW as needed. Balance: Static Sitting: Normal Dynamic Sitting: Normal Static Standing: Fair Dynamic Standing: Fair Informed Consent/Education:? Patient has 100% mastery of exercise progression using resistance band and dumbbells. Assessment: Patient discontinued from services at independent level of function without an assistive device. Goals: Goals X1 week 1. Independent gait on level surface with use of FWW for at least 50 feet without report of pain nor dyspnea MET 2. Independent stair negotiation while holding onto B rails for at least 3 steps without report of pain nor dyspnea MET 3. Independent with home exercise program MET 4. Good static and dynamic standing balance/tolerance MET 5.? 100% mastery of HEP for progressive strengthening MET DISCHARGE RECOMMENDATIONS: [X] ? Home with no services.? Home when medically cleared by hospitalist. [] ? Home with services [specify] [] ? Home with outpatient PT [] [] ? SNF for continued rehabilitation [] [] ? Pediatric Dental Hygienist Care [] [] ? SNF versus LTC based on ability to participate and progress [] TREATMENT CODE/TIME: NC Thank you for the opportunity to participate in the care of this patient. Gena Gutierrez PT, DPT, CLT [facility] [place], [place]
[2022-10-04 15:27] VITALS: BP 112/64; PULSE 72; RESP 16; TEMP 36.3; O2SAT 97
[2022-10-04 22:42] VITALS: BP 112/68; PULSE 65; RESP 16; TEMP 36; O2SAT 96
[2022-10-05] MEDS: Normal Saline 500 ML 30 ML IV (05:51)
[2022-10-05] MEDS: Normal Saline Flush 10 ML SYR IVP ×2 (05:52→21:19)
[2022-10-05] MEDS: ceFAZolin 2 GM/50 ML BAG IVPB ×3 (05:52→21:19)
[2022-10-05] MEDS: Heparin 5,000 UNITS/ML VIAL 5000 UNITS SC ×3 (05:53→21:18)
[2022-10-05] MEDS: Docusate Sodium 100 MG CAP PO (07:49)
[2022-10-05] MEDS: Losartan 50 MG TAB 100 MG PO (07:49)
[2022-10-05] MEDS: Gabapentin 100 MG CAP PO ×3 (07:49→21:19)
[2022-10-05 08:25] VITALS: BP 122/64; PULSE 64; RESP 16; TEMP 35.7; O2SAT 99
[2022-10-05 15:11] VITALS: BP 101/54; PULSE 68; RESP 16; TEMP 36.3; O2SAT 97
[2022-10-05 23:59] VITALS: BP 120/60; PULSE 68; RESP 18; TEMP 36.7; O2SAT 97
[2022-10-06] MEDS: Heparin 5,000 UNITS/ML VIAL 5000 UNITS SC (06:11)
[2022-10-06] MEDS: ceFAZolin 2 GM/50 ML BAG IVPB (06:12)
[2022-10-06 07:13] VITALS: BP 112/67; PULSE 60; RESP 18; TEMP 35.8; O2SAT 97
[2022-10-06] MEDS: Docusate Sodium 100 MG CAP PO (07:55)
[2022-10-06] MEDS: Losartan 50 MG TAB 100 MG PO (07:55)
[2022-10-06] MEDS: Gabapentin 100 MG CAP PO (07:55)
--- NOTE | 2022-10-06 10:11 | W.PM.DS.N ---
Date of service: 10/06/22 Time of Service: 10:11 DS: Diagnosis Discharge Diagnosis (1) Osteomyelitis of left foot: Status: Acute Asessment and Plan: Completed 6 week course of abx (2) Diabetic infection of right foot: Status: Acute Asessment and Plan: Improving, continues to have wound care - will see podiatry outpt for continued wound care Discharge Plan Disposition Patient Disposition: Home Condition: Good Discharge Details Reason For Visit: MSSA,Group G Strep Diabetic Foot Wound,Bacteremia Admit Date/Time: 09/03/22 16:30 Admit Provider: Mac August Attending Provider: Mac August Primary Care Provider: Jordan,Soni [place] [facility] Hospital Course: Mr Oropeza is a 66 year old male patient with a PMHx of NIDDM2, HTN, hyperlipidemia, GERD, who presented to [facility] ED 08/25/2022 with 5 days of redness, swelling, and pain to the right foot. The patient denied trauma to the foot. He stated he has preserved sensation in the foot. He first noticed the symptoms the Tuesday prior to admission.? He did come to the ED 08/23/2022 and left AMA. He did see Dr Nino (podiatry) 08/24/2022 who did an I&D of an abscess of his R foot in the office, again recommending admission, which the patient had refused. He was called back to the ER 08/25/2022 when the results of his blood cultures from 08/23/22 (his ER visit) came back positive for GPCs (2 bottles/4). The patient denied fevers/chills, chest pain, shortness of breath, dizziness, nausea. He did complain of pain in his R foot.? He was evaluated by Dr Nino, again, while awaiting results of the MRI. The patient did have an abscess at the dorsum of the foot over the 3rd metatarsal. He was brought to the OR by Dr Nino on 08/26/2022 for I&D, debridement and wash out. The wound grew Staph aureus and Group G strep. He was treated with 6 weeks of IV antibiotics for MSSA bactermia and received wound care by podiatry and the rest of his hospitalization was uneventful.? He has completed his course of antibiotics and is being discharged to home with family, stable, and will follow up with podiatry, out-patient- for care of his foot. Discussed with Dr Delarosa Home Meds and New Rx's Prescriptions: New gabapentin 100 mg Capsule 100 mg PO TID Qty: 90 0RF Continued (DME) lancets Misc 1 ea Miscellaneous BID Qty: 200 6RF Rx Instructions: Monitor BSs BID (DME) Accu-Chek Harmony Plus test strp Strip 1 ea Miscellaneous BID Qty: 200 6RF Rx Instructions: Diabetes. Check BID/PRN (DME) blood-glucose meter Misc Miscellaneous DAILY Qty: 1 0RF Rx Instructions: As directed hydrochlorothiazide 12.5 mg tablet 12.5 mg PO DAILY Qty: 90 4RF losartan 100 mg tablet 100 mg PO DAILY Qty: 90 3RF metformin 500 mg tablet extended release 24 hr 1,000 mg PO DAILY Qty: 180 3RF No Action sulfamethoxazole-trimethoprim [Bactrim DS] 800-160 mg tablet 1 tab PO BID Qty: 14 0RF cefuroxime axetil 500 mg tablet 500 mg PO BID 7 Days Qty: 14 0RF Discharge Instructions Instructions: Gabapentin (By mouth), Osteomyelitis (DC) Additional Instructions: Continue Gabapentin 100 mg three times a day; continue all other medications per PCP prescription Stand Alone Forms: Nursing Discharge Form Referrals: Malgorzata Nino DPM [[facility]YS[facility]IAN] - 10/14/22 3:30 pm Soni Ortega NP [Primary Care Provider] - 10/19/22 1:30 pm Activity:: Activity as Tolerated Equipment/Supplies:: No Equipment Needed Diet:: As Tolerated Discharge Orders Discharge Orders: Discharge Order (Routine); Ordered 10/06/22 Ordered By: Concha Larry Discharge Data Discharge Date/Time-TO BE ENTERED AT DEPARTURE: 10/06/22 11:13 DS: Summary Time Spent with Patient providing and/or coordinating discharge services: Greater than 30 minutes Status at Discharge Functional status at discharge: independent ambulation Overall status at discharge: patient is back to baseline Mental Status: mental status grossly normal Speech and Movement: speech and movement normal Mood: congruent mood Affect: normal affect Exam Narrative Exam Narrative: Garry is sitting up in the chair, he is alert and oriented person place time circumstance and states he is ready to go home HEENT is unremarkable Neck is supple nontender no JVD normal carotid pulses no bruits no thyromegaly no lymphadenopathy Lungs are clear to auscultation Heart is regular rate and rhythm no murmur rub or gallop Abdomen soft nontender no bruits no hepatosplenomegaly Extremities no peripheral cyanosis or edema. Feet are bandaged and he has his postop shoes on. Psych Mental Status: mental status grossly normal Speech and Movement: speech and movement normal Mood: congruent mood Affect: normal affect DS: Data Vitals/I&O Vitals and I&O: Vital Signs Temperature 35.8 C L 10/06/22 07:13 Temperature Source Tympanic 10/06/22 07:13 Pulse 60 10/06/22 07:13 Pulse Rhythm Regular 10/06/22 07:55 Respiratory Rate 18 10/06/22 07:13 Respiratory Effort Normal, Non-Labored 10/06/22 07:55 Respiratory Depth Normal 10/06/22 07:55 Respiratory Pattern Normal 10/06/22 07:55 Blood Pressure 112/67 10/06/22 07:13 Pulse Oximetry 97 10/06/22 07:13 Oxygen Delivery Method Room Air 10/06/22 07:13 Oxygen Flow Rate 0 10/06/22 07:13 Pain Level 0 10/06/22 07:13 Comment BP called over radio 10/03/22 15:37 Intake & Output 10/05/22 10/05/22 10/06/22 11:59 23:59 11:59 Intake Total 180.5 / 760.5 580 / 760.5 Balance 180.5 / 760.5 580 / 760.5 Weight 73.7 kg 72.6 kg Intake: IV 80.5 / 180.5 100 / 180.5 Oral 100 / 580 480 / 580 Other: Urine Appearance Clear Comment Patient voiding independently as needed Patient voids independently Patient voiding independently PFSH All Active Problems (Updated 09/10/22 @ 17:50 by Melva Navarro) Constipation (Acute) Discharge planning issues (Acute) On deep vein thrombosis (DVT) prophylaxis (Acute) Osteomyelitis of left foot (Acute) Diabetic infection of left foot (Acute) Discharge planning issues (Acute) DVT prophylaxis (Acute) Diabetic infection of right foot (Acute) Foot infection (Acute) Cellulitis (Acute) Foot ulcer, left (Acute) Routine general medical examination at a health care facility (Acute) Colonoscopy refused (Acute) Diabetes mellitus (Chronic) Low HDL (under 40) (Acute 09/13/17) Essential hypertension (Acute 05/09/13) Elevated fasting blood sugar (Acute 08/28/15) Dyslipidemia (Acute 05/17/13) PCEq 12.6%; declines statins Family History Mother Stroke Father Stroke Heart disease Social History Smoking/Tobacco Use Status: Never Smoking risk assessment performed?: Yes Alcohol Intake: current Alcohol Intake frequency: holidays/special occasions only Drug use: Never Caregiver/Support person: No Housing: house Number of Children: 0 Communication Needs: Corrective Lenses Do you need help understanding health information?: Rarely Pets and animals: Yes Current gender identity: decline to answer What is your relationship status?: refused to answer How often do you talk on the phone with friends or family?: decline to answer How often do you get together with friends or relatives?: decline to answer How often do you attend yazdanism or hinduism services?: decline to answer Do you belong to any clubs or organized social groups?: decline to answer Panel score (0-1 are the most socially isolated patients): 0 What type of physical activity do you participate in: walking and other Details: moving pellets Duration: > 90 minutes/day Frequency: daily Special maría needs: No Do you feel safe at home: Yes Time Spent with Patient Time Spent with Patient: 45-69 minutes Time was spent: preparing to see the patient(eg.review tests), obtaining and/or reviewing separately otained hiistory, ordering medications,tests, procedures, referring, communicating with other health interior plant caretaker, counseling the patient and care coordination
[2022-10-06] MEDS: Bacitracin 1 PACKET TP (10:37)
--- NOTE | 2022-10-06 15:09 | CMDISCH_ITS ---
- If Service Date Differs Date of service: 10/06/22 Time of Service: 11:00 LACE Index Scoring Tool - Questions: Length of Stay (in days): 14 or more Acuity (Admit via E.D.?): Yes Comorbidities: Diabetes w/o Complication E.D. Visits: 2 - Answers: Total Score: 13 Risk of Readmission: High Risk Care Management Discharge Reason for Hospitalization: Osteomyelitis of left foot, Diabetic infection of right foot Discharge Plan: Kevin is discharged home via private vehicle located in the parking lot. He will follow up with community providers and discharge plan of care as prescribed. New RX is transmitted to [facility]. He will follow up with Podiatry on 10/14/22 and his PCP on 10/19/22, as scheduled. No new services are ordered, patient is able to provide his own wound care. Patient/Family Education Needs: Review discharge instructions, limitations, medications and plan to follow up with community providers. Discuss ask me three.
== END 2022-10-06 11:13 | disposition home or self-care (01) | DRG 949 ==
PROVIDERS: Internal Medicine; Nurse Practitioner Family; Admitting Provider Internal Medicine; PCP Nurse Practitioner; Visit Provider Internal Medicine
DX: Z79.2 Long term (current) use of antibiotics (principal); M86.8X7 Other osteomyelitis, ankle and foot; R78.81 Bacteremia; E11.69 Type 2 diabetes mellitus with other specified complication; B95.61 Methicillin susceptible Staphylococcus aureus infection as the cause of diseases classified elsewhere; E11.628 Type 2 diabetes mellitus with other skin complications; I10 Essential (primary) hypertension; B95.4 Other streptococcus as the cause of diseases classified elsewhere; Z89.422 Acquired absence of other left toe(s); E78.5 Hyperlipidemia, unspecified; K21.9 Gastro-esophageal reflux disease without esophagitis; Z79.84 Long term (current) use of oral hypoglycemic drugs; K59.00 Constipation, unspecified; L08.89 Other specified local infections of the skin and subcutaneous tissue
CPT/HCPCS: 36415; 80048; 85027; 97110; 97161; 97165; 97530; 99305; 83735; 85025; 85049; 86140; 99232; 99239; 99308; J0690; J1644

== ENCOUNTER 2023-11-15 04:49 | Outpatient (CLI) | payer OTHER, MEDICARE, SELFPAY ==
[2023-11-15 07:41] LABS: ALT 22 U/L (16-63); AST 11 U/L (15-37); Alkaline Phosphatase 63 U/L (46-116); Anion Gap 8.4 mmol/L (3-11); BUN 14 mg/dL (7-18); Bilirubin, Total 0.5 mg/dL (0.2-1.0); CO2 29.6 mmol/L (21.0-32.0); CREATININE 0.9 mg/dL (0.70-1.30); Calcium 9.5 mg/dL (8.5-10.1); Chloride 103 mmol/L (98-107); Cholesterol 122 mg/dL (<200); Estimated GFR 93.03 (mL/min/1.73m2); Glucose 123 mg/dL (74-106); HDL Cholesterol 35 mg/dL (40-60); Potassium 4.8 mmol/L (3.5-5.1); Sodium 141 mmol/L (136-145); Total Protein 7.6 g/dL (6.4-8.2); Triglyceride <25 mg/dL (<150)
[2023-11-15 07:56] LABS: LDL CHOLESTEROL 74 mg/dL (<100)
== END 2023-11-15 04:50 | disposition home or self-care (01) ==
LOC: LBO 04:49
PROVIDERS: PCP Nurse Practitioner; Referring Provider Nurse Practitioner; Visit Provider Nurse Practitioner
DX: I10 Essential (primary) hypertension (principal); E78.5 Hyperlipidemia, unspecified; E11.9 Type 2 diabetes mellitus without complications
CPT/HCPCS: 36415; 80053; 80061; 83721

== ENCOUNTER 2023-11-26 09:17 | Inpatient (IN) | payer OTHER, MEDICARE, SELFPAY ==
[2023-11-26] VITALS (8 sets, daily range): BP systolic 113–138; BP diastolic 56–77; PULSE 61–84; RESP 16–18; TEMP 35.6–36.5; O2SAT 95–99; BMI 24.0
--- NOTE | 2023-11-26 10:19 | ED.GENADUL_ITS ---
Discharge Plan Disposition Patient Disposition: Admit to [facility] Condition: Stable Discharge Details Clinical Impression: Diabetic ulcer of right foot, Acute osteomyelitis of right foot Admit Date/Time: 11/26/23 14:09 Admit Provider: Mac August Attending Provider: Harman Johnson Primary Care Provider: Soni Ortega ED Provider: Suze Craig General Mode of arrival: ambulatory . Date/Time Provider Initiated Documentation: 11/26/23 09:36 . Limitations to Documentation: no limitations . Information obtained by: patient, RN notes reviewed and old records reviewed . HPI Narrative: 68 year old male with hx Tpe 2 DM presents with right foot wound and infection. Denies fever or chills, He reports shoveling snow last week and feeling a pop since then pain has gotten worse. On exam he has a ulcer noted to the plantar surface, erythema, and purulent drainage around to toes. Erythema extends up to his mid-foot. Related Data Home Medications Medication Instructions Recorded Confirmed blood sugar diagnostic (Accu-Chek #200 strips 04/08/21 11/26/23 Harmony Plus test strips) blood-glucose meter #1 ea 04/08/21 11/26/23 lancets #200 ea 04/08/21 11/26/23 hydrochlorothiazide 12.5 mg tablet 12.5 mg PO DAILY #90 tab-caps 04/19/23 11/26/23 losartan 100 mg tablet 100 mg PO DAILY #90 tab-caps 04/19/23 11/26/23 metformin 500 mg tablet,extended 1,000 mg (2 x 500 mg) PO DAILY 04/19/23 11/26/23 release 24 hr #180 tab-caps Previous Rx's Medication Instructions Recorded blood sugar diagnostic (Accu-Chek #200 strips 04/08/21 Harmony Plus test strips) blood-glucose meter #1 ea 04/08/21 lancets #200 ea 04/08/21 hydrochlorothiazide 12.5 mg tablet 12.5 mg PO DAILY #90 tab-caps 04/19/23 losartan 100 mg tablet 100 mg PO DAILY #90 tab-caps 04/19/23 metformin 500 mg tablet,extended 1,000 mg (2 x 500 mg) PO DAILY 04/19/23 release 24 hr #180 tab-caps Allergies Allergy/AdvReac Type Severity Reaction Status Date / Time Penicillins Allergy Hives Verified 11/26/23 13:05 lisinopril AdvReac Unknown Cough and Verified 11/26/23 13:05 light headed metoprolol AdvReac Unknown palpitation Verified 11/26/23 13:05 s General Stated Complaint: Cellulitis DAYNA: 4 Review of Systems All systems reviewed & are unremarkable except as noted in HPI and below Constitutional Constitutional: Denies chills and Denies fever(s) Musculoskeletal Musculoskeletal: Reports as per HPI Integumentary/Breasts Skin/Breast: Reports non-healing lesions, Reports erythema, Reports skin pain, Reports skin swelling, Reports skin ulcer and Reports wounds Exam Extrem Left lower extremity: foot Details: abnormal to inspection Details: erythematous, tenderness, warmth and edema Ankle/foot/toe images: 2 1. Open wound 2. Purulent drainage noted, erythema, swelling, foul smell. 3. Erythema Course Vital Signs Vital signs: Vital Signs Temperature 36.5 C 11/26/23 09:27 Pulse 84 11/26/23 09:27 Respiratory Rate 16 11/26/23 09:27 Blood Pressure 113/56 L 11/26/23 09:27 Pulse Oximetry 97 11/26/23 09:27 Temperature 36.5 C 11/26/23 09:27 Temperature Source Skin 11/26/23 09:27 Pulse 84 11/26/23 09:27 Respiratory Rate 16 11/26/23 09:27 Blood Pressure 113/56 L 11/26/23 09:27 Blood Pressure Position Sitting 11/26/23 09:27 Pulse Oximetry 97 11/26/23 09:27 Oxygen Delivery Method Room Air 11/26/23 09:27 Oxygen Flow Rate 0 11/26/23 09:27 Pain Level 1 11/26/23 09:27 Medical Decision Making 68 year old male with hx Tpe 2 DM presents with right foot wound and infection. Denies fever or chills, He reports shoveling snow last week and feeling a pop since then pain has gotten worse. On exam he has a ulcer noted to the plantar surface, erythema, and purulent drainage around to toes. Erythema extends up to his mid-foot. Workup ordered including labs and Blood cultures, CT of Foot ordered. 1126: CT shows osteomyelitis involving the second metatarsal head and the proximal phalanx, there is also lobulated gas and fluid noted the proximal aspects of the third and fourth toes, Labs show white blood cell count of 14.8, positive left shift, lactate within normal limits, neutrophils 12.0 ESR is 45, CRP is 8.86. 1158: Spoke with Dr. Johnson who was able to view the CT images, he recommends Hospitalist admission and he agrees to consult. He anticipates amputation of 2nd metatarsal and debriding of other toes. 1159: Hospitalist paged. 1235: Alex at BS. 1245: Spoke with Dr. August who agrees to admit him. Discussed patient case in details he verbalized understanding. Patient informed of plan of care. 1300: patient to be transported to OR by staff and admitted. This text was generated using [employer] system, please disregard any oddities of phrase or misspellings. Imaging Data Radiologic Study: Imaging: CT Scan Radiologist's impression: Age: 68 years old Clinical indication: Other: Wound right foot TECHNIQUE: Imaging protocol: CT of the right lower extremity without contrast was performed. Exam focused on the foot. COMPARISON: MR LOWER EXTREMITY RT WO/W 08/25/2022 2:58 PM FINDINGS: Bones/joints: There are erosive changes of the 2nd metatarsal head and the base of the 2nd proximal phalanx, compatible with osteomyelitis, with the 2nd metatarsophalangeal joint disrupted. Some periosteal reaction is present about the 2nd metatarsal shaft proximal to this. Mild degenerative changes are present. Soft tissues: Moderate subcutaneous soft tissue edema is present about much of the ankle and foot. There is a plantar ulceration at the level of the 2nd metatarsophalangeal joint measuring approximately 1.2 x 1.6 cm in width, and up to 1.2 cm in depth. There is a fragment of bone here, presumably displaced from the 2nd metatarsal head or base of the 2nd proximal phalanx. Lobulated gas and fluid is also present in the soft tissues more dorsally, including in the proximal aspects of the 3rd and 4th toes dorsally, with extension into the plantar aspect of the 2nd toe more distally. This extends up to approximately 4.5 cm transverse, 4.9 cm proximal to distal and 2.6 cm AP, and is suggestive of abscess. IMPRESSION: 1. Erosive changes compatible with osteomyelitis involving the 2nd metatarsal head and the base of the 2nd proximal phalanx, with the 2nd metatarsophalangeal joint disrupted. 2. Fragment of bone extending into the region of a plantar ulceration at the level of the 2nd metatarsophalangeal joint. 3. Moderate subcutaneous soft tissue edema about much of the ankle and foot. 4. Lobulated gas and fluid in the soft tissues dorsally in the proximal aspects of the 3rd and 4th toes, extending into the plantar aspect of the 2nd toe more distally. Thank you for allowing us to participate in the care of your patient. Dictated and Authenticated by: Ino Moses MD Lab Data Lab results reviewed: Yes I reviewed the patient's lab results. Labs: 11/26/23 10:49 Blood Blood Culture - Pending 11/26/23 10:35 Blood Blood Culture - Pending Laboratory Tests Range/Units 11/26/23 10:35 WBC (4.4-10.8) 10^3/uL 14.88 H RBC (4.36-5.78) 10^6/uL 4.53 Hgb (13.5-17.5) g/dL 13.5 Hct (40.0-50.0) % 41.0 MCV (80-95) fL 91 MCH (27.0-33.0) pg 29.8 MCHC (32.0-36.0) % 32.9 RDW (11.8-14.1) % 12.7 Plt Count (130-400) 10^3/uL 352 MPV (8.0-11.0) fL 9.7 Immature Gran % 0.3 Neutrophils % 80.9 Lymphocytes % 9.1 Monocytes % 7.1 Eosinophils % 2.3 Basophils % 0.3 Nucleated RBC % (0.0-0.3) % 0.0 Absolute Neutrophils (1.2-6.7) 10^3/uL 12.04 H Absolute Lymphocytes (1.2-3.4) 10^3/uL 1.35 Absolute Monocytes (0.1-0.8) 10^3/uL 1.06 H Absolute Eosinophils (0.0-0.7) 10^3/uL 0.34 Absolute Basophils (0.0-0.2) 10^3/uL 0.04 ESR (0-20) mm/hr 45 H VBG Lactate (0.6-1.4) mmol/L 1.1 Sodium (136-145) mmol/L 141 Potassium (3.5-5.1) mmol/L 3.5 Chloride (98-107) mmol/L 103 Carbon Dioxide (21.0-32.0) mmol/L 29.4 Anion Gap (3-11) mmol/L 8.6 BUN (7-18) mg/dL 14 Creatinine (0.70-1.30) mg/dL 0.7 Est GFR (CKD-EPI 2020) (mL/min/1.73m2) 100.37 Glucose (74-106) mg/dL 114 H Calcium (8.5-10.1) mg/dL 9.4 Magnesium (1.8-2.4) mg/dL 2.1 Total Bilirubin (0.2-1.0) mg/dL 0.3 AST (15-37) U/L 11 L ALT (16-63) U/L 17 Alkaline Phosphatase (46-116) U/L 89 C-Reactive Protein (<or=0.5) mg/dL 8.86 H Total Protein (6.4-8.2) g/dL 8.3 H Albumin (3.4-5.0) g/dL 3.0 L Quality:SDOH Health Related Social Needs: 2 No Data to Display PFSH All Active Problems (Updated 11/26/23 @ 13:11 by Harman Johnson MD) Acute osteomyelitis of right foot (Acute) Diabetic ulcer of right foot (Acute) Diabetic neuropathy (Acute) Amputation toe (Acute) Corns and callosities (Acute) Osteomyelitis of left foot (Acute) Diabetic infection of left foot (Acute) Diabetic infection of right foot (Acute) Foot infection (Acute) Cellulitis (Acute) Foot ulcer, left (Acute) Routine general medical examination at a health care facility (Acute) Colonoscopy refused (Acute) Diabetes mellitus (Chronic) Low HDL (under 40) (Acute 09/13/17) Essential hypertension (Acute 05/09/13) Elevated fasting blood sugar (Acute 08/28/15) Dyslipidemia (Acute 05/17/13) PCEq 12.6%; declines statins Family History Mother Stroke Father Stroke Heart disease Social History Smoking/Tobacco Use Status: Never Smoking risk assessment performed?: Yes Alcohol Intake: never Counseling given: No Drug use: Never Caregiver/Support person: No Household members: none Housing: house Number of Children: 0 Communication Needs: Corrective Lenses Education Level: college Details: CCV Do you need help understanding health information?: Rarely Pets and animals: Yes Do you think of yourself as: straight/heterosexual Current gender identity: male and decline to answer What is your relationship status?: refused to answer How often do you talk on the phone with friends or family?: decline to answer How often do you get together with friends or relatives?: decline to answer How often do you attend scientology or adventist services?: decline to answer Do you belong to any clubs or organized social groups?: decline to answer Panel score (0-1 are the most socially isolated patients): 0 What type of physical activity do you participate in: walking and other Details: moving pellets Duration: > 90 minutes/day Frequency: daily Special maría needs: No Seatbelt use: always Drive intox or ride w/intox petrol tanker driver: No Working smoke detector in home: No Fire extinguisher in home: Yes Carbon monox detector in home: No Do you feel safe at home: Yes
[2023-11-26 10:42] LABS: Lactate 1.1 mmol/L (0.6-1.4)
[2023-11-26 10:44] LABS: Abs Immature Grans 0.04 10^3/uL (0.0-0.06); Absolute Eosinophil Count 0.34 10^3/uL (0.0-0.7); Absolute Monocyte Count 1.06 10^3/uL (0.1-0.8); Basophils % 0.3; Eosinophils % 2.3; HGB 13.5 g/dL (13.5-17.5); Immature Grans % 0.3; Lymphocytes % 9.1; MCH 29.8 pg (27.0-33.0); MCHC 32.9 % (32.0-36.0); MCV 91 fL (80-95); MPV 9.7 fL (8.0-11.0); Monocytes % 7.1; Neutrophils % 80.9; Platelet Count 352 10^3/uL (130-400); RBC 4.53 10^6/uL (4.36-5.78); RDW 12.7 % (11.8-14.1); RDW-SD 42.2 fL; WBC 14.88 10^3/uL (4.4-10.8)
[2023-11-26 10:46] LABS: Absolute Basophil Count 0.04 10^3/uL (0.0-0.2); Absolute Lymphocyte Count 1.35 10^3/uL (1.2-3.4); Absolute Neutrophil Count 12.04 10^3/uL (1.2-6.7); ESR 45 mm/hr (0-20)
[2023-11-26 10:59] LABS: ALT 17 U/L (16-63); AST 11 U/L (15-37); Alkaline Phosphatase 89 U/L (46-116); Anion Gap 8.6 mmol/L (3-11); BUN 14 mg/dL (7-18); Bilirubin, Total 0.3 mg/dL (0.2-1.0); C-Reactive Protein 8.86 mg/dL (<or=0.5); CO2 29.4 mmol/L (21.0-32.0); CREATININE 0.7 mg/dL (0.70-1.30); Calcium 9.4 mg/dL (8.5-10.1); Chloride 103 mmol/L (98-107); Estimated GFR 100.37 (mL/min/1.73m2); Glucose 114 mg/dL (74-106); Magnesium 2.1 mg/dL (1.8-2.4); Potassium 3.5 mmol/L (3.5-5.1); Sodium 141 mmol/L (136-145); Total Protein 8.3 g/dL (6.4-8.2)
[2023-11-26] MEDS: DOXYCYCLINE 100 MG in Normal Saline 100 ML IVPB (11:14)
--- NOTE | 2023-11-26 11:23 | DI.VRAD_ITS ---
PROCEDURE INFORMATION: Exam: CT Right Lower Extremity Without Contrast, Foot Exam date and time: 11/26/2023 10:59 AM Age: 68 years old Clinical indication: Other: Wound right foot TECHNIQUE: Imaging protocol: CT of the right lower extremity without contrast was performed. Exam focused on the foot. COMPARISON: MR LOWER EXTREMITY RT WO/W 08/25/2022 2:58 PM FINDINGS: Bones/joints: There are erosive changes of the 2nd metatarsal head and the base of the 2nd proximal phalanx, compatible with osteomyelitis, with the 2nd metatarsophalangeal joint disrupted. Some periosteal reaction is present about the 2nd metatarsal shaft proximal to this. Mild degenerative changes are present. Soft tissues: Moderate subcutaneous soft tissue edema is present about much of the ankle and foot. There is a plantar ulceration at the level of the 2nd metatarsophalangeal joint measuring approximately 1.2 x 1.6 cm in width, and up to 1.2 cm in depth. There is a fragment of bone here, presumably displaced from the 2nd metatarsal head or base of the 2nd proximal phalanx. Lobulated gas and fluid is also present in the soft tissues more dorsally, including in the proximal aspects of the 3rd and 4th toes dorsally, with extension into the plantar aspect of the 2nd toe more distally. This extends up to approximately 4.5 cm transverse, 4.9 cm proximal to distal and 2.6 cm AP, and is suggestive of abscess. IMPRESSION: 1. Erosive changes compatible with osteomyelitis involving the 2nd metatarsal head and the base of the 2nd proximal phalanx, with the 2nd metatarsophalangeal joint disrupted. 2. Fragment of bone extending into the region of a plantar ulceration at the level of the 2nd metatarsophalangeal joint. 3. Moderate subcutaneous soft tissue edema about much of the ankle and foot. 4. Lobulated gas and fluid in the soft tissues dorsally in the proximal aspects of the 3rd and 4th toes, extending into the plantar aspect of the 2nd toe more distally. Dictated and Authenticated by: Ino Moses MD. Ordering:RUFINO Arciniega MD
[2023-11-26] MEDS: CEFEPIME 2 GM in Normal Saline 100 ML IVPB (12:00)
--- NOTE | 2023-11-26 12:00 | DI.RAD_ITS ---
Exam(s) XR FOOT RT COMPLETE CT LOWER EXTREMITY RT WO EXAM: CT LOWER EXTREMITY RT WO and XR foot RT complete CLINICAL HISTORY: Wound Right foot. TECHNIQUE: Imaging Protocol: Axial computed tomography images with coronal and sagittal reformatted images were created and reviewed. Three x-ray views of the right foot were obtained. COMPARISON: CR,XR XR FOOT RT COMPLETE from 08/23/2022 CR,XR XR FOOT RT COMPLETE from 11/26/2023 FINDINGS: XR foot RT complete and CT foot RT without contrast: Bones: There are destructive changes of the head of the 2nd metatarsal. There is periosteal reactio n along the diaphysis of the 2nd metatarsal bone. There is an air-fluid collection seen on the dorsa l surface of the 3rd toe suggestive of an abscess. It measures at least 5 cm by 2.7 cm. There is ai r and soft tissue edema with a fluid collection on the the plantar surface of the 2nd toe centered at the 2nd MTP joint. This measures at least 4 cm x 2.0 cm. More mild soft tissue swelling is seen in the 1st, 4th and 5th toes of the foot. There is a 1 cm bony fragment, likely arising from the head of the 2nd metatarsal bone, seen in the soft tissues on the plantar surface of the foot. It is expos ed in the base of the wound on the plantar surface of the foot. There also destructive changes seen at the base of the proximal phalanx of the 2nd toe. The bones otherwise are intact and normally mine ralized. There is a moderate-sized spur at the plantar surface of the calcaneus. There is an enthes ophyte at the posterior calcaneus. There are mild degenerative changes seen in the foot. Soft Tissues: There is generalized soft tissue swelling of the foot. There is a gas and fluid seen i n the soft tissues along the plantar surface of the foot IMPRESSION: 1. Findings most consistent with osteomyelitis involving the base of the proximal phalanx of the 2nd toe and the 2nd metatarsal bone. 2. Air-fluid collection seen on the dorsal surface of the 3rd toe consistent with an abscess. 3. Area of ulceration and associated abscess on the plantar surface of the foot at the level of the 2 nd MTP joint. There is a fragment of bone, likely reflecting the head of the 2nd metatarsal bone, ex posed in the base of the ulcer. RADIATION DOSE DELIVERED: Total DLP Total DLP DATA REPOSITORY: All CT scans at this facility are submitted to the National Radiology Data Registry (NRDR) Dose Index Registry (DIR) with the [employer] (ACR). RADIATION OPTIMIZATION: All CT scans at this facility use at least one of these dose optimization te chniques: automated exposure control; mA and/or kV adjustment per patient size (includes targeted exa ms where dose is matched to clinical indication); or iterative reconstruction.
--- NOTE | 2023-11-26 12:54 | ANES.PREOP_ITS ---
General Info Date of Service Date Performed: 11/26/23 Height: 5 ft 10 in Weight: 76.204 kg Body Mass Index (BMI): 24.0 Meds Allergies and Home Medications Allergies Allergy/AdvReac Type Severity Reaction Status Date / Time Penicillins Allergy Hives Verified 10/18/23 09:39 lisinopril AdvReac Unknown Cough and Verified 10/18/23 09:39 light headed metoprolol AdvReac Unknown palpitation Verified 10/18/23 09:39 s Home Medication Medication Instructions Recorded blood sugar diagnostic (Accu-Chek #200 strips 04/08/21 Harmony Plus test strips) blood-glucose meter #1 ea 04/08/21 lancets #200 ea 04/08/21 hydrochlorothiazide 12.5 mg tablet 12.5 mg PO DAILY #90 tab-caps 04/19/23 losartan 100 mg tablet 100 mg PO DAILY #90 tab-caps 04/19/23 metformin 500 mg tablet,extended 1,000 mg (2 x 500 mg) PO DAILY 04/19/23 release 24 hr #180 tab-caps Current Visit Medications: Current Medications Generic Name Dose Route Start Last Admin Trade Name Freq PRN Reason Stop Dose Admin Vancomycin/PEG/NADA/Lysine/Water 1 gm in 200 mls @ 133.333 mls/hr 11/26/23 12:00 Vancocin Injection IVPB 11/26/23 13:29 NOW ONE IV Miscellaneous Supplies 1 each 11/26/23 10:30 Iv Access-Emergency Dept IV DIRECTED MAGGIE Sodium Chloride 0 ml 11/26/23 10:17 Normal Saline Flush 10 Ml Syr IVP PRN PRN Sodium Chloride 0 ml 11/26/23 20:00 Normal Saline Flush 10 Ml Syr IVP BID MAGGIE Sodium Chloride 0 ml 11/26/23 10:17 Normal Saline 10 Ml Vial IJ DIRECTED PRN PFSH Active Problems Active Problems: Problem Status Onset Code Acute osteomyelitis of right foot M86.171 Diabetic ulcer of right foot E11.621, L97.519 Diabetic neuropathy E11.40 Amputation toe S98.139A Corns and callosities L84 Osteomyelitis of left foot M86.9 Diabetic infection of left foot E11.628, L08.9 Diabetic infection of right foot E11.628, L08.9 Foot infection L08.9 Cellulitis L03.90 Foot ulcer, left L97.529 Routine general medical examination at a health care facility Z00.00 Colonoscopy refused Z53.20 Diabetes mellitus E11.9 Low HDL (under 40) 09/13/17 E78.6 Essential hypertension 05/09/13 I10 Elevated fasting blood sugar 08/28/15 R73.01 Dyslipidemia 05/17/13 E78.5 Tobacco Smoking/Tobacco Use Status: Never Alcohol Alcohol Intake: never Substance Use Substance use: Never Vital Signs and Lab Results Vital Signs Most Recent Vital Signs in EMR: Most Recent Vital Signs Temp Pulse Resp BP Pulse Ox 36.5 C 72 18 127/74 96 11/26/23 10:41 11/26/23 11:24 11/26/23 11:24 11/26/23 11:24 11/26/23 11:24 Point of Care Results Point of Care Results: Finger Stick Blood Glucose 119 11/26/23 10:18 Lab Results 11/26/23 10:35 11/26/23 10:35 Blood Type / Crossmatch: 2 No Data to Display Complete Blood Count: 2 White Blood Count 14.88 10^3/uL (4.4-10.8) H 11/26/23 10:35 Red Blood Count 4.53 10^6/uL (4.36-5.78) 11/26/23 10:35 Hemoglobin 13.5 g/dL (13.5-17.5) 11/26/23 10:35 Hematocrit 41.0 % (40.0-50.0) 11/26/23 10:35 Platelet Count 352 10^3/uL (130-400) 11/26/23 10:35 Venous Blood Lactate 1.1 mmol/L (0.6-1.4) 11/26/23 10:35 Complete Metabolic Panel: 2 Sodium 141 mmol/L (136-145) 11/26/23 10:35 Potassium 3.5 mmol/L (3.5-5.1) 11/26/23 10:35 Chloride 103 mmol/L (98-107) 11/26/23 10:35 Carbon Dioxide 29.4 mmol/L (21.0-32.0) 11/26/23 10:35 BUN 14 mg/dL (7-18) 11/26/23 10:35 Creatinine 0.7 mg/dL (0.70-1.30) 11/26/23 10:35 Est GFR (CKD-EPI 2020) 100.37 (mL/min/1.73m2) 11/26/23 10:35 Magnesium 2.1 mg/dL (1.8-2.4) 11/26/23 10:35 Calcium 9.4 mg/dL (8.5-10.1) 11/26/23 10:35 Albumin 3.0 g/dL (3.4-5.0) L 11/26/23 10:35 Glucose 114 mg/dL (74-106) H 11/26/23 10:35 C-Reactive Protein 8.86 mg/dL (<or=0.5) H 11/26/23 10:35 Liver Function Panel: 2 Alanine Aminotransferase (ALT/SGPT) 17 U/L (16-63) 11/26/23 10: 35 Aspartate Amino Transf (AST/SGOT) 11 U/L (15-37) L 11/26/23 10: 35 Coagulation Panel: 2 No Data to Display Cardiac Panel: 2 No Data to Display Arterial Blood Gas: 2 No Data to Display Venous Blood Gas: 2 No Data to Display Pancreas Panel: 2 No Data to Display Thyroid Panel: 2 No Data to Display Infectious Disease: 2 No Data to Display Blood Cultures: 2 No Data to Display Toxicology Panel: 2 No Data to Display Imaging and Studies Imaging and Studies Study information below may be from another EMR and interpreted by another provider. Please see original notes in EMR for more complete details. Echocardiogram Summary: 09/06: no official read yet in system. prelim read/calculations placed during exam: LVEF 62%, RVSP 26.7, AoV area/BSA 1.62, Anesthesia Assessment and Plan Anesthesia History Personal History: No History of Anesthesia Complications Family History: No Family History of Anesthesia Complications Exercise Tolerance Exercise Tolerance: Metabolic Equivalents>4 Pertinent Negatives Pertinent Negatives: No Symptoms of GERD, No Major Cardiovascular Symptoms or Complaints, No Major Pulmonary Symptoms or Complaints and No History of CVA/TIA Cardiac & Pulmonary Exam Cardiac Exam: Normal S1/S2 Heart Sounds Pulmonary Exam: Clear Bilateral Breath Sounds Implantable Cardiac Device Does patient have a Pacemaker or an ICD?: No Airway Exam Known Difficult Airway: No Mallampati Class: 3 Mouth Opening: Normal (> 3cm) Thyromental Distance: Greater than 3 cm Neck Range of Motion: Full ROM Neck Circumference: Normal Teeth Condition: Normal Dentition ASA Classification ASA Score: ASA 2 Emergency Case?: Yes NPO Status NPO Status: NPO Clears >2 hours, Solids >8 hours Anesthesia Plan Resuscitation Status: Full Code Anesthesia Technique: General Anesthesia Airway Planned: Natural Airway Monitors Used: Standard Monitors
--- NOTE | 2023-11-26 12:57 | DI.VRAD_ITS ---
PROCEDURE INFORMATION: Exam: XR Right Foot Exam date and time: 11/26/2023 12:47 PM Age: 68 years old Clinical indication: Condition or disease; Other: Wound TECHNIQUE: Imaging protocol: Radiologic exam of the right foot. Views: 3 or more views. COMPARISON: CT LOWER EXTREMITY RT WO 11/26/2023 10:59 AM FINDINGS: Bones/joints: There is again osseous destruction of the 2nd metatarsal head and the base of the 2nd proximal phalanx, corresponding to changes of osteomyelitis on the CT, again with some fragmentation plantar to the region. No other area of osseous erosion or cortical destruction is evident. There are again mild degenerative changes. Soft tissues: There is again gas in the soft tissues of the 2nd through 4th toes, with diffuse soft tissue swelling. IMPRESSION: Diffuse soft tissue swelling with gas in the soft tissues of the 2nd through 4th toes, with destructive changes of osteomyelitis involving the 2nd metatarsal head and 2nd proximal phalangeal base, as on CT of the same day. Dictated and Authenticated by: Ino Moses MD. Ordering:RUFINO Arciniega MD
[2023-11-26] MEDS: VANCOMYCIN/WATER (PEG) 1 GM/200 ML BAG IVPB (13:00)
--- NOTE | 2023-11-26 13:04 | OCONE_ITS ---
Date of service: 11/26/23 Time of Service: 12:45 History of Present Illness History of Present Illness Chief Complaint: RIght Foot Infection Narrative: Kevin is a 68-year-old who has a history of diabetes, otherwise well-controlled currently, and peripheral neuropathy. He reports having progressive deformity of the right foot with a plantar callus. He feels that over the past few weeks he has had increasing swelling about the foot and the toes along with an area of the bottom of the foot opening up. He was awaiting a visit with podiatry but due to the redness, swelling, discharge, he present to the emergency department. He reports a similar type scenario on the left foot over a year ago. He had an abscess around the left second toe which required amputation of the second toe which was also associated with sepsis requiring a prolonged hospital stay. He currently denies any fever, chills, chest pain, shortness of breath, nausea, vomiting. He feels that he has lost sensation in the right foot over the past few years and does not feel much past the heel or hindfoot. He denies any pain in other joints. Consults Consult date: 11/26/23 Requesting physician: Suze Craig Consult Reason Right foot osteomyelitis and abscess Assessment and Plan Assessment and plan (1) Diabetic ulcer of right foot: Status: Acute Qualifiers: Diabetic foot ulcer location: unspecified part of foot Diabetes mellitus type: type 2 Non-pressure ulcer stage: with necrosis of bone Qualified Code(s): E11.621 - Type 2 diabetes mellitus with foot ulcer; L97.514 - Non-pressure chronic ulcer of other part of right foot with necrosis of bone (2) Acute osteomyelitis of right foot: Status: Acute Assessment and plan: Kevin is a 68-year-old who has well-controlled diabetes but unfortunately poor sensation in his foot and has developed a significant infection about the right foot. He has obvious osteomyelitis of the second metatarsal and the second toe. There is also associated abscess and infection around the dorsal forefoot. At this point I would recommend proceeding relatively quickly with debridement which would include a partial ray amputation of the second. I should be able to address the dorsal abscess from the third and fourth from this position. However, I would recommend leaving this incision open to allow further drainage with a secondary closure in line. I think is imperative that we work to get source control so this does not become clinically any worse, as he experienced on the left side. I was very honest with him that I am concerned about the third toe as well and I still think it may need to be addressed surgically but at this point the plan would be for a second amputation. I also may utilize the services of other colleagues depending on timing for any subsequent cases. I reviewed the other options which would be local debridement with antibiotics although given the appearance of the bone on the CT scan I would not recommend this and would not perform that. I reviewed the risk of the procedure to include bleeding, infection continuation, need for repeat procedures, need for additional amputation, damage to nerves and vessels, prolonged swelling, wound healing difficulties, blood clot. Despite these risk, he elects to proceed. Review of Systems All systems reviewed & are unremarkable except as noted in HPI and below PFSH All Active Problems (Updated 11/26/23 @ 13:11 by Harman Johnson MD) Acute osteomyelitis of right foot (Acute) Diabetic ulcer of right foot (Acute) Diabetic neuropathy (Acute) Amputation toe (Acute) Corns and callosities (Acute) Osteomyelitis of left foot (Acute) Diabetic infection of left foot (Acute) Diabetic infection of right foot (Acute) Foot infection (Acute) Cellulitis (Acute) Foot ulcer, left (Acute) Routine general medical examination at a health care facility (Acute) Colonoscopy refused (Acute) Diabetes mellitus (Chronic) Low HDL (under 40) (Acute 09/13/17) Essential hypertension (Acute 05/09/13) Elevated fasting blood sugar (Acute 08/28/15) Dyslipidemia (Acute 05/17/13) PCEq 12.6%; declines statins Family History Mother Stroke Father Stroke Heart disease Social History Smoking/Tobacco Use Status: Never Smoking risk assessment performed?: Yes Alcohol Intake: never Counseling given: No Drug use: Never Caregiver/Support person: No Household members: none Housing: house Number of Children: 0 Communication Needs: Corrective Lenses Education Level: college Details: CCV Do you need help understanding health information?: Rarely Pets and animals: Yes Do you think of yourself as: straight/heterosexual Current gender identity: male and decline to answer What is your relationship status?: refused to answer How often do you talk on the phone with friends or family?: decline to answer How often do you get together with friends or relatives?: decline to answer How often do you attend rastafari or caodaism services?: decline to answer Do you belong to any clubs or organized social groups?: decline to answer Panel score (0-1 are the most socially isolated patients): 0 What type of physical activity do you participate in: walking and other Details: moving pellets Duration: > 90 minutes/day Frequency: daily Special maría needs: No Seatbelt use: always Drive intox or ride w/intox trolley coach driver: No Working smoke detector in home: No Fire extinguisher in home: Yes Carbon monox detector in home: No Do you feel safe at home: Yes Exam Const General: cooperative, comfortable, no acute distress and well developed HENMT Head: normal to inspection, normocephalic and atraumatic Neck Neck: normal visual inspection and no lymphadenopathy Resp Effort & Inspection: normal respiratory effort Auscultation: clear to auscultation bilaterally Cardio Rate: regular rate Rhythm: regular rhythm Extrem Other: Evaluation of the right lower extremity shows obvious deformity about the forefoot. There is some peripheral edema about the lower leg, 1+ at the mid tibia and about 2+ just above the ankle. The foot is globally edematous with obvious deformity. The fifth toe has a hyperextended position slightly overlapping the fourth ray. There is dorsal prominence and fluctuance over the second through fourth toes. There are a few areas where the skin feels thin and there are bulla, likely associate with underlying abscess. The second toe has purulence erupting through the skin around the toe itself along with a plantar wound likely over the second metatarsal head with a defect seen producing purulent discharge as well as bone at this base. Results Last Vital Signs Temp 36.5 C 11/26/23 10:41 Pulse 72 11/26/23 11:24 Resp 18 11/26/23 11:24 BP 127/74 11/26/23 11:24 Pulse Ox 96 11/26/23 11:24 Labs 11/26/23 10:35 11/26/23 10:35 Labs: Laboratory Results - last 24 hr 11/26/23 10:35 WBC 14.88 H RBC 4.53 Hgb 13.5 Hct 41.0 MCV 91 MCH 29.8 MCHC 32.9 RDW 12.7 Plt Count 352 MPV 9.7 Immature Gran % 0.3 Neutrophils % 80.9 Lymphocytes % 9.1 Monocytes % 7.1 Eosinophils % 2.3 Basophils % 0.3 Nucleated RBC % 0.0 Absolute Neutrophils 12.04 H Absolute Lymphocytes 1.35 Absolute Monocytes 1.06 H Absolute Eosinophils 0.34 Absolute Basophils 0.04 ESR 45 H VBG Lactate 1.1 Sodium 141 Potassium 3.5 Chloride 103 Carbon Dioxide 29.4 Anion Gap 8.6 BUN 14 Creatinine 0.7 Est GFR (CKD-EPI 2020) 100.37 Glucose 114 H Calcium 9.4 Magnesium 2.1 Total Bilirubin 0.3 AST 11 L ALT 17 Alkaline Phosphatase 89 C-Reactive Protein 8.86 H Total Protein 8.3 H Albumin 3.0 L Imaging Imaging Studies: CT scan of the right foot shows significant bony destruction of the base of the second toe proximal phalanx and the second metatarsal head with bony debris seen protruding in a plantar direction towards the plantar ulcer. There is fluid and air seen throughout the distal aspect of the foot around the second toe and extending over the dorsal aspect of the third and fourth toes. No other bony erosions are appreciated. No tracking air seen.
[2023-11-26] MEDS: ceFAZolin 2 GM/50 ML BAG 100 GM (13:15)
[2023-11-26] MEDS: Lactated Ringers 1,000 ML 30 ML IV (13:24)
--- NOTE | 2023-11-26 14:13 | W.PM.OP ---
Date of service: 11/26/23 Time of Service: 13:15 Operative Note Operative Note DATE OF PROCEDURE: 11/26/23 PRE-OP DIAGNOSIS: Right Diabetic Foot Infection, Foot Abscess, 2nd Ray Osteomyelitis POST-OP DIAGNOSIS: same PROCEDURE: Incision, irrigation, and debridement of the right foot abscess and infection Partial second ray amputation, right foot SURGEON: Harman Johnson ANESTHESIA TYPE: General:No Airway Refer to Anesthesia Record ESTIMATED BLOOD LOSS: 50 PATHOLOGY: other (Fluid as well as bone specimen sent to lab for anaerobic and aerobic culture) TOURNIQUET TIME: 0 COMPLICATIONS: None Patient was transported to: PACU Patient's condition: stable Indications: Kevin is a 68-year-old type II diabetic, otherwise in good control, who presents today with a longstanding but worsening ulcer about the right foot with active drainage. CT scan demonstrated complete loss of bone of the proximal phalanx and the metatarsal head of the second ray as well as significant mount of fluid and air suggestive of large abscess. Given the appearance of the foot with open wounds and bone exposed, I recommend we proceed with operative debridement as well as partial second ray amputation. I reviewed this with him in detail. He had a similar scenario in the left side, and thus understood this scenario. I reviewed the technical features of the case. I discussed risk to include bleeding, continued infection, need for repeat procedures, difficulty with ambulation, damage to nerves and vessels. I would also likely leave this packed and open for a second washout at a later date. All of his questions were answered. He elects to proceed. Findings: There is a large abscess between the second and third toes and dorsal to the third and fourth ray. Additionally, there was draining purulence from the second toe where the bone was quite soft and obliterated with a large fragment pointing plantarly. The head of the second metatarsal was obliterated and the remaining end of the second metatarsal is quite soft and was debrided back to healthier bone. Procedure Description: Kevin was greeted in the preoperative area. Consent and history physicals performed in the emergency department. He was brought to the operating room placed in the supine position on the operating table with the head of bed elevated. All bony prominences were well padded. Arms were placed out to the side, padded, and secured. A general, uninstrumented airway, anesthetic was administered. Prophylactic antibiotics, Cefazolin 2 grams, was given for prophylactic antibiotics in addition to the vancomycin obtained in the emergency department. A timeout was performed for safe surgery. The right leg was prepped with Chloraprep. The leg was draped with a extremity drape. The planned second toe, partial ray, amputation was then performed. There is a large ulceration plantarly and purulent discharge dorsally which Me from performing a horizontal fishmouth type amputation. Therefore, had to move vertically in order to get better tissue. This was drawn on the skin and then incised sharply down to bone and the second toe was removed, disarticulating itself from the remnant MTP joint. Bleeding was cauterized at the level of the digital vessels. Fragments of bone pointed plantarly as well as the remnant end of the segment of tarsal was debrided with a rongeur. There is a large pocket of fluid overlying the third and fourth toes and metatarsals. This had significant necrotic and purulent appearing material. The skin was quite thin in this area although not completely devitalized. A second pass with any debridement of necrotic material was performed. Then the wound was irrigated with 2 L normal saline. There was bleeding tissue everywhere. I systematically went through the wound to make sure there is no other areas of purulence. I inspected these cavities and areas of concern to make sure there is no remaining purulent material. After this debridement was performed an additional 1 L normal saline was rinsed through the wound itself. Given the amount of purulence which was encountered, particular that extending over the third and fourth toe I decided to pack the wound with saline soaked gauze. This was then covered by dry gauze, ABD, Kerlix and then New wrap. Cultures from the fluid obtained around the toe as well as a portion of bone was sent to the lab for aerobic and anaerobic culture. At the end of the case, all counts were correct. Kevin tolerated procedure well. He was taken upstairs to his room suffering no notable complications. We will start him on broad-spectrum antibiotics and continue to follow the cultures. His previous left second toe infection grew a resistant variety of Staph epidermidis. He will be weightbearing as tolerated the right side through the heel only. I recommend relative bedrest except for bathroom privileges with strict elevation. Plan for return to the operating room likely on Tuesday.
[2023-11-26] MEDS: PIPERACILLIN/TAZO 4.5 GM in Normal Saline 100 ML IVPB ×2 (15:35→21:17)
[2023-11-26] MEDS: Normal Saline Flush 10 ML SYR (15:39)
--- NOTE | 2023-11-26 15:44 | W.PM.HP.N ---
Date of service: 11/26/23 Time of Service: 15:44 Assessment and Plan Assessment and plan (1) Acute osteomyelitis of right foot: Status: Acute Assessment and plan: s/p Incision, irrigation, and debridement of the right foot abscess and infection Partial second ray amputation, right foot continue Vancomycin and Zosyn pending blood and wound culture results elevate foot, give toradol and tylenol for pain. I have put him on scheduled Tylenol 1 gm po tid and ketorolac 15 mg IVP q6h prn. can also order prn ultram. will consult P.T. to help w/ ambulation/walking issues. patient needs to keep pressure off foot and for next 24hour should keep elevated to reduce edema lovenox for dvt prophylaxis protonix for GI prophylaxis (2) Diabetic ulcer of right foot: Status: Acute Qualifiers: Diabetic foot ulcer location: unspecified part of foot Diabetes mellitus type: type 2 Non-pressure ulcer stage: with necrosis of bone Qualified Code(s): E11.621 - Type 2 diabetes mellitus with foot ulcer; L97.514 - Non-pressure chronic ulcer of other part of right foot with necrosis of bone (3) Diabetic neuropathy: Status: Acute Assessment and plan: patient has been well controlled w/ just diet and metformin, A1C is 5.7% as of last month and prior A1c was also good. I told him that his provider might want to consider switching from metformin to either Jardiance or Farxiga or use combo of the two. The SGLT 2 inhibitors have been shown to lower incidence of diabetic renal failure and CHF. I will cover w/ low dose (insulin sensitive) sliding scale but I do not anticipate he will need much if any. Qualifiers: Diabetes mellitus type: type 2 Diabetes mellitus complication detail: diabetic polyneuropathy Qualified Code(s): E11.42 - Type 2 diabetes mellitus with diabetic polyneuropathy History of Present Illness History of Present Illness Chief Complaint: pain in right foot, infection in the foot Narrative: 68-year-old male with history of type 2 diabetes mellitus w/ peripheral neuropathy, (reported last A1C of 5.7%), essential hypertension, hyperlipidemia, GERD prioro admission to [facility] 08/25/22 to 09/03/22 with sepsis from MSSA bacteremia and MSSA and group G strep diabetic right foot wound infection but also had osteomyelitis of his left foot and underwent surgical debridement of his right foot wound and delayed closure of right foot wound and left 2nd ray partial resection. He had prolonged hospital stay and was on rehab at [facility] from 09/03/22 to 10/06/22. Today he presented w/ complaints of right foot wound infection discovered after he was shoveling snow and felt a pop sensation in his right foot 3 days ago. Today he noted that he had an open wound over his right 2nd toe. He came to the ED as he did not want to end up in sepsis like last time. In the ED he was found to have edematous right forefoot and lower tibia and ankle w/ fluctuance of the skin overlying toes 2 to 4 along w/ bullae and purulent discharge on the plantar surface over the 2nd MT head. X ray of his right foot demonstrated air fluid collection over the dorsal surface of the 3rd toe and ulcerations and associated abscess of the plantar surface of the foot at the level of the 2nd MTP joint along w/ fragment of bone reflecting the head of the 2nd MT exposed in the base of the ulcer. Labs were remarkable for WBC 14,800, CRP 8.8, normal lacate 1.1. otherwise no anemia, well controlled lipid profile from 11/15/23 and glycohemoglobin A1C of 5.7% as of 10/18/23. Blood cultures were obtained and patient was begun on cefepime and vancomycin. Postoperatively he has been placed on zosyn and vancomycin. Patient was seen by Dr. Johnson from orthopedics. He took the patient to the OR and performed Incision, irrigation, and debridement of the right foot abscess and infection Partial second ray amputation, right foot Patient is now admitted for further antibiotics and wound care to his right foot. Review of Systems All systems reviewed & are unremarkable except as noted in HPI and below Constitutional Constitutional: Denies chills and Denies fever(s) Cardiovascular Cardiovascular: Reports system reviewed and no additional complaints, except as documented Respiratory Respiratory: Reports system reviewed and no additional complaints, except as documented Gastrointestinal Gastrointestinal: Reports system reviewed and no additional complaints, except as documented Genitourinary Genitourinary: Reports system reviewed and no additional complaints, except as documented Neurologic Neurologic: Reports sensory deficit and Reports paresthesias Endocrine Endocrine: Reports system reviewed and no additional complaints, except as documented Hematologic/Lymphatic Hematologic/Lymphatic: Reports system reviewed and no additional complaints, except as documented PFSH All Active Problems (Updated 11/26/23 @ 17:20 by Mac August MD) Acute osteomyelitis of right foot (Acute) Diabetic ulcer of right foot (Acute) Diabetic neuropathy (Acute) Amputation toe (Acute) Corns and callosities (Acute) Osteomyelitis of left foot (Acute) Diabetic infection of left foot (Acute) Diabetic infection of right foot (Acute) Foot infection (Acute) Cellulitis (Acute) Foot ulcer, left (Acute) Routine general medical examination at a health care facility (Acute) Colonoscopy refused (Acute) Diabetes mellitus (Chronic) Low HDL (under 40) (Acute 09/13/17) Essential hypertension (Acute 05/09/13) Elevated fasting blood sugar (Acute 08/28/15) Dyslipidemia (Acute 05/17/13) PCEq 12.6%; declines statins Family History Mother Stroke Father Stroke Heart disease Social History Smoking/Tobacco Use Status: Never Smoking risk assessment performed?: Yes Alcohol Intake: never Counseling given: No Drug use: Never Caregiver/Support person: No Household members: none Housing: house Number of Children: 0 Communication Needs: Corrective Lenses Education Level: college Details: CCV Do you need help understanding health information?: Rarely Pets and animals: Yes Do you think of yourself as: straight/heterosexual Current gender identity: male and decline to answer What is your relationship status?: refused to answer How often do you talk on the phone with friends or family?: decline to answer How often do you get together with friends or relatives?: decline to answer How often do you attend anglican or religion services?: decline to answer Do you belong to any clubs or organized social groups?: decline to answer Panel score (0-1 are the most socially isolated patients): 0 What type of physical activity do you participate in: walking and other Details: moving pellets Duration: > 90 minutes/day Frequency: daily Special maría needs: No Seatbelt use: always 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 Working smoke detector in home: No Fire extinguisher in home: Yes Carbon monox detector in home: No Do you feel safe at home: Yes Meds Allergies and Home Medications Allergies Allergy/AdvReac Type Severity Reaction Status Date / Time Penicillins Allergy Hives Verified 11/26/23 13:05 lisinopril AdvReac Unknown Cough and Verified 11/26/23 13:05 light headed metoprolol AdvReac Unknown palpitation Verified 11/26/23 13:05 s Home Medications Medication Instructions Recorded Confirmed Type blood sugar diagnostic (Accu-Chek #200 strips 04/08/21 11/26/23 Rx Harmony Plus test strips) blood-glucose meter #1 ea 04/08/21 11/26/23 Rx lancets #200 ea 04/08/21 11/26/23 Rx hydrochlorothiazide 12.5 mg tablet 12.5 mg PO DAILY #90 tab-caps 04/19/23 11/26/23 Rx losartan 100 mg tablet 100 mg PO DAILY #90 tab-caps 04/19/23 11/26/23 Rx metformin 500 mg tablet,extended 1,000 mg (2 x 500 mg) PO DAILY 04/19/23 11/26/23 Rx release 24 hr #180 tab-caps Exam Narrative Exam Narrative: Thin elderly white male recognizes me from his last hospitalization in August and September 2022. He is alert oriented x 3 no acute distress HEENT is remarkable for poor dentition but no exudates, moist mucous membranes. Neck supple nontender no JVD normal carotid pulses no bruits no thyromegaly no cervical lymphadenopathy Lungs are clear to auscultation Heart is regular rate and rhythm without murmur rub or gallop Abdomen soft nontender nondistended no palpable masses or bruits Lower extremities right distal leg has 1+ pitting edema and 2+ pitting edema of the right ankle the right foot is bandaged and I did not take down the dressing since he just came back from the OR. I did pull down the bandage enough to check for pulses he has good dorsalis pedis and posterior tibialis pulse on the right foot as well as the left foot. Left leg and foot is without edema. He has deformities of all of his toes on left foot except the second toe is missing from previous amputation. Neuro exam grossly intact except he has markedly decreased sensation over both feet to light touch Results Imaging Imaging Studies: X-ray Right foot: 1. Findings most consistent with osteomyelitis involving the base of the proximal phalanx of the 2nd toe and the 2nd metatarsal bone. 2. Air-fluid collection seen on the dorsal surface of the 3rd toe consistent with an abscess. 3. Area of ulceration and associated abscess on the plantar surface of the foot at the level of the 2nd MTP joint. There is a fragment of bone, likely reflecting the head of the 2nd metatarsal bone, exposed in the base of the ulcer. Labs 11/26/23 10:35 11/26/23 10:35 Labs: Laboratory Results - last 24 hr 11/26/23 10:35 WBC 14.88 H RBC 4.53 Hgb 13.5 Hct 41.0 MCV 91 MCH 29.8 MCHC 32.9 RDW 12.7 Plt Count 352 MPV 9.7 Immature Gran % 0.3 Neutrophils % 80.9 Lymphocytes % 9.1 Monocytes % 7.1 Eosinophils % 2.3 Basophils % 0.3 Nucleated RBC % 0.0 Absolute Neutrophils 12.04 H Absolute Lymphocytes 1.35 Absolute Monocytes 1.06 H Absolute Eosinophils 0.34 Absolute Basophils 0.04 ESR 45 H VBG Lactate 1.1 Sodium 141 Potassium 3.5 Chloride 103 Carbon Dioxide 29.4 Anion Gap 8.6 BUN 14 Creatinine 0.7 Est GFR (CKD-EPI 2020) 100.37 Glucose 114 H Calcium 9.4 Magnesium 2.1 Total Bilirubin 0.3 AST 11 L ALT 17 Alkaline Phosphatase 89 C-Reactive Protein 8.86 H Total Protein 8.3 H Albumin 3.0 L Last Vital Signs Temp 36.1 C L 11/26/23 15:13 Pulse 71 11/26/23 15:13 Resp 16 11/26/23 15:13 BP 120/64 11/26/23 15:13 Pulse Ox 98 11/26/23 15:13 Time Spent Time spent with Patient: 55-74 minutes Time was spent: preparing to see the patient(eg.review tests), obtaining and/or reviewing separately otained hiistory, ordering medications,tests, procedures, referring, communicating with other health adult daycare coordinator, indepentently interpreting results, counseling the patient and care coordination
[2023-11-26] MEDS: Enoxaparin 40 MG/0.4 ML SYR SC (15:49)
[2023-11-26] MEDS: Acetaminophen 500 MG TAB 1000 MG PO (20:32)
[2023-11-27] MEDS: VANCOMYCIN/WATER (PEG) 1.25 GM/250 ML BAG IVPB (02:09)
[2023-11-27] MEDS: PIPERACILLIN/TAZO 4.5 GM in Normal Saline 100 ML IVPB ×4 (03:59→21:20)
[2023-11-27 07:10] LABS: Abs Immature Grans 0.02 10^3/uL (0.0-0.06); Absolute Basophil Count 0.02 10^3/uL (0.0-0.2); Absolute Eosinophil Count 0.34 10^3/uL (0.0-0.7); Absolute Lymphocyte Count 1.26 10^3/uL (1.2-3.4); Basophils % 0.2; Eosinophils % 3.8; HCT 35.5 % (40.0-50.0); HGB 11.6 g/dL (13.5-17.5); Immature Grans % 0.2; Lymphocytes % 14.1; MCH 29.6 pg (27.0-33.0); MCHC 32.7 % (32.0-36.0); MCV 91 fL (80-95); MPV 9.4 fL (8.0-11.0); Monocytes % 7.8; Neutrophils % 73.9; Platelet Count 308 10^3/uL (130-400); RBC 3.92 10^6/uL (4.36-5.78); RDW-SD 42.8 fL; WBC 8.94 10^3/uL (4.4-10.8)
[2023-11-27 07:20] LABS: Anion Gap 9.8 mmol/L (3-11); BUN 11 mg/dL (7-18); CO2 27.2 mmol/L (21.0-32.0); CREATININE 0.7 mg/dL (0.70-1.30); Calcium 8.8 mg/dL (8.5-10.1); Chloride 109 mmol/L (98-107); Estimated GFR 100.37 (mL/min/1.73m2); Glucose 102 mg/dL (74-106); Sodium 146 mmol/L (136-145)
[2023-11-27 07:27] VITALS: BP 104/60; PULSE 67; RESP 17; TEMP 36; O2SAT 97
--- NOTE | 2023-11-27 09:00 | W.PM.PROGNOT ---
Date of Service Date of service: 11/27/23 Time of Service: 09:00 Assessment and Plan Assessment and plan (1) Acute osteomyelitis of right foot: Status: Acute Assessment and plan: s/p Incision, irrigation, and debridement of the right foot abscess and infection Partial second ray amputation, right foot 11/26/23) POD#1 wound culture gram stain w/ rare GPC, will change to daptomycin (once daily use, good coverage for Staph and good bone penetration); continue Zosyn pending final ID and sensitivities of wound culture elevate foot, give toradol and tylenol for pain. I have put him on scheduled Tylenol 1 gm po tid and ketorolac 15 mg IVP q6h prn. can also order prn ultram. consult podiatry to co-manage w/ orthopedics, and to provide good podiatry care (patient has multiple calluses on other toes and deformities of toes that are set up for future diabetic foot/toe infections, needs good care of skin over his toes and feet and keep nails trimmed. will consult P.T. to help w/ ambulation/walking issues. patient needs to keep pressure off foot and for next 24hour should keep elevated to reduce edema lovenox for dvt prophylaxis protonix for GI prophylaxis (2) Diabetic ulcer of right foot: Status: Acute Qualifiers: Diabetic foot ulcer location: unspecified part of foot Diabetes mellitus type: type 2 Non-pressure ulcer stage: with necrosis of bone Qualified Code(s): E11.621 - Type 2 diabetes mellitus with foot ulcer; L97.514 - Non-pressure chronic ulcer of other part of right foot with necrosis of bone (3) Diabetic neuropathy: Status: Acute Assessment and plan: patient has been well controlled w/ just diet and metformin, A1C is 5.7% as of last month and prior A1c was also good. I told him that his provider might want to consider switching from metformin to either Jardiance or Farxiga or use combo of the two. The SGLT 2 inhibitors have been shown to lower incidence of diabetic renal failure and CHF. I will cover w/ low dose (insulin sensitive) sliding scale but I do not anticipate he will need much if any. Qualifiers: Diabetes mellitus type: type 2 Diabetes mellitus complication detail: diabetic polyneuropathy Qualified Code(s): E11.42 - Type 2 diabetes mellitus with diabetic polyneuropathy Subjective Subjective Interval history since last seen: Garry feels better today. No hypoglycemia. He states that he feels as if he has some more feeling in his right foot but no pain this morning. I explained to him that I would like to consolidate his antibiotic therapy to a regimen that not only will cover the appropriate organisms but will enable him to complete outpatient therapy which will entail 6 to 8 weeks of treatment. For now he will remain on Zosyn but I think since his gram stain is showing gram positive cocci, we can change his vancomycin to daptomycin 500 mg iv daily Exam Narrative Exam Narrative: Garry is lying in bed, alert and oriented, ate breakfast, no discomfort Right foot w/ 2+ edema of ankle and dorsum of foot, 1+ edema of distal tibia; no calf pain or swelling; color to foot looks good, strong pedal pulses Objective Last Vital Signs Temp 36.0 C L 11/27/23 07:27 Pulse 67 11/27/23 07:27 Resp 17 11/27/23 07:27 BP 104/60 11/27/23 07:27 Pulse Ox 97 11/27/23 07:27 Laboratory Results - last 24 hr 11/26/23 11/27/23 10:35 06:53 WBC 14.88 H 8.94 RBC 4.53 3.92 L Hgb 13.5 11.6 L Hct 41.0 35.5 L MCV 91 91 MCH 29.8 29.6 MCHC 32.9 32.7 RDW 12.7 13.0 Plt Count 352 308 MPV 9.7 9.4 Immature Gran % 0.3 0.2 Neutrophils % 80.9 73.9 Lymphocytes % 9.1 14.1 Monocytes % 7.1 7.8 Eosinophils % 2.3 3.8 Basophils % 0.3 0.2 Nucleated RBC % 0.0 0.0 Absolute Neutrophils 12.04 H 6.60 Absolute Lymphocytes 1.35 1.26 Absolute Monocytes 1.06 H 0.70 Absolute Eosinophils 0.34 0.34 Absolute Basophils 0.04 0.02 ESR 45 H VBG Lactate 1.1 Sodium 141 146 H Potassium 3.5 4.0 Chloride 103 109 H Carbon Dioxide 29.4 27.2 Anion Gap 8.6 9.8 BUN 14 11 Creatinine 0.7 0.7 Est GFR (CKD-EPI 2020) 100.37 100.37 Glucose 114 H 102 Calcium 9.4 8.8 Magnesium 2.1 Total Bilirubin 0.3 AST 11 L ALT 17 Alkaline Phosphatase 89 C-Reactive Protein 8.86 H Total Protein 8.3 H Albumin 3.0 L Time Spent with Patient Time Spent with Patient: 25-34 minutes Time was spent: preparing to see the patient(eg.review tests), ordering medications,tests, procedures, referring, communicating with other health home care music therapist (patient seen and discussed w/ Dr. Johnson), indepentently interpreting results, counseling the patient and care coordination
[2023-11-27 09:26] LABS: Lab Add On Test DONE
[2023-11-27 09:42] LABS: Creatine Kinase 31 U/L (39-308)
[2023-11-27] MEDS: DAPTOmycin 500 MG in Normal Saline 50 ML 100 MG IVPB (10:23)
--- NOTE | 2023-11-27 10:42 | INITIAL_ITS ---
Date of service: 11/27/23 Time of Service: 10:43 Care Management Initial Assmt Initial Assessment REASON FOR HOSPITALIZATION:: Acute osteomyelitis of right foot PREVIOUS FUNCTIONAL STATUS/SOCIAL/FAMILY SUPPORTS:: Garry resides alone in a single family home in in [place], [place] He has 2 brothers and 2 [id number] that live locally and are very supportive. Garry is and never had any children. 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 and is independent at baseline. CURRENT FUNCTIONAL STATUS:: Garry was lying in bed when CM met with him. He reported that he went to the OR yesterday to have a partial toe amputation. He stated that per MD, the plan will be for him to return to the OR tomorrow to close the wound, and that he will likely require continuous churn buttermaker IV antibiotics. He discussed his previous admission, when he remained at [facility] for a shelter course of IV antibiotics. He stated that he is hoping that this time the course will be once a day, and that he will be able to come into the infusion room, otherwise leading a normal life. Garry expressed good understanding of his plan of care. CM will continue to follow. ADVANCE DIRECTIVES:: On file; Pradip Oropeza listed as HCA. Has patient been provided with info about the portal/API?: Yes Did the patient sign up for the portal?: No CODE STATUS:: Full Code INSURANCE COVERAGE / FINANCIAL ISSUES:: [facility]; [facility] CURRENT HOME/COMMUNITY SERVICES/EQUIPMENT:: No current services. PRIMARY CARE PHYSICIAN:: Soni Ortega POTENTIAL DISCHARGE NEEDS:: Evaluations for further needs, follow up appointments. PATIENT/FAMILY EDUCATION NEEDS:: Review discharge instructions and limitations, discussion of self care needs including ask me three. ANTICIPATED BARRIERS TO DISCHARGE:: None identified. TRANSPORTATION:: Via private vehicle PLAN:: Anticipate Kevin will return home once medically cleared. Once his antibiotic course is known, CM will assist with options including home IV antibiotics, infusion room daily vs SWB at [facility]. He will be driven home via private vehicle by family. He will follow up with his PCP and discharge plan of care. CM will continue to follow. [facility] All Active Problems (Updated 11/26/23 @ 17:20 by Mac August MD) Acute osteomyelitis of right foot (Acute) Diabetic ulcer of right foot (Acute) Diabetic neuropathy (Acute) Amputation toe (Acute) Corns and callosities (Acute) Osteomyelitis of left foot (Acute) Diabetic infection of left foot (Acute) Diabetic infection of right foot (Acute) Foot infection (Acute) Cellulitis (Acute) Foot ulcer, left (Acute) Routine general medical examination at a health care facility (Acute) Colonoscopy refused (Acute) Diabetes mellitus (Chronic) Low HDL (under 40) (Acute 09/13/17) Essential hypertension (Acute 05/09/13) Elevated fasting blood sugar (Acute 08/28/15) Dyslipidemia (Acute 05/17/13) PCEq 12.6%; declines statins Family History Mother Stroke Father Stroke Heart disease Social History Smoking/Tobacco Use Status: Never Smoking risk assessment performed?: Yes Alcohol Intake: never Counseling given: No Drug use: Never Caregiver/Support person: No Household members: none Housing: house Number of Children: 0 Communication Needs: Corrective Lenses Education Level: college Details: CCV Do you need help understanding health information?: Rarely Pets and animals: Yes Do you think of yourself as: straight/heterosexual Current gender identity: male and decline to answer What is your relationship status?: refused to answer How often do you talk on the phone with friends or family?: decline to answer How often do you get together with friends or relatives?: decline to answer How often do you attend catholic or uatsdin services?: decline to answer Do you belong to any clubs or organized social groups?: decline to answer Panel score (0-1 are the most socially isolated patients): 0 What type of physical activity do you participate in: walking and other Details: moving pellets Duration: > 90 minutes/day Frequency: daily Special maría needs: No Seatbelt use: always Drive 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 or 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 Working smoke detector in home: No Fire extinguisher in home: Yes Carbon monox detector in home: No Do you feel safe at home: Yes SDOH(Care Management) Screening Will the Patient Participate in the Screening?: Yes Do you worry about having a steady place to live?: no Problems where you live: no known problems In the past 12 months, have you had to go without electric, gas, oil or water in your home?: no Have you or anyone in your house had to go without enough food to eat?: no Has lack of transportation kept you from medical appointments or from doing things needed for daily living?: no Has anyone in your support network made you feel unsafe for any reason?: no
--- NOTE | 2023-11-27 10:42 | PHA.REVIEW2 ---
Pharmacy Admission Review Admission Clinical Review Admission Pharmacy Review: (Updated 11/26/23 @ 17:20 by Mac August MD) Acute osteomyelitis of right foot (Acute) Diabetic ulcer of right foot (Acute) Diabetic neuropathy (Acute) Penicillins Allergy (Verified 11/26/23 13:05) Hives lisinopril Adverse Reaction (Unknown, Verified 11/26/23 13:05) Cough and light headed metoprolol Adverse Reaction (Unknown, Verified 11/26/23 13:05) palpitations Resuscitation Status Full Code Height 5 ft 10 in Weight 76.204 kg Pharmacy Admission Review Renal Dosing Renal Dosing: BUN 11 mg/dL (7-18) 11/27/23 06:53 Creatinine 0.7 mg/dL (0.70-1.30) 11/27/23 06:53 Medications needing adjustments: Reviewed (CrCl 76.2 mL/min) Anticoagulation Anticoagulation: Hgb 11.6 g/dL (13.5-17.5) L 11/27/23 06:53 Hct 35.5 % (40.0-50.0) L 11/27/23 06:53 Plt Count 308 10^3/uL (130-400) 11/27/23 06:53 Creatinine 0.7 mg/dL (0.70-1.30) 11/27/23 06:53 DVT Prophylaxis: Reviewed Medications: Enoxaparin (40mg daily) Relevant Labs Relevant Labs: ESR 45 mm/hr (0-20) H 11/26/23 10:35 Sodium 146 mmol/L (136-145) H 11/27/23 06:53 Potassium 4.0 mmol/L (3.5-5.1) 11/27/23 06:53 Chloride 109 mmol/L (98-107) H 11/27/23 06:53 Magnesium 2.1 mg/dL (1.8-2.4) 11/26/23 10:35 C-Reactive Protein 8.86 mg/dL (<or=0.5) H 11/26/23 10:35 Electrolytes, C-Reactive P, ESR: Reviewed (Na 146, Hgb decreased from 13.5 to 11.6) DM Control DM Control: Glucose 102 mg/dL (74-106) 11/27/23 06:53 Finger Stick Blood Glucose 101 0904 DM Control: Reviewed Insulin Dosing, Diabetic Medication: Has order for SS insulin. Home med metformin on hold while inpatient. Cardiac Review BP, HR, EF%: Reviewed (BP and HR WNL - BP has been on lower end) QTc Review QTc: Reviewed (412 from 08/26/22 - most recent EKG in patients file) IV to PO Switch IV Medications: Reviewed (Daptomycin, ketorolac and Zosyn) Home Meds Home Med List reviewed: Reviewed Relevent Home Meds Not ordered & why?: metformin (on hold while inpatient, has order for SS insulin), HCTZ and losartan. BP has been low during admission. If any issues with high blood pressure will reach out to provider. Current Meds Current Medication Order Review: Reviewed Pharmacy Antibiotic Review Relevant Labs: Relevant Labs 11/26/23 10:35 C-Reactive Protein 8.86 H Pharmacy Antibiotic Activity: Abx regimen adjustment and C/S review Comments: Patient is on Zosyn and daptomycin day 1. Per progress note, may be discontinuing Zosyn tomorrow. Will need a total of 6 to 8 weeks of treatment. Was initially put on vancomycin which was switched over this morning to the daptomycin. WBC decreased from 14.88 to 8.94. Cultures from toe, bone and blood are all pending, MRSA swab pending.
--- NOTE | 2023-11-27 11:12 | W.PM.PROGNOT ---
Date of Service Date of service: 11/27/23 Time of Service: 09:30 Assessment and Plan Assessment and plan (1) Acute osteomyelitis of right foot: Status: Acute (2) Diabetic ulcer of right foot: Status: Acute Assessment and plan: Garry is a 68-year-old type II diabetic otherwise well-controlled, who had a chronic ulcer which unfortunately became acutely infected with osteomyelitis as well as a dorsal foot abscess. He is now status post incision, irrigation, and debridement of the foot wound including a partial second ray amputation of the second ray. I left this packed due to the space and abscess dorsally about the foot as well as the overall necrosis and purulence which was encountered. However, he seems to be doing quite well. I will plan to recheck a C-reactive protein tomorrow. Initial Gram stain is showing gram-positive cocci. Dr. August and the medicine team is managing his overall medical course and will make antibiotic changes as indicated. I discussed this case with Dr. Espinosa as well. He had plan to see her already as an outpatient and does have other ulcerations and callosities about his feet for which she will need her care. She has some availability tomorrow and graciously agreed to help out with secondary washout, inspection and potential closure. If she is unable to tomorrow that I will try during lunch or at the end of the day. He should stay n.p.o. after midnight tonight. He may continue to weight-bear through his heel although I minimize any attempt at weightbearing at this point allowing the foot to stay strictly elevated for edema control. Qualifiers: Diabetic foot ulcer location: unspecified part of foot Diabetes mellitus type: type 2 Non-pressure ulcer stage: with necrosis of bone Qualified Code(s): E11.621 - Type 2 diabetes mellitus with foot ulcer; L97.514 - Non-pressure chronic ulcer of other part of right foot with necrosis of bone Subjective Subjective Interval history since last seen: Garry reports be doing well. He denies fevers or chills. He denies chest pain or shortness of breath. He feels that his sensation is actually improved. He denies any significant pain. He had no significant drainage noted by himself or nursing about the right foot. Initial Gram stain is revealing gram-positive cocci. Exam Narrative Exam Narrative: Sitting up in the hospital bed. No acute distress. Alert and oriented x 3. Evaluation of the right foot shows no expanding erythema. No drainage on the dressing. Objective Last Vital Signs Temp 36.0 C L 11/27/23 07:27 Pulse 67 11/27/23 07:27 Resp 17 11/27/23 07:27 BP 104/60 11/27/23 07:27 Pulse Ox 97 11/27/23 07:27 Laboratory Results - last 24 hr 11/27/23 11/27/23 06:53 12:00 WBC 8.94 RBC 3.92 L Hgb 11.6 L Hct 35.5 L MCV 91 MCH 29.6 MCHC 32.7 RDW 13.0 Plt Count 308 MPV 9.4 Immature Gran % 0.2 Neutrophils % 73.9 Lymphocytes % 14.1 Monocytes % 7.8 Eosinophils % 3.8 Basophils % 0.2 Nucleated RBC % 0.0 Absolute Neutrophils 6.60 Absolute Lymphocytes 1.26 Absolute Monocytes 0.70 Absolute Eosinophils 0.34 Absolute Basophils 0.02 Sodium 146 H Potassium 4.0 Chloride 109 H Carbon Dioxide 27.2 Anion Gap 9.8 BUN 11 Creatinine 0.7 Est GFR (CKD-EPI 2020) 100.37 Glucose 102 Calcium 8.8 Creatine Kinase 31 L Random Vancomycin Cancelled Add-On Test Request DONE Time Spent with Patient Time Spent with Patient: 25-34 minutes Time was spent: preparing to see the patient(eg.review tests), obtaining and/or reviewing separately otained hiistory, indepentently interpreting results, counseling the patient and care coordination
--- NOTE | 2023-11-27 11:21 | W.ANESPOSTOP ---
Postoperative Evaluation Date, Time and Location Date Performed: 11/27/23 Time Performed: 11:21 Patient Location: Med/Surg Vital Signs Most Recent Imported Vital Signs: Most Recent Vital Signs Temp Pulse Resp BP Pulse Ox 36.0 C L 67 17 104/60 97 11/27/23 07:27 11/27/23 07:27 11/27/23 07:27 11/27/23 07:27 11/27/23 07:27 Pain Score Most Recent Pain Score: Most Recent Pain Score Pain Level [Right Foot] 0 11/26/23 16:42 Pain Level 0 11/27/23 09:03 Assessment Mental Status: Awake (Alert & Oriented to Patient Baseline) Airway and Respiratory Function: Patent airway with normal (patient baseline) respiratory exam Cardiovascular Function: Hemodynamically Stable Hydration Status: Adequately Hydrated Nausea & Vomiting: No Nausea or Vomiting Pain: Pt. Denies Any Pain Peripheral Nerve Block: Patient did not receive a nerve block
[2023-11-27 12:02] LABS: MRSA PCR Negative (Negative)
[2023-11-27] MEDS: Insulin Aspart 300 UNITS/3 ML PEN SC (12:02)
[2023-11-27 12:03] VITALS: BP 127/65; PULSE 65; RESP 17; TEMP 36.5; O2SAT 96
--- NOTE | 2023-11-27 14:35 | PT.INIE ---
PT Notes Visit Reasons: Infection in foot Physical Therapy Inpatient Initial Evaluation Date: 11/27/2023 Referring Doctor: Edgar August MD PT Orders: PT CONSULT: Limited ability Precautions: Fall. Standard. WBAT on the R heel for essential transfers only and in-room ambulation to toilet only with AD as of this time, on strict elevation of R LE when in bed or recliner. Patient Profile/Admitting Diagnosis: Kevin is a 68-year-old male with diagnoses of acute osteomyelitis, diabetic ulcer with abscess, diabetic neuropathy of the R foot and is status post incision, irrigation, and debridement with partial second ray amputation on postoperative day 1. PMHX: All Active Problems (Updated 11/26/23 @ 17:20 by Mac August MD) Acute osteomyelitis of right foot (Acute) Diabetic ulcer of right foot (Acute) Diabetic neuropathy (Acute) Amputation toe (Acute) Corns and callosities (Acute) Osteomyelitis of left foot (Acute) Diabetic infection of left foot (Acute) Diabetic infection of right foot (Acute) Foot infection (Acute) Cellulitis (Acute) Foot ulcer, left (Acute) Routine general medical examination at a health care facility (Acute) Colonoscopy refused (Acute) Diabetes mellitus (Chronic) Low HDL (under 40) (Acute 09/13/17) Essential hypertension (Acute 05/09/13) Elevated fasting blood sugar (Acute 08/28/15) Dyslipidemia (Acute 05/17/13) PCEq 12.6%; declines statins Social History/Home Situation: Independent with all aspects fo ADLs prior to surgery. 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 Equipment Owned/DME: [employer] Subjective: Wants to go back to work as soon as he can. Reports no sensation on the top and underside of his R and L foot due to neuropathy. Agreeable to assessment of mobility using device. Objective: General Observation: Resting in bed. ADELINA wrap over postsurgical wound dressing in place. Mental Status: Alert and oriented as to person, place, time, and purpose. Able to pay attention, focus, and respond appropriately. Pain: None reported Vital Signs: Closley monitored by nursing staff ROM: Right Lower Extremity: Hip flexion WFL. Hip abduction WFL. Knee flexion WFL. Ankle dorsiflexion WFL. Ankle plantarflexion WFL. Left Lower Extremity: Hip flexion WFL. Hip abduction WFL. Knee flexion WFL. Ankle dorsiflexion WFL. Ankle plantarflexion WFL. Strength: Right Lower Extremity: Hip flexors 5/5. Hip abductors 5/5. Knee flexors 5/5. Knee extensors 5/5. Ankle dorsiflexors 3/5. Ankle plantarflexors 3/5. Left Lower Extremity: Hip flexors 5/5. Hip abductors 5/5. Knee flexors 5/5. Knee extensors 5/5. Ankle dorsiflexors 5/5. Ankle plantarflexors 5/5. Bed Mobility/Transfers: Rolling independent Supine to sit independent Sit to supine independent Sit to stand supervision with FWW Stand to sit supervision with FWW Bed to reclining chair supervision with FWW Reclining chair to bed supervision with FWW Gait: 20 feet from edge of bed to toilet seat using FWW with WBAT on the R LE. Emphasized essential transfers and short distance ambulation only for now until cleared by orthopedic surgeon/rn transitional/hospitalist. No report of pain. Good WB precaution compliance. Balance: Static Sitting: Normal Dynamic Sitting: Normal Static Standing: Fair Dynamic Standing: Fair Special Tests: Mobility Limitations Standardized Measure [facility] AM-PAC 6 clicks Basic Mobility Inpatient Short Form: Raw Score: 23 CMS Score: 11% deficit Informed Consent/Education: Patient was instructed in purpose of PT consult and plan of care. Agreeable to proceed with established PT POC to achieve personal goals. Also reviewed bed level exercises to B hip and knees that patient may do to optimize circulation to operated area Assessment: Patient presents with clinical signs and symptoms consistent with current/admitting diagnoses that have resulted to mobility limitations, gait instability, generalized weakness, and overall ADL decline as demonstrated by the following impairment level findings: 1. Decreased strength to R ankle major muscle groups 2. Impaired sitting/standing balance 3. Impaired activity tolerance 4. Limitation of joint range of motion in R ankle 5. Asensate on distal R foot Impairments are contributing to the following functional limitations: 1. Difficulty with ambulation without assistive device 2. Increased completion time for mobility ADL performance 3. Increased risk for falls 4. Difficulty with managing steps alone safely Patient is assessed as a 14059 low complexity based on the following: History: 68-year-old male with past medical history as indicated above Examination: Demonstrable impairment in strength, balance, and mobility level with underlying impairments and functional limitations as exhibited above as well as deficit score of 11% utilizing the [facility] Mobility Inpatient Short Form Presentation: Evolving Decision Makin moderate complexity Goals: Goals X1 week 1. Sit-Stand independent with FWW 2. Stand-Sit independent with FWW 3. Bed-Chair independent with FWW 4. Chair-Bed independent with FWW 5. Independent gait on level surface with use of FWW for at least 30 feet without report of pain nor dyspnea 6. Independent stair negotiation while holding onto B rails for at least 3 steps without report of pain nor dyspnea 7. Independent with home exercise program 8. Good static and dynamic standing balance/tolerance Plan of Care/Treatment Plan: 1-2x/day, 7 days/week x 1 week. Plan of care has been reviewed with the MEAT BLENDER providing the service under Physical Therapy direction. Initiate Physical Therapy intervention for pain management as needed, strengthening, bed mobility, transfers, gait, stairs, balance training, and use of assistive device. DISCHARGE RECOMMENDATIONS: [] Home with no services [] [X] Home with services. Patient will benefit from home health PT services in order to progress mobility level using least restrictive assistive ambulatory device, assess home safety, identify additional equipment needs, and establish a functional maintenance program that will increase ability of patient to remain at home. [] Home with outpatient PT [] [] SNF for continued rehabilitation [] [] [facility] [] [] SNF versus LTC based on ability to participate and progress [] TREATMENT CODE/TIME: 9716 1 x 15 minutes for 1 unit (14:35-14:50). Thank you for the opportunity to participate in the care of this patient. Gena Gutierrez PT, DPT, CLT [facility] [place], [place]
[2023-11-27 15:01] VITALS: BP 116/73; PULSE 65; RESP 17; TEMP 36; O2SAT 97
[2023-11-27] MEDS: Enoxaparin 40 MG/0.4 ML SYR SC (17:10)
[2023-11-27 23:55] VITALS: BP 111/66; PULSE 69; RESP 17; TEMP 36.1; O2SAT 93
[2023-11-28] VITALS (13 sets, daily range): BP systolic 95–133; BP diastolic 50–75; PULSE 55–67; RESP 16–19; TEMP 35.5–36.5; O2SAT 94–97; BMI 24.0
[2023-11-28] MEDS: Normal Saline Flush 10 ML SYR IVP ×2 (03:38→08:30)
[2023-11-28] MEDS: PIPERACILLIN/TAZO 4.5 GM in Normal Saline 100 ML IVPB ×5 (03:38→22:30)
--- NOTE | 2023-11-28 07:16 | W.PODCONSULT ---
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 He is s/p OR I&D with partial 2nd ray amputation by Dr. Johnson over the weekend. I am taking over care at this point. I recommend and agree with repeat wash out and possible delayed primary closure. Will use a wound VAC if unable to close this wound. I recommend continuing IV antibiotics. NWB strictly to the right foot at this time. Patient is NPO midnight. Planned procedure: Repeat washout with possible delayed primary closure vs wound vac application. No contraindications to the procedure at this time. History of Present Illness Narrative: 68 yo DM male patient seen for abscess to the right foot. Patient presented to the ER on 11/28/2023 with right foot wound and infection. Patient stated that he was shoveling snow last week and felt a pop and since then has had pain. At that time, on chart review it appears he had erythema and purulent drainage to the right forefoot. Patient was taken to the OR by Dr. Johnson where he had an I&D and partial second ray amputation to the right foot. He is s/p OR I&D to the Right foot by Dr. Johnson. I consulted to see and assume care going forward. Patient is now doing well bedside, denies pain, denies N/V/C/F/D/CP/SOB. He does report a similar event to the left foot. Review of Systems Musculoskeletal Comments: Yuryqian plascencia with recent partial amputation to the right 2nd ray Neurologic Comments: LOPS to the right foot PFSH All Active Problems Acute osteomyelitis of right foot (Acute) Diabetic ulcer of right foot (Acute) Diabetic neuropathy (Acute) Amputation toe (Acute) Corns and callosities (Acute) Osteomyelitis of left foot (Acute) Diabetic infection of left foot (Acute) Diabetic infection of right foot (Acute) Foot infection (Acute) Cellulitis (Acute) Foot ulcer, left (Acute) Routine general medical examination at a health care facility (Acute) Colonoscopy refused (Acute) Diabetes mellitus (Chronic) Low HDL (under 40) (Acute 09/13/17) Essential hypertension (Acute 05/09/13) Elevated fasting blood sugar (Acute 08/28/15) Dyslipidemia (Acute 05/17/13) PCEq 12.6%; declines statins Family History Mother Stroke Father Stroke Heart disease Social History Smoking/Tobacco Use Status: Never Smoking risk assessment performed?: Yes Alcohol Intake: never Counseling given: No Drug use: Never Caregiver/Support person: No Household members: none Housing: house Number of Children: 0 Communication Needs: Corrective Lenses Education Level: college Details: CCV Do you need help understanding health information?: Rarely Pets and animals: Yes Do you think of yourself as: straight/heterosexual Current gender identity: male and decline to answer What is your relationship status?: refused to answer How often do you talk on the phone with friends or family?: decline to answer How often do you get together with friends or relatives?: decline to answer How often do you attend religious or adventist services?: decline to answer Do you belong to any clubs or organized social groups?: decline to answer Panel score (0-1 are the most socially isolated patients): 0 What type of physical activity do you participate in: walking and other Details: moving pellets Duration: > 90 minutes/day Frequency: daily Special maría needs: No Seatbelt use: always Drive intox or ride w/intox otr refrigerated cdl truck driver: No Working smoke detector in home: No Fire extinguisher in home: Yes Carbon monox detector in home: No Do you feel safe at home: Yes Exam Extrem Other: Right LE physical exam: Derm: Incision noted to the right foot s/p partial ray amputation with I&D secondary to abscess, osteomyelitis and gas, now doing well, wound bed is healthy and granular, there is healthy bleeding noted, no purulence, no malodor, minimal to no soft tissue necrosis noted. Otherwise skin is warm, dry and supple, no other open lesion or ulceration, no erythema, no warmth, no proximal streaking Vasc: Pulses are palpable, CFT is brisk, skin is warm to touch Neuro: Light touch sensation is absent to the right foot. MSK: S/p Partial 2nd ray amputation to the right foot. Hammertoes noted. Results Last Vital Signs Temp 96.9 F L 11/27/23 23:55 Pulse 69 11/27/23 23:55 Resp 17 11/27/23 23:55 BP 111/66 11/27/23 23:55 Pulse Ox 93 11/27/23 23:55 Labs 11/27/23 06:53 11/27/23 06:53 Labs: Laboratory Results - last 24 hr 11/27/23 11/27/23 11/27/23 06:53 10:30 12:00 WBC 8.94 RBC 3.92 L Hgb 11.6 L Hct 35.5 L MCV 91 MCH 29.6 MCHC 32.7 RDW 13.0 Plt Count 308 MPV 9.4 Immature Gran % 0.2 Neutrophils % 73.9 Lymphocytes % 14.1 Monocytes % 7.8 Eosinophils % 3.8 Basophils % 0.2 Nucleated RBC % 0.0 Absolute Neutrophils 6.60 Absolute Lymphocytes 1.26 Absolute Monocytes 0.70 Absolute Eosinophils 0.34 Absolute Basophils 0.02 Sodium 146 H Potassium 4.0 Chloride 109 H Carbon Dioxide 27.2 Anion Gap 9.8 BUN 11 Creatinine 0.7 Est GFR (CKD-EPI 2020) 100.37 Glucose 102 Calcium 8.8 Creatine Kinase 31 L Random Vancomycin Cancelled MRSA (TEM-PCR) Negative Add-On Test Request DONE
[2023-11-28 07:18] LABS: C-Reactive Protein 2.53 mg/dL (<or=0.5)
--- NOTE | 2023-11-28 08:00 | ANES.PREOP_ITS ---
General Info Date of Service Date Performed: 11/28/23 Height: 5 ft 10 in Weight: 76.204 kg Body Mass Index (BMI): 24.0 Surgical Procedure: Operation Date: 11/26/23 12:55 Proposed Procedure Side Surgeon p Foot Toe Amputation Right Harman Johnson MD Actual Procedure Side Surgeon p INCISION, IRRIGATION, DEBRIDEMENT RIGHT FOOT ABSCESS, PARTIAL 2ND RAY AMPUTATION RIGHT FOOT Right Harman Johnson MD Pre-Op Diagnosis Post-Op Diagnosis RIGHT FOOT ABSCESS RIGHT FOOT ABSCESS, OSTEOMYELITIS Operation Date: 11/28/23 09:10 Proposed Procedure Side Surgeon p I&D Toe/Wound Closure Right Pauly Espinosa DPM Meds Allergies and Home Medications Allergies Allergy/AdvReac Type Severity Reaction Status Date / Time Penicillins Allergy Hives Verified 11/26/23 13:05 lisinopril AdvReac Unknown Cough and Verified 11/26/23 13:05 light headed metoprolol AdvReac Unknown palpitation Verified 11/26/23 13:05 s Home Medication Medication Instructions Recorded blood sugar diagnostic (Accu-Chek #200 strips 04/08/21 Harmony Plus test strips) blood-glucose meter #1 ea 04/08/21 lancets #200 ea 04/08/21 hydrochlorothiazide 12.5 mg tablet 12.5 mg PO DAILY #90 tab-caps 04/19/23 losartan 100 mg tablet 100 mg PO DAILY #90 tab-caps 04/19/23 metformin 500 mg tablet,extended 1,000 mg (2 x 500 mg) PO DAILY 04/19/23 release 24 hr #180 tab-caps Current Visit Medications: Current Medications Generic Name Dose Route Start Last Admin Trade Name Freq PRN Reason Stop Dose Admin Acetaminophen 1,000 mg 11/26/23 20:00 11/27/23 21:56 Acetaminophen 500 Mg Tab PO Not Given TID MAGGIE Acidophilus/Pectin 1 cap 11/28/23 08:30 Lactobacillus Acidophilus Cap PO DAILY MAGGIE Al Hydrox/Mg Hydrox/Simethicone 30 ml 11/26/23 14:51 Mylanta Suspension 30 Ml Cup PO Q2H PRN PRN Dextrose 0 gm 11/26/23 14:18 Glucose Oral Gel 15 Gm/37.5 Gm Tube PO 12/26/23 14:09 DIRECTED PRN Dextrose/Water 0 gm 11/26/23 14:18 Dextrose 50%-Water 25 Gm/50 Ml Syr IVP 12/26/23 14:09 DIRECTED PRN Docusate Sodium 100 mg 11/26/23 14:51 Docusate Sodium 100 Mg Cap PO TID PRN PRN Enoxaparin Sodium 40 mg 11/26/23 16:00 11/27/23 17:10 Enoxaparin 40 Mg/0.4 Ml Syr SC 40 mg Q24H MAGGIE Administration Piperacillin Sod/Tazobactam 100 mls @ 200 mls/hr 11/26/23 16:00 11/28/23 04:30 Sod 4.5 gm/ Sodium Chloride IVPB 12/26/23 15:59 Infused Q6H MAGGIE Infusion Sodium Chloride 500 mls @ 0 mls/hr 11/27/23 08:30 Saline 500ml Bag IV DIRECTED PRN As Directed Daptomycin 500 mg/ Sodium 50 mls @ 100 mls/hr 11/27/23 09:10 11/27/23 10:53 Chloride IVPB Infused DAILY MAGGIE Infusion IV Miscellaneous Supplies 1 each 11/27/23 08:30 Iv Access IV DIRECTED [facility] Insulin Aspart 0 units 11/26/23 17:00 11/27/23 17:10 Insulin Aspart 300 Units/3 Ml Pen SC 12/26/23 16:59 Not Given 0800,1200,1700 [facility] Protocol Ketorolac Tromethamine 15 mg 11/26/23 14:56 Ketorolac 15 Mg/Ml Vial IVP 12/01/23 14:55 Q6H PRN PRN Magnesium Hydroxide 30 ml 11/26/23 14:51 Milk Of Magnesia 30 Ml Cup PO DAILY PRN PRN Polyethylene Glycol 17 gm 11/26/23 14:51 Polyethylene Glycol 3350 17 Gm Packet PO DAILY PRN PRN Constipation Sodium Chloride 0 ml 11/27/23 08:30 11/28/23 03:38 Normal Saline Flush 10 Ml Syr IVP 10 ml PRN PRN Administration PFSH Active Problems Active Problems: Problem Status Onset Code Acute osteomyelitis of right foot M86.171 Diabetic ulcer of right foot E11.621, L97.519 Diabetic neuropathy E11.40 Amputation toe S98.139A Corns and callosities L84 Osteomyelitis of left foot M86.9 Diabetic infection of left foot E11.628, L08.9 Diabetic infection of right foot E11.628, L08.9 Foot infection L08.9 Cellulitis L03.90 Foot ulcer, left L97.656 Routine general medical examination at a health care facility Z00.00 Colonoscopy refused Z53.20 Diabetes mellitus E11.9 Low HDL (under 40) 09/13/17 E78.6 Essential hypertension 05/09/13 I10 Elevated fasting blood sugar 08/28/15 R73.01 Dyslipidemia 05/17/13 E78.5 Tobacco Smoking/Tobacco Use Status: Never Alcohol Alcohol Intake: never Substance Use Substance use: Never Vital Signs and Lab Results Vital Signs Most Recent Vital Signs in EMR: Most Recent Vital Signs Temp Pulse Resp BP Pulse Ox 36.1 C L 69 17 111/66 93 11/27/23 23:55 11/27/23 23:55 11/27/23 23:55 11/27/23 23:55 11/27/23 23:55 Point of Care Results Point of Care Results: Finger Stick Blood Glucose 101 11/27/23 21:28 Lab Results 11/27/23 06:53 11/27/23 06:53 Blood Type / Crossmatch: 2 No Data to Display Complete Blood Count: 2 White Blood Count 8.94 10^3/uL (4.4-10.8) 11/27/23 06:53 Red Blood Count 3.92 10^6/uL (4.36-5.78) L 11/27/23 06:53 Hemoglobin 11.6 g/dL (13.5-17.5) L 11/27/23 06:53 Hematocrit 35.5 % (40.0-50.0) L 11/27/23 06:53 Platelet Count 308 10^3/uL (130-400) 11/27/23 06:53 Venous Blood Lactate 1.1 mmol/L (0.6-1.4) 11/26/23 10:35 Complete Metabolic Panel: 2 Sodium 146 mmol/L (136-145) H 11/27/23 06:53 Potassium 4.0 mmol/L (3.5-5.1) 11/27/23 06:53 Chloride 109 mmol/L (98-107) H 11/27/23 06:53 Carbon Dioxide 27.2 mmol/L (21.0-32.0) 11/27/23 06:53 BUN 11 mg/dL (7-18) 11/27/23 06:53 Creatinine 0.7 mg/dL (0.70-1.30) 11/27/23 06:53 Est GFR (CKD-EPI 2020) 100.37 (mL/min/1.73m2) 11/27/23 06:53 Magnesium 2.1 mg/dL (1.8-2.4) 11/26/23 10:35 Calcium 8.8 mg/dL (8.5-10.1) 11/27/23 06:53 Albumin 3.0 g/dL (3.4-5.0) L 11/26/23 10:35 Glucose 102 mg/dL (74-106) 11/27/23 06:53 C-Reactive Protein 2.53 mg/dL (<or=0.5) H 11/28/23 06:10 Liver Function Panel: 2 Alanine Aminotransferase (ALT/SGPT) 17 U/L (16-63) 11/26/23 10: 35 Aspartate Amino Transf (AST/SGOT) 11 U/L (15-37) L 11/26/23 10: 35 Coagulation Panel: 2 No Data to Display Cardiac Panel: 2 Creatine Kinase 31 U/L (39-308) L 11/27/23 Arterial Blood Gas: 2 No Data to Display Venous Blood Gas: 2 No Data to Display Pancreas Panel: 2 No Data to Display Thyroid Panel: 2 No Data to Display Infectious Disease: 2 No Data to Display Blood Cultures: 2 No Data to Display Toxicology Panel: 2 No Data to Display Imaging and Studies Imaging and Studies Study information below may be from another EMR and interpreted by another provider. Please see original notes in EMR for more complete details. EKG Summary: Conclusion Sinus rhythm...normal P axis, V-rate 50- 99 Poor R wave progression 08/26/22 Echocardiogram Summary: 09/06: no official read yet in system. prelim read/calculations placed during exam: LVEF 62%, RVSP 26.7, AoV area/BSA 1.62, Anesthesia Assessment and Plan Anesthesia History Personal History: No History of Anesthesia Complications Family History: No Family History of Anesthesia Complications Exercise Tolerance Exercise Tolerance: Metabolic Equivalents>4 Pertinent Negatives Pertinent Negatives: No Major Cardiovascular Symptoms or Complaints, No Major Pulmonary Symptoms or Complaints and No History of CVA/TIA Cardiac & Pulmonary Exam Cardiac Exam: Normal S1/S2 Heart Sounds Pulmonary Exam: Clear Bilateral Breath Sounds Implantable Cardiac Device Does patient have a Pacemaker or an ICD?: No Airway Exam Known Difficult Airway: No Mallampati Class: 3 Mouth Opening: Normal (> 3cm) Thyromental Distance: Greater than 3 cm Neck Range of Motion: Full ROM Neck Circumference: Normal Teeth Condition: Normal Dentition ASA Classification ASA Score: ASA 2 Emergency Case?: No NPO Status NPO Status: NPO Clears >2 hours, Solids >8 hours Anesthesia Plan Resuscitation Status: Full Code Anesthesia Technique: General Anesthesia Airway Planned: Natural Airway Monitors Used: Standard Monitors Preoperative Comments:: 66 yo male with diabetic infection of the right foot. Sig PMHx: HTN, DM (Last A1C 5.7), GERD (well controlled), never smoker, occ EtOH. Blood sugar this am 107, no insulin needed.
[2023-11-28] MEDS: DAPTOmycin 500 MG in Normal Saline 50 ML 100 MG IVPB (08:30)
[2023-11-28] MEDS: Lactobacillus Acidophilus CAP 1 CAP PO (08:36)
--- NOTE | 2023-11-28 09:07 | PDOC.CMPRO ---
Date of service: 11/28/23 Time of Service: 09:07 Care Management Progress Note Progress Note Text Progress Note Text: S/O:Garry was sitting up in bed when CM met with him. He had another surgical procedure on his right foot and the open wound was closed. Garry will require an extended course of IV antibiotics when the appropriate antribiotic regimen has been identified. His preference would be to come [facility] if the antibiotic regimen can be once a day. Garry is currently non-weight bearing on his right (surgical) foot. A: Garry is a 68 year old man admitted on 11/27/23 with osteomyelitis P:Anticipate Kevin will return home once medically cleared. Once his antibiotic course is known, CM will assist with options including home IV antibiotics, infusion room daily vs SWB at [facility]. He will be driven home via private vehicle by family. He will follow up with his PCP and discharge plan of care. CM will continue to follow. SDOH(Care Management) Screening Will the Patient Participate in the Screening?: Yes Do you worry about having a steady place to live?: no Problems where you live: no known problems In the past 12 months, have you had to go without electric, gas, oil or water in your home?: no Have you or anyone in your house had to go without enough food to eat?: no Has lack of transportation kept you from medical appointments or from doing things needed for daily living?: no Has anyone in your support network made you feel unsafe for any reason?: no
--- NOTE | 2023-11-28 09:30 | PT.INNT ---
PT Notes Visit Reasons: Diabetic Right Foot Infection,Osteomyelitis Pt @surgery in the AM, will see later post surgery.
[2023-11-28] MEDS: Normal Saline 500 ML 30 ML IV (09:41)
[2023-11-28] MEDS: Lidocaine 1% Pres-Free 30 ML VIAL (09:51)
--- NOTE | 2023-11-28 10:38 | ROE_ITS ---
Date of service: 11/28/23 Time of Service: 09:30 Operative Note Operative Note DATE OF PROCEDURE: 11/26/23 PRE-OP DIAGNOSIS: Abscess, osteomyelitis, right foot POST-OP DIAGNOSIS: same PROCEDURE: Irrigation and debridement with delayed primary closure, right foot SURGEON: Pauly Espinosa ANESTHESIA TYPE: General:No Airway Refer to Anesthesia Record ESTIMATED BLOOD LOSS: 50 PATHOLOGY: other (Fluid as well as bone specimen sent to lab for anaerobic and aerobic culture) TOURNIQUET TIME: 0 Patient was transported to: PACU Patient's condition: stable Implants: None Indications: This is a 68-year-old diabetic male patient with right lower extremity infection status post OR I&D with partial right second ray amputation by Dr. Johnson on 11/26/2023. Podiatry was consulted to assume care going forward. Planned procedure today for today is repeat irrigation, debridement, possible delayed primary closure versus wound VAC application to the right foot. I discussed the procedure with the patient today. I discussed the risks benefits and possible complications including but not limited to pain, nerve pain, wound dehiscence, delayed healing, nonhealing, further infection, need for further surgery or amputation, pain, nerve pain, CRPS, prolonged use of IV antibiotics, DVT, PE, stroke TN or with anesthesia. Patient understands and assumes all risks. No guarantees or warranties were made or implied today. No contraindications noted to the procedure at this time. Findings: Healthy bleeding wound bed noted to the right foot. Procedure Description: Patient was identified in preop holding. Right lower extremity was examined and marked in preop holding. The patient was brought to the operating room placed on the operating table in supine position with the anesthesia team. After induction of anesthesia the right lower extremity was then scrubbed prepped and draped in the usual aseptic manner. Local anesthetic was infiltrated with 1% lidocaine plain about an mL. Next, the right foot wound was then explored very minimal to no necrotic tissue was noted to the process was mostly only plantarly. Overlying the right third toe is noted to be another wound which is appears to be incisional with mild coagulum noted at the site no soft tissue necrosis noted this morning indicates with the a large incision site at the second ray amputation site. The wounds were then irrigated with copious amounts of sterile saline. Any and all necrotic nonviable tissue was removed using a sterile #15 blade/rongeurs which was passed from the operative field. The site was then irrigated again. The site was then reapproximated and coapted using 2- 0 Prolene. Dressings were then applied with Xeroform gauze, 4 x 4, Kerlix and New wrap. Patient tolerated procedure and anesthesia well without send stable and assistance intact to the right lower extremity. Patient to be transferred to the floor when stable. Patient is to keep the right lower extremity elevated at all times. To keep the dressings clean dry and intact. Patient is to remain strictly nonweightbearing to the right lower extremity. Inspection as needed. I will see the patient tomorrow he is likely going to be okay for discharge at that point. Patient is to follow-up with an office within 7 days of discharge.
--- NOTE | 2023-11-28 11:00 | W.ANESPOSTOP ---
Postoperative Evaluation Date, Time and Location Date Performed: 11/28/23 Time Performed: 11:01 Patient Location: PACU Vital Signs Most Recent Imported Vital Signs: Most Recent Vital Signs Temp Pulse Resp BP Pulse Ox 36.5 C 60 16 115/63 97 11/28/23 10:48 11/28/23 10:48 11/28/23 10:48 11/28/23 10:48 11/28/23 10:48 Most Recent Vital Signs Temp Pulse Resp BP Pulse Ox 36.0 C L 67 17 104/60 97 11/27/23 07:27 11/27/23 07:27 11/27/23 07:27 11/27/23 07:27 11/27/23 07:27 Pain Score Most Recent Pain Score: Most Recent Pain Score Pain Level [Right Foot] 0 11/26/23 16:42 Pain Level 0 11/28/23 10:48 Assessment Mental Status: Awake (Alert & Oriented to Patient Baseline) Airway and Respiratory Function: Patent airway with normal (patient baseline) respiratory exam Cardiovascular Function: Hemodynamically Stable Hydration Status: Adequately Hydrated Nausea & Vomiting: No Nausea or Vomiting Pain: Pain is tolerable per patient Peripheral Nerve Block: Patient did not receive a nerve block
--- NOTE | 2023-11-28 12:39 | W.PM.PROGNOT ---
Date of Service Date of service: 11/28/23 Time of Service: 12:39 Assessment and Plan Assessment and plan (1) Acute osteomyelitis of right foot: Status: Acute Assessment and plan: -s/p Incision, irrigation, and debridement of the right foot abscess and infection -Partial second ray amputation, right foot 11/26/23) POD#2 -s/p irrigation and debridement with delayed primary closure of the right foot with Dr. Espinosa, POD#0 -wound culture gram stain w/ rare GPC, will change to daptomycin (once daily use, good coverage for Staph and good bone penetration); continue Zosyn pending final ID and sensitivities of wound culture -elevate foot, give toradol and tylenol for pain. -continue scheduled Tylenol 1 gm po tid and ketorolac 15 mg IVP q6h prn -[facility] podiatry and orthopedics co-management -will consult P.T. to help w/ ambulation/walking issues -lovenox for dvt prophylaxis -protonix for GI prophylaxis (2) Diabetic ulcer of right foot: Status: Acute Assessment and plan: -as noted above Qualifiers: Diabetic foot ulcer location: unspecified part of foot Diabetes mellitus type: type 2 Non-pressure ulcer stage: with necrosis of bone Qualified Code(s): E11.621 - Type 2 diabetes mellitus with foot ulcer; L97.514 - Non-pressure chronic ulcer of other part of right foot with necrosis of bone (3) Diabetic neuropathy: Status: Acute Assessment and plan: -patient has been well controlled w/ just diet and metformin, A1C is 5.7% as of last month and prior A1c was also good. -PCP may want to consider switching from metformin to either Jardiance or Farxiga or use combo of the two. T -continue low dose (insulin sensitive) sliding scale Qualifiers: Diabetes mellitus type: type 2 Diabetes mellitus complication detail: diabetic polyneuropathy Qualified Code(s): E11.42 - Type 2 diabetes mellitus with diabetic polyneuropathy Subjective Subjective Interval history since last seen: Patient states that he is feeling well after returning from the operating room this morning. He understands current plan is for ongoing wound care management, PT, and to work with pharmacy to schedule his antibiotic regimen so that he would be able to get daily infusions as an outpatient. Exam Narrative Exam Narrative: Well-appearing older gentleman laying in bed in no acute distress, ANO x 4, heart regular rhythm, lungs clear to auscultation bilaterally, abdomen soft, nontender, nondistended, right lower extremity wrapped in New bandage status post surgery Objective Last Vital Signs Temp 96.1 F L 11/28/23 12:01 Pulse 64 11/28/23 12:01 Resp 16 11/28/23 12:01 BP 116/73 11/28/23 12:01 Pulse Ox 96 11/28/23 12:01 Laboratory Results - last 24 hr 11/28/23 06:10 C-Reactive Protein 2.53 H Time Spent with Patient Time Spent with Patient: >50 minutes Time was spent: preparing to see the patient(eg.review tests), obtaining and/or reviewing separately otained hiistory, ordering medications,tests, procedures, referring, communicating with other health healthcare administration internship, indepentently interpreting results, counseling the patient and care coordination
--- NOTE | 2023-11-28 15:20 | PTTR_ITS ---
PT Notes Visit Reasons: Diabetic Right Foot Infection,Osteomyelitis Date: 11/28/23 PRECAUTIONS: NWB strictly to the right foot at this time. SUBJECTIVE: Pt in bed sleeping, agreed to participating with session. OBJECTIVE: surgical site covered with bandage, IV line on the right antecubital? PAIN: yes incision site VITALS: monitored by nursing? Therapeutic Activities 72733: Direct one-on-one instruction in dynamic activiti es to improve functional performance. ?? BED MOBILITY/TRANSFERS? Rolling L/R: independent Supine-sit: ? independent? Sit-supine: ? independent? Sit-stand: ?supervision? Stand-sit: ??supervision ? Bed-Chair:? ?supervision ? Chair-bed: supervision Provided skilled cues and instruction on performance and technique throughout. Gait Training 46190: Direct one-on-one instruction and skilled instruction in: Employing an assistive device Modified weight-bearing status Movement sequencing Turning and movement with proper form Provided verbal cues for equipment management and technique Provided instruction in gait pattern Patient education regarding pacing and breathing techniques to maximize activity tolerance? GAIT? Assistive Device: ??FWW? Weight bearing: NWB RLE Assist: ?SBA ? Distance:?? 10'? Deviation: ? LLE hop? Therapeutic Exercises 58396: Direct one-on-one instruction in therapeutic exercises to develop strength, endurance, range of motion and flexibility. Exercises Access Code: [email or web address] URL: [email or web address] Date: 11/28/2023 Prepared by: Parker Brenda Exercises - Clamshell with Resistance - 1 x daily - 7 x weekly - 1 sets - 10 reps - Hooklying Clamshell with Resistance - 1 x daily - 7 x weekly - 1 sets - 10 reps - Active Straight Leg Raise with Quad Set - 1 x daily - 7 x weekly - 1 sets - 10 reps - Supine Heel Slide - 1 x daily - 7 x weekly - 1 sets - 10 reps - Seated Hip Abduction with Resistance - 1 x daily - 7 x weekly - 1 sets - 10 reps - Seated Knee Extension with Resistance - 1 x daily - 7 x weekly - 1 sets - 10 reps - Single leg sit to stand with support on armrest - 1 x daily - 7 x weekly - 1 sets - 10 reps ASSESSMENT:?Pt show carry over of HEP from previous PT interaction, pt provided with blue theraband for resisted exercises, paper copy for guidance with HEP. pt education about recent change in weight bearing status of RLE from WBAT to NWB PLAN: Continue with balance training, global strengthening and general conditioning for improved safety, mobility and activity tolerance until pt is ready for DC. TREATMENT CODE/TIME: [id number] 25mins (3:00-3:25pm)
[2023-11-28] MEDS: Enoxaparin 40 MG/0.4 ML SYR SC (16:36)
[2023-11-28] MEDS: Insulin Aspart 300 UNITS/3 ML PEN SC (17:07)
--- NOTE | 2023-11-29 | DI.RAD_ITS ---
Exam(s) XR FOOT RT COMPLETE EXAM: XR FOOT RT COMPLETE CLINICAL HISTORY: serial films. Patient with osteomyelitis. TECHNIQUE: 2D digital imaging was performed of the right foot. Three images were obtained. AP, obl ique and lateral views were obtained. COMPARISON: CR,XR XR FOOT RT COMPLETE from 11/26/2023 FINDINGS: BONES: No acute fracture is present. There has been interval resection of the 2nd toe to the level of the distal diaphysis of the 2nd metatarsal bone. There is a moderate-sized plantar calcaneal spur. There is an enthesophyte at the posterior calcaneus. JOINTS: No dislocation present. There are degenerative changes seen in the foot and ankle. SOFT TISSUE: Normal. IMPRESSION: Interval resection of the 2nd toe to the level of the distal diaphysis of the 2nd metatarsal bone. DATA REPOSITORY: RADIATION DOSE DELIVERED:
[2023-11-29 00:03] VITALS: BP 122/68; PULSE 66; RESP 19; TEMP 36; O2SAT 95
[2023-11-29] MEDS: PIPERACILLIN/TAZO 4.5 GM in Normal Saline 100 ML IVPB ×4 (04:07→22:22)
[2023-11-29] MEDS: Normal Saline Flush 10 ML SYR IVP ×3 (04:07→22:22)
[2023-11-29 07:05] LABS: HGB 12.8 g/dL (13.5-17.5); MCH 30.1 pg (27.0-33.0); MCHC 33.7 % (32.0-36.0); MCV 89 fL (80-95); MPV 9.7 fL (8.0-11.0); Platelet Count 312 10^3/uL (130-400); RBC 4.25 10^6/uL (4.36-5.78); RDW 12.8 % (11.8-14.1); RDW-SD 42.2 fL; WBC 9.43 10^3/uL (4.4-10.8)
[2023-11-29 07:14] LABS: Anion Gap 8.4 mmol/L (3-11); BUN 11 mg/dL (7-18); CO2 25.6 mmol/L (21.0-32.0); CREATININE 0.8 mg/dL (0.70-1.30); Calcium 8.9 mg/dL (8.5-10.1); Chloride 109 mmol/L (98-107); Glucose 102 mg/dL (74-106); Sodium 143 mmol/L (136-145)
[2023-11-29 08:09] VITALS: BP 129/78; PULSE 65; RESP 18; TEMP 36; O2SAT 99
[2023-11-29] MEDS: metFORMIN C.R. 500 MG TABCR 1000 MG PO (08:34)
[2023-11-29] MEDS: Losartan 50 MG TAB 100 MG PO (08:34)
[2023-11-29] MEDS: Lactobacillus Acidophilus CAP 1 CAP PO (08:35)
[2023-11-29] MEDS: hydroCHLOROthiazide 12.5 MG TAB PO (08:35)
--- NOTE | 2023-11-29 08:45 | PGE_ITS ---
Date of Service Date of service: 11/29/23 Time of Service: 08:45 Assessment and Plan Assessment and plan (1) Acute osteomyelitis of right foot: Status: Acute Assessment and plan: -s/p Incision, irrigation, and debridement of the right foot abscess and infection -Partial second ray amputation, right foot 11/26/23) POD#3 -s/p irrigation and debridement with delayed primary closure of the right foot with Dr. Espinosa, POD#1 -wound culture gram stain w/ rare GPC, will change to daptomycin (once daily use, good coverage for Staph and good bone penetration); continue Zosyn pending final ID and sensitivities of wound culture -elevate foot, give toradol and tylenol for pain. -Discussed with Dr. Espinosa; f/u right foot xray ordered; if all clear, can DC home with 6 week course of PO ciprofloxacin 750mg BID -continue scheduled Tylenol 1 gm po tid and ketorolac 15 mg IVP q6h prn -[facility]rec[facility] podiatry and orthopedics co-management -will consult P.T. to help w/ ambulation/walking issues -lovenox for dvt prophylaxis -protonix for GI prophylaxis (2) Diabetic ulcer of right foot: Status: Acute Assessment and plan: -as noted above Qualifiers: Diabetes mellitus type: type 2 Diabetic foot ulcer location: unspecified part of foot Non-pressure ulcer stage: with necrosis of bone Qualified Code(s): E11.621 - Type 2 diabetes mellitus with foot ulcer; L97.514 - Non-pressure chronic ulcer of other part of right foot with necrosis of bone (3) Diabetic neuropathy: Status: Acute Assessment and plan: -patient has been well controlled w/ just diet and metformin, A1C is 5.7% as of last month and prior A1c was also good. -PCP may want to consider switching from metformin to either Jardiance or Farxiga or use combo of the two. T -continue low dose (insulin sensitive) sliding scale Qualifiers: Diabetes mellitus complication detail: diabetic polyneuropathy Diabetes mellitus type: type 2 Qualified Code(s): E11.42 - Type 2 diabetes mellitus with diabetic polyneuropathy Subjective Subjective Interval history since last seen: Patient states that he is doing well this morning, and understands that we are awaiting final culture results in order to determine which antibiotic he can be discharged with for daily infusion. Otherwise he has no complaints or concerns at this time. Exam Narrative Exam Narrative: Well-appearing older gentleman laying in bed in no acute distress, ANO x 4, heart regular rhythm, lungs clear to auscultation bilaterally, abdomen soft, nontender, nondistended, right lower extremity wrapped in New bandage status post surgery Objective Last Vital Signs Temp 96.8 F L 11/29/23 08:09 Pulse 65 11/29/23 08:09 Resp 18 11/29/23 08:09 BP 129/78 11/29/23 08:09 Pulse Ox 99 11/29/23 08:09 Laboratory Results - last 24 hr 11/29/23 06:36 WBC 9.43 RBC 4.25 L Hgb 12.8 L Hct 38.0 L MCV 89 MCH 30.1 MCHC 33.7 RDW 12.8 Plt Count 312 MPV 9.7 Sodium 143 Potassium 4.0 Chloride 109 H Carbon Dioxide 25.6 Anion Gap 8.4 BUN 11 Creatinine 0.8 Est GFR (CKD-EPI 2020) 96.40 Glucose 102 Calcium 8.9 Time Spent with Patient Time Spent with Patient: >50 minutes Time was spent: preparing to see the patient(eg.review tests), obtaining and/or reviewing separately otained hiistory, ordering medications,tests, procedures, referring, communicating with other health health and social care teacher, indepentently interpreting results, counseling the patient and care coordination
[2023-11-29] MEDS: Normal Saline 500 ML 30 ML IV (08:54)
[2023-11-29] MEDS: DAPTOmycin 500 MG in Normal Saline 50 ML 100 MG IVPB (08:57)
--- NOTE | 2023-11-29 08:59 | CMPROGNOTE_ITS ---
Date of service: 11/29/23 Time of Service: 08:59 Care Management Progress Note Progress Note Text Progress Note Text: S/O:Garry was sitting up in bed when CM met with him. He was in good spirits and informed CM that Dr. Espinosa had been in this morning and changed his dressing. He reported that she was very pleased with the appearance of his wound and that she would see him in her office for a dressing change next week. She also informed him that he needs to remain totally non-weight bearing on his right foot. Garry stated he was surprised to learn that he may be able to discharge later this week. Garry's culture results have just been finalized and he has been found to have Pseudomonas aeruginosa as well as Staph aureus. Final antibiotic choice and regimen will be determined. If the antibiotic can be administered once a day, Garry's preference would be to come to the infusion center for his treatment. A: Garry is a 68 year old man admitted to [facility] on 11/26/23 with osteomyelitis P:Anticipate Kevin will return home once medically cleared. Once his antibiotic course is known, CM will assist with options including home IV antibiotics, infusion room daily vs SWB at [facility]. He will be driven home via private vehicle by family. He will follow up with his PCP and discharge plan of care. CM will continue to follow. SDOH(Care Management) Screening Will the Patient Participate in the Screening?: Yes Do you worry about having a steady place to live?: no Problems where you live: no known problems In the past 12 months, have you had to go without electric, gas, oil or water in your home?: no Have you or anyone in your house had to go without enough food to eat?: no Has lack of transportation kept you from medical appointments or from doing things needed for daily living?: no Has anyone in your support network made you feel unsafe for any reason?: no
--- NOTE | 2023-11-29 09:36 | PGE_ITS ---
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 Incision site healing very well at this time well coapted with sutures in place no signs of dehiscence at this time. Dressings were changed today with Xeroform gauze, 4 x 4, Kerlix and New wrap. CRP trending down. The foot appears to have excellent source control at this time. I do recommend continuing IV antibiotics at this time likely for about 6 weeks overall. Patient to remain strictly nonweightbearing to the right lower extremity. May use crutches or a walker for assist. I recommend keeping the dressings clean dry and intact at all times. Patient is okay to be discharged from a podiatry standpoint no further intervention is indicated. I recommend follow-up in office within 7 days of discharge Subjective Subjective Interval history since last seen: Patient was seen bedside today resting comfortably. Offers no new complaints today. States that the worst part of his stay was provided which was not moving. Otherwise denies pain to his feet. Denies events overnight. He is status post ORIF I&D with partial secondary amputation date of surgery 11/26/2023. With repeated washout and delayed primary closure on 11/28/2023. Exam Extrem Other: Right LE physical exam: Derm: Incision site to the right foot second ray amputation site and dorsal third is noted to be clean dry and intact with sutures in place without any signs of dehiscence, mild sanguinous drainage noted to the inner layer dressings which is dry at this time. No periwound erythema noted no purulence no fluctuance no malodor no crepitus no proximal streaking. Vasc: Pulses are palpable, CFT is brisk, skin is warm to touch Neuro: Light touch sensation is absent to the right foot. MSK: S/p Partial 2nd ray amputation to the right foot. Hammertoes noted. Objective Last Vital Signs Temp 96.8 F L 11/29/23 08:09 Pulse 65 11/29/23 08:09 Resp 18 11/29/23 08:09 BP 129/78 11/29/23 08:09 Pulse Ox 99 11/29/23 08:09 Laboratory Results - last 24 hr 11/29/23 06:36 WBC 9.43 RBC 4.25 L Hgb 12.8 L Hct 38.0 L MCV 89 MCH 30.1 MCHC 33.7 RDW 12.8 Plt Count 312 MPV 9.7 Sodium 143 Potassium 4.0 Chloride 109 H Carbon Dioxide 25.6 Anion Gap 8.4 BUN 11 Creatinine 0.8 Est GFR (CKD-EPI 2020) 96.40 Glucose 102 Calcium 8.9 Time Spent with Patient Time Spent with Patient: 25-34 minutes Time was spent: preparing to see the patient(eg.review tests), obtaining and/or reviewing separately otained hiistory, indepentently interpreting results, counseling the patient and care coordination
[2023-11-29 15:17] VITALS: BP 113/69; PULSE 65; RESP 17; TEMP 36.5; O2SAT 99
[2023-11-29] MEDS: Enoxaparin 40 MG/0.4 ML SYR SC (16:31)
[2023-11-29 20:05] VITALS: BP 119/64; PULSE 69; RESP 16; TEMP 36; O2SAT 98
[2023-11-29 22:15] VITALS: BP 111/74; PULSE 66; RESP 16; TEMP 36.6; O2SAT 95
[2023-11-30] MEDS: PIPERACILLIN/TAZO 4.5 GM in Normal Saline 100 ML IVPB (03:53)
[2023-11-30] MEDS: Normal Saline Flush 10 ML SYR IVP (03:53)
[2023-11-30 08:00] VITALS: BP 125/75; PULSE 56; RESP 16; TEMP 35.4; O2SAT 96
[2023-11-30] MEDS: hydroCHLOROthiazide 12.5 MG TAB PO (08:50)
[2023-11-30] MEDS: Losartan 50 MG TAB 100 MG PO (08:50)
[2023-11-30] MEDS: Lactobacillus Acidophilus CAP 1 CAP PO (08:50)
[2023-11-30] MEDS: Ciprofloxacin 250 MG TAB 750 MG PO (08:50)
[2023-11-30] MEDS: metFORMIN C.R. 500 MG TABCR 1000 MG PO (08:51)
--- NOTE | 2023-11-30 09:28 | W.PM.DS.N ---
Date of service: 11/30/23 Time of Service: 09:34 DS: Diagnosis Discharge Diagnosis (1) Acute osteomyelitis of right foot: Status: Acute Asessment and Plan: -s/p Incision, irrigation, and debridement of the right foot abscess and infection -Partial second ray amputation, right foot 11/26/23) -s/p irrigation and debridement with delayed primary closure of the right foot with Dr. Espinosa, 11/27 -wound culture gram stain w/ rare GPC, will change to daptomycin (once daily use, good coverage for Staph and good bone penetration); had been on Zosyn until final ID and sensitivities of wound culture -elevate foot, give toradol and tylenol for pain. -Discussed with Dr. Espinosa; f/u right foot xray ordered; given normal right foot xray, can DC home with 6 week course of PO ciprofloxacin 750mg BID (2) Diabetic ulcer of right foot: Status: Acute (3) Diabetic neuropathy: Status: Acute Asessment and Plan: -patient has been well controlled w/ just diet and metformin, A1C is 5.7% as of last month and prior A1c was also good. -PCP may want to consider switching from metformin to either Jardiance or Farxiga or use combo of the two Discharge Plan Disposition Patient Disposition: Home Condition: Good Discharge Details Reason For Visit: Diabetic Right Foot Infection,Osteomyelitis Admit Date/Time: 11/26/23 12:48 Admit Provider: Mac August Attending Provider: Harman Johnson Primary Care Provider: Soin Ortega Hospital Course Hospital Course: Patient initially presented with diabetic right foot infection and osteomyelitis requiring multiple washouts and procedures with orthopedic surgery and podiatry. Ultimately, his wound cultures grew MSSA and Pseudomonas. Given that the patient had source control with surgical intervention, and that both organisms were sensitive to ciprofloxacin, decision was made for patient to be discharged with 750 mg of p.o. ciprofloxacin for 6 weeks course of antibiotics and to have close follow-up with podiatry as outpatient. Home Meds and New Rx's Prescriptions: New ciprofloxacin HCl 250 mg Tablet 750 mg PO BID 42 Days Qty: 252 0RF Continued hydrochlorothiazide 12.5 mg tablet 12.5 mg PO DAILY Qty: 90 4RF losartan 100 mg tablet 100 mg PO DAILY Qty: 90 3RF metformin 500 mg tablet extended release 24 hr 1,000 mg PO DAILY Qty: 180 3RF No Action (DME) lancets Misc 1 ea Miscellaneous BID Qty: 200 6RF Rx Instructions: Monitor BSs BID (DME) Accu-Chek Harmony Plus test strp Strip 1 ea Miscellaneous BID Qty: 200 6RF Rx Instructions: Diabetes. Check BID/PRN (DME) blood-glucose meter Misc Miscellaneous DAILY Qty: 1 0RF Rx Instructions: As directed Discharge Instructions Stand Alone Forms: Nursing Discharge Form Activity:: Activity as Tolerated Equipment/Supplies:: No Equipment Needed Diet:: As Tolerated Discharge Orders Discharge Orders: Discharge Order (Routine); Ordered 11/30/23 Ordered By: Musa Adames DS: Summary Time Spent with Patient providing and/or coordinating discharge services: Greater than 30 minutes Status at Discharge Functional status at discharge: independent ambulation Overall status at discharge: patient is back to baseline Mental Status: mental status grossly normal Speech and Movement: speech and movement normal Mood: congruent mood Affect: normal affect Quality:SDOH Health Related Social Needs: No Data to Display Exam Narrative Exam Narrative: Well-appearing older gentleman laying in bed in no acute distress, ANO x 4, heart regular rhythm, lungs clear to auscultation bilaterally, abdomen soft, nontender, nondistended, right lower extremity wrapped in New bandage status post surgery Psych Mental Status: mental status grossly normal Speech and Movement: speech and movement normal Mood: congruent mood Affect: normal affect DS: Data Vitals/I&O Vitals and I&O: Vital Signs Temperature 95.7 F L 11/30/23 08:00 Temperature Source Tympanic 11/30/23 08:00 Pulse 56 L 11/30/23 08:00 Pulse Rhythm Regular 11/29/23 20:05 Pulse Strength Normal 11/26/23 13:03 Respiratory Rate 16 11/30/23 08:00 Respiratory Effort Normal, Non-Labored 11/29/23 20:05 Respiratory Depth Normal 11/29/23 20:05 Respiratory Pattern Normal 11/29/23 20:05 Blood Pressure 125/75 11/30/23 08:00 Blood Pressure Mean 97 11/26/23 13:03 Blood Pressure Position Sitting 11/26/23 13:03 Pulse Oximetry 96 11/30/23 08:00 Respiratory End-tidal CO2 34 11/28/23 10:48 Oxygen Delivery Method Room Air 11/30/23 08:00 Oxygen Flow Rate 0 11/30/23 08:00 Pain Level 0 11/30/23 08:00 Intake & Output 11/29/23 11/30/23 11/30/23 17:59 05:59 17:59 Intake Total 275.5 / 275.5 200 / 475.5 Balance 275.5 / 275.5 200 / 475.5 Intake: IV 275.5 / 275.5 200 / 475.5 Other: Urine Color Yellow Urine Appearance Clear Clear Comment pt voided independently. Voiding Methods Toilet Data Completed and Pending Labs on day of discharge: Preliminary micro results at discharge 11/26/23 10:49 Blood Culture - Preliminary Blood NO GROWTH 72 HOURS 11/26/23 10:35 Blood Culture - Preliminary Blood NO GROWTH 72 HOURS 11/26/23 13:43 Surgical Culture - Preliminary Toe - Right Second Digit Staphylococcus Aureus Gram Positive Palak,Mixed Pseudomonas aeruginosa 11/26/23 14:02 Surgical Culture - Preliminary Toe - Right Second Digit Staphylococcus Aureus Pseudomonas aeruginosa Gram Positive Palak,Mixed 11/26/23 13:43 Anaerobic Culture - Preliminary Toe - Right Second Digit 11/26/23 14:02 Anaerobic Culture - Preliminary Bone - Right Second Digit PFSH All Active Problems Acute osteomyelitis of right foot (Acute) Diabetic ulcer of right foot (Acute) Diabetic neuropathy (Acute) Amputation toe (Acute) Corns and callosities (Acute) Osteomyelitis of left foot (Acute) Diabetic infection of left foot (Acute) Diabetic infection of right foot (Acute) Foot infection (Acute) Cellulitis (Acute) Foot ulcer, left (Acute) Routine general medical examination at a health care facility (Acute) Colonoscopy refused (Acute) Diabetes mellitus (Chronic) Low HDL (under 40) (Acute 09/13/17) Essential hypertension (Acute 05/09/13) Elevated fasting blood sugar (Acute 08/28/15) Dyslipidemia (Acute 05/17/13) PCEq 12.6%; declines statins Family History Mother Stroke Father Stroke Heart disease Social History Smoking/Tobacco Use Status: Never Smoking risk assessment performed?: Yes Alcohol Intake: never Counseling given: No Drug use: Never Caregiver/Support person: No Household members: none Housing: house Number of Children: 0 Communication Needs: Corrective Lenses Education Level: college Details: CCV Do you need help understanding health information?: Rarely Pets and animals: Yes Do you think of yourself as: straight/heterosexual Current gender identity: male and decline to answer What is your relationship status?: refused to answer How often do you talk on the phone with friends or family?: decline to answer How often do you get together with friends or relatives?: decline to answer How often do you attend methodist or presybeterian services?: decline to answer Do you belong to any clubs or organized social groups?: decline to answer Panel score (0-1 are the most socially isolated patients): 0 What type of physical activity do you participate in: walking and other Details: moving pellets Duration: > 90 minutes/day Frequency: daily Special maría needs: No Seatbelt use: always Drive intox or ride w/intox jitney driver: No Working smoke detector in home: No Fire extinguisher in home: Yes Carbon monox detector in home: No Do you feel safe at home: Yes Time Spent with Patient Time Spent with Patient: <45 minutes Time was spent: preparing to see the patient(eg.review tests), obtaining and/or reviewing separately otained hiistory, ordering medications,tests, procedures, referring, communicating with other health career technology teacher, indepentently interpreting results, counseling the patient and care coordination
--- NOTE | 2023-11-30 09:35 | PDOC.CMDIS ---
Date of service: 11/30/23 Time of Service: 09:35 LACE Index Scoring Tool Questions: Length of Stay (in days): 4 - 6 Was the patient admitted via the E.D.?: Yes Comorbidities: Diabetes w/o Complication E.D. Visits: 1 Answers: Total Score: 9 Risk of Readmission: Low Risk Care Management Discharge Plan Reason for Hospitalization: Acute osteomyelitis of right foot Discharge Plan: Garry will return home with no new services. He will be driven home via private vehicle by family and will follow up with his PCP and discharge plan of care. Patient/Family Education Needs: Review discharge instructions and limitations, discussion of self care needs including ask me three. SDOH Health Related Social Needs: No Data to Display
== END 2023-11-30 13:04 | disposition home or self-care (01) | DRG 617 ==
LOC: ER 12:48 → MS 16:48 → ER 11-27 20:50 → SUR 11-27 20:50 → MS 11-27 20:50
PROVIDERS: Family Medicine; Podiatrist; Admitting Provider Internal Medicine; Emergency Provider Registered Nurse Emergency; PCP Nurse Practitioner; Visit Provider Student in an Organized Health Care Education/Training Program
PROC: 0Y6R0Z0 Detachment at Right 2nd Toe, Complete, Open Approach (ICD-10-PCS; CPT 28820; principal; 2023-11-26 12:55)
PROC: 0QBL0ZZ Excision of Right Tarsal, Open Approach (ICD-10-PCS; CPT 13132; principal; 2023-11-28 09:00)
DX: E11.628 Type 2 diabetes mellitus with other skin complications (principal); L02.611 Cutaneous abscess of right foot; L03.116 Cellulitis of left lower limb; M86.171 Other acute osteomyelitis, right ankle and foot; E11.621 Type 2 diabetes mellitus with foot ulcer; L97.514 Non-pressure chronic ulcer of other part of right foot with necrosis of bone; E11.42 Type 2 diabetes mellitus with diabetic polyneuropathy; B95.61 Methicillin susceptible Staphylococcus aureus infection as the cause of diseases classified elsewhere; B96.5 Pseudomonas (aeruginosa) (mallei) (pseudomallei) as the cause of diseases classified elsewhere; B95.7 Other staphylococcus as the cause of diseases classified elsewhere; E78.5 Hyperlipidemia, unspecified; I10 Essential (primary) hypertension; M20.42 Other hammer toe(s) (acquired), left foot; M20.41 Other hammer toe(s) (acquired), right foot
CPT/HCPCS: 28820; 10061; 13132; 00123; 36415; 36416; 80048; 80053; 82550; 82962; 85027; 85652; 87040; 87077; 87641; 96365; 96367; 96368; 97110; 97161; 97530; 99285; J1650; 73630; 73700; 80202; 83605; 83735; 85025; 86140; 87070; 87075; 87186; 87205; 99222; 99232; 99233; 99238; J0690; J0692; J0878; J1815; J2250; J2405; J2543; J2704; J3372

== ENCOUNTER 2024-04-03 01:53 | Outpatient (CLI) | payer OTHER, MEDICARE, SELFPAY ==
[2024-04-03 07:18] LABS: Abs Immature Grans 0.01 10^3/uL (0.0-0.06); Absolute Basophil Count 0.03 10^3/uL (0.0-0.2); Absolute Eosinophil Count 0.16 10^3/uL (0.0-0.7); Absolute Lymphocyte Count 1.84 10^3/uL (1.2-3.4); Absolute Monocyte Count 0.63 10^3/uL (0.1-0.8); Absolute Neutrophil Count 4.48 10^3/uL (1.2-6.7); Basophils % 0.4 %; Eosinophils % 2.2 %; HCT 44.2 % (40.0-50.0); Immature Grans % 0.1 %; Lymphocytes % 25.7 %; MCH 30.3 pg (27.0-33.0); MCHC 33.9 % (32.0-36.0); MCV 89 fL (80-95); MPV 10.4 fL (8.0-11.0); Monocytes % 8.8 %; Neutrophils % 62.8 %; Platelet Count 155 10^3/uL (130-400); RBC 4.95 10^6/uL (4.36-5.78); RDW 13.5 % (11.8-14.1); RDW-SD 44.1 fL; WBC 7.15 10^3/uL (4.4-10.8)
[2024-04-03 07:54] LABS: Hemoglobin A1C 5.9 % (<5.7)
[2024-04-03 07:58] LABS: ALT 20 U/L (16-63); AST 15 U/L (15-37); Albumin 3.8 g/dL (3.4-5.0); Alkaline Phosphatase 64 U/L (46-116); Anion Gap 7.9 mmol/L (3-11); BUN 17 mg/dL (7-18); Bilirubin, Total 0.42 mg/dL (0.2-1.0); CO2 29.1 mmol/L (21.0-32.0); CREATININE 0.8 mg/dL (0.70-1.30); Calcium 9.6 mg/dL (8.5-10.1); Chloride 105 mmol/L (98-107); Glucose 113 mg/dL (74-106); Potassium 4.6 mmol/L (3.5-5.1); Sodium 142 mmol/L (136-145); Total Protein 7.4 g/dL (6.4-8.2)
== END 2024-04-03 01:54 | disposition home or self-care (01) ==
LOC: LBO 01:54
PROVIDERS: PCP Nurse Practitioner; Referring Provider Nurse Practitioner; Visit Provider Nurse Practitioner
DX: E11.9 Type 2 diabetes mellitus without complications (principal); I10 Essential (primary) hypertension; S98.139A Complete traumatic amputation of one unspecified lesser toe, initial encounter
CPT/HCPCS: 36415; 80053; 83036; 85025

== ENCOUNTER 2024-04-09 09:24 | Emergency (ER) | payer OTHER, MEDICARE, SELFPAY ==
[2024-04-09] VITALS (100 sets, daily range): BP systolic 123–165; BP diastolic 66–97; PULSE 52–73; RESP 9–28; TEMP 36; O2SAT 95–99
--- NOTE | 2024-04-09 09:15 | RT.EKG_ITS ---
APPROVED REPORT Exam: Resting ECG Reason for Exam: syncopal episode Patient Location: E HR:57 bpm ECG Measurements Heart Rate 57 AXIS MS 197 P 47 QRSd 98 QRS 47 QT 402 T 51 QTc 392 Conclusion Sinus bradycardia...rate< 60 Anterior infarct, old...Q >40mS, abnormal ST-T, V2-V5 sinus normal axis, normal intervals, non ischemic
[2024-04-09 10:28] LABS: Abs Immature Grans 0.03 10^3/uL (0.0-0.06); Absolute Basophil Count 0.03 10^3/uL (0.0-0.2); Absolute Eosinophil Count 0.09 10^3/uL (0.0-0.7); Absolute Monocyte Count 0.69 10^3/uL (0.1-0.8); Absolute Neutrophil Count 7.19 10^3/uL (1.2-6.7); Basophils % 0.3 %; HCT 47.5 % (40.0-50.0); HGB 15.7 g/dL (13.5-17.5); Immature Grans % 0.3 %; Lymphocytes % 14.8 %; MCH 29.9 pg (27.0-33.0); MCHC 33.1 % (32.0-36.0); MCV 91 fL (80-95); Monocytes % 7.3 %; Neutrophils % 76.3 %; Platelet Count 198 10^3/uL (130-400); RBC 5.25 10^6/uL (4.36-5.78); RDW 13.6 % (11.8-14.1); RDW-SD 45.4 fL; WBC 9.43 10^3/uL (4.4-10.8)
[2024-04-09 10:45] LABS: ALT 19 U/L (16-63); AST 17 U/L (15-37); Albumin 4.4 g/dL (3.4-5.0); Alkaline Phosphatase 72 U/L (46-116); Anion Gap 7.2 mmol/L (3-11); BUN 20 mg/dL (7-18); Bilirubin, Total 0.44 mg/dL (0.2-1.0); CO2 28.8 mmol/L (21.0-32.0); CREATININE 0.9 mg/dL (0.70-1.30); Calcium 10.2 mg/dL (8.5-10.1); Chloride 102 mmol/L (98-107); Estimated GFR 93.03 (mL/min/1.73m2); Glucose 107 mg/dL (74-106); Magnesium 2.1 mg/dL (1.8-2.4); Sodium 138 mmol/L (136-145); Total Protein 8.4 g/dL (6.4-8.2); Troponin I < 50 ng/L (< or =60)
[2024-04-09 11:24] LABS: Bilirubin Negative (Negative); Blood Negative (Negative); Clarity Clear (Clear); Glucose Negative (Negative); Ketones Negative (Negative); Leukocyte Esterase Negative (Negative); Nitrite Negative (Negative); Urobilinogen 0.2 mg/dL (Up to 0.2); pH 5.5 (5-8)
[2024-04-09 11:24] LABS: D-Dimer 735 ng/mlFEU (<500)
--- NOTE | 2024-04-09 11:30 | DI.CT_ITS ---
Exam(s) CT CHEST PE CTA EXAM: CT CHEST PE CTA CLINICAL HISTORY: Syncope, elevated D-dimer. TECHNIQUE: Imaging Protocol: CT angiography of the chest was performed using pulmonary embolus carline col. Multi planar reconstructions were performed. CONTRAST MATERIAL: Intravenous: Omnipaque 350 Contrast volume: 100 cc COMPARISON: No exams were available for comparison FINDINGS: CHEST: PULMONARY ARTERIES: There are no intraluminal filling defects to suggest acute pulmonary emboli. LUNGS: There are no confluent infiltrates nor evidence of pulmonary infarction.. There are no pleural effusions. MEDIASTINUM: There is no hilar nor mediastinal adenopathy. Visualized thyroid unremarkable. CARDIAC: Heart size is upper normal. There is no pericardial effusion.Caliber of the thoracic aorta is within normal limits. No evidence of dissection. There is no significant shift of the interventr icular septum. PARTIALLY VISUALIZED UPPERMOST ABDOMEN: No obvious findings OSSEOUS: No significant osseous lesions.There are no fractures evident.. IMPRESSION: 1. No evidence of acute pulmonary emboli. No evidence of pulmonary infarction.No pleural effusions. No confluent infiltrates 2. No evidence of thoracic aortic dissection. No pericardial effusion Called by myself to ER provider 04/09/2024 1:30 p.m. RADIATION DOSE DELIVERED: 218.21mGy.cm Total DLP DATA REPOSITORY: All CT scans at this facility are submitted to the National Radiology Data Registry (NRDR) Dose Index Registry (DIR) with the [employer] (ACR). RADIATION OPTIMIZATION: All CT scans at this facility use at least one of these dose optimization te chniques: automated exposure control; mA and/or kV adjustment per patient size (includes targeted exa ms where dose is matched to clinical indication); or iterative reconstruction.
--- NOTE | 2024-04-09 12:15 | DI.CT_ITS ---
Exam(s) CT HEAD WO EXAM: CT HEAD WO CLINICAL HISTORY: Syncope. TECHNIQUE: Imaging Protocol: Axial computed tomography images with coronal and sagittal reformatted images were created and reviewed COMPARISON: No exams were available for comparison FINDINGS: There are no skull fractures. There is no fluid in the visualized paranasal sinuses. Symmetrical prominent cerumen noted in both external auditory canals There is no evidence of intracranial hemorrhage, mass effect, or shift of midline structures. There are no extra-axial fluid collections. The ventricles are not enlarged or shifted and there is no blo od within the ventricular system nor within the basal cisterns. There are 2 areas of nonacute appearing appearing infarction in the right cerebellar hemisphere. No other areas of infarction noted. There is some mild bilateral periventricular hypodensity consistent with chronic small vessel disease. IMPRESSION: Previous nonacute appearing right cerebellar infarcts evident. Chronic small vessel disease white matter changes but without obvious acute territorial infarct. Clinically indicated follow-up MRI can be performed Called by myself to ER provider 04/09/2024 1:05 p.m. RADIATION DOSE DELIVERED: 906.99mGy.cm Total DLP DATA REPOSITORY: All CT scans at this facility are submitted to the National Radiology Data Registry (NRDR) Dose Index Registry (DIR) with the [employer] (ACR). RADIATION OPTIMIZATION: All CT scans at this facility use at least one of these dose optimization te chniques: automated exposure control; mA and/or kV adjustment per patient size (includes targeted exa ms where dose is matched to clinical indication); or iterative reconstruction.
[2024-04-09] MEDS: Normal Saline - Diluent 50 ML VIAL IJ (12:45)
[2024-04-09] MEDS: Omnipaque 350 MG/ML 100 ML BTL IJ (12:46)
--- NOTE | 2024-04-09 13:30 | DI.MRI_ITS ---
Exam(s) MR BRAIN WO EXAM: MR BRAIN WO CLINICAL HISTORY: Syncope. TECHNIQUE: Multiplanar multisequence MRI of the brain was performed. CONTRAST MATERIAL: IV Contrast: ML of Dotarem contrast administered. COMPARISON: CT CT HEAD WO from 04/09/2024 FINDINGS: VENTRICLES AND EXTRA AXIAL SPACES: Normal in size and morphology for the patient's age. HEMORRHAGE: None. CEREBRAL PARENCHYMA: No focus of restricted diffusion to suggest acute infarct. No space-occupying le juancarlos identified. Atrophy, somewhat disproportionate to the patient's age. White matter changes smal l vessel disease. MIDLINE SHIFT: None. BRAINSTEM/CEREBELLUM: Old infarcts right cerebellar hemisphere. CALVARIUM: Normal. ENHANCEMENT: No suspicious enhancement identified. VISUALIZED PARANASAL SINUSES/MASTOIDS: Clear. Orbits: Unremarkable. Pituitary: Incidental empty sella. Vasculature: Normal flow voids. IMPRESSION: Old right cerebellar infarct. No evidence of acute infarct. Atrophy and white matter changes of sma ll vessel disease. DATA REPOSITORY:
[2024-04-09 13:31] LABS: Troponin I < 50 ng/L (< or =60)
--- NOTE | 2024-04-09 13:45 | DI.MRI_ITS ---
Exam(s) MR ANGIO BRAIN WO CLINICAL HISTORY: Syncope. TECHNIQUE: 3D [id number] study was performed without contrast. COMPARISON: None. FINDINGS: Carotid Arteries: Petrous: Normal. Cavernous: Normal. Cerebral: Normal. Middle Cerebral Arteries: Right: No aneurysm or significant stenosis. Left: No aneurysm or significant stenosis. Anterior Cerebral Arteries: Right: No aneurysm or significant stenosis. Left: No aneurysm or significant stenosis. Posterior cerebral arteries: Right: No aneurysm or significant stenosis Left: No aneurysm or significant stenosis Vertebral Arteries: Right: No aneurysm or significant stenosis. No dissection. Left: No aneurysm or significant stenosis. No dissection.. Basilar Artery: No aneurysm or significant stenosis. Small Vessels: No evidence of beading. IMPRESSION: Normal MRA examination of the [place]. DATA REPOSITORY:
--- NOTE | 2024-04-09 13:45 | DI.MRI_ITS ---
Exam(s) MR ANGIO NECK WO EXAM: MR ANGIO NECK WO CLINICAL HISTORY: Syncope. TECHNIQUE: 2D and 3D [id number] MRA of the Neck was performed. COMPARISON: No exams were available for comparison FINDINGS: Common Carotid: Right: No dissection, occlusion or significant stenosis. Left: No dissection, occlusion or significant stenosis. External Carotid: Right: No evidence of occlusion or significant stenosis. Left: No evidence of occlusion or significant stenosis. Internal Carotid: Right: No dissection, occlusion or significant stenosis. Left: No dissection, occlusion or significant stenosis. Vertebral Artery: Right: No dissection, occlusion or significant stenosis. Left: No dissection, occlusion or significant stenosis. The visualized paraspinal soft tissues are unremarkable. IMPRESSION: No evidence of dissection, occlusion or significant stenosis. DATA REPOSITORY:
--- NOTE | 2024-04-09 14:20 | ED.GENADUL_ITS ---
Discharge Plan Discharge Details Chief Complaint: [id number] Primary Care Provider: Soni Ortega ED Provider: Chau Ignacio Home Meds and New Rx's Prescriptions: No Action (DME) lancets Misc 1 ea Miscellaneous BID Qty: 200 6RF Rx Instructions: Monitor BSs BID (DME) Accu-Chek Harmony Plus test strp Strip 1 ea Miscellaneous BID Qty: 200 6RF Rx Instructions: Diabetes. Check BID/PRN (DME) blood-glucose meter Misc Miscellaneous DAILY Qty: 1 0RF Rx Instructions: As directed MediHoney (honey) 80 % gel 1 applic topical DAILY Qty: 44 0RF ketoconazole 2 % cream 1 applic topical DAILY Qty: 120 6RF Rx Instructions: Apply to toenails once daily hydrochlorothiazide 12.5 mg tablet 12.5 mg PO DAILY Qty: 90 4RF losartan 100 mg tablet 100 mg PO DAILY Qty: 90 3RF metformin 500 mg tablet extended release 24 hr 1,000 mg PO DAILY Qty: 180 3RF HPI General Mode of arrival: ambulatory . Date/Time Provider Initiated Documentation: 04/09/24 09:24 . Limitations to Documentation: no limitations . Information obtained by: patient and RN notes reviewed . History of Present Illness 68 year old M presents to the emergency department with the chief complaint of Syncope, described as similar to prior episodes, Patient started experiencing this hour(s) (1) and it has been now resolved. No relieving factors improve symptom(s), No exacerbating factors reported . Patient did receive the following treatments prior to arrival, none Related Data Home Medications ?Medication ?Instructions ?Recorded ?Confirmed blood sugar diagnostic (Accu-Chek #200 strips 04/08/21 04/09/24 Harmony Plus test strips) blood-glucose meter #1 ea 04/08/21 04/09/24 lancets #200 ea 04/08/21 04/09/24 hydrochlorothiazide 12.5 mg tablet 12.5 mg PO DAILY #90 tab-caps 04/19/23 04/09/24 losartan 100 mg tablet 100 mg PO DAILY #90 tab-caps 04/19/23 04/09/24 metformin 500 mg tablet,extended 1,000 mg (2 x 500 mg) PO DAILY 04/19/23 04/09/24 release 24 hr #180 tab-caps honey 80 % topical gel (MediHoney 1 applic topical DAILY #44 mL 12/26/23 04/09/24 (honey)) ketoconazole 2 % topical cream 1 applic topical DAILY #120 grams 02/13/24 04/09/24 Previous Rx's ?Medication ?Instructions ?Recorded blood sugar diagnostic (Accu-Chek #200 strips 04/08/21 Harmony Plus test strips) blood-glucose meter #1 ea 04/08/21 lancets #200 ea 04/08/21 hydrochlorothiazide 12.5 mg tablet 12.5 mg PO DAILY #90 tab-caps 04/19/23 losartan 100 mg tablet 100 mg PO DAILY #90 tab-caps 04/19/23 metformin 500 mg tablet,extended 1,000 mg (2 x 500 mg) PO DAILY 04/19/23 release 24 hr #180 tab-caps honey 80 % topical gel (MediHoney 1 applic topical DAILY #44 mL 12/26/23 (honey)) ketoconazole 2 % topical cream 1 applic topical DAILY #120 grams 02/13/24 Allergies Allergy/AdvReac Type Severity Reaction Status Date / Time Penicillins Allergy Hives Verified 04/09/24 09:30 lisinopril AdvReac Unknown Cough and Verified 04/09/24 09:30 light headed metoprolol AdvReac Unknown palpitation Verified 04/09/24 09:30 s General Stated Complaint: [id number] DAYNA: 3 Review of Systems Constitutional Constitutional: Denies headache(s), Denies malaise and Denies weakness Eyes Eyes: Denies loss of vision ENT Ears, Nose, Mouth, and Throat: Reports dizziness and Denies headache(s) Cardiovascular Cardiovascular: Denies chest pain, Reports syncope and Denies dyspnea Respiratory Respiratory: Denies dyspnea Gastrointestinal Gastrointestinal: Denies nausea and Denies vomiting Neurologic Neurologic: Reports as per HPI, Reports dizziness, Reports syncope, Denies headache(s), Denies localized weakness, Denies loss of vision, Denies memory loss, Denies sensory deficit, Denies paresthesias and Denies weakness Psychiatric Psychiatric: Denies memory loss Exam Const General: cooperative and no acute distress Orientation: alert, awake and oriented x3 HENMT Head: normal to inspection Ears: hearing grossly normal bilaterally Mouth: oral mucosae normal and moist mucous membranes Eyes Visual Boucher: normal visual boucher by confrontation Alignment and Position: alignment normal Periorbital: periorbital findings normal Eyelids: eyelids normal Sclera: sclerae normal Pupils: PERRL EOM: EOM intact bilaterally Neck Neck: normal visual inspection, full ROM and no meningeal signs Carotids: normal carotid upstroke and no bruits Chest Chest: normal inspection of the chest Resp Effort & Inspection: normal respiratory effort and able to speak in complete sentences Auscultation: clear to auscultation bilaterally Cardio Jugular venous pressure: no JVD Palpation: normal PMI Rate: regular rate Rhythm: regular rhythm Heart Sounds: S1 normal and S2 normal Bruits: no carotid bruits Neuro General: patient alert, patient awake, patient oriented x3, gait normal, tone normal, moves all extremities, CN's II-XI intact bilaterally and not confused Cognition: normal cognition Speech: speech normal Motor: muscle tone normal throughout, strength 5/5 throughout, no pronator drift, no movement abnormalities noted and no fasciculations Sensory Exam: no sensory deficits noted Coordination: [id number] test normal and rapid alternating movement UE normal Course Vital Signs Vital signs: Vital Signs Temperature 36.0 C L 04/09/24 09:25 Pulse 65 04/09/24 09:25 Respiratory Rate 16 04/09/24 09:25 Blood Pressure 126/72 04/09/24 09:25 Pulse Oximetry 99 04/09/24 09:25 Temperature 36.0 C L 04/09/24 09:25 Temperature Source Skin 04/09/24 09:25 Pulse 69 04/09/24 12:35 Pulse 71 04/09/24 13:00 Respiratory Rate 14 04/09/24 13:00 Respiratory Effort Normal, Non-Labored 04/09/24 10:39 Respiratory Depth Normal 04/09/24 10:39 Respiratory Pattern Normal 04/09/24 10:39 Blood Pressure 164/81 H 04/09/24 12:35 Blood Pressure Mean 106 04/09/24 12:35 Blood Pressure Position Sitting 04/09/24 09:25 Pulse Oximetry 99 04/09/24 13:00 Oxygen Delivery Method Room Air 04/09/24 09:25 Oxygen Flow Rate 0 04/09/24 09:25 Pain Level 0 04/09/24 09:25 Lab/Test Results Lab/Test Results: Laboratory Tests Range/Units 08/26/24 08/26/24 08/26/24 10:20 10:42 11:18 WBC (4.4-10.8) 10^3/uL 9.43 RBC (4.36-5.78) 10^6/uL 5.25 Hgb (13.5-17.5) g/dL 15.7 Hct (40.0-50.0) % 47.5 MCV (80-95) fL 91 MCH (27.0-33.0) pg 29.9 MCHC (32.0-36.0) % 33.1 RDW (11.8-14.1) % 13.6 Plt Count (130-400) 10^3/uL 198 MPV (8.0-11.0) fL 10.0 Immature Gran % % 0.3 Neutrophils % % 76.3 Lymphocytes % % 14.8 Monocytes % % 7.3 Eosinophils % % 1.0 Basophils % % 0.3 Nucleated RBC % (0.0-0.3) % 0.0 Absolute Neutrophils (1.2-6.7) 10^3/uL 7.19 H Absolute Lymphocytes (1.2-3.4) 10^3/uL 1.40 Absolute Monocytes (0.1-0.8) 10^3/uL 0.69 Absolute Eosinophils (0.0-0.7) 10^3/uL 0.09 Absolute Basophils (0.0-0.2) 10^3/uL 0.03 D-Dimer Cancelled 735 H Sodium (136-145) mmol/L 138 Potassium (3.5-5.1) mmol/L 4.0 Chloride (98-107) mmol/L 102 Carbon Dioxide (21.0-32.0) mmol/L 28.8 Anion Gap (3-11) mmol/L 7.2 BUN (7-18) mg/dL 20 H Creatinine (0.70-1.30) mg/dL 0.9 Est GFR (CKD-EPI 2020) (mL/min/1.73m2) 93.03 Glucose (74-106) mg/dL 107 H Calcium (8.5-10.1) mg/dL 10.2 H Magnesium (1.8-2.4) mg/dL 2.1 Total Bilirubin (0.2-1.0) mg/dL 0.44 AST (15-37) U/L 17 ALT (16-63) U/L 19 Alkaline Phosphatase (46-116) U/L 72 Troponin I (< or =60) ng/L < 50 Total Protein (6.4-8.2) g/dL 8.4 H Albumin (3.4-5.0) g/dL 4.4 Urine Color (Yellow) Yellow Urine Clarity (Clear) Clear Urine pH (5-8) 5.5 Ur Specific [place] (1.005-1.025) 1.020 Urine Protein (Neg-Trace) mg/dL Negative Urine Ketones (Negative) mg/dL Negative Urine Blood (Negative) Negative Urine Nitrite (Negative) Negative Urine Bilirubin (Negative) Negative Urine Urobilinogen (Up to 0.2) mg/dL 0.2 Ur Leukocyte Esterase (Negative) Negative Urine Glucose (Negative) mg/dL Negative Range/Units 04/09/24 13:05 WBC (4.4-10.8) 10^3/uL RBC (4.36-5.78) 10^6/uL Hgb (13.5-17.5) g/dL Hct (40.0-50.0) % MCV (80-95) fL MCH (27.0-33.0) pg MCHC (32.0-36.0) % RDW (11.8-14.1) % Plt Count (130-400) 10^3/uL MPV (8.0-11.0) fL Immature Gran % % Neutrophils % % Lymphocytes % % Monocytes % % Eosinophils % % Basophils % % Nucleated RBC % (0.0-0.3) % Absolute Neutrophils (1.2-6.7) 10^3/uL Absolute Lymphocytes (1.2-3.4) 10^3/uL Absolute Monocytes (0.1-0.8) 10^3/uL Absolute Eosinophils (0.0-0.7) 10^3/uL Absolute Basophils (0.0-0.2) 10^3/uL D-Dimer Sodium (136-145) mmol/L Potassium (3.5-5.1) mmol/L Chloride (98-107) mmol/L Carbon Dioxide (21.0-32.0) mmol/L Anion Gap (3-11) mmol/L BUN (7-18) mg/dL Creatinine (0.70-1.30) mg/dL Est GFR (CKD-EPI 2020) (mL/min/1.73m2) Glucose (74-106) mg/dL Calcium (8.5-10.1) mg/dL Magnesium (1.8-2.4) mg/dL Total Bilirubin (0.2-1.0) mg/dL AST (15-37) U/L ALT (16-63) U/L Alkaline Phosphatase (46-116) U/L Troponin I (< or =60) ng/L < 50 Total Protein (6.4-8.2) g/dL Albumin (3.4-5.0) g/dL Urine Color (Yellow) Urine Clarity (Clear) Urine pH (5-8) Ur Specific [place] (1.005-1.025) Urine Protein (Neg-Trace) mg/dL Urine Ketones (Negative) mg/dL Urine Blood (Negative) Urine Nitrite (Negative) Urine Bilirubin (Negative) Urine Urobilinogen (Up to 0.2) mg/dL Ur Leukocyte Esterase (Negative) Urine Glucose (Negative) mg/dL Medical Decision Making Patient presenting to the emergency department for chief complaint of syncope. Approximately 1 hour prior to arrival patient states that he was at work and had syncopal episode. He states he was standing up already and had no position change, did have some dizziness and then woke up on the floor. Patient denies all other symptoms. Does state that similar occurrence happened a couple years ago and was worked up for it and had no findings at that time. Patient does have significant contributing past medical history of vascular disease, diabetes, hypertension. Physical exam shows normal neurological exam with no obvious findings, normal cardiac and respiratory exam. Given patient's age, medical history and syncopal episode without obvious cause we will plan on performing cardiac workup along with CT imaging of the head given previous episode. Given that patient is otherwise asymptomatic we will hold off on any treatments. Please see physician interpretation for full interpretation of EKG but upon my review patient has slight bradycardia with a rate of 57 otherwise nondiagnostic EKG with no findings to suggest acute STEMI. Reviewed patient's labs and CBC is unremarkable and no significant anemia, D- dimer is slightly elevated at 735 so we will perform CTA chest, CMP is nondiagnostic, urinalysis is negative. CT imaging chest showed no PE dissection or other emergent findings. Patient negative troponin x 2, and CT head did show possible old cerebellar infarct without any other acute findings. Given patient's dizziness and syncopal episode with old cerebellar infarct and no other explanation will perform MRI imaging to further evaluate any acute findings. Patient remained stable in the emergency department with no new or worsening symptoms. Imaging Data Radiologic Study: Imaging: CT Scan Radiologist's impression: Exam(s) a CT:CT chest PE CTA Exam(s) CT CHEST PE CTA EXAM: CT CHEST PE CTA CLINICAL HISTORY: Syncope, elevated D-dimer. TECHNIQUE: Imaging Protocol: CT angiography of the chest was performed using pulmonary embolus protocol. Multi planar reconstructions were performed. CONTRAST MATERIAL: Intravenous: Omnipaque 350 Contrast volume: 100 cc COMPARISON: No exams were available for comparison FINDINGS: CHEST: PULMONARY ARTERIES: There are no intraluminal filling defects to suggest acute pulmonary emboli. LUNGS: There are no confluent infiltrates nor evidence of pulmonary infarction.. There are no pleural effusions. MEDIASTINUM: There is no hilar nor mediastinal adenopathy. Visualized thyroid unremarkable. CARDIAC: Heart size is upper normal. There is no pericardial effusion.Caliber of the thoracic aorta is within normal limits. No evidence of dissection. There is no significant shift of the interventricular septum. PARTIALLY VISUALIZED UPPERMOST ABDOMEN: No obvious findings OSSEOUS: No significant osseous lesions.There are no fractures evident.. IMPRESSION: 1. No evidence of acute pulmonary emboli. No evidence of pulmonary infarction.No pleural effusions. No confluent infiltrates 2. No evidence of thoracic aortic dissection. No pericardial effusion Radiologic Study #2: Imaging: CT Scan Radiologist's impression: Exam(s) a CT:CT head wo Exam(s) CT HEAD WO EXAM: CT HEAD WO CLINICAL HISTORY: Syncope. TECHNIQUE: Imaging Protocol: Axial computed tomography images with coronal and sagittal reformatted images were created and reviewed COMPARISON: No exams were available for comparison FINDINGS: There are no skull fractures. There is no fluid in the visualized paranasal sinuses. Symmetrical prominent cerumen noted in both external auditory canals There is no evidence of intracranial hemorrhage, mass effect, or shift of midline structures. There are no extra-axial fluid collections. The ventricles are not enlarged or shifted and there is no blood within the ventricular system nor within the basal cisterns. There are 2 areas of nonacute appearing appearing infarction in the right cerebellar hemisphere. No other areas of infarction noted. There is some mild bilateral periventricular hypodensity consistent with chronic small vessel disease. IMPRESSION: Previous nonacute appearing right cerebellar infarcts evident. Chronic small vessel disease white matter changes but without obvious acute territorial infarct. Clinically indicated follow-up MRI can be performed Lab Data Lab results reviewed: Yes I reviewed the patient's lab results. Quality:SDOH Health Related Social Needs: No Data to Display PFSH All Active Problems Nail dystrophy (Acute) Onychomycosis (Acute) Plantar verruca (Acute) Ulcer of left foot, limited to breakdown of skin (Acute) Ulcer of right foot with fat layer exposed (Acute) Acute osteomyelitis of right foot (Acute) Diabetic neuropathy (Acute) Amputation toe (Acute) Corns and callosities (Acute) Osteomyelitis of left foot (Acute) Diabetic infection of left foot (Acute) Foot infection (Acute) Cellulitis (Acute) Foot ulcer, left (Acute) Routine general medical examination at a health care facility (Acute) Colonoscopy refused (Acute) Diabetes mellitus (Chronic) Low HDL (under 40) (Acute 09/13/17) Essential hypertension (Acute 05/09/13) Elevated fasting blood sugar (Acute 08/28/15) Dyslipidemia (Acute 05/17/13) PCEq 12.6%; declines statins Family History Mother Stroke Father Stroke Heart disease Social History Smoking/Tobacco Use Status: Never Smoking risk assessment performed?: Yes Alcohol Intake: never Counseling given: No Drug use: Never Caregiver/Support person: No Household members: none Housing: house Number of Children: 0 Communication Needs: Corrective Lenses Education Level: college Details: CCV Do you need help understanding health information?: Rarely Pets and animals: Yes Do you think of yourself as: straight/heterosexual Current gender identity: male and decline to answer What is your relationship status?: refused to answer How often do you talk on the phone with friends or family?: decline to answer How often do you get together with friends or relatives?: decline to answer How often do you attend muslim or yazdanism services?: decline to answer Do you belong to any clubs or organized social groups?: decline to answer Panel score (0-1 are the most socially isolated patients): 0 What type of physical activity do you participate in: walking and other Details: moving pellets Duration: > 90 minutes/day Frequency: daily Special maría needs: No Seatbelt use: always Drive intox or ride w/intox seasonal driver: No Working smoke detector in home: No Fire extinguisher in home: Yes Carbon monox detector in home: No Do you feel safe at home: Yes Sign Out Sign Out Data: Sign Out Comment: Patient signed out pending results of MRI imaging and disposition Last updated by Chau Ignacio NP at 04/09/24 15:38
== END 2024-04-09 17:11 | disposition home or self-care (01) ==
PROVIDERS: Nurse Practitioner Family; Emergency Provider Physician Assistant; PCP Nurse Practitioner
DX: R55 Syncope and collapse (principal); E11.40 Type 2 diabetes mellitus with diabetic neuropathy, unspecified; Z79.84 Long term (current) use of oral hypoglycemic drugs; Z79.899 Other long term (current) drug therapy; I10 Essential (primary) hypertension; Z86.79 Personal history of other diseases of the circulatory system; R79.1 Abnormal coagulation profile
CPT/HCPCS: 36415; 70544; 70547; 71275; 80053; 93005; 99285; 70450; 70551; 81003; 83735; 84484; 85025; 85379; 93010; J3490

== ENCOUNTER 2024-05-02 12:07 | Outpatient (REF) | payer OTHER, MEDICARE, SELFPAY | END 2024-05-02 12:08 | disposition home or self-care (01) | LOC: LBN 12:07 | PROVIDERS: PCP Nurse Practitioner; Visit Provider Podiatrist | DX: L97.521 Non-pressure chronic ulcer of other part of left foot limited to breakdown of skin; E11.42 Type 2 diabetes mellitus with diabetic polyneuropathy; S98.139A Complete traumatic amputation of one unspecified lesser toe, initial encounter; L84 Corns and callosities; S90.822A Blister (nonthermal), left foot, initial encounter; M67.01 Short Achilles tendon (acquired), right ankle; M67.02 Short Achilles tendon (acquired), left ankle; Q66.72 Congenital pes cavus, left foot; Q66.71 Congenital pes cavus, right foot | CPT/HCPCS: 87070; 87075; 87205 ==

== ENCOUNTER 2024-05-10 09:21 | Outpatient (CLI) | payer OTHER, MEDICARE, SELFPAY | END 2024-05-10 09:22 | disposition home or self-care (01) | PROVIDERS: PCP Nurse Practitioner; Visit Provider Nurse Practitioner | DX: R55 Syncope and collapse (principal) | CPT/HCPCS: 93246 ==

== ENCOUNTER 2024-05-31 07:09 | Outpatient (CLI) | payer OTHER, MEDICARE, SELFPAY ==
--- NOTE | 2024-05-31 09:23 | W.CARDEVENT ---
Date of service: 05/31/24 Time of Service: 09:23 Cardiac Event Recorder Referring Provider:: Soni Ortega Indications:: Syncope Cardiac Event Note: This is a cardiac event monitor. Patient was monitored for 12 days and 16 hours Rhythm throughout was sinus with an average heart rate of 69. Minimum was 46, maximum 140 There were very rare isolated atrial and ventricular ectopic beats There was no atrial fibrillation, no high-grade AV block, no pauses greater than 3 seconds No symptoms were reported
== END 2024-05-31 07:10 | disposition home or self-care (01) ==
LOC: CARDOPNVT 07:09
PROVIDERS: PCP Nurse Practitioner; Referring Provider Nurse Practitioner; Visit Provider Internal Medicine Cardiovascular Disease
DX: R55 Syncope and collapse (principal)

== ENCOUNTER 2025-07-02 03:34 | Outpatient (CLI) | payer OTHER, MEDICARE, SELFPAY ==
[2025-07-02 14:39] LABS: Abs Immature Grans 0.04 10^3/uL (0.0-0.06); HCT 40.3 % (40.0-50.0); HGB 13.6 g/dL (13.5-17.5); Immature Grans % 0.4 %; MCH 29.6 pg (27.0-33.0); MCHC 33.7 % (32.0-36.0); MCV 88 fL (80-95); MPV 9.9 fL (8.0-11.0); Platelet Count 211 10^3/uL (130-400); RBC 4.59 10^6/uL (4.36-5.78); RDW 13.2 % (11.8-14.1); RDW-SD 42.8 fL; WBC 9.88 10^3/uL (4.4-10.8)
[2025-07-02 14:59] LABS: Glucose Negative (Negative)
[2025-07-02 15:38] LABS: TSH (W/Ref FT4) 2.27 uIU/mL (0.55-4.78)
[2025-07-02 15:46] LABS: ALT 17 U/L (10-49); AST 18 U/L (<34); Albumin 4.3 g/dL (3.4-5.0); Alkaline Phosphatase 70 U/L (46-116); Anion Gap 9 mmol/L (3-11); BUN 21 mg/dL (9-23); Bilirubin, Total 0.30 mg/dL (0.2-1.2); CO2 25.0 mmol/L (20.0-31.0); Calcium 9.3 mg/dL (8.3-10.6); Chloride 108 mmol/L (98-107); Glucose 103 mg/dL (74-106); Potassium 4.0 mmol/L (3.5-5.1); Sodium 142 mmol/L (136-145); Total Protein 6.6 g/dL (5.7-8.2)
[2025-07-02 16:12] LABS: Hemoglobin A1C 6.0 % (<5.7)
[2025-07-03 13:59] LABS: PSA, Screening 0.4 ng/mL (<=4.5)
== END 2025-07-02 03:35 | disposition home or self-care (01) ==
LOC: LBO 03:34
PROVIDERS: PCP Nurse Practitioner; Visit Provider Family Medicine
DX: Z00.00 Encounter for general adult medical examination without abnormal findings (principal); Z12.5 Encounter for screening for malignant neoplasm of prostate; E11.9 Type 2 diabetes mellitus without complications
CPT/HCPCS: 36415; 80053; 84153; 81003; 83036; 84443; 85025